=== PATIENT | male | born 1940 | race Caucasian/White ===

== ENCOUNTER → 2023-04-15 09:18 | Outpatient (REF) | payer MEDICARE, BC, SELFPAY ==
[2023-04-15 10:24] LABS: Hematocrit 28.9 % (39.0-52.0); Hemoglobin 8.9 g/dL (13.0-18.0); Mean Corp Hgb Conc. 30.8 g/dL (33.0-37.0); Mean Corpuscular Hgb 29.4 pg (27.0-31.0); Mean Corpuscular Volume 95.4 fL (80.0-94.0); Mean Platelet Volume 12.2 fL (7.4-10.4); Platelet Count 148 10^3/uL (130-400); Red Blood Cell Count 3.03 10^6/uL (4.70-6.10); Red Cell Dist. Width 14.9 % (11.5-14.5); White Blood Cell Count 4.5 10^3/uL (4.8-10.8)
[2023-04-15 10:50] LABS: Albumin 3.5 g/dl (3.5-5.0); Blood Urea Nitrogen 22 mg/dl (9-20); Calcium 9.1 mg/dl (8.4-10.2); Carbon Dioxide 24 mmol/L (22-30); Chloride 111 mmol/L (98-107); Glucose 70 mg/dl (70-99); Iron 368 ug/dl (49-181); Phosphorus 3.3 mg/dl (2.5-4.5); Potassium 4.4 mmol/L (3.5-5.1); Sodium 138 mmol/L (135-145); eGFR 50.18
[2023-04-15 10:57] LABS: Urine Protein 96 mg/dl
[2023-04-15 10:59] LABS: Percent Saturation 74 % (20-50); Total Iron Binding Capacity 497 ug/dl (261-462)
[2023-04-17 17:10] LABS: Phospholipase A2 Receptor, IgG <1:10 (<1:10)
== END ==
LOC: REG 09:18
PROVIDERS: ATTENDING PHYSICIAN Internal Medicine; FAMILY PHYSICIAN Student in an Organized Health Care Education/Training Program
DX: R80.9 Proteinuria, unspecified (principal); D64.9 Anemia, unspecified
CPT/HCPCS: 36415; 80069; 82570; 82728; 83540; 83550; 84156; 85027; 86255

== ENCOUNTER → 2023-05-03 10:39 | Outpatient (REF) | payer MEDICARE, BC, SELFPAY ==
[2023-05-03 11:58] LABS: % Basophils 0.2 % (0-2); % Eosinophils 1.6 % (0-6); % Immature Granulocytes 0.2 % (0-0.5); % Lymphocytes 17.6 % (20.5-51.1); % Monocytes 8.2 % (1.7-9.3); % Neutrophils 72.2 % (42.2-75.2); Absolute Eosinophils 0.1 10^3/uL (0-0.7); Absolute Lymphocytes 0.8 10^3/uL (1.2-3.4); Absolute Monocytes 0.4 10^3/uL (0.1-0.6); Absolute Neutrophils 3.2 10^3/uL (1.4-6.5); Hematocrit 25.7 % (39.0-52.0); Hemoglobin 8.2 g/dL (13.0-18.0); Mean Corp Hgb Conc. 31.9 g/dL (33.0-37.0); Mean Corpuscular Volume 100.4 fL (80.0-94.0); Mean Platelet Volume 11.9 fL (7.4-10.4); Nucleated Red Blood Cells % 0 % (-); Platelet Count 146 10^3/uL (130-400); Red Blood Cell Count 2.56 10^6/uL (4.70-6.10); Red Cell Dist. Width 19.5 % (11.5-14.5); White Blood Cell Count 4.4 10^3/uL (4.8-10.8)
[2023-05-03 12:13] LABS: ALT (SGPT) 42 U/L (0-50); AST (SGOT) 75 U/L (17-59); Albumin 3.9 g/dl (3.5-5.0); Alkaline Phosphatase 67 U/L (38-126); Blood Urea Nitrogen 44 mg/dl (9-20); Calcium 9.6 mg/dl (8.4-10.2); Carbon Dioxide 21 mmol/L (22-30); Chloride 110 mmol/L (98-107); Glucose 60 mg/dl (70-99); Iron 135 ug/dl (49-181); Magnesium 2.6 mg/dl (1.6-2.3); Phosphorus 4.1 mg/dl (2.5-4.5); Sodium 138 mmol/L (135-145); Total Bilirubin 0.5 mg/dl (0.2-1.3); Total Protein 6.7 g/dl (6.3-8.2); eGFR 46.19
[2023-05-03 12:23] LABS: Percent Saturation 29 % (20-50); Total Iron Binding Capacity 454 ug/dl (261-462)
[2023-05-03 13:03] LABS: Vitamin B12 579 pg/ml (239-931)
[2023-05-03 14:11] LABS: Hepatitis B Surface Antigen Negative (Negative)
[2023-05-03 14:14] LABS: AFP Male/Tumor Marker 2.61 ng/ml
[2023-05-03 14:28] LABS: Hepatitis B Core Ab, Total Negative (Negative); Hepatitis B Surface Antibody Negative; Hepatitis C Antibody Negative (Negative)
[2023-05-03 14:31] LABS: Hepatitis A Antibody, Total Negative (Negative)
[2023-05-05 16:59] LABS: Intrinsic Factor Blocking Ab Negative (Negative)
[2023-05-05 20:44] LABS: LKM-1 Ab (IgG) 0.8 U (0.0-24.9)
[2023-05-05 20:55] LABS: Gastric Parietal Cell Ab, IgG 1.4 Units (0.0-24.9)
[2023-05-05 21:49] LABS: ANA, IgG Reflex to HEp-2 Detected (None Detected)
[2023-05-05 22:46] LABS: Alpha-1-Antitrypsin 191 mg/dL (90-200)
[2023-05-05 22:51] LABS: Transferrin 350 mg/dL (200-360)
[2023-05-05 22:55] LABS: Ceruloplasmin 26 mg/dL (15-30)
[2023-05-06 02:59] LABS: F-Actin Antibody IgG 10 Units (0-19); Mitochondrial M2 Ab, IgG 5.9 Units (0.0-24.9)
[2023-05-07 01:17] LABS: ANA, HEp-2, IgG Detected (<1:80)
[2023-05-09 07:15] LABS: ANA Pattern Speckled
== END ==
LOC: REG 10:39
PROVIDERS: ATTENDING PHYSICIAN Nurse Practitioner Adult Health; FAMILY PHYSICIAN Student in an Organized Health Care Education/Training Program; OTHER PHYSICIAN Internal Medicine; REFERRING PHYSICIAN Internal Medicine Gastroenterology
DX: E53.8 Deficiency of other specified B group vitamins (principal); D50.8 Other iron deficiency anemias; R79.89 Other specified abnormal findings of blood chemistry; I50.33 Acute on chronic diastolic (congestive) heart failure; D64.9 Anemia, unspecified
CPT/HCPCS: 36415; 80053; 82103; 82105; 82390; 82607; 82728; 83516; 83540; 83550; 83735; 84100; 84466; 85025; 86015; 86038; 86039; 86340; 86376; 86381; 86704; 86706; 86708; 86803; 87340

== ENCOUNTER 2023-05-03 17:13 | Inpatient (IN) | payer MEDICARE, BC, SELFPAY ==
[2023-05-03] VITALS (8 sets, daily range): BP systolic 107–143; BP diastolic 46–75; PULSE 54–80; BMI 35.8; BMI 34.9
[2023-05-03 13:13] LABS: NT-proBNP 1150 pg/ml
--- NOTE | 2023-05-03 15:10 | ED.GENMED ---
History of Present Illness
General
Chief Complaint: Dizziness
Source: patient and spouse
Exam Limitations: none
Time Seen by Provider: 05/03/23 14:43
Travel History
Have you had any contact with someone who has COVID-19?: No
Do you have any symptoms of coronavirus? Fever > 100 degrees, chills, cough, shortness of breath, sore throat, loss of taste or smell, muscle aches, or headache?: No
History of Present Illness
History of Present Illness:
82-year-old male progressive shortness of breath fatigue lightheadedness with exertion over the last 2 months. Much more severe this morning. Patient outpatient labs done. Came to the ER for further evaluation. Minimal symptoms at rest. Has had
dark stool but is on iron.
Past History
Past History
ED Past Medical History: HTN, Hypercholesterolemia, NIDDM, Renal failure, Hypothyroidism and Other (Prostatic hypertrophy, peripheral arterial disease)
ED Past Surgical History: Cholecystectomy, Tonsilectomy and Other
Social History
Tobacco: Non-smoker
Alcohol: None
Drug: None
Personal:
Living: with family
Employment: Retired
Family History
Family History: Other
Review of Systems
Review of Systems
All Other Systems: Not applicable
Constitutional: Denies fever
Cardiac: Denies chest pain or syncope
Phy Exam
Physical Exam
Physical Exam:
GENERAL: Alert and oriented in no apparent distress
EYE: Orbits normal.
NECK: Supple, no thyroid palpable
ENT: Pharynx without erythema
CARDIAC: Bradycardic and regular with occasional irregular beat.
LUNGS: No respiratory distress. A few dry bibasilar rales
ABDOMEN: Soft, without focal tenderness or distention. Stool dark but test positive
NEUROLOGICAL: Alert and oriented , grossly non-focal
SKIN: Warm and dry, no rash or lesion, no discoloration, skin intact.
MUSCULOSKELETAL: Moderate bilateral pitting edema
PSYCH: Normal and appropriate interaction.
Course
Orders/Labs/Results
Orders:
Orders
05/03/23 12:28
EKG [Electrocardiogram (*1)] Urgent
Reason for Study: Vertigo / Dizzy
EKG- Treatment ONCE
05/03/23 12:42
BNP [NT-proBNP] Urgent
Troponin I Urgent
Comment: ADD ON
05/03/23 14:55
CXR2 [CR Chest - 2 Views ] Urgent
Comment:
Reason For Exam: sob with exertion
05/03/23 14:56
Orthostatic VS- Treatment ONCE
05/03/23 15:00
Add On- LAB Urgent
Tests Added?: troponin
Vital Signs
Initial and Last Documented VS:
Initial Vital Signs
Temp Pulse Resp BP Pulse Ox
97.5 F 94 17 107/46 94
05/03/23 12:30 05/03/23 12:30 05/03/23 12:30 05/03/23 12:30 05/03/23 12:30
Last Documented Vital Signs
Temp Pulse Resp BP Pulse Ox
97.5 F 63 14 119/51 98
05/03/23 12:30 05/03/23 15:16 05/03/23 15:16 05/03/23 15:10 05/03/23 15:05
MDM/Problems Addressed
Differential Diagnosis Includes:
Patient with a complicated medical history including progressive anemia, occult GI bleed, known coronary disease treated medically. Progressive symptoms that could be anginal equivalent or coronary ischemia. Likely multifactorial related to his
progressive anemia. Also progressive renal insufficiency. Also bradycardic at rest which is slightly new. This may be medication related. Given patient's complex history and medical issues along with progressive symptoms patient warrants
inpatient management. Discussed with cardiology.
*Radiology
Radiology exam reviewed: preliminary read by ED provider (Negative chest x-ray)
*Pulse Oximetry
Patient hypoxic: no
*EKG
Interpreted by ED Provider?: Yes
Interpretation: abnormal
Comparison EKG: changes noted
Heart Rate: 53
Rate: bradycardiac
Rhythm: sinus and PVC's
[place]: left axis deviation
Interval: normal interval
QRS Pattern: right bundle branch block
Ischemia: non-specific ST changes
*Microcomputer Support Specialist Interpretation
Rate: bradycardiac
Interpretation: normal
Heart Rate: 52
Rhythm: sinus
*Critical Care Note
Total Time (30-74mins, 75-104mins- exclusive of procedures): Not Applicable
Data Reviewed
Review of Other/Old Records Reveals: Labs, Records, Radiology Studies, Testing and Discharge Summary
ED Attending Note
-
Portions of this chart may have been created with voice recognition software.� Occasional wrong word or��sound alike� substitutions may have occurred due to the inherent limitations of voice recognition software.
Discharge Plan
Departure
Patient Disposition: Admit
Date of Disposition: 05/03/23
Time of Disposition: 15:42
Presentation/result/management discussed w/ accepting MD/DO: Cardiology
Discharge Problem:
Progressive dyspnea on exertion, Symptomatic anemia, Known CAD, Renal insufficiency
Prescriptions:
No Action
glimepiride 4 MG tablet
4 mg PO DAILY
irbesartan 150 MG tablet
150 mg PO DAILY
fenofibrate nanocrystallized 145 MG tablet
145 mg PO QPM
magnesium oxide 400 MG tablet
400 mg PO BID
omega 1-pxo-slv-fish oil [Fish Oil] 1,000 mg (120 mg-180 mg) Capsule
2 cap PO BIDPRN PRN (Reason: supplement)
finasteride 5 mg Tablet
5 mg PO HS
amlodipine 5 mg Tablet
5 mg PO DAILY
diphenhydramine-acetaminophen [Tylenol PM Extra Strength] 25-500 mg Tablet
2 tab PO HS Qty: 0
atorvastatin 80 mg tablet
80 mg PO HS
pantoprazole 20 mg tablet,delayed release (DR/EC)
20 mg PO DAILY
tamsulosin [Flomax] 0.4 MG capsule
0.4 mg PO QPM
ferrous sulfate 325 mg (65 mg iron) Tablet
325 mg PO DAILY
metformin 500 mg Tablet
1,000 mg PO BID
cyanocobalamin (vitamin B-12) 1,000 mcg Tablet
1,000 mcg PO DAILY
levothyroxine [Synthroid] 75 mcg Tablet
75 mcg PO DAILY
methenamine hippurate [Hiprex] 1 gram Tablet
1 g PO BID
Hold Instructions: Resume on 03/16/23. while on iv antibiotics;see your PCP prior to restarting it
furosemide [Lasix] 20 mg Tablet
20 mg PO DAILY
carvedilol 12.5 mg tablet
12.5 mg PO BID
Eliquis 5 mg Tablet
5 mg PO BID
ceftriaxone 2 gram Recon Soln
2,000 mg IV Q24H Qty: 10 0RF
acetaminophen [Tylenol] 325 mg capsule
650 mg PO Q6H PRN (Reason: pain) Qty: 1 0RF
Probiotic 10 billion cell capsule
10,000 mmu cells PO DAILY Qty: 30 0RF
Referrals:
Angel Lord MD [Family Provider] -
Interventions
Interventions:
*Risk Screen - Suicide Last Done: 05/03/23 12:30
*General Assessment Last Done: 05/03/23 12:30
*Neglect/Abuse Screening Last Done: 05/03/23 12:30
ED- Fall Risk Assessment Last Done: 05/03/23 15:05
*ED COVID-19 Vaccine History Last Done: 05/03/23 12:30
ED- Neurological Assessment Last Done: 05/03/23 15:05
ED- Cardiac Assessment Last Done: 05/03/23 15:05
ED Swallowing Screen Last Done: 05/03/23 15:05
[2023-05-03 15:51] LABS: Troponin I < 0.012 ng/ml
--- NOTE | 2023-05-03 16:20 | CON.CAR ---
Addendum entered and electronically signed by Campos Carvajal MD 05/03/23 16:38:
Cardiac catheterization 10/02/2021 RCA occlusion in the midportion RPDA and posterolateral fills via collaterals. LAD with 30 to 40% stenosis left circumflex 60 to 70% mid stenosis proximal to OM 3 OM2 is a small vessel which is proximally occluded
OM 3 is a 30% stenosis
Echocardiogram 01/26/2023 normal left ventricular function mild aortic stenosis with a mean gradient of 21 mmHg. Mild mitral regurgitation
Original Note:
Consultation
Consultation Request
Date/Time Consultation Requested: 05/03/2023 at 1620
Date/Time Consultation Performed: 05/03/2023 1620
Requesting Provider: Dr. Ricks
Performing Provider: Dr. Carvajal
Reason for Consultation: Shortness of breath
Medical History
-
History of Present Illness:
Primary sports cartoonist Dr. Alston
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 Patient's had progressive shortness of breath over the last
week also has noticed some increased edema. Earlier in the month he had some shortness of breath and was placed on higher doses of diuretic. symptoms seemed to improve over the past week recent symptoms as noted. Despite having increased edema he
says his weight has been stable. He has been compliant with. He has orthopnea and has been sleeping in a chair. He has a history of chronic anemia and takes iron stools are dark chronically no ramez blood noted. Heme test positive in ER no cough
fever or other respiratory symptoms no complaints of chest pain
Past medical history
Coronary artery disease
Chronic total occlusion of RCA
Medically treated 60 to 70% stenosis of the circumflex by last Nonobstructive coronary
CKD
PAF
Hypertension
Heart failure with preserved ejection fraction
Diabetes
Sleep apnea
Aortic stenosis
Right carotid endarterectomy 04/19/2022
PAD and iliac stenting 2016
Social History
Personal:
Living: With Family
Family History
Family History: CAD
Allergies / Home Medications
Allergy/AdvReac Type Severity Reaction Status Date / Time
clonidine Allergy dry mouth, Verified 01/16/23 11:01
sleepless
Medication Instructions Recorded Confirmed Type
fenofibrate nanocrystallized 145 145 mg PO QPM High cholesterol 07/29/21 01/21/23 History
mg tablet
glimepiride 4 mg tablet 4 mg PO DAILY Diabetes 07/29/21 05/03/23 History
irbesartan 150 mg tablet 300 mg PO DAILY Blood pressure 07/29/21 05/03/23 History
magnesium oxide 400 mg PO BID Electrolyte Repletion 07/29/21 05/03/23 History
finasteride 5 mg tablet 5 mg PO HS Urinary issue 12/02/21 05/03/23 History
amlodipine 5 mg tablet 5 mg PO DAILY Blood pressure 04/05/22 05/03/23 History
diphenhydramine 25 2 tab PO HS Sleep ##0 04/05/22 05/03/23 History
mg-acetaminophen 500 mg tablet
(Tylenol PM Extra Strength)
pantoprazole 20 mg tablet,delayed 20 mg PO DAILY Gastrointestinal 10/25/22 05/03/23 History
release Issue
tamsulosin 0.4 mg capsule (Flomax) 0.4 mg PO QPM Urinary Issue 10/25/22 01/21/23 History
ferrous sulfate 325 mg (65 mg 325 mg PO DAILY Supplement 12/06/22 05/03/23 History
iron) tablet
carvedilol 12.5 mg tablet 12.5 mg PO BID Blood Pressure 01/16/23 05/03/23 History
cyanocobalamin (vitamin B-12) 1,000 mcg PO DAILY Supplement 01/16/23 05/03/23 History
1,000 mcg tablet
furosemide 20 mg tablet (Lasix) 20 mg PO DAILY Fluid 01/16/23 05/03/23 History
Retention/Swelling
levothyroxine 75 mcg tablet 75 mcg PO DAILY Thyroid 01/16/23 05/03/23 History
(Synthroid)
metformin 500 mg tablet 1,000 mg PO BID diabetes 01/16/23 05/03/23 History
methenamine hippurate 1 gram 1 g PO BID Urinary Issue 01/16/23 05/03/23 History
tablet (Hiprex)
apixaban 5 mg tablet (Eliquis) 5 mg PO BID 01/21/23 05/03/23 History
rosuvastatin 40 mg tablet (Crestor) 40 mg PO QPM 05/03/23 05/03/23 History
Review of Systems
-
All other systems: Negative unless noted
Physical Exam
Vital Signs
Temp Pulse Resp BP Pulse Ox
97.5 F 63 14 119/51 98
05/03/23 12:30 05/03/23 15:16 05/03/23 15:16 05/03/23 15:10 05/03/23 15:05
Lab Results
Troponin I Cancelled 05/03/23 14:56
Yrw-B-Cnfkjjrosdr Pept 1150 pg/ml 05/03/23 12:42
Physical Exam
General: Well Developed and Well Nourished
HEENT: Normocephalic, Anicteric, Moist Mucous Membranes and Other (EOMI, external ear and nose exam unrenarkable)
Cardiac: Irregular Rhythm and Other (2/6 systolic murmur)
GI: Soft, Non Tender, Normal Bowel Sounds and Other (Distended nontender no detectable mass)
Genito-urinary: No Costovertebral Tender
Musculoskeletal: No Clubbing, No Cyanosis and Other (Bilateral lower extremity edema most prominent below the knee some edema noted in the thighs)
Skin: Warm
Neuro: Awake and Alert
Hematologic/Lymphatic: No Lymphadenopathy
Psych: Calm and Other (Cooperative normal mood)
Impression / Plan
-
Shortness of breath. Likely due to a combination of component volume overload/heart failure preserved ejection fraction. In addition patient has had progressive anemia and hemoglobin 8.2.
-Diuresis with IV Lasix
-Close monitoring of renal function
-Treatment of anemia as directed by primary team
.
Heart failure with preserved ejection fraction.
-Treatment as noted above
.
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 No chest discomfort to suggest angina.
-Continue to optimize medical therapy for coronary artery disease
-This includes treatment of anemia.
.
Anemia.
-Downward trend of anemia which is now 8.2
-Dark stools secondary to iron but patient also reported heme positive
-Evaluation and treatment as directed by primary
.
.
CKD -monitor with diuresis
.
Diabetes
hypertension
PAD
History of carotid endarterectomy
Data Reviewed
-
EKG: Report Reviewed by me
Radiology: Report Reviewed by me
CT Scan: Report Reviewed by me
MRI: Report Reviewed by me
--- NOTE | 2023-05-03 16:56 | HPS.HSE ---
Family Physician
-
Family Physician: Angel Lord MD
Chief Complaint
-
shortness of breath, dizziness
History of Present Illness
82-year-old male past medical history of hypertension, peripheral arterial disease, carotid artery disease status post endarterectomy, hypercholesteremia, diabetes, CKD stage III, hypothyroidism, BPH, GI bleeding, recent Streptococcus mitis/oralis
bacteremia presenting for shortness of breath all the time, fatigue, lightheadedness with exertion and standing over the past 2 years but particularly worsening over the past 2 weeks. Shortness of breath is also worse when he lies down flat and he
has had difficulty sleeping. He has had increased lower extremity edema. No significant weight gain. No chest pain.
He has a history of dark stools due to taking iron supplement and recently he has been having loose stools sometimes 3-4 times a day. He does have a history of hemorrhoids and sometimes does noted bright red blood per rectum which has been
occurring more frequently but always self resolves.
Patient spoke with his telephone exchange operator Dr. Alston 2 weeks ago and he was started on Lasix 40 twice daily for 3 days followed by 20 twice daily. Symptoms did improve a little bit. He also saw his rheologist Dr. Blank who started him on irbesartan
within the past 2 weeks. His urine output has been less but adequate.
Medical History
Past Medical History
Past Medical History: Reports Other (hypertension, peripheral arterial disease, carotid artery disease status post endarterectomy, hypercholesteremia, diabetes, CKD stage III, hypothyroidism, BPH, GI bleeding, recent Streptococcus mitis/oralis
bacteremia)
Past Surgical History: Reports None
Social History
Tobacco: Non-smoker
Alcohol: None
Drug: None
Family History
Family History: Not pertinent
Allergies / Home Medications
Allergies reflects when Allergies were last updated in [employer].
Home Medications with original date entered in [employer]
Allergy/Medication List:
Allergies
Allergy/AdvReac Type Severity Reaction Status Date / Time
clonidine Allergy dry mouth, Verified 01/16/23 11:01
sleepless
Home Medications
fenofibrate nanocrystallized 145 mg tablet 145 mg PO QPM High cholesterol 07/29/21
glimepiride 4 mg tablet 4 mg PO DAILY Diabetes 07/29/21
irbesartan 150 mg tablet 300 mg PO DAILY Blood pressure 07/29/21
magnesium oxide 400 mg PO BID Electrolyte Repletion 07/29/21
finasteride 5 mg tablet 5 mg PO HS Urinary issue 12/02/21
amlodipine 5 mg tablet 5 mg PO DAILY Blood pressure 04/05/22
diphenhydramine 25 mg-acetaminophen 500 mg tablet (Tylenol PM Extra Strength) 2 tab PO HS Sleep ##0 04/05/22
pantoprazole 20 mg tablet,delayed release 20 mg PO DAILY Gastrointestinal Issue 10/25/22
tamsulosin 0.4 mg capsule (Flomax) 0.4 mg PO QPM Urinary Issue 10/25/22
ferrous sulfate 325 mg (65 mg iron) tablet 325 mg PO DAILY Supplement 12/06/22
carvedilol 12.5 mg tablet 12.5 mg PO BID Blood Pressure 01/16/23
cyanocobalamin (vitamin B-12) 1,000 mcg tablet 1,000 mcg PO DAILY Supplement 01/16/23
furosemide 20 mg tablet (Lasix) 20 mg PO DAILY Fluid Retention/Swelling 01/16/23
levothyroxine 75 mcg tablet (Synthroid) 75 mcg PO DAILY Thyroid 01/16/23
metformin 500 mg tablet 1,000 mg PO BID diabetes 01/16/23
methenamine hippurate 1 gram tablet (Hiprex) 1 g PO BID Urinary Issue 01/16/23
apixaban 5 mg tablet (Eliquis) 5 mg PO BID 01/21/23
pioglitazone 30 mg tablet (Actos) 30 mg PO DAILY 05/03/23
rosuvastatin 40 mg tablet (Crestor) 40 mg PO QPM 05/03/23
Review of Systems
-
History Source: Patient
A 12 point ROS was completed and negative except as noted: Yes
Constitutional: Reports No Symptoms
EENT: Reports No Symptoms
Respiratory: Reports See HPI
Cardiac: Reports See HPI
Abdomen/GI: Reports No Symptoms
: Reports No Symptoms
Musculoskeletal: Reports No Symptoms
Skin: Reports No Symptoms
Neurological: Reports No Symptoms
Endocrine: Reports No Symptoms
Hematologic/Lymphatic: Reports No Symptoms
Psych: Reports No Symptoms
Physical Exam
Vital Signs
Vital Signs
Temp Pulse Resp BP Pulse Ox
97.5 F 55 19 119/51 97
05/03/23 12:30 05/03/23 16:30 05/03/23 16:30 05/03/23 15:10 05/03/23 16:39
Physical Exam
General: Well Developed, Well Nourished and No Apparent Distress
HEENT: NormoCephalic, Moist mucous membranes and Atraumatic
Respiratory: Clear
Cardiac: S1/S2 and Regular Rhythm; No Murmur or Rub
GI: Soft, Non Tender, Non Distended and Normal Bowel Sounds; No Organomegaly
Rectal: Deferred by Provider
Musculoskeletal: No Clubbing, No Cyanosis and No Edema
Skin: No Rash
Neuro: Nonfocal/grossly intact
Laboratory Results
-
Laboratory Results
Troponin I Cancelled 05/03/23 14:56
Data Reviewed
-
Lab Data: Labs Reviewed by me
Old Records: Reviewed
Impression/Plan
-
IMPRESSION:
PLAN:
# Exertional dyspnea/lightheadedness multifactorial secondary to acute on chronic HFpEF exacerbation on chronic anemia
-EKG shows sinus bradycardia with occasional PVCs
-Chest x-ray shows mild cardiomegaly without pulmonary edema
-Cardiac BNP of 1150 from 1560
-Hemoglobin of 8.2 not significantly off from baseline of around 9.3
-Recent echocardiogram showed no large distinct vegetation however the diffuse thickening calcified nature of the mitral valve annulus and aortic valve
-40 IV Lasix once, and monitor clinical response and kidney function
-Continue Coreg
-cardiology consulted
#Chronic normocytic anemia/chronic blood loss anemia due to GI blood loss
# History of hemorrhoids
-Transfuse for hemoglobin under 8 given current heart failure
-Hold Eliquis for now
-Status post EGD on 01/18/2023 with no significant source of bleeding
-Patient previously had outpatient capsule endoscopy at outside facility
-Continue iron supplement
-Continue Protonix
-GI consulted
#Mild sinus bradycardia likely secondary to Coreg
-Continue Coreg
# Acute kidney injury versus new CKD baseline
-Creatinine 1.5 from 0.9 in April
-Observe with diuresis
-Hold irbesartan
History of recent Streptococcus mitis/oralis bacteremia with septic arthritis of left facet joint L4-L5 paraspinal soft tissue enhancement
-Recently completed 6 weeks of ceftriaxone with PICC line
Severe carotid stenosis status post carotid endarterectomy/bilateral iliac stents
Peripheral arterial disease
Coronary artery disease
Paroxysmal atrial fibrillation
-Hold Eliquis for now
Right bundle branch block
Aortic stenosis
Obstructive sleep apnea
-Continue CPAP
Essential hypertension
-Continue amlodipine
-Hold irbesartan
Hyperlipidemia
Type 2 diabetes
-Hold glimepiride, metformin, pioglitazone
-Insulin sliding scale
Hyperlipidemia
-Continue fenofibrate
Hypothyroidism
-Continue levothyroxine
BPH
-Continue finasteride, tamsulosin
History of orchitis
History of UTI
Full code
DVT prophylaxis�SCDs
Cardiac/diabetic diet
[2023-05-03] MEDS: LASIX 40 MG IV (17:42)
[2023-05-03] MEDS: TYLENOL 1000 MG PO ×2 (17:48→22:11)
[2023-05-03] MEDS: MAG-TAB SR 84 MG PO (20:56)
[2023-05-03] MEDS: CRESTOR 40 MG PO (20:56)
[2023-05-03] MEDS: COREG 12.5 MG PO (20:56)
[2023-05-03] MEDS: FLOMAX 0.400000000000000022 MG PO (20:57)
[2023-05-03] MEDS: PROSCAR 5 MG PO (20:57)
[2023-05-03] MEDS: TRICOR 145 MG PO (20:57)
[2023-05-03] MEDS: HIPREX 1 GRAM PO (20:59)
[2023-05-03 21:25] LABS: Glucose - Point of Care 76 mg/dl (70-99)
[2023-05-03] MEDS: BENADRYL 50 MG PO (22:11)
[2023-05-04] VITALS (23 sets, daily range): BP systolic 102–151; BP diastolic 42–62; PULSE 76; BMI 34.9
[2023-05-04 00:49] LABS: Glucose - Point of Care 40 mg/dl (70-99)
[2023-05-04] MEDS: GlucaGen 1 MG IM (00:50)
--- NOTE | 2023-05-04 00:54 | PTCARENOTE ---
Addendum entered by Farzana Mercer RN 05/04/23 03:47:
0150 Pt's HR 30-40. POX decreasing to 88-89% on cpap, RT called to the bedside. 2L NC added to cpap. Joana SAMPSON made aware via TT.
Original Note:
Pt resting in bed. Hr dropped to 26, HR sustaining in 30-40. Pt pale, diaphoretic and c/o feeling 'woozy'. House FOREX TRADER Joana Eric notified. EKG ordered. accucheck 40. Pt slow to respond to answers. glucagon given.
[2023-05-04] MEDS: DEXTROSE 50% SYRINGE 12.5 GRAMS IV ×4 (01:10→07:43)
[2023-05-04 04:01] LABS: Glucose - Point of Care 56 mg/dl (70-99)
--- NOTE | 2023-05-04 04:05 | PTCARENOTE ---
0125 Pt's accucheck 100. Pt resting comfortably, states 'I feel ok.'
0325 Pt's rectal temp 96.5, Joana SAMPSON, made aware. Apply warm blankets as instrcuted by LATHE MACHINE OPERATOR.
0400 Pt's accucheck 56. House LATHE MACHINE OPERATOR made aware via TT, ordered to give half amp of dextrose. Pt made aware.
[2023-05-04 04:23] LABS: Glucose - Point of Care 86 mg/dl (70-99)
--- NOTE | 2023-05-04 04:52 | DOWNTIME ---
There was a [employer] Manager Downtime on 05/04/2023 from 0100 to 05/04/2023 at 0322. Downtime documentation of patient's care, including medication administrations, has been reconciled in the electronic record per guidelines. Refer to the
patient's paper chart under the miscellaneous tab to see printed paper medication records and downtime forms.
[2023-05-04 05:01] LABS: % Eosinophils 0.9 % (0-6); % Immature Granulocytes 0.3 % (0-0.5); % Monocytes 9.4 % (1.7-9.3); % Neutrophils 71.4 % (42.2-75.2); Absolute Lymphocytes 0.6 10^3/uL (1.2-3.4); Absolute Monocytes 0.3 10^3/uL (0.1-0.6); Absolute Neutrophils 2.4 10^3/uL (1.4-6.5); Hematocrit 21.4 % (39.0-52.0); Mean Corp Hgb Conc. 30.4 g/dL (33.0-37.0); Mean Corpuscular Volume 101.9 fL (80.0-94.0); Mean Platelet Volume 11.5 fL (7.4-10.4); Nucleated Red Blood Cells % 0 % (-); Platelet Count 114 10^3/uL (130-400); Red Cell Dist. Width 19.7 % (11.5-14.5); White Blood Cell Count 3.4 10^3/uL (4.8-10.8)
[2023-05-04 05:16] LABS: Hemoglobin 6.5 g/dL (13.0-18.0)
[2023-05-04 05:23] LABS: ALT (SGPT) 37 U/L (0-50); AST (SGOT) 58 U/L (17-59); Albumin 3.2 g/dl (3.5-5.0); Alkaline Phosphatase 59 U/L (38-126); Blood Urea Nitrogen 50 mg/dl (9-20); Calcium 9.3 mg/dl (8.4-10.2); Carbon Dioxide 24 mmol/L (22-30); Chloride 109 mmol/L (98-107); Estimated Creatinine Clearance 50 ml/min; Glucose 63 mg/dl (70-99); Magnesium 2.7 mg/dl (1.6-2.3); Potassium 4.3 mmol/L (3.5-5.1); Sodium 139 mmol/L (135-145); Total Bilirubin 0.3 mg/dl (0.2-1.3); Total Protein 5.6 g/dl (6.3-8.2); eGFR 46.19
--- NOTE | 2023-05-04 05:41 | W.PN.UPDATE ---
Update Note
Progress Note Update
Patient throughout night was mildly hypotensive, mildly hypothermic, bradycardic, all responded with interventions. Patient was hypoglycemic and rebounds with dextrose and sugar would fall within a few hours. His morning labs: Hgb 6.5/Hct 21.4 down
from 8.2/25.7 overnight. No reported bleeding observed by nursing. Reviewed with hand stoner, plan as noted below.
Plan:
Transfer to IMU for closer monitoring
Blood cultures
1 unit PRBCs
- anemic Hgb 6.5/Hct 21.4
- Informed blood consent obtained from patient. Patient is AAOx3, able to make needs known, reviewed risk and benefits of blood transfusion, alternatives and possible complications. He stated he recently received 2 units with no complications, he
states hgb keeps dropping and no definitive cause has been found, he has consented this morning to receiving blood products as needed during this admission.
Hypoglycemia
- D5NSS 50cc/hr
[2023-05-04 06:24] LABS: Glucose - Point of Care 48 mg/dl (70-99)
--- NOTE | 2023-05-04 06:37 | PTCARENOTE ---
Pt's accucheck 48, Joana Eric APPLICATION DESIGNER made aware, administered prn detrose. Spoke with nursing assembly department supervisor about transfer, IMU bed available.
[2023-05-04 06:47] LABS: Glucose - Point of Care 88 mg/dl (70-99)
[2023-05-04] MEDS: D5/0.9% SODIUM CHLORIDE 1000 IV ×2 (07:11→22:32)
--- NOTE | 2023-05-04 07:30 | PTCARENOTE ---
Report called to Afshan GUERIN in IMU. Pt transferred without issues.
[2023-05-04] MEDS: NOVOLOG FLEXPEN-LOW RESISTANCE SC ×3 (07:46→17:38)
[2023-05-04] MEDS: NORVASC PO (07:47)
[2023-05-04] MEDS: COREG PO (07:47)
[2023-05-04 07:49] LABS: Glucose - Point of Care 58 mg/dl (70-99)
--- NOTE | 2023-05-04 07:51 | PTCARENOTE ---
Pt arrived from via bed. Aox3 and pleasant. SB on tele monitor in the high 40s-low 50's. BP stable. AccuCheck with result of 58 despite IVF with dextrose running. Treated with D50. Dr. Alvarez notified via TT. Awaiting further orders.
[2023-05-04 08:17] LABS: Glucose - Point of Care 90 mg/dl (70-99)
--- NOTE | 2023-05-04 08:23 | W.PN.HOSP.TC ---
Today's Communication/Plan
-
consult cards
await GI
increase D5 to 75 ml/hr, next step D10
check random cortisol, TSH, iron studies
transfuse 2 units pRBC
Assessment / Plan
Assessment / Plan
pt is an 82 year old male
hypoglycemia (h/o type 2 DM)--with KRZYSZTOF, likely effect of DM meds---Hold glimepiride, metformin, pioglitazone--placed on D5, increased rate from 50-75 ml/hr --next step would be D10 rather than pushing IVF rate--cont Insulin sliding scale--check
cortisol, TSH
bradycardia--coreg on hold--unclear if due to hypoglycemia--check random cortisol and TSH with reflex to free T4 --consult cards
acute on chronic anemia (also h/o hemorrhoids)--possibly due to subacute blood loss anemia from GI losses (h/o History of recent Streptococcus mitis/oralis bacteremia with septic arthritis of left facet joint L4-L5 paraspinal soft tissue
enhancement--Recently completed 6 weeks of ceftriaxone with PICC line)--pt states that he had full w/u at [place] with EGD/colon/capsule study--all neg--transfuse for HGB <8--hold Eliquis---Status post EGD on 01/18/2023 with no significant source
of bleeding--check iron studies prior to transfusion--did receive iron infusion as outpt--cont protonix--may need heme eval--await GI
Exertional dyspnea/lightheadedness-- multifactorial--more likely due to anemia, doubt significant exacerbation of diastolic CHF--lasix started as outpt on hold--consult cards---Cardiac BNP of 1150 from 1560--Recent echocardiogram showed no large
distinct vegetation however the diffuse thickening calcified nature of the mitral valve annulus and aortic valve
Acute kidney injury--Creatinine 1.5 from 0.9 in April--Hold irbesartan
Severe carotid stenosis status post carotid endarterectomy/bilateral iliac stents/Peripheral arterial disease/Coronary artery disease-- noted
Paroxysmal atrial fibrillation/Aortic stenosis/RBBB--Hold Eliquis for now-- rate controlled as pt bradycardic
Obstructive sleep apnea--Continue CPAP
Essential hypertension--Continue amlodipine--Hold irbesartan
Hyperlipidemia--cont crestor--Continue fenofibrate
Hypothyroidism--Continue levothyroxine--check TSH with reflex to free T4
BPH--Continue finasteride, tamsulosin
Code status --Full code
DVT prophylaxis�SCDs
Total Critical Care Time 40 minutes. I was immediately available to the patient and staff. I personally examined, reviewed labs, diagnostic images/reports, interpretations, treatment plans, discussed patient care with other providers and family
or caregivers (if patient is unable to make decisions), entered orders as appropriate and documented the medical record.
Anticipated Discharge: > 48 hours
Subjective/Interval History
-
Date of Service: May 04, 2023
pt denied any issues
Objective Data
-
Labs:
Laboratory Results
05/04/23
04:46
WBC 3.4 L
Hgb 6.5 L* D
Hct 21.4 L
Plt Count 114 L D
Sodium 139
Potassium 4.3
Chloride 109 H
Carbon Dioxide 24
BUN 50 H
Creatinine 1.5 H
Glucose 63 L
Calcium 9.3
Total Bilirubin 0.3
AST 58
ALT 37
Alkaline Phosphatase 59
Vital Signs:
max temp for 24 hours
05/04/23
00:12
Temp 97.7 F
Vital Signs
Temp Pulse Resp BP Pulse Ox
97 F 60 18 121/60 98
05/04/23 05:30 05/04/23 08:15 05/04/23 08:15 05/04/23 08:00 05/04/23 08:18
I&O
05/03/23 05/04/23 05/05/23
06:59 06:59 06:59
Output Total 300 / 300
Balance -300 / -300
Review of Systems
-
All other systems: Reviewed and negative
Physical Exam
-
General: Well Developed, Well Nourished and No Apparent Distress
HEENT: Normocephalic, Atraumatic and Oxygen
Respiratory: Crackles (left base--) and Decreased Breath Sounds (right base)
Cardiac: Regular Rhythm, S1/S2, Murmur and Bradycardic
GI: Soft, Nontender, Nondistended and Normal Bowel Sounds
Musculoskeletal: No Clubbing and No Cyanosis; Negative No Edema (4+ pitting edema)
Skin: Warm
Neuro: Awake and Alert
Psych: Calm
[2023-05-04 08:56] LABS: Glucose - Point of Care 100 mg/dl (70-99)
[2023-05-04 09:00] LABS: Glucose - Point of Care 42 mg/dl (70-99)
[2023-05-04 09:00] LABS: Glycohemoglobin (HgbA1c) 5.7 % (4.0-5.6)
[2023-05-04] MEDS: FEOSOL 325 MG PO (09:15)
[2023-05-04] MEDS: MAG-TAB SR 84 MG PO ×2 (09:15→20:52)
[2023-05-04] MEDS: HIPREX 1 GRAM PO ×2 (09:15→20:51)
[2023-05-04] MEDS: VITAMIN B-12 1000 MCG PO (09:15)
[2023-05-04] MEDS: SYNTHROID 75 MCG PO (09:16)
[2023-05-04] MEDS: PROTONIX 20 MG PO (09:16)
[2023-05-04 09:29] LABS: Total Iron Binding Capacity 417 ug/dl (261-462)
--- NOTE | 2023-05-04 09:30 | CON.GI ---
Addendum entered and electronically signed by Piero Castro MD 05/04/23 21:21:
I saw and examined the patient.
The PA's note was reviewed and I agree with the note.
Comment:
The pt is a 82 year old male with h/o chronic anemia with recent iron infusions, atrial fibrillation (on Eliquis), and newly diagnosed cirrhosis who p/w symptomatic anemia. Hgb was 8.2 with baseline 9-10 range. Hgb decreased further to 6.5.
Impression / Rec:
1. Symptomatic anemia - chronic dark stools, no rectal bleeding. Denies NSAID use and abdo pain. He had been evaluated endoscopically multiple times for this; EGD on 01/2023 and 10/2022 both were unremarkable. Had similar presentation in [facility] in 2021, had EGD/colonoscopy (diverticulosis otherwise unremarkable) and reportedly had capsule endo (-ve study). Given his CKD, AVM is in the differential but had capsule endo in 2021 which was -ve. At this point, given his endo
hx, repeat EGD/colonoscopy seems low yield. Will consider possible push enteroscopy. Eliquis held since 3 AM.
Original Note:
Consultation
-
Date/Time Consultation Requested: 05/03/238
Date/Time Consultation Performed: 05/04/23 0900
Requesting Provider: Dr. Javed
Performing Provider: Dr. Castro / Jada Patel PA-C
Reason for Consultation: anemia, heme positive stool
Medical History
Chief Complaint / HPI
Chief Complaint: melena
History of Present Illness:
This is an 82 year old male, known to Dr. Allison and last seen by me in the GI office last month, with a past medical history of GI bleeding, chronic anemia with recent iron infusions, colon polyps, and atrial fibrillation (on Eliquis), newly
diagnosed cirrhosis who presented to the ER yesterday 05/03/23 with symptoms of increasing dyspnea, dizziness and lightheadedness. Hemoglobin in the ER was 8.2, with baseline Hgb in the 9-10 range. Overnight, hemoglobin dropped to 6.5, from 8.2. He
has chronic dark stools, denies any rectal bleeding or BRBPR. He also denies any abdominal pain, nausea, vomiting, fevers, chills. His last dose of Eliquis was yesterday morning, which is prescribed for atrial fibrillation which was diagnosed during
a prior hospital admission in October 2022. He has a prior history of GI bleed in May 2021, and had endoscopy, colonoscopy and video capsule studies at [facility] which were all negative. At that time he was on DAPT. He is not on ASA or
Plavix now. He is a former smoker, denies alcohol or NSAID use. He has had loose stools recently, but this is not new for him as he gets alternating diarrhea and constipation as his baseline bowel habits. He did follow up with Hematology (cannot
recall doctor's name but with [facility]) and received 2 iron infusions recently. Prior CT scan was suggestive of cirrhosis, and patient had an outpatient FibroScan which confirmed F4 fibrosis/cirrhosis. Full liver workup labs were ordered,
results pending. Current labs show normal LFTs. He is awaiting transfusion, 2 units PRBCs have been ordered.
Other medical problems include CHF with preserved ejection fraction, aortic stenosis, CAD, carotid artery stenosis (s/p carotid endarterectomy), PAD (s/p bilateral iliac stents), HTN, hyperlipidemia, non-insulin dependent DM, CKD stage 3,
hypothyroidism, BPH, ZAYRA, recurrent UTIs, and colon polyps. Recent admission in January 2023 for strep mitis/oralis bacteremia with septic arthritis of the L4-L5 facet joint, as well as heme positive stools. GI evaluated patient at that time; he
had endoscopy with Dr. Allison which was unremarkable, no source of bleeding identified.
Past Medical History
Past Medical History: CAD, HTN, Hypercholesterolemia, Hypothyroidism, NIDDM and Other (atrial fibrillation, aortic stenosis, carotid artery stenosis, PAD, CKD - stage 3, BPH, ZAYRA, recurrent UTIs, colon polyps, cirrhosis)
Past Surgical History: Cholecystectomy and Other (R carotid endarterectomy, bilateral iliac stents, tonsillectomy)
Social History
Tobacco: Former Smoker
Alcohol: None
Drug: None
Personal:
Living: With Family
Employment: Retired
Family History
Family History: Other (no family history of GI malignancies)
Allergies / Home Medications
Allergy/AdvReac Type Severity Reaction Status Date / Time
clonidine Allergy dry mouth, Verified 01/16/23 11:01
sleepless
�Medication �Instructions �Recorded
fenofibrate nanocrystallized 145 145 mg PO QPM High cholesterol 07/29/21
mg tablet
glimepiride 4 mg tablet 4 mg PO DAILY Diabetes 07/29/21
irbesartan 150 mg tablet 300 mg PO DAILY Blood pressure 07/29/21
magnesium oxide 400 mg PO BID Electrolyte Repletion 07/29/21
finasteride 5 mg tablet 5 mg PO HS Urinary issue 12/02/21
amlodipine 5 mg tablet 5 mg PO DAILY Blood pressure 04/05/22
diphenhydramine 25 2 tab PO HS Sleep ##0 04/05/22
mg-acetaminophen 500 mg tablet
(Tylenol PM Extra Strength)
pantoprazole 20 mg tablet,delayed 20 mg PO DAILY Gastrointestinal 10/25/22
release Issue
tamsulosin 0.4 mg capsule (Flomax) 0.4 mg PO QPM Urinary Issue 10/25/22
ferrous sulfate 325 mg (65 mg 325 mg PO DAILY Supplement 12/06/22
iron) tablet
carvedilol 12.5 mg tablet 12.5 mg PO BID Blood Pressure 01/16/23
cyanocobalamin (vitamin B-12) 1,000 mcg PO DAILY Supplement 01/16/23
1,000 mcg tablet
furosemide 20 mg tablet (Lasix) 20 mg PO DAILY Fluid 01/16/23
Retention/Swelling
levothyroxine 75 mcg tablet 75 mcg PO DAILY Thyroid 01/16/23
(Synthroid)
metformin 500 mg tablet 1,000 mg PO BID diabetes 01/16/23
methenamine hippurate 1 gram 1 g PO BID Urinary Issue 01/16/23
tablet (Hiprex)
apixaban 5 mg tablet (Eliquis) 5 mg PO BID Blood Clot 01/21/23
Prevention/Tx
pioglitazone 30 mg tablet (Actos) 30 mg PO DAILY Diabetes 05/03/23
rosuvastatin 40 mg tablet (Crestor) 40 mg PO QPM High Cholesterol 05/03/23
Review of Systems
-
History Source: Patient
All other systems: A 12 pt ROS was Negative except as stated above in HPI
Vital Signs
Temp Pulse Resp BP Pulse Ox
97.6 F 60 18 121/60 98
05/04/23 08:15 05/04/23 08:15 05/04/23 08:15 05/04/23 08:00 05/04/23 08:18
Physical Exam
Exam
General: Well Developed, Well Nourished and No Apparent Distress
Respiratory: Clear
Cardiac: S1/S2 and Regular Rhythm
GI: Soft, Non Tender, Non Distended and Normal Bowel Sounds
Rectal: Other (ER exam notes dark, heme positive stool)
Skin: Warm and Dry
Neuro: AO x 3
Psych: Calm
Results
WBC 3.4 10^3/uL (4.8-10.8) L 05/04/23 04:46
Hgb 6.5 g/dL (13.0-18.0) L* D 05/04/23 04:46
Hct 21.4 % (39.0-52.0) L 05/04/23 04:46
MCV 101.9 fL (80.0-94.0) H 05/04/23 04:46
Plt Count 114 10^3/uL (130-400) L D 05/04/23 04:46
Absolute Neuts (auto) 2.4 10^3/uL (1.4-6.5) 05/04/23 04:46
Sodium 139 mmol/L (135-145) 05/04/23 04:46
Potassium 4.3 mmol/L (3.5-5.1) 05/04/23 04:46
Chloride 109 mmol/L (98-107) H 05/04/23 04:46
Carbon Dioxide 24 mmol/L (22-30) 05/04/23 04:46
BUN 50 mg/dl (9-20) H 05/04/23 04:46
Creatinine 1.5 mg/dL (0.7-1.3) H 05/04/23 04:46
Calcium 9.3 mg/dl (8.4-10.2) 05/04/23 04:46
Total Bilirubin 0.3 mg/dl (0.2-1.3) 05/04/23 04:46
AST 58 U/L (17-59) 05/04/23 04:46
ALT 37 U/L (0-50) 05/04/23 04:46
Alkaline Phosphatase 59 U/L (38-126) 05/04/23 04:46
Diagnostic Image Results:
Chest x-ray, 05/03/23:
Mild cardiomegaly without associated pulmonary edema
Prior GI Procedures:
EGD:
01/18/2023: Dr. Allison, indication- melena, suspected upper GI bleeding
Impression: - Normal esophagus.
- Erythematous mucosa in the stomach.
- Normal examined duodenum.
- rectal exam- dark brown stool +
Recommendation: - Return patient to hospital [facility] for ongoing care.
- Resume previous diet.
- ok to resume anticoagulation
- monitor CBC
10/28/2022: Dr. Funez, indication- DAREN secondary to chronic blood loss, heme positive stool
Impression: - Normal esophagus.
- Normal stomach.
- Normal examined duodenum.
- No specimens collected.
Recommendation: - OK to anticoagulate if needed for new Afib
Colonoscopy:
May 2021 at [facility], reportedly negative
Assessment / Plan
-
82 year old male, with a history of GI bleeding, chronic anemia with recent iron infusions, colon polyps, and atrial fibrillation (on Eliquis), newly diagnosed cirrhosis who presented to the ER yesterday 05/03/23 increasing dyspnea, dizziness and
lightheadedness. Hemoglobin in the ER was 8.2, with baseline Hgb in the 9-10 range. Overnight, hemoglobin dropped to 6.5, from 8.2. He has chronic dark stools, but denies any rectal bleeding or BRBPR. Pt denies any abdominal pain, nausea, vomiting,
fevers, chills. He has a prior history of GI bleed in May 2021, with prior workup including endoscopy, colonoscopy and video capsule study at [facility], all negative. At that time he was on DAPT. He is not on ASA or Plavix now. He is a
former smoker, denies alcohol or NSAID use. He has had loose stools recently, but this is not new for him as he gets alternating diarrhea and constipation as his baseline bowel habits. He did follow up with Hematology and received 2 iron infusions
recently. Prior CT scan from 01/16/23 was suggestive of cirrhosis, and patient had a recent outpatient FibroScan which confirmed F4 fibrosis/cirrhosis. Full liver workup labs are still pending. Current labs show normal LFTs. He is awaiting
transfusion, 2 units PRBCs have been ordered.
Other medical problems include CHF with preserved ejection fraction, aortic stenosis, CAD, carotid artery stenosis (s/p carotid endarterectomy), PAD (s/p bilateral iliac stents), HTN, hyperlipidemia, non-insulin dependent DM, CKD stage 3,
hypothyroidism, BPH, ZAYRA, recurrent UTIs, and colon polyps. Recent admission in January 2023 for strep mitis/oralis bacteremia with septic arthritis of the L4-L5 facet joint, as well as heme positive stools. GI evaluated patient at that time; he
had endoscopy with Dr. Allison which was unremarkable, no source of bleeding identified.
IMPRESSION / PLAN:
Severe Anemia, acute on chronic, on anticoagulation (Eliquis) with heme positive stools
-Hgb 6.5, dropped overnight from 8.2 yesterday on admission
-transfuse 2 units - order already placed, patient awaiting transfusion
-Eliquis on hold
-continue to trend Hgb
-continue PPI (Protonix)
-pt had recent iron infusions, iron studies pending
-clear liquid diet
-prior history of GI bleed in May 2021 with reported normal EGD/colonoscopy at [facility], normal capsule study 07/22/21 (results reviewed) with concern for recurrent GI bleeding
-to consider repeat EGD, with colonoscopy, after Eliquis washout (last dose 05/03/23, in AM)
Diarrhea
-chronic intermittent diarrhea is patient's baseline bowel habits, on Metformin
-as above, consider colonoscopy
Cirrhosis, newly diagnosed
-CT from 01/2023 noted minor nodularity of the liver, splenomegaly, trace ascites suggestive of cirrhosis with recent outpatient FibroScan confirming F4 fibrosis/cirrhosis
-full liver workup labs pending
-LFTs normal
Other medical issues managed as per Cardiology and Hospitalist.
-
-
Thank you for consultation and allowing me to participate in the patient's care. Please call the [facility] physician during the after hours with any questions or concerns.
[2023-05-04 09:59] LABS: Iron 120 ug/dl (49-181); Percent Saturation 28 % (20-50)
[2023-05-04 10:10] LABS: Glucose - Point of Care 95 mg/dl (70-99)
--- NOTE | 2023-05-04 10:48 | W.PN.CD ---
Today's Communication / Plan
-
investigation into anemia underway
-hold eliquis
KRZYSZTOF
-hold ARB and lasix
bradycardia
-hold coreg
Impression / Plan
-
# SOB
-likely multifactorial: Hgb is 6.5, so acute anemia may be primary etiology
-hold eliquis
-GI has been consulted
# Bradycardia
-in setting of metabolic disturbances
-hold coreg for now, and trend tele
# Chronic HFPEF
-echo 01/2023: EF 55-60%, mild
-weight is lower than prior admission
-given KRZYSZTOF, hold lasix, and trend weight, Cr
# KRZYSZTOF
-hold lasix and ARB
# Paroxysmal A fib
-current sinus amor
-holding coreg and eliquis
-we discussed topic of Watchman, and will revisit as outpatient
# Coronary artery disease patient has RN INTERVENTIONAL of RCA in addition he was found to have obstructive disease involving the left circumflex which was medically treated.
-No chest discomfort to suggest angina
# DM
# Hypertension
# PAD
# History of carotid endarterectomy
Physical Exam
Vital Signs/Labs
Vital Signs
Temp Pulse Resp BP Pulse Ox
97.6 F 60 18 121/60 98
05/04/23 08:15 05/04/23 08:15 05/04/23 08:15 05/04/23 08:00 05/04/23 08:18
05/03/23 05/04/23 05/05/23
06:59 06:59 06:59
Actual Weight 116.743 kg
05/04/23 04:46
Magnesium 2.7 mg/dl (1.6-2.3) H 05/04/23 04:46
05/03/23
12:42
Adg-[id number] Pept 1150
LAB Results
03/26/24 03/26/24
12:42 14:56
Troponin I < 0.012 Cancelled
Physical Exam
Constitutional: No acute distress and Comfortable
EENT: Moist mucous membranes
Cardiovascular: Rhythm & rate is regular, JVD pressure is normal, Pedal edema present and Systolic murmur present
Respiratory: Respiratory effort normal and Lungs clear to auscul.
GI: Soft and Distention absent
Neuro/Psych: AO x 3
Data Reviewed
-
Date of Service: May 04, 2023
EKG: Other (Tele: sinus amor, PVC's)
Labs: Labs Reviewed by me
[2023-05-04 12:14] LABS: Glucose - Point of Care 118 mg/dl (70-99)
--- NOTE | 2023-05-04 12:30 | PTCARENOTE ---
First unit of PRBC's hung per order. Pt tolerating well. IVF reduced to 50ml/hr per orders while blood is infusing.
[2023-05-04 13:08] LABS: Cortisol, Random 19.3 ug/dl; TSH Reflex To Free T4 2.11 uIU/ml (0.47-4.68)
--- NOTE | 2023-05-04 14:11 | PTCARENOTE ---
Pt's HR in the 40-low 50's. Asymptomatic. Dr. Alston notified via TT, no change in plan of care at this time.
[2023-05-04 14:15] LABS: Glucose - Point of Care 90 mg/dl (70-99)
[2023-05-04] MEDS: LASIX 20 MG IV (15:28)
[2023-05-04 16:11] LABS: Glucose - Point of Care 153 mg/dl (70-99)
--- NOTE | 2023-05-04 16:30 | CM ---
Patient seen at bedside. Patient stated that he and his live at [facility] in independent apartments. Patient stated that his physician is Dr. Lord from [facility]. Patient [facility] on [facility] [place]. Patient has no DME and no VN
supports at apartment. Patient plan is home with no needs. CM will continue to follow for discharge planning needs.
Plan; home with no needs vs home with VN
--- NOTE | 2023-05-04 17:45 | PTCARENOTE ---
2nd unit PRBC's infusing. Pt tolerating well.
[2023-05-04 18:15] LABS: Glucose - Point of Care 156 mg/dl (70-99)
[2023-05-04] MEDS: CRESTOR 40 MG PO (18:38)
[2023-05-04] MEDS: FLOMAX 0.400000000000000022 MG PO (18:38)
[2023-05-04] MEDS: TRICOR 145 MG PO (18:38)
[2023-05-04 20:11] LABS: Glucose - Point of Care 158 mg/dl (70-99)
--- NOTE | 2023-05-04 20:15 | PTCARENOTE ---
Addendum entered by Yasmine Szymanski RN 05/05/23 03:42:
Pt bradycardic into 30's eventually returning to low 40's. Night SUCCESS COACH made aware.
Addendum entered by Yasmine Szymanski RN 05/05/23 03:04:
Pt HR bradycardic into low 40's while sleeping. Upon waking Pt asymptomatic, AAOx3.
Original Note:
Assumed care of pt from Day RN. PRBC gtt hanging (see TAR). Pt AAOX3. SPO2 97% on 2L, crackles mid and lower B/L lobes. Pt on 2L Accuchecks. Pt has no complaints at this time. Assessment care and vitals as charted.
[2023-05-04 22:06] LABS: Glucose - Point of Care 124 mg/dl (70-99)
[2023-05-04] MEDS: PROSCAR 5 MG PO (22:29)
[2023-05-04] MEDS: TYLENOL 1000 MG PO (22:30)
[2023-05-04] MEDS: BENADRYL 50 MG PO (22:30)
[2023-05-04 22:43] LABS: Hematocrit 26.5 % (39.0-52.0)
[2023-05-04 22:46] LABS: Hemoglobin 8.9 g/dL (13.0-18.0)
[2023-05-05] VITALS (21 sets, daily range): BP systolic 97–173; BP diastolic 42–71; PULSE 53–68; O2SAT 96; BMI 35.1
[2023-05-05 00:18] LABS: Glucose - Point of Care 112 mg/dl (70-99)
[2023-05-05 02:19] LABS: Glucose - Point of Care 118 mg/dl (70-99)
[2023-05-05 04:31] LABS: Glucose - Point of Care 155 mg/dl (70-99)
[2023-05-05 04:51] LABS: % Basophils 0.3 % (0-2); % Eosinophils 2.1 % (0-6); % Lymphocytes 25.2 % (20.5-51.1); % Monocytes 10.6 % (1.7-9.3); % Neutrophils 61.8 % (42.2-75.2); Absolute Eosinophils 0.1 10^3/uL (0-0.7); Absolute Lymphocytes 0.9 10^3/uL (1.2-3.4); Absolute Monocytes 0.4 10^3/uL (0.1-0.6); Absolute Neutrophils 2.1 10^3/uL (1.4-6.5); Hematocrit 25.2 % (39.0-52.0); Mean Corp Hgb Conc. 31.7 g/dL (33.0-37.0); Mean Corpuscular Hgb 31.5 pg (27.0-31.0); Mean Corpuscular Volume 99.2 fL (80.0-94.0); Mean Platelet Volume 11.5 fL (7.4-10.4); Nucleated Red Blood Cells % 0 % (-); Platelet Count 117 10^3/uL (130-400); Red Blood Cell Count 2.54 10^6/uL (4.70-6.10); Red Cell Dist. Width 20.2 % (11.5-14.5); White Blood Cell Count 3.4 10^3/uL (4.8-10.8)
[2023-05-05 05:23] LABS: ALT (SGPT) 44 U/L (0-50); AST (SGOT) 70 U/L (17-59); Albumin 2.9 g/dl (3.5-5.0); Alkaline Phosphatase 53 U/L (38-126); Blood Urea Nitrogen 45 mg/dl (9-20); Calcium 8.6 mg/dl (8.4-10.2); Carbon Dioxide 23 mmol/L (22-30); Chloride 110 mmol/L (98-107); Estimated Creatinine Clearance 54 ml/min; Glucose 150 mg/dl (70-99); Magnesium 2.4 mg/dl (1.6-2.3); Potassium 4.4 mmol/L (3.5-5.1); Sodium 137 mmol/L (135-145); Total Bilirubin 0.3 mg/dl (0.2-1.3); Total Protein 5.5 g/dl (6.3-8.2); eGFR 50.18
[2023-05-05] MEDS: SYNTHROID 75 MCG PO (06:20)
[2023-05-05 06:34] LABS: Glucose - Point of Care 96 mg/dl (70-99)
[2023-05-05 08:12] LABS: Glucose - Point of Care 103 mg/dl (70-99)
--- NOTE | 2023-05-05 09:17 | CM ---
Patient seen at bedside with physician at bedside. Patient on Bipap sleeping. Patient states his Pulmonlogist has retired and he has an appointment May 23 with new rn appeals. Patient stated he is unsure if his Bipap at home has been working.
CM will continue to follow for discharge planning needs.
Plan; return to apartment at [facility] with family and VN vs no needs
--- NOTE | 2023-05-05 09:25 | W.PN.HOSP.TC ---
Today's Communication/Plan
-
NPO for possible GI procedure
change accuchecks to Q4H
serial H&H--transfuse if needed
Assessment / Plan
Assessment / Plan
pt is an 82 year old male
hypoglycemia (h/o type 2 DM)--with KRZYSZTOF, likely effect of DM meds---Holding glimepiride, metformin, pioglitazone--placed on D5--cont Insulin sliding scale--cortisol and TSH WNL
bradycardia--coreg on hold--unclear if due to hypoglycemia--apprec cards
acute on chronic anemia (also h/o hemorrhoids)--possibly due to subacute blood loss anemia from GI losses (h/o History of recent Streptococcus mitis/oralis bacteremia with septic arthritis of left facet joint L4-L5 paraspinal soft tissue
enhancement--Recently completed 6 weeks of ceftriaxone with PICC line)--pt states that he had full w/u at [place] with EGD/colon/capsule study--all neg--transfuse for HGB <8--holding Eliquis---Status post EGD on 01/18/2023 with no significant
source of bleeding--not iron deficient by studies but did receive iron infusion as outpt--cont protonix--heme eval--apprec GI
Exertional dyspnea/lightheadedness-- multifactorial--more likely due to anemia, doubt significant exacerbation of diastolic CHF--lasix started as outpt on hold--apprec cards---Cardiac BNP of 1150 from 1560--Recent echocardiogram showed no large
distinct vegetation however the diffuse thickening calcified nature of the mitral valve annulus and aortic valve
Acute kidney injury--Creatinine 1.5 from 0.9 in April--Hold irbesartan
Severe carotid stenosis status post carotid endarterectomy/bilateral iliac stents/Peripheral arterial disease/Coronary artery disease-- noted
Paroxysmal atrial fibrillation/Aortic stenosis/RBBB--Hold Eliquis for now-- rate controlled as pt bradycardic
Obstructive sleep apnea--Continue CPAP
Essential hypertension--Continue amlodipine--Hold irbesartan
Hyperlipidemia--cont crestor--Continue fenofibrate
Hypothyroidism--Continue levothyroxine--check TSH with reflex to free T4
BPH--Continue finasteride, tamsulosin
Code status --Full code
DVT prophylaxis�SCDs
Anticipated Discharge: > 48 hours
Subjective/Interval History
-
Date of Service: May 05, 2023
pt without c/o--NPO, waiting for possible procedure
Objective Data
-
Labs:
Laboratory Results
05/04/23 05/04/23 05/05/23
18:00 22:36 04:20
WBC 3.4 L
Hgb Cancelled 8.9 L D 8.0 L
Hct Cancelled 26.5 L 25.2 L
Plt Count 117 L
Sodium
Potassium
Chloride
Carbon Dioxide
BUN
Creatinine
Glucose
Calcium
Total Bilirubin
AST
ALT
Alkaline Phosphatase
05/05/23
04:21
WBC
Hgb
Hct
Plt Count
Sodium 137
Potassium 4.4
Chloride 110 H
Carbon Dioxide 23
BUN 45 H
Creatinine 1.4 H
Glucose 150 H
Calcium 8.6
Total Bilirubin 0.3
AST 70 H
ALT 44
Alkaline Phosphatase 53
Vital Signs:
max temp for 24 hours
05/04/23
23:35
Temp 98.1 F
Vital Signs
Temp Pulse Resp BP Pulse Ox
97.6 F 44 20 121/42 100
05/05/23 07:40 05/05/23 06:00 05/05/23 06:00 05/05/23 06:00 05/05/23 06:00
I&O
05/04/23 05/05/23 05/06/23
06:59 06:59 06:59
Intake Total 2044
Output Total 300 / 300 1340 / 1340
Balance -300 / -300 705 / 705
Review of Systems
-
All other systems: Reviewed and negative
Physical Exam
-
General: Well Developed, Well Nourished and No Apparent Distress
HEENT: Normocephalic and Atraumatic
Respiratory: Clear to Auscultation; Negative Wheezes
Cardiac: Regular Rhythm and S1/S2; Negative Murmur
GI: Soft, Nontender, Nondistended and Normal Bowel Sounds
Musculoskeletal: No Clubbing, No Cyanosis and No Edema
Skin: Warm
Neuro: Awake and Alert
Psych: Calm
[2023-05-05] MEDS: NOVOLOG FLEXPEN-LOW RESISTANCE SC ×3 (09:30→17:06)
--- NOTE | 2023-05-05 09:52 | W.PN.CD ---
Today's Communication / Plan
-
hold eliquis, lasix, ARB
GI eval
post-PVC pauses noted on tele (benign)
Impression / Plan
-
# SOB
-likely multifactorial: Hgb was 6.5 yesterday, so acute anemia may be primary etiology
-improved s/p pRBC
-hold eliquis
-GI has been consulted
# Bradycardia
-hold coreg for now, and trend tele
-avg HR 50s; post-PVC pauses also noted
# Chronic HFPEF
-echo 01/2023: EF 55-60%, mild
-weight is lower than prior admission
-given KRZYSZTOF, hold lasix, and trend weight, Cr
# KRZYSZTOF
-hold lasix and ARB
# Paroxysmal A fib
-current sinus amor
-holding coreg and eliquis
-we discussed topic of Watchman, and will revisit as outpatient
# Coronary artery disease patient has VOUCHER CLERK of RCA in addition he was found to have obstructive disease involving the left circumflex which was medically treated.
-No chest discomfort to suggest angina
# DM
# Hypertension
# PAD
# History of carotid endarterectomy
Physical Exam
Vital Signs/Labs
Vital Signs
Temp Pulse Resp BP Pulse Ox
97.6 F 44 20 121/42 100
05/05/23 07:40 05/05/23 06:00 05/05/23 06:00 05/05/23 06:00 05/05/23 06:00
05/04/23 05/05/23 05/06/23
06:59 06:59 06:59
Actual Weight 116.743 kg 117.4 kg
05/05/23 04:21
Magnesium 2.4 mg/dl (1.6-2.3) H 05/05/23 04:21
05/03/23
12:42
Xmw-[id number]-Hfgjzluhlgh Pept 1150
LAB Results
05/03/23 05/03/23
12:42 14:56
Troponin I < 0.012 Cancelled
Physical Exam
Constitutional: No acute distress and Comfortable
EENT: Moist mucous membranes
Cardiovascular: Rhythm & rate is regular, JVD pressure is normal, Pedal edema present and Systolic murmur present
Respiratory: Respiratory effort normal and Lungs clear to auscul.
GI: Soft and Distention absent
Neuro/Psych: AO x 3
Data Reviewed
-
Date of Service: May 05, 2023
EKG: Other (Tele: SB 50s, with post-PVC pauses noted)
[2023-05-05] MEDS: PROTONIX 20 MG PO (09:57)
[2023-05-05] MEDS: FEOSOL 325 MG PO (09:57)
[2023-05-05] MEDS: NORVASC 5 MG PO (09:57)
[2023-05-05] MEDS: MAG-TAB SR 84 MG PO ×2 (09:57→20:30)
[2023-05-05] MEDS: HIPREX 1 GRAM PO ×2 (09:57→20:29)
[2023-05-05] MEDS: VITAMIN B-12 1000 MCG PO (10:01)
--- NOTE | 2023-05-05 11:00 | CON.ONC ---
Impression
Impression
Blood loss/iron deficiency anemia
Recent diagnosis of cirrhosis
Atrial fibrillation
Plan
Plan
Will continue vigilant GI evaluation
Push enteroscopy scheduled
Concerned that strep bacteremia may be related to GI pathology
Continue vigilant transfusion for maintaining hemoglobin above 8.0
Patient has had recent Injectafer resuscitation with adequate serum iron and saturation
Hold DOAC
Monitor CBC
Patient History
History of Present Illness
This is an 82 year old male with a past medical history of GI bleeding, chronic anemia with recent Injectafer infusions, colon polyps, and atrial fibrillation (on Eliquis), newly diagnosed cirrhosis who presented to the ER on 05/03/23 with symptoms
of increasing dyspnea, dizziness and lightheadedness. Hemoglobin in the ER was 8.2, with baseline Hgb in the 9-10 range. Overnight, hemoglobin dropped to 6.5, and he received packed red blood cell transfusion. he has chronic dark stools, denies any
rectal bleeding or BRBPR. He also denies any abdominal pain, nausea, vomiting, fevers, chills. His last dose of Eliquis was yesterday morning, which is prescribed for atrial fibrillation which was diagnosed during a prior hospital admission in
October 2022. He has a prior history of GI bleed in May 2021, and had endoscopy, colonoscopy and video capsule studies at [facility] [place] which were all negative. At that time he was on DAPT. He is not on ASA or Plavix now. He is a former
smoker, denies alcohol or NSAID use. He has had loose stools recently, but this is not new for him as he gets alternating diarrhea and constipation as his baseline bowel habits. He did follow up with Hematology (cannot recall doctor's name but with
[facility]) and received 2 iron infusions recently. Prior CT scan was suggestive of cirrhosis, and patient had an outpatient FibroScan which confirmed F4 fibrosis/cirrhosis. Full liver workup labs were ordered, results pending. Current labs show
normal LFTs.
additional medical problems include CHF with preserved ejection fraction, aortic stenosis, CAD, carotid artery stenosis (s/p carotid endarterectomy), PAD (s/p bilateral iliac stents), HTN, hyperlipidemia, non-insulin dependent DM, CKD stage 3,
hypothyroidism, BPH, ZAYRA, recurrent UTIs, and colon polyps. Recent admission in January 2023 for strep mitis/oralis bacteremia with septic arthritis of the L4-L5 facet joint, as well as heme positive stools. GI evaluated patient at that time; he
had endoscopy with Dr. Allison which was unremarkable, no source of bleeding identified.
Past-Medical/Surgical History
Past Medical History
Past Medical History: CAD, HTN, Hypercholesterolemia, Hypothyroidism, NIDDM and Other (atrial fibrillation, aortic stenosis, carotid artery stenosis, PAD, CKD - stage 3, BPH, ZAYRA, recurrent UTIs, colon polyps, cirrhosis)
Past Surgical History: Cholecystectomy and Other (R carotid endarterectomy, bilateral iliac stents, tonsillectomy)
Social History
Tobacco: Former Smoker
Alcohol: None
Drug: None
Personal:
Living: With Family
Employment: Retired
Family History
Family History: Other (no family history of GI malignancies)
Patient Medication
�Medication �Instructions �Recorded �Confirmed �Last Taken �Type
fenofibrate nanocrystallized 145 145 mg PO QPM High cholesterol 07/29/21 05/03/23 05/02/23 History
mg tablet
glimepiride 4 mg tablet 4 mg PO DAILY Diabetes 07/29/21 05/03/23 05/03/23 History
irbesartan 150 mg tablet 300 mg PO DAILY Blood pressure 07/29/21 05/03/23 05/03/23 History
magnesium oxide 400 mg PO BID Electrolyte Repletion 07/29/21 05/03/23 05/03/23 History
finasteride 5 mg tablet 5 mg PO HS Urinary issue 12/02/21 05/03/23 05/02/23 History
amlodipine 5 mg tablet 5 mg PO DAILY Blood pressure 04/05/22 05/03/23 05/03/23 History
diphenhydramine 25 2 tab PO HS Sleep ##0 04/05/22 05/03/23 05/02/23 History
mg-acetaminophen 500 mg tablet
(Tylenol PM Extra Strength)
pantoprazole 20 mg tablet,delayed 20 mg PO DAILY Gastrointestinal 10/25/22 05/03/23 05/03/23 History
release Issue
tamsulosin 0.4 mg capsule (Flomax) 0.4 mg PO QPM Urinary Issue 10/25/22 05/03/23 05/02/23 History
ferrous sulfate 325 mg (65 mg 325 mg PO DAILY Supplement 12/06/22 05/03/23 05/03/23 History
iron) tablet
carvedilol 12.5 mg tablet 12.5 mg PO BID Blood Pressure 01/16/23 05/03/23 05/03/23 History
cyanocobalamin (vitamin B-12) 1,000 mcg PO DAILY Supplement 01/16/23 05/03/23 05/03/23 History
1,000 mcg tablet
furosemide 20 mg tablet (Lasix) 20 mg PO DAILY Fluid 01/16/23 05/03/23 05/03/23 History
Retention/Swelling
levothyroxine 75 mcg tablet 75 mcg PO DAILY Thyroid 01/16/23 05/03/23 05/03/23 History
(Synthroid)
metformin 500 mg tablet 1,000 mg PO BID diabetes 01/16/23 05/03/23 05/03/23 History
methenamine hippurate 1 gram 1 g PO BID Urinary Issue 01/16/23 05/03/23 05/03/23 History
tablet (Hiprex)
apixaban 5 mg tablet (Eliquis) 5 mg PO BID Blood Clot 01/21/23 05/03/23 05/03/23 History
Prevention/Tx
pioglitazone 30 mg tablet (Actos) 30 mg PO DAILY Diabetes 05/03/23 05/03/23 05/03/23 History
rosuvastatin 40 mg tablet (Crestor) 40 mg PO QPM High Cholesterol 05/03/23 05/03/23 05/02/23 History
Active Medications
Generic Name Dose Route Start Last Admin
Trade Name Freq PRN Reason Stop Dose Admin
Acetaminophen 1,000 mg 05/03/23 22:00 05/04/23 22:30
Acetaminophen 500 Mg Tablet PO 05/31/23 21:59 1,000 mg
HS ARIAS Administration
Amlodipine Besylate 5 mg 05/04/23 08:00 05/05/23 09:57
Amlodipine 5 Mg Tablet PO 06/01/23 07:59 5 mg
DAILY ARIAS Administration
Carvedilol 12.5 mg 05/03/23 20:00 05/04/23 07:47
Carvedilol 12.5 Mg Tablet PO 05/31/23 19:59 Not Given
BID ARIAS
Cyanocobalamin 1,000 mcg 05/04/23 08:00 05/05/23 10:01
Cyanocobalamin 1,000 Mcg Tablet PO 06/01/23 07:59 1,000 mcg
DAILY ARIAS Administration
Dextrose 12.5 grams 05/03/23 19:27 05/04/23 07:43
Dextrose 50% (0.5 Grams/Ml) 50 Ml Syringe IV 05/31/23 19:26 12.5 grams
[id number] PRN Administration
hypoglycemia
Protocol
Diphenhydramine HCl 50 mg 05/03/23 22:00 05/04/23 22:30
Diphenhydramine 50 Mg Capsule PO 05/31/23 21:59 50 mg
HS ARIAS Administration
Fenofibrate 145 mg 05/03/23 19:27 05/04/23 18:38
Fenofibrate 145 Mg Tablet PO 05/31/23 19:26 145 mg
QPM ARIAS Administration
Ferrous Sulfate 325 mg 05/04/23 08:00 05/05/23 09:57
Ferrous Sulfate 325 Mg Tablet PO 06/01/23 07:59 325 mg
DAILY ARIAS Administration
Finasteride 5 mg 05/03/23 22:00 05/04/23 22:29
Finasteride 5 Mg Tablet PO 05/31/23 21:59 5 mg
HS ARIAS Administration
Glucagon 1 mg 05/03/23 19:27 05/04/23 00:50
Glucagon 1 Mg Vial IM 05/31/23 19:26 1 mg
PRN PRN Administration
hypoglycemia
Protocol
Dextrose/Sodium Chloride 1,000 mls @ 50 mls/hr 05/04/23 07:00 05/04/23 22:32
D5/0.9% Sodium Chloride IV 1,000 mls
.Q20H ARIAS Administration
Insulin Aspart 0 units 05/04/23 07:30 05/05/23 09:30
Insulin Aspart Low Resistance 300 Units/3 Ml Pen.Injctr SC 06/01/23 07:29 Not Given
AC ARIAS
Protocol
Levothyroxine Sodium 75 mcg 05/04/23 07:00 05/05/23 06:20
Levothyroxine 75 Mcg Tablet PO 06/01/23 06:59 75 mcg
DAILY AT 0700 ARIAS Administration
Magnesium 84 mg 05/03/23 21:00 05/05/23 09:57
Magnesium Lactate 84 Mg Tablet PO 05/31/23 20:59 84 mg
BID ARIAS Administration
Methenamine Hippurate 1 gram 05/03/23 20:00 05/05/23 09:57
Methenamine Hippurate 1 Gram Tablet PO 1 gram
BID ARIAS Administration
Pantoprazole Sodium 20 mg 05/04/23 08:00 05/05/23 09:57
Pantoprazole 20 Mg Delayed Release Tablet PO 06/01/23 07:59 20 mg
DAILY ARIAS Administration
Rosuvastatin Calcium 40 mg 05/03/23 19:27 05/04/23 18:38
Rosuvastatin (Crestor) 40 Mg Tablet PO 05/31/23 19:26 40 mg
QPM ARIAS Administration
Sodium Chloride 0 flush 05/03/23 21:00
Sodium Chloride 0.9% (Flush) Syringe IV 05/31/23 20:59
PER PROTOCOL ARIAS
Tamsulosin HCl 0.4 mg 05/03/23 19:27 05/04/23 18:38
Tamsulosin 0.4 Mg Capsule PO 05/31/23 19:26 0.4 mg
QPM ARIAS Administration
Review of Systems
-
10 point review systems fails to elicit additional complaints other than those reviewed in the HPI.
Physical Exam
-
Exam
General: Well Developed, Well Nourished and No Apparent Distress
Respiratory: Clear
Cardiac: S1/S2 and Regular Rhythm
GI: Soft, Non Tender, Non Distended and Normal Bowel Sounds
Skin: Warm and Dry
Neuro: AO x 3
Psych: Calm
Labs
Lab Results
WBC 3.4 10^3/uL (4.8-10.8) L 05/05/23 04:20
RBC 2.54 10^6/uL (4.70-6.10) L 05/05/23 04:20
Hgb 8.0 g/dL (13.0-18.0) L 05/05/23 04:20
Hct 25.2 % (39.0-52.0) L 05/05/23 04:20
MCV 99.2 fL (80.0-94.0) H 05/05/23 04:20
MCH 31.5 pg (27.0-31.0) H 05/05/23 04:20
MCHC 31.7 g/dL (33.0-37.0) L 05/05/23 04:20
RDW 20.2 % (11.5-14.5) H 05/05/23 04:20
Plt Count 117 10^3/uL (130-400) L 05/05/23 04:20
MPV 11.5 fL (7.4-10.4) H 05/05/23 04:20
Abs Immat Gran (auto) 0.0 10^3/uL (0-0.05) 05/05/23 04:20
Absolute Neuts (auto) 2.1 10^3/uL (1.4-6.5) 05/05/23 04:20
Absolute Lymphs (auto) 0.9 10^3/uL (1.2-3.4) L 05/05/23 04:20
Absolute Monos (auto) 0.4 10^3/uL (0.1-0.6) 05/05/23 04:20
Absolute Eos (auto) 0.1 10^3/uL (0-0.7) 05/05/23 04:20
Absolute Basos (auto) 0.0 10^3/uL (0-0.2) 05/05/23 04:20
Immature Gran % 0.0 % (0-0.5) 05/05/23 04:20
Neutrophils % 61.8 % (42.2-75.2) 05/05/23 04:20
Lymphocytes % 25.2 % (20.5-51.1) 05/05/23 04:20
Monocytes % 10.6 % (1.7-9.3) H 05/05/23 04:20
Eosinophils % 2.1 % (0-6) 05/05/23 04:20
Basophils % 0.3 % (0-2) 05/05/23 04:20
Creatinine 1.4 mg/dL (0.7-1.3) H 05/05/23 04:21
Vital Signs
Vital Signs
Temp Pulse Resp BP Pulse Ox
97.6 F 44 20 132/53 100
05/05/23 07:40 05/05/23 06:00 05/05/23 06:00 05/05/23 09:57 05/05/23 06:00
[2023-05-05 12:02] LABS: Glucose - Point of Care 131 mg/dl (70-99)
[2023-05-05 12:14] LABS: Hematocrit 28.5 % (39.0-52.0); Hemoglobin 9.2 g/dL (13.0-18.0)
[2023-05-05] MEDS: D5/0.9% SODIUM CHLORIDE 1000 IV (12:14)
--- NOTE | 2023-05-05 16:13 | PTCARENOTE ---
Assumed care of patient at beginning of this shift from previous RN. Accu checks initially Q2h, then decreased to Q4h; D5NSS rate changed from 75ml/hr to 50ml/hr. Patient remained NPO except med then was transferred to GI lab for EGD this afternoon.
See worklist for full assessment and vital signs, see lab results for accu checks.
[2023-05-05 16:43] LABS: Glucose - Point of Care 145 mg/dl (70-99)
[2023-05-05] MEDS: TRICOR 145 MG PO (17:57)
[2023-05-05] MEDS: CRESTOR 40 MG PO (17:57)
[2023-05-05] MEDS: FLOMAX 0.400000000000000022 MG PO (17:57)
[2023-05-05 20:04] LABS: Hematocrit 28.6 % (39.0-52.0); Hemoglobin 9.5 g/dL (13.0-18.0)
[2023-05-05 20:09] LABS: Glucose - Point of Care 183 mg/dl (70-99)
[2023-05-05] MEDS: ROBITUSSIN DM 10 ML PO (20:29)
[2023-05-05] MEDS: PROSCAR 5 MG PO (20:29)
[2023-05-05] MEDS: LASIX 40 MG IV (21:31)
--- NOTE | 2023-05-05 21:35 | PTCARENOTE ---
Addendum entered by Will Gomez RN 05/05/23 23:09:
CPAP on at this time w/ 6L. Pt appears to be resting and breathing more comfortably; respirations even and unlabored 18-22 versus earlier his respirations were 30-40s. Sp02 now 97-99%. Call pérez within reach. RN sitting outside closest nurses
station.
Addendum entered by Will Gomez RN 05/05/23 22:13:
Addendum: IVF were stopped right after change of shift around 1929. Pt is placed back in bed at this time. Condom cath placed for accurate I/Os following Lasix administering. Pt exerting himself frequently to void and desats to 88%. Pt can only void
at EOB or standing.
Original Note:
Shortly after report, pt pressed call pérez and c/o sob and cough. Lungs with coarse crackles and rales throughout. Sp02 88% on RA. 2L NC placed and pt sat up in bed. ASSOCIATE and RT made aware. PRN Robitussin and Incentive spirometer given and
demonstrated use. Pt placed in chair up right.
After an hour pt continues with cough with increased tachypnea. Sp02 88% on 2LNC, NC increased to 5L and RT/ASSOCIATE made aware. IV Lasix order received. Pt education provided.
[2023-05-05] MEDS: TYLENOL 1000 MG PO (22:26)
[2023-05-05] MEDS: BENADRYL 50 MG PO (22:26)
[2023-05-05] MEDS: DESYREL 25 MG PO (23:35)
[2023-05-06] VITALS (16 sets, daily range): BP systolic 100–155; BP diastolic 35–103; PULSE 57–88; BMI 35.1
[2023-05-06 00:25] LABS: Glucose - Point of Care 292 mg/dl (70-99)
[2023-05-06 04:50] LABS: Hematocrit 25.9 % (39.0-52.0); Hemoglobin 8.6 g/dL (13.0-18.0); Mean Corp Hgb Conc. 33.2 g/dL (33.0-37.0); Mean Corpuscular Hgb 31.9 pg (27.0-31.0); Mean Corpuscular Volume 95.9 fL (80.0-94.0); Platelet Count 120 10^3/uL (130-400); Red Cell Dist. Width 19.8 % (11.5-14.5); White Blood Cell Count 9.1 10^3/uL (4.8-10.8)
[2023-05-06 05:09] LABS: Blood Urea Nitrogen 33 mg/dl (9-20); Calcium 8.7 mg/dl (8.4-10.2); Carbon Dioxide 23 mmol/L (22-30); Chloride 106 mmol/L (98-107); Estimated Creatinine Clearance 58 ml/min; Glucose 199 mg/dl (70-99); Potassium 4.4 mmol/L (3.5-5.1); Sodium 136 mmol/L (135-145); eGFR 54.85
[2023-05-06] MEDS: SYNTHROID 75 MCG PO (06:18)
[2023-05-06 06:23] LABS: Glucose - Point of Care 185 mg/dl (70-99)
[2023-05-06] MEDS: HIPREX 1 GRAM PO ×2 (08:31→21:29)
[2023-05-06] MEDS: FEOSOL 325 MG PO (08:31)
[2023-05-06] MEDS: VITAMIN B-12 1000 MCG PO (08:31)
[2023-05-06] MEDS: NORVASC 5 MG PO (08:31)
[2023-05-06] MEDS: MAG-TAB SR 84 MG PO ×2 (08:31→21:30)
[2023-05-06] MEDS: PROTONIX 20 MG PO (08:31)
[2023-05-06 08:34] LABS: Glucose - Point of Care 183 mg/dl (70-99)
[2023-05-06] MEDS: NOVOLOG FLEXPEN-LOW RESISTANCE 2 UNITS SC ×2 (09:08→13:20)
--- NOTE | 2023-05-06 09:24 | CM ---
Patient seen at bedside with physician. Patient eager to go home. Patient confirmed he has had no VN at [facility] previously and does not feel he will need VS. Patient currently on O2, will need to clarify home O2 needs. CM will continue to
follow for discharge planning needs.
Plan; home with no needs watch for home O2 needs.
--- NOTE | 2023-05-06 09:36 | W.PN.HOSP.TC ---
Today's Communication/Plan
-
diet as per GI
transfer to tele
hold DM meds for now
Assessment / Plan
Assessment / Plan
pt is an 82 year old male
hypoglycemia (h/o type 2 DM)--with KRZYSZTOF, likely effect of DM meds---Holding glimepiride, metformin, pioglitazone----cont Insulin sliding scale--cortisol and TSH WNL--off D5
bradycardia--coreg on hold--unclear if due to hypoglycemia--apprec cards
acute on chronic anemia (also h/o hemorrhoids)--possibly due to subacute blood loss anemia from GI losses (h/o History of recent Streptococcus mitis/oralis bacteremia with septic arthritis of left facet joint L4-L5 paraspinal soft tissue
enhancement--Recently completed 6 weeks of ceftriaxone with PICC line)--pt states that he had full w/u at [place] with EGD/colon/capsule study--all neg--transfuse for HGB <8--holding Eliquis---Status post EGD on 01/18/2023 with no significant
source of bleeding--not iron deficient by studies but did receive iron infusion as outpt--cont protonix--heme eval--apprec GI--s/p EGD with push enteroscopy which showed angioectasias
Exertional dyspnea/lightheadedness-- multifactorial--more likely due to anemia, doubt significant exacerbation of diastolic CHF--lasix started as outpt on hold--apprec cards---Cardiac BNP of 1150 from 1560--Recent echocardiogram showed no large
distinct vegetation however the diffuse thickening calcified nature of the mitral valve annulus and aortic valve
Acute kidney injury--Creatinine 1.5 from 0.9 in April--Hold irbesartan--improved to 1.3
Severe carotid stenosis status post carotid endarterectomy/bilateral iliac stents/Peripheral arterial disease/Coronary artery disease-- noted
Paroxysmal atrial fibrillation/Aortic stenosis/RBBB--Hold Eliquis for now-- rate controlled as pt bradycardic
Obstructive sleep apnea--Continue CPAP
Essential hypertension--Continue amlodipine--Hold irbesartan
Hyperlipidemia--cont crestor--Continue fenofibrate
Hypothyroidism--Continue levothyroxine--check TSH with reflex to free T4
BPH--Continue finasteride, tamsulosin
Code status --Full code
DVT prophylaxis�SCDs
Anticipated Discharge: 24 - 48 hours
Subjective/Interval History
-
Date of Service: May 06, 2023
pt told me about the coughing and burping episode post EGD
Objective Data
-
Labs:
Laboratory Results
05/06/23
04:40
WBC 9.1
Hgb 8.6 L
Hct 25.9 L
Plt Count 120 L
Sodium 136
Potassium 4.4
Chloride 106
Carbon Dioxide 23
BUN 33 H
Creatinine 1.3
Glucose 199 H
Calcium 8.7
Vital Signs:
max temp for 24 hours
05/06/23
03:31
Temp 99.0 F
Vital Signs
Temp Pulse Resp BP Pulse Ox
99.0 F 62 23 115/51 96
05/06/23 03:31 05/06/23 06:17 05/06/23 06:17 05/06/23 06:17 05/06/23 06:17
I&O
05/05/23 05/06/23 05/07/23
06:59 06:59 06:59
Intake Total 2044 50 / 50
Output Total 1340 / 1340 1575 / 1575 150 / 150
Balance 705 / 705 -1525 / -1525 -150 / -150
Review of Systems
-
All other systems: Reviewed and negative
Physical Exam
-
General: Well Developed, Well Nourished and No Apparent Distress
HEENT: Normocephalic and Atraumatic
Cardiac: Regular Rhythm and S1/S2; Negative Murmur
GI: Soft, Nontender, Nondistended and Normal Bowel Sounds
Musculoskeletal: No Clubbing, No Cyanosis and No Edema
Neuro: Awake
Psych: Calm
--- NOTE | 2023-05-06 11:19 | PTCARENOTE ---
pt transferred to telemetry. report given to Michael on 4 acute.
--- NOTE | 2023-05-06 11:37 | W.PN.CD ---
Addendum entered and electronically signed by Fidencio Alston MD 05/06/23 17:50:
EGD was on 05/04 (correction, not 05/02)
Original Note:
Today's Communication / Plan
-
plan is to resume eliquis 5mg bid Tuesday evening if Hgb is stable
resume lasix 40mg PO daily Sat if Cr stable
BP looks good off of ARB: will remain off of irbesartan
resume coreg at lower dose 3.125mg bid
we discussed topic of Watchman, and will arrange for outpatient consult
Impression / Plan
-
# SOB
-likely multifactorial: Hgb was 6.5, so acute anemia may be primary etiology
-improved s/p pRBC
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
-plan is to resume eliquis Tuesday evening if Hgb is stable
# Bradycardia: improved
-resume coreg at lower dose 3.125mg bid
-post-PVC pauses also noted
# Chronic HFPEF
-echo 01/2023: EF 55-60%, mild
-weight is lower than prior admission
-resume lasix 40mg PO daily Sat if Cr stable
# KRZYSZTOF
-BP looks good off of ARB: will remain off of irbesartan
# Paroxysmal A fib
-current sinus amor
-resume coreg at lower dose (hypotension and bradycardia with 12.5mg dose) 3.125mg bid
-resume eliquis Tuesday evening if Hgb stable
-we discussed topic of Watchman, and will arrange for outpatient consult
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
-No chest discomfort to suggest angina
# DM
# Hypertension
# PAD
# History of carotid endarterectomy
Physical Exam
Vital Signs/Labs
Vital Signs
Temp Pulse Resp BP Pulse Ox
98.1 F 57 31 123/41 94
05/06/23 11:01 05/06/23 10:00 05/06/23 10:00 05/06/23 10:00 05/06/23 10:58
05/05/23 05/06/23 05/07/23
06:59 06:59 06:59
Actual Weight 117.4 kg 117.2 kg
05/06/23 04:40
05/06/23 04:40
Magnesium 2.0 mg/dl (1.6-2.3) 05/06/23 04:40
05/03/23
12:42
Xoh-A-Xkroqvzmegw Pept 1150
LAB Results
05/03/23 05/03/23
12:42 14:56
Troponin I < 0.012 Cancelled
Physical Exam
Constitutional: No acute distress and Comfortable
EENT: Moist mucous membranes
Cardiovascular: Rhythm & rate is regular, Pedal edema present and Systolic murmur present
Respiratory: Respiratory effort normal and Lungs clear to auscul.
GI: Soft and Distention absent
Neuro/Psych: AO x 3
Data Reviewed
-
Date of Service: May 06, 2023
EKG: Other (Tele: SR 80s, PAC's, PVC's)
Labs: Labs Reviewed by me
[2023-05-06 12:10] LABS: Glucose - Point of Care 221 mg/dl (70-99)
--- NOTE | 2023-05-06 12:45 | PN.CDI ---
CDI
- -
CDI:
Physician Documentation Request
Admit Date: 05/03/23 17:13
Dear Doctor Kim,
Small bowel enteroscopy findings included ' A few localized erosions with stigmata of recent bleeding (mild oozing) were found in the gastric body....Red blood was found in the proximal jejunum. Multiple angioectasias with bleeding were found in the
proximal jejunum. One actively bleeding region with suspected AVM between fold was located.'
Patient with past medical history of paroxysmal atrial fibrillation on Eliquis which was held.
Please clarify if a relationship exist between these conditions:
Yes, GI bleeding is related to/associated with/due to/exacerbated by Eliquis.
No, GI bleeding is not related to/associated with/due to/exacerbated by Eliquis.
Unable to determine
Use of terms such as suspected, likely, concern for, or probable (associated with a specific diagnosis that is being evaluated, monitored, or treated as if it exists) are acceptable and can be coded in the inpatient setting, when documented at the
time of discharge.
Thank you,
Sabi Poon RN, BSN
CDI Specialist
tiger text
Please use your independent medical judgment in providing your response.
[2023-05-06] MEDS: COREG 3.125 MG PO ×2 (13:09→21:29)
--- NOTE | 2023-05-06 14:58 | W.PN.GI.CBS2 ---
Today's Communication / Plan
-
s/p small bowel enteroscopy yesterday with multiple jejunal angioectasis, treated with APC.
advance diet to regular
Assessment / Plan
-
82 year old male, with a history of GI bleeding, chronic anemia with recent iron infusions, colon polyps, and atrial fibrillation (on Eliquis), newly diagnosed cirrhosis who presented to the ER yesterday 05/03/23 increasing dyspnea, dizziness and
lightheadedness. Hemoglobin in the ER was 8.2, with baseline Hgb in the 9-10 range. Overnight, hemoglobin dropped to 6.5, from 8.2. He has chronic dark stools, but denies any rectal bleeding or BRBPR. Pt denies any abdominal pain, nausea, vomiting,
fevers, chills. He has a prior history of GI bleed in May 2021, with prior workup including endoscopy, colonoscopy and video capsule study at [facility] [place], all negative. At that time he was on DAPT. He is not on ASA or Plavix now. He is a
former smoker, denies alcohol or NSAID use. He has had loose stools recently, but this is not new for him as he gets alternating diarrhea and constipation as his baseline bowel habits. He did follow up with Hematology and received 2 iron infusions
recently. Prior CT scan from 01/16/23 was suggestive of cirrhosis, and patient had a recent outpatient FibroScan which confirmed F4 fibrosis/cirrhosis. Full liver workup labs are still pending. Current labs show normal LFTs. He is awaiting
transfusion, 2 units PRBCs have been ordered.
Other medical problems include CHF with preserved ejection fraction, aortic stenosis, CAD, carotid artery stenosis (s/p carotid endarterectomy), PAD (s/p bilateral iliac stents), HTN, hyperlipidemia, non-insulin dependent DM, CKD stage 3,
hypothyroidism, BPH, ZAYRA, recurrent UTIs, and colon polyps. Recent admission in January 2023 for strep mitis/oralis bacteremia with septic arthritis of the L4-L5 facet joint, as well as heme positive stools. GI evaluated patient at that time; he
had endoscopy with Dr. Allison which was unremarkable, no source of bleeding identified.
Pt had small bowel enteroscopy with Dr. Castro yesterday, 05/05/23:
Impression: - Normal esophagus.
- Erosive gastropathy with stigmata of recent bleeding.
- Normal duodenal bulb, first portion of the duodenum
and second portion of the duodenum.
- Jejunal blood.
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
Treated with argon plasma coagulation (APC). Tattooed.
- No specimens collected.
Recommendation: - Return patient to [facility] for ongoing care.
- Full liquid diet today.
- Check hemogram with white blood cell count and
platelets tomorrow.
- Resume Eliquis (apixaban) at prior dose after 72
hours. However if Eliquis can be discontinued, should
consider this.
IMPRESSION / PLAN:
Severe Anemia, acute on chronic, on anticoagulation (Eliquis) with heme positive stools
-Hgb 8.2 on admission, dropped to 6.5, pt received transfusion of 2 untis PRBCs
-multiple jejunal bleeding angioectasis treated with APC yesterday on small bowel enteroscopy
-Hgb 8.6 today
-continue to trend Hgb
-Eliquis on hold; OK to restart 05/07 in the evening, tentatively, if hemoglobin remains stable
-per Cardiology, to discuss Watchman procedure
-continue PPI (Protonix)
-OK to advance diet to regular
Cirrhosis, newly diagnosed
-CT from 01/2023 noted minor nodularity of the liver, splenomegaly, trace ascites suggestive of cirrhosis with recent outpatient FibroScan confirming F4 fibrosis/cirrhosis
-LFTs normal
-follow up outpatient as scheduled
Other medical issues managed as per Cardiology and Hospitalist.
Subjective
Subjective
Date of Service: May 06, 2023
Feeling well.
He did have coughing last night after enteroscopy procedure yesterday, which has resolved.
No abdominal or chest pain.
Objective
Data Reviewed
Laboratory Data:
Laboratory Results
05/06/23 04:40
05/06/23 04:40
Laboratory Results
Magnesium 2.0 mg/dl (1.6-2.3) 05/06/23 04:40
Total Bilirubin 0.3 mg/dl (0.2-1.3) 05/05/23 04:21
AST 70 U/L (17-59) H 05/05/23 04:21
ALT 44 U/L (0-50) 05/05/23 04:21
Alkaline Phosphatase 53 U/L (38-126) 05/05/23 04:21
Vital Signs and I&O:
Vital Signs
Temp Pulse Resp BP Pulse Ox
98.1 F 58 18 135/53 98
05/06/23 11:59 05/06/23 13:09 05/06/23 11:59 05/06/23 13:09 05/06/23 11:59
I&O
05/05/23 05/06/23 05/07/23
06:59 06:59 06:59
Intake Total 2045 / 2045 50 / 50 720 / 720
Output Total 1340 / 1340 1575 / 1575 150 / 150
Balance 705 / 705 -1525 / -1525 570 / 570
Physical Exam
Physical Exam
GI: Soft, Non Distended, Non Tender and Normal Bowel Sounds
--- NOTE | 2023-05-06 15:38 | W.PN.GI.CBS2 ---
Today's Communication / Plan
-
regular diet
Assessment / Plan
-
82 year old male, with a history of GI bleeding, chronic anemia with recent iron infusions, colon polyps, and atrial fibrillation (on Eliquis), newly diagnosed cirrhosis who presented to the ER yesterday 05/03/23 increasing dyspnea, dizziness and
lightheadedness. Hemoglobin in the ER was 8.2, with baseline Hgb in the 9-10 range. Overnight, hemoglobin dropped to 6.5, from 8.2. He has chronic dark stools, but denies any rectal bleeding or BRBPR. Pt denies any abdominal pain, nausea, vomiting,
fevers, chills. He has a prior history of GI bleed in May 2021, with prior workup including endoscopy, colonoscopy and video capsule study at [facility], all negative. At that time he was on DAPT. He is not on ASA or Plavix now. He is a
former smoker, denies alcohol or NSAID use. He has had loose stools recently, but this is not new for him as he gets alternating diarrhea and constipation as his baseline bowel habits. He did follow up with Hematology and received 2 iron infusions
recently. Prior CT scan from 01/16/23 was suggestive of cirrhosis, and patient had a recent outpatient FibroScan which confirmed F4 fibrosis/cirrhosis. Full liver workup labs are still pending. Current labs show normal LFTs. He is awaiting
transfusion, 2 units PRBCs have been ordered.
Other medical problems include CHF with preserved ejection fraction, aortic stenosis, CAD, carotid artery stenosis (s/p carotid endarterectomy), PAD (s/p bilateral iliac stents), HTN, hyperlipidemia, non-insulin dependent DM, CKD stage 3,
hypothyroidism, BPH, ZAYRA, recurrent UTIs, and colon polyps. Recent admission in January 2023 for strep mitis/oralis bacteremia with septic arthritis of the L4-L5 facet joint, as well as heme positive stools. GI evaluated patient at that time; he
had endoscopy with Dr. Bolaños which was unremarkable, no source of bleeding identified.
Pt had small bowel enteroscopy with Dr. Castro yesterday, 05/05/23:
Impression: - Normal esophagus.
- Erosive gastropathy with stigmata of recent bleeding.
- Normal duodenal bulb, first portion of the duodenum
and second portion of the duodenum.
- Jejunal blood.
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
Treated with argon plasma coagulation (APC). Tattooed.
- No specimens collected.
Recommendation: - Return patient to hospital [facility] for ongoing care.
- Full liquid diet today.
- Check hemogram with white blood cell count and
platelets tomorrow.
- Resume Eliquis (apixaban) at prior dose after 72
hours. However if Eliquis can be discontinued, should
consider this.
IMPRESSION / PLAN:
s/p treatment of AVMs
- residual bleeding likely from yesterday around time of treatment
- advance to regular diet
- H2 kale instead of PPI which gives pt diarrhea
f/u as outpatient dr. bolaños.
Subjective
Subjective
Date of Service: May 06, 2023
Pt s/p AVM treatment. feels good, hungry
Objective
Data Reviewed
Laboratory Data:
Laboratory Results
05/06/23 04:40
05/06/23 04:40
Laboratory Results
Magnesium 2.0 mg/dl (1.6-2.3) 05/06/23 04:40
Total Bilirubin 0.3 mg/dl (0.2-1.3) 05/05/23 04:21
AST 70 U/L (17-59) H 05/05/23 04:21
ALT 44 U/L (0-50) 05/05/23 04:21
Alkaline Phosphatase 53 U/L (38-126) 05/05/23 04:21
Vital Signs and I&O:
Vital Signs
Temp Pulse Resp BP Pulse Ox
98.1 F 58 18 135/53 98
05/06/23 11:59 05/06/23 13:09 05/06/23 11:59 05/06/23 13:09 05/06/23 11:59
I&O
05/05/23 05/06/23 05/07/23
06:59 06:59 06:59
Intake Total 2044 / 2044 50 / 50 720 / 720
Output Total 1340 / 1340 1575 / 1575 150 / 150
Balance 705 / 705 -1525 / -1525 570 / 570
Physical Exam
Physical Exam
GI: Soft and Non Tender
[2023-05-06 17:17] LABS: Glucose - Point of Care 198 mg/dl (70-99)
[2023-05-06] MEDS: CRESTOR 40 MG PO (17:24)
[2023-05-06] MEDS: FLOMAX 0.400000000000000022 MG PO (17:24)
[2023-05-06] MEDS: TRICOR 145 MG PO (17:24)
[2023-05-06] MEDS: NOVOLOG FLEXPEN-LOW RESISTANCE 1 UNITS SC (17:25)
--- NOTE | 2023-05-06 19:19 | PTCARENOTE ---
Recieved pt from IMU. AAOx3. VSS. Denies any pain or discomfort. Oriented to unit.
[2023-05-06] MEDS: TYLENOL 1000 MG PO (21:29)
[2023-05-06] MEDS: BENADRYL 50 MG PO (21:29)
[2023-05-06] MEDS: PROSCAR 5 MG PO (21:30)
[2023-05-06 21:57] LABS: Glucose - Point of Care 219 mg/dl (70-99)
[2023-05-07] VITALS (7 sets, daily range): BP systolic 136–168; BP diastolic 52–65; PULSE 82; BMI 35.1
[2023-05-07] MEDS: SYNTHROID 75 MCG PO (06:30)
[2023-05-07 07:21] LABS: Hematocrit 24.4 % (39.0-52.0); Hemoglobin 7.9 g/dL (13.0-18.0); Mean Corp Hgb Conc. 32.4 g/dL (33.0-37.0); Mean Corpuscular Hgb 31.9 pg (27.0-31.0); Mean Corpuscular Volume 98.4 fL (80.0-94.0); Mean Platelet Volume 11.2 fL (7.4-10.4); Platelet Count 102 10^3/uL (130-400); Red Blood Cell Count 2.48 10^6/uL (4.70-6.10); Red Cell Dist. Width 19.3 % (11.5-14.5); White Blood Cell Count 4.6 10^3/uL (4.8-10.8)
[2023-05-07 07:46] LABS: Glucose - Point of Care 129 mg/dl (70-99)
[2023-05-07 07:52] LABS: ALT (SGPT) 50 U/L (0-50); AST (SGOT) 87 U/L (17-59); Albumin 2.9 g/dl (3.5-5.0); Alkaline Phosphatase 63 U/L (38-126); Blood Urea Nitrogen 27 mg/dl (9-20); Calcium 8.1 mg/dl (8.4-10.2); Carbon Dioxide 24 mmol/L (22-30); Chloride 108 mmol/L (98-107); Estimated Creatinine Clearance 63 ml/min; Glucose 123 mg/dl (70-99); Magnesium 2.2 mg/dl (1.6-2.3); Sodium 134 mmol/L (135-145); Total Bilirubin 0.5 mg/dl (0.2-1.3); Total Protein 5.4 g/dl (6.3-8.2); eGFR > 60.00
[2023-05-07] MEDS: NOVOLOG FLEXPEN-LOW RESISTANCE SC (08:13)
[2023-05-07] MEDS: MAG-TAB SR 84 MG PO ×2 (08:28→21:22)
[2023-05-07] MEDS: PROTONIX 20 MG PO (08:28)
[2023-05-07] MEDS: NORVASC 5 MG PO (08:28)
[2023-05-07] MEDS: VITAMIN B-12 1000 MCG PO (08:28)
[2023-05-07] MEDS: FEOSOL 325 MG PO (08:28)
[2023-05-07] MEDS: HIPREX 1 GRAM PO ×2 (08:28→21:23)
[2023-05-07] MEDS: FLUSH (NSS) 2 FLUSH IV (08:29)
--- NOTE | 2023-05-07 10:00 | PTCARENOTE ---
Pt's HR this morning Sinus Jovan in the low 50s prior to Coreg. Pt asymptomatic. Discussed with Dr. Milton, Dr. Milton ok with pt having ordered Coreg with bradycardia. Updated pt on plan, will monitor.
[2023-05-07] MEDS: COREG 3.125 MG PO ×2 (11:00→21:23)
[2023-05-07 12:14] LABS: Glucose - Point of Care 255 mg/dl (70-99)
[2023-05-07] MEDS: NOVOLOG FLEXPEN-LOW RESISTANCE 3 UNITS SC (12:25)
--- NOTE | 2023-05-07 12:38 | W.PN.CD ---
Today's Communication / Plan
-
Plan is to resume Eliquis Tuesday evening if Hgb is stable
Will resume Lasix 40mg PO daily
Will add Aldactone and SGLT inhibitor (will ask case management to check copay)
Plan is for Watchman outpatient consult
Impression / Plan
-
Multifactorial dyspnea
- Hgb 6.5 on admit suggests anemia the primary etiology
Recurrent GI bleeding
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
- plan is to resume Eliquis Tuesday evening if Hgb is stable
Sinus amor, improved on much less coreg (3.125 bid)
Chronic HFpEF
- Just a part of his dyspnea, but he has significant LE edema (tense)
- echo 01/2023: EF 55-60%, mild
- weight is lower than prior admission but still with edema
- Will resume Lasix 40 mg PO daily
- Will add Aldactone and SGLT inhibitor (will ask case management to check co-pay)
Improved KRZYSZTOF, off ARB for now
Paroxysmal A fib, in SB
- Plan is for Watchman outpatient consult
Chronic CAD: 100% RCA, signif LCx => med rx
DM
Hypertension
PAD, hx carotid endarterectomy
Physical Exam
Vital Signs/Labs
Vital Signs
Temp Pulse Resp BP Pulse Ox
97.6 F 60 16 140/54 96
05/07/23 11:30 05/07/23 11:30 05/07/23 11:30 05/07/23 11:30 05/07/23 11:30
05/06/23 05/07/23 05/08/23
06:59 06:59 06:59
Actual Weight 117.2 kg 117.299 kg
05/07/23 06:25
05/07/23 06:25
Magnesium 2.2 mg/dl (1.6-2.3) 05/07/23 06:25
05/03/23
12:42
[id number] Pept 1150
Physical Exam
Constitutional: No acute distress
EENT: Anicteric
Cardiovascular: Rhythm & rate is regular and Pedal edema present (2+ firm edema)
Respiratory: Respiratory effort normal and Lungs clear to auscul.
GI: Soft and Distention absent
Neuro/Psych: AO x 3
Data Reviewed
-
Date of Service: May 07, 2023
--- NOTE | 2023-05-07 12:57 | W.PN.HOSP.TC ---
Today's Communication/Plan
-
follow HGB
Assessment / Plan
Assessment / Plan
pt is an 82 year old male
hypoglycemia (h/o type 2 DM)--with KRZYSZTOF, likely effect of DM meds---Holding glimepiride, metformin, pioglitazone----cont Insulin sliding scale--cortisol and TSH WNL--off D5
bradycardia--coreg on hold--unclear if due to hypoglycemia--apprec cards
acute on chronic anemia (also h/o hemorrhoids)--likely due to subacute blood loss anemia from GI losses--EGD with angioectasias exacerbated by eliquis (h/o History of recent Streptococcus mitis/oralis bacteremia with septic arthritis of left facet
joint L4-L5 paraspinal soft tissue enhancement--Recently completed 6 weeks of ceftriaxone with PICC line)--pt states that he had full w/u at [place] with EGD/colon/capsule study--all neg--transfuse for HGB <8--holding Eliquis--not iron deficient
by studies but did receive iron infusion as outpt--cont protonix--apprec heme/GI--s/p EGD with push enteroscopy which showed angiectasias
Exertional dyspnea/lightheadedness-- multifactorial--more likely due to anemia, doubt significant exacerbation of diastolic CHF--lasix started as outpt on hold--apprec cards---Cardiac BNP of 1150 from 1560--Recent echocardiogram showed no large
distinct vegetation however the diffuse thickening calcified nature of the mitral valve annulus and aortic valve
Acute kidney injury--Creatinine 1.5 from 0.9 in April--Hold irbesartan--improved to 1.3
Severe carotid stenosis status post carotid endarterectomy/bilateral iliac stents/Peripheral arterial disease/Coronary artery disease-- noted
Paroxysmal atrial fibrillation/Aortic stenosis/RBBB--Hold Eliquis for now, due to restart Tuesday evening-- rate controlled as pt bradycardic
Obstructive sleep apnea--Continue CPAP
Essential hypertension--Continue amlodipine--Hold irbesartan
Hyperlipidemia--cont crestor--Continue fenofibrate
Hypothyroidism--Continue levothyroxine--check TSH with reflex to free T4
BPH--Continue finasteride, tamsulosin
Code status --Full code
DVT prophylaxis�SCDs
Anticipated Discharge: Within 24 hours
Subjective/Interval History
-
Date of Service: May 07, 2023
pt feels 'great'
Objective Data
-
Labs:
Laboratory Results
05/07/23
06:25
WBC 4.6 L
Hgb 7.9 L
Hct 24.4 L
Plt Count 102 L
Sodium 134 L
Potassium 4.0
Chloride 108 H
Carbon Dioxide 24
BUN 27 H
Creatinine 1.2
Glucose 123 H
Calcium 8.1 L
Total Bilirubin 0.5
AST 87 H
ALT 50
Alkaline Phosphatase 63
Vital Signs:
max temp for 24 hours
05/07/23
03:00
Temp 98.1 F
Vital Signs
Temp Pulse Resp BP Pulse Ox
97.6 F 60 16 140/54 96
05/07/23 11:30 05/07/23 11:30 05/07/23 11:30 05/07/23 11:30 05/07/23 11:30
I&O
05/06/23 05/07/23 05/08/23
06:59 06:59 06:59
Intake Total 50 / 50 840 / 840
Output Total 1575 / 1575 150 / 150
Balance -1525 / -1525 690 / 690
Review of Systems
-
All other systems: Reviewed and negative
Physical Exam
-
General: Well Developed, Well Nourished and No Apparent Distress
HEENT: Normocephalic and Atraumatic
Respiratory: Clear to Auscultation; Negative Wheezes or Rhonchi
Cardiac: Regular Rhythm and S1/S2; Negative Murmur
GI: Soft, Nontender, Nondistended and Normal Bowel Sounds
Musculoskeletal: No Clubbing, No Cyanosis and No Edema
Neuro: Awake and Alert
Psych: Calm
--- NOTE | 2023-05-07 13:45 | CM ---
Case Management Consult completed;
Out of pocket costs for patient as follows:
Jardiance 10 mg $11.00 (30 day supply); $33.00 (90 day supply)
Farxiga 10 mg $263.97 (30 day supply)
Attending Physician notified via [place] Text
--- NOTE | 2023-05-07 14:26 | W.PN.GI.CBS2 ---
Today's Communication / Plan
-
follow hgb
Assessment / Plan
-
82 year old male, with a history of GI bleeding, chronic anemia with recent iron infusions, colon polyps, and atrial fibrillation (on Eliquis), newly diagnosed cirrhosis who presented to the ER yesterday 05/03/23 increasing dyspnea, dizziness and
lightheadedness. Hemoglobin in the ER was 8.2, with baseline Hgb in the 9-10 range. Overnight, hemoglobin dropped to 6.5, from 8.2. He has chronic dark stools, but denies any rectal bleeding or BRBPR. Pt denies any abdominal pain, nausea, vomiting,
fevers, chills. He has a prior history of GI bleed in May 2021, with prior workup including endoscopy, colonoscopy and video capsule study at [facility], all negative. At that time he was on DAPT. He is not on ASA or Plavix now. He is a
former smoker, denies alcohol or NSAID use. He has had loose stools recently, but this is not new for him as he gets alternating diarrhea and constipation as his baseline bowel habits. He did follow up with Hematology and received 2 iron infusions
recently. Prior CT scan from 01/16/23 was suggestive of cirrhosis, and patient had a recent outpatient FibroScan which confirmed F4 fibrosis/cirrhosis. Full liver workup labs are still pending. Current labs show normal LFTs. He is awaiting
transfusion, 2 units PRBCs have been ordered.
Other medical problems include CHF with preserved ejection fraction, aortic stenosis, CAD, carotid artery stenosis (s/p carotid endarterectomy), PAD (s/p bilateral iliac stents), HTN, hyperlipidemia, non-insulin dependent DM, CKD stage 3,
hypothyroidism, BPH, ZAYRA, recurrent UTIs, and colon polyps. Recent admission in January 2023 for strep mitis/oralis bacteremia with septic arthritis of the L4-L5 facet joint, as well as heme positive stools. GI evaluated patient at that time; he
had endoscopy with Dr. Allison which was unremarkable, no source of bleeding identified.
Pt had small bowel enteroscopy with Dr. Castro yesterday, 05/05/23:
Impression: - Normal esophagus.
- Erosive gastropathy with stigmata of recent bleeding.
- Normal duodenal bulb, first portion of the duodenum
and second portion of the duodenum.
- Jejunal blood.
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
Treated with argon plasma coagulation (APC). Tattooed.
- No specimens collected.
Recommendation: - Return patient to hospital [facility] for ongoing care.
- Full liquid diet today.
- Check hemogram with white blood cell count and
platelets tomorrow.
- Resume Eliquis (apixaban) at prior dose after 72
hours. However if Eliquis can be discontinued, should
consider this.
IMPRESSION / PLAN:
- jejunal AVMs treated with APC
- hgb drift down likely not related to GI rebleeding but may be influenced by some nose bleeding
- can follow hgb
Subjective
Subjective
Date of Service: May 07, 2023
Pt w/o any GI bleeding but did have a bit of nasal bleeding with congestion
Objective
Data Reviewed
Laboratory Data:
Laboratory Results
05/07/23 06:25
Laboratory Results
Magnesium 2.2 mg/dl (1.6-2.3) 05/07/23 06:25
Total Bilirubin 0.5 mg/dl (0.2-1.3) 05/07/23 06:25
AST 87 U/L (17-59) H 05/07/23 06:25
ALT 50 U/L (0-50) 05/07/23 06:25
Alkaline Phosphatase 63 U/L (38-126) 05/07/23 06:25
Vital Signs and I&O:
Vital Signs
Temp Pulse Resp BP Pulse Ox
97.6 F 60 16 140/54 96
05/07/23 11:30 05/07/23 11:30 05/07/23 11:30 05/07/23 11:30 05/07/23 11:30
I&O
05/06/23 05/07/23 05/08/23
06:59 06:59 06:59
Intake Total 50 / 50 840 / 840
Output Total 1575 / 1575 150 / 150
Balance -1525 / -1525 690 / 690
Physical Exam
Physical Exam
GI: Soft and Non Tender
[2023-05-07] MEDS: OCEAN, SALINE MIST 2 SPRAYS NASAL (15:55)
[2023-05-07] MEDS: LASIX 40 MG IV (15:56)
[2023-05-07 16:39] LABS: Glucose - Point of Care 247 mg/dl (70-99)
[2023-05-07] MEDS: NOVOLOG FLEXPEN-LOW RESISTANCE 2 UNITS SC (16:44)
[2023-05-07 17:30] LABS: Hemoglobin 8.9 g/dL (13.0-18.0)
[2023-05-07] MEDS: CRESTOR 40 MG PO (18:15)
[2023-05-07] MEDS: TRICOR 145 MG PO (18:15)
[2023-05-07] MEDS: FLOMAX 0.400000000000000022 MG PO (18:15)
[2023-05-07 21:14] LABS: Glucose - Point of Care 243 mg/dl (70-99)
[2023-05-07] MEDS: TYLENOL 1000 MG PO (21:23)
[2023-05-07] MEDS: PROSCAR 5 MG PO (21:23)
[2023-05-07] MEDS: BENADRYL 50 MG PO (21:24)
[2023-05-08 03:11] VITALS: BP 131/65
[2023-05-08] MEDS: SYNTHROID 75 MCG PO (05:47)
[2023-05-08 06:00] VITALS: BMI 34.7
[2023-05-08 07:17] VITALS: BP 135/58
[2023-05-08 07:40] LABS: Glucose - Point of Care 141 mg/dl (70-99)
[2023-05-08 08:19] LABS: Hematocrit 25.6 % (39.0-52.0); Hemoglobin 8.3 g/dL (13.0-18.0); Mean Corp Hgb Conc. 32.4 g/dL (33.0-37.0); Mean Corpuscular Hgb 31.6 pg (27.0-31.0); Mean Corpuscular Volume 97.3 fL (80.0-94.0); Mean Platelet Volume 11.5 fL (7.4-10.4); Platelet Count 118 10^3/uL (130-400); Red Blood Cell Count 2.63 10^6/uL (4.70-6.10); White Blood Cell Count 3.3 10^3/uL (4.8-10.8)
[2023-05-08 08:29] LABS: Blood Urea Nitrogen 26 mg/dl (9-20); Calcium 8.4 mg/dl (8.4-10.2); Carbon Dioxide 27 mmol/L (22-30); Chloride 104 mmol/L (98-107); Estimated Creatinine Clearance 62 ml/min; Glucose 127 mg/dl (70-99); Sodium 137 mmol/L (135-145); eGFR > 60.00
[2023-05-08] MEDS: NOVOLOG FLEXPEN-LOW RESISTANCE SC (08:33)
[2023-05-08] MEDS: ALDACTONE 25 MG PO (08:53)
[2023-05-08] MEDS: FEOSOL 325 MG PO (08:53)
[2023-05-08] MEDS: HIPREX 1 GRAM PO (08:53)
[2023-05-08] MEDS: COREG 3.125 MG PO (08:53)
[2023-05-08] MEDS: NORVASC 5 MG PO (08:54)
[2023-05-08] MEDS: JARDIANCE 10 MG PO (08:54)
[2023-05-08] MEDS: PROTONIX 20 MG PO (08:54)
[2023-05-08] MEDS: VITAMIN B-12 1000 MCG PO (08:54)
[2023-05-08] MEDS: MAG-TAB SR 84 MG PO (08:54)
[2023-05-08] MEDS: LASIX 40 MG IV (08:54)
[2023-05-08] MEDS: FLUSH (NSS) 2 FLUSH IV (08:55)
[2023-05-08] MEDS: OCEAN, SALINE MIST 2 SPRAYS NASAL (08:59)
--- NOTE | 2023-05-08 09:24 | W.PN.GI.CBS2 ---
Today's Communication / Plan
-
no GI bleeding. No further inpatient management
Assessment / Plan
-
82 year old male, with a history of GI bleeding, chronic anemia with recent iron infusions, colon polyps, and atrial fibrillation (on Eliquis), newly diagnosed cirrhosis who presented to the ER yesterday 05/03/23 increasing dyspnea, dizziness and
lightheadedness. Hemoglobin in the ER was 8.2, with baseline Hgb in the 9-10 range. Overnight, hemoglobin dropped to 6.5, from 8.2. He has chronic dark stools, but denies any rectal bleeding or BRBPR. Pt denies any abdominal pain, nausea, vomiting,
fevers, chills. He has a prior history of GI bleed in May 2021, with prior workup including endoscopy, colonoscopy and video capsule study at [facility], all negative. At that time he was on DAPT. He is not on ASA or Plavix now. He is a
former smoker, denies alcohol or NSAID use. He has had loose stools recently, but this is not new for him as he gets alternating diarrhea and constipation as his baseline bowel habits. He did follow up with Hematology and received 2 iron infusions
recently. Prior CT scan from 01/16/23 was suggestive of cirrhosis, and patient had a recent outpatient FibroScan which confirmed F4 fibrosis/cirrhosis. Full liver workup labs are still pending. Current labs show normal LFTs. He is awaiting
transfusion, 2 units PRBCs have been ordered.
Other medical problems include CHF with preserved ejection fraction, aortic stenosis, CAD, carotid artery stenosis (s/p carotid endarterectomy), PAD (s/p bilateral iliac stents), HTN, hyperlipidemia, non-insulin dependent DM, CKD stage 3,
hypothyroidism, BPH, ZAYRA, recurrent UTIs, and colon polyps. Recent admission in January 2023 for strep mitis/oralis bacteremia with septic arthritis of the L4-L5 facet joint, as well as heme positive stools. GI evaluated patient at that time; he
had endoscopy with Dr. Allison which was unremarkable, no source of bleeding identified.
Pt had small bowel enteroscopy with Dr Castro 05/05/23:
IMPRESSION / PLAN:
- jejunal AVMs treated with APC
- hgb stable w/o transfusion, no bleeding
will sign off call if questions
Subjective
Subjective
Date of Service: May 08, 2023
Pt with no more nose bleeding, no gi bleeding, no abd pain
Objective
Data Reviewed
Laboratory Data:
Laboratory Results
05/08/23 06:16
05/08/23 06:16
Laboratory Results
Magnesium 2.2 mg/dl (1.6-2.3) 05/07/23 06:25
Total Bilirubin 0.5 mg/dl (0.2-1.3) 05/07/23 06:25
AST 87 U/L (17-59) H 05/07/23 06:25
ALT 50 U/L (0-50) 05/07/23 06:25
Alkaline Phosphatase 63 U/L (38-126) 05/07/23 06:25
Vital Signs and I&O:
Vital Signs
Temp Pulse Resp BP Pulse Ox
98.0 F 62 18 135/58 97
05/08/23 07:17 05/08/23 08:53 05/08/23 07:17 05/08/23 08:53 05/08/23 07:17
I&O
05/07/23 05/08/23 05/09/23
06:59 06:59 06:59
Intake Total 840 / 840 900 / 900
Output Total 150 / 150 2455 / 2455
Balance 690 / 690 -1555 / -1555
Physical Exam
Physical Exam
GI: Soft and Non Tender
--- NOTE | 2023-05-08 10:07 | W.PN.CD ---
Today's Communication / Plan
-
- Continue Lasix 40 mg PO daily
- Continue the new Aldactone and SGLT inhibitor (Jardiance affordable at $11/30 days or $33/ days)
- Will need BMP in 2 and 4 weeks and then q3 months for awhile with new meds for HF
- Eliquis to start tonight per prior plans
- Dr. Alston plans Watchman evaluation
Impression / Plan
-
Multifactorial dyspnea
- Hgb 6.5 on admit suggests anemia the primary etiology
Recurrent GI bleeding
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
- plan is to resume Eliquis Tuesday evening if Hgb is stable
Anemia, admit Hgb 6.5 (in Oct 2022 Hgb as low as 7.1)
- No stool reports of Heme positive while here in hospital
- Severe, improved
- 2 U PRBC transfused on 05/04/2023
- 2 U PRBC transfused on 10/25/2022
- I presume his anemia is only from GI bleeding but are there any concerns for other causes of anemia
Sinus amor, improved on much less coreg (3.125 bid)
Chronic HFpEF
- Just a part of his dyspnea, but he has significant LE edema (tense)
- echo 01/2023: EF 55-60%, mild
- weight is lower than prior admission but still with edema
- Continue Lasix 40 mg PO daily
- I added Aldactone and SGLT inhibitor (Jardiance affordable at $11/30 days or $33/90 days)
Improved KRZYSZTOF, off ARB for now
Paroxysmal A fib, in SB
- Plan is for Watchman outpatient consult
Chronic CAD: 100% RCA, signif LCx => med rx
DM
Hypertension
PAD, hx carotid endarterectomy
Physical Exam
Vital Signs/Labs
Vital Signs
Temp Pulse Resp BP Pulse Ox
98.0 F 62 18 135/58 97
05/08/23 07:17 05/08/23 08:53 05/08/23 07:17 05/08/23 08:53 05/08/23 07:17
05/07/23 05/08/23 05/09/23
06:59 06:59 06:59
Actual Weight 115.893 kg
05/08/23 06:16
05/08/23 06:16
Magnesium 2.2 mg/dl (1.6-2.3) 05/07/23 06:25
05/03/23
12:42
Uom-R-Vwwljvpvvyk Pept 1150
Physical Exam
Constitutional: No acute distress
EENT: Anicteric
Cardiovascular: Rhythm & rate is regular and Pedal edema present (perhaps a bit better)
Respiratory: Respiratory effort normal and Lungs clear to auscul.
GI: Soft and Distention absent
Neuro/Psych: AO x 3
Data Reviewed
-
Date of Service: May 08, 2023
--- NOTE | 2023-05-08 10:34 | W.PN.HOSP.TC ---
Today's Communication/Plan
-
d/c
Assessment / Plan
Assessment / Plan
pt is an 82 year old male
hypoglycemia (h/o type 2 DM)--with KRZYSZTOF, likely effect of DM meds---restart glimepiride, metformin, pioglitazone as able----cont Insulin sliding scale--cortisol and TSH WNL--off D5
bradycardia--coreg on hold--unclear if due to hypoglycemia--apprec cards
acute on chronic anemia (also h/o hemorrhoids)--likely due to subacute blood loss anemia from GI losses--EGD with angioectasias exacerbated by eliquis (h/o History of recent Streptococcus mitis/oralis bacteremia with septic arthritis of left facet
joint L4-L5 paraspinal soft tissue enhancement--Recently completed 6 weeks of ceftriaxone with PICC line)--pt states that he had full w/u at [place] with EGD/colon/capsule study--all neg--transfuse for HGB <8--holding Eliquis--not iron deficient
by studies but did receive iron infusion as outpt--cont protonix--apprec heme/GI--s/p EGD with push enteroscopy which showed angiectasias
Exertional dyspnea/lightheadedness-- multifactorial--more likely due to anemia, doubt significant exacerbation of diastolic CHF--lasix started as outpt on hold--apprec cards---Cardiac BNP of 1150 from 1560--Recent echocardiogram showed no large
distinct vegetation however the diffuse thickening calcified nature of the mitral valve annulus and aortic valve
Acute kidney injury--Creatinine 1.5 from 0.9 in April--Hold irbesartan--improved to 1.3
Severe carotid stenosis status post carotid endarterectomy/bilateral iliac stents/Peripheral arterial disease/Coronary artery disease-- noted
Paroxysmal atrial fibrillation/Aortic stenosis/RBBB--Hold Eliquis for now, due to restart Tuesday evening-- rate controlled as pt bradycardic
Obstructive sleep apnea--Continue CPAP
Essential hypertension--Continue amlodipine--Hold irbesartan
Hyperlipidemia--cont crestor--Continue fenofibrate
Hypothyroidism--Continue levothyroxine--check TSH with reflex to free T4
BPH--Continue finasteride, tamsulosin
Code status --Full code
DVT prophylaxis�SCDs
Anticipated Discharge: Today
Subjective/Interval History
-
Date of Service: May 08, 2023
pt ready for d/c
Objective Data
-
Labs:
Laboratory Results
05/08/23
06:16
WBC 3.3 L
Hgb 8.3 L
Hct 25.6 L
Plt Count 118 L
Sodium 137
Potassium 4.0
Chloride 104
Carbon Dioxide 27
BUN 26 H
Creatinine 1.2
Glucose 127 H
Calcium 8.4
Vital Signs:
max temp for 24 hours
05/08/23
03:11
Temp 98.5 F
Vital Signs
Temp Pulse Resp BP Pulse Ox
98.0 F 62 18 135/58 97
05/08/23 07:17 05/08/23 08:53 05/08/23 07:17 05/08/23 08:53 05/08/23 07:17
I&O
05/07/23 05/08/23 05/09/23
06:59 06:59 06:59
Intake Total 840 / 840 900 / 900
Output Total 150 / 150 2455 / 2455
Balance 690 / 690 -1555 / -1555
Review of Systems
-
All other systems: Reviewed and negative
Physical Exam
-
General: Well Developed, Well Nourished and No Apparent Distress
HEENT: Normocephalic and Atraumatic
Respiratory: Clear to Auscultation; Negative Wheezes or Rhonchi
Cardiac: Regular Rhythm and S1/S2; Negative Murmur
GI: Soft, Nontender, Nondistended and Normal Bowel Sounds
Musculoskeletal: No Clubbing, No Cyanosis and No Edema
Neuro: Awake
Psych: Calm
--- NOTE | 2023-05-08 11:08 | CM ---
Met with patient at bedside to discuss discharge plan. Patient requested a rolling walker; Attending notified and wrote a script for PT to provide prior to DC today
IMM benefit explained and signed @ 1105
Plan: discharge to home @ [place]; will provide transport home
[2023-05-08 11:29] VITALS: BP 151/59
[2023-05-08 11:51] LABS: Glucose - Point of Care 216 mg/dl (70-99)
[2023-05-08] MEDS: NOVOLOG FLEXPEN-LOW RESISTANCE 2 UNITS SC (12:38)
--- NOTE | 2023-05-08 14:16 | W.DCSUMMARY ---
Discharge Summary
Discharge Data
Date of Admission: 05/03/23
Date of Discharge: 05/08/23
-
Pending Results: No
Hospital Course
Primary care physician : Angel Lord
Principal Discharge diagnosis : Acute on chronic anemia, hypoglycemia, bradycardia, exertional dyspnea/lightheadedness, acute kidney injury
Chronic Discharge diagnosis : Severe carotid stenosis status post carotid endarterectomy in the past/bilateral iliac stent/peripheral arterial disease/coronary artery disease, paroxysmal atrial fibrillation/aortic stenosis, obstructive sleep apnea,
essential hypertension, hyperlipidemia, hypothyroidism, benign prostatic hyperplasia
Hospital Course : Patient is an 82-year-old male who had recent Streptococcus mitis/oralis bacteremia and finished 6 weeks of IV antibiotics who presented for shortness of breath, fatigue, lightheadedness with exertion for the last 2 years but
worsening over the past 2 weeks. Patient was short of breath when he lies down flat and has difficulty sleeping. He had increased lower extremity edema. He also has a history of dark stools and was taking iron supplements regularly. He does have
a history of hemorrhoids and noticed bright red blood per rectum occasionally as well. He was started on Lasix 40 mg twice daily followed by 20 mg twice daily by his outpatient improvement director. Symptoms did improve slightly. He also saw his
ferris wheel attendant who started him on irbesartan within the past 2 weeks prior to admission. Patient was admitted.
Problem #1: Acute on chronic anemia. This was likely due to subacute blood loss anemia from GI losses. Patient was on Eliquis which was held. He did receive 2 units of packed red blood cells for hemoglobin of 6.5. Hemoglobin remained stable in
the mid eights. Patient stated that he has had a full workup of his GI issues at [facility] with an EGD/colonoscopy/capsule study all of which were negative. He also received iron infusions as an outpatient. GI was consulted and the patient
underwent EGD with push enteroscopy which showed angiectasias. These were cauterized as able. Eliquis has been on hold until TuesdayMay 08, 2023 at which time he can resume. Cardiology has been consulted and they feel that he would be a
good candidate for a Watchman procedure and get him off of the Eliquis. He is to follow-up with them as an outpatient to discuss this option.
Problem #2: Hypoglycemia. With the patient's acute kidney injury, this is likely due to effect of his diabetic medications. These were all placed on hold and Accu-Cheks with insulin sign scale coverage were given. Patient was also placed on D5 IV
fluids. Cortisol and TSH were checked and both were within normal limits. Cardiology has priced and will start the patient on Jardiance. All of his other medications have been placed on hold. He can discuss restarting these with his primary care
physician.
Problem #3: Bradycardia. Coreg has been on hold. Cardiology has restarted it at a much lower dose.
Problem #4: Exertional dyspnea/lightheadedness. This was felt to be more in line with blood loss anemia from his GI losses as opposed to any significant exacerbation of his diastolic congestive heart failure. Outpatient Lasix was put on hold but
as per cardiology recommendations he will be discharged on 60 mg daily. He will follow-up with cardiology as an outpatient.
Problem #5: Acute kidney injury. Patient's creatinine on admission was 1.5. Irbesartan was held. Patient's creatinine improved to 1.3. He was not discharged home on irbesartan.
Problem #6: All other medical issues. These include Severe carotid stenosis status post carotid endarterectomy in the past/bilateral iliac stent/peripheral arterial disease/coronary artery disease, paroxysmal atrial fibrillation/aortic stenosis,
obstructive sleep apnea, essential hypertension, hyperlipidemia, hypothyroidism, benign prostatic hyperplasia. These medical issues were stable during her hospitalization. Medications were continued as able.
Patient is stable for discharge home at this time. If there are any questions regarding this dictation or his hospital stay, please not hesitate to call. Our office number is [phone].
Time for discharge 40 minutes.
Procedure findings :
EGD/ENTEROSCOPY Impression: - Normal esophagus.
- Erosive gastropathy with stigmata of recent bleeding.
- Normal duodenal bulb, first portion of the duodenum
and second portion of the duodenum.
- Jejunal blood.
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
Treated with argon plasma coagulation (APC). Tattooed.
- No specimens collected.
Discharge Plan
-
Patient Disposition: Home (Routine Discharge)
Discharge Diagnosis/Procedures: Acute on chronic anemia due to subacute blood loss anemia from angioectasias, hypoglycemia, bradycardia, exertional dyspnea with lightheadedness, acute kidney injury, severe carotid stenosis status post carotid
endarterectomy in the past with peripheral arterial disease and bilateral iliac stents, paroxysmal atrial fibrillation with aortic stenosis, obstructive sleep apnea, essential hypertension, hyperlipidemia, hypothyroidism, benign prostatic
hyperplasia
Condition: Good
Diet: As tolerated and Diabetic, Carb Controlled
Activity: As tolerated
Driving Restrictions: As prior to admission
Bathing Restrictions: None
Blood Work: will need BMP in 2 weeks, 4 weeks, then every 3 months --results to cardiology
Instructions: *CBC Heart Failure Instructions
Referrals:
Fidencio Alston MD [Active] - 05/19/23 3:20 pm
Valentin Lombardo MD [Active] - (discuss watchman- cardiology office will call you to arrange)
Angel Lord MD [Family Provider] - in less than 1 week
Prescriptions:
New
carvedilol 3.125 mg Tablet
3.125 mg PO BID Qty: 60 0RF
spironolactone 25 mg Tablet
25 mg PO DAILY Qty: 30 0RF
furosemide 20 mg Tablet
60 mg PO DAILY Qty: 90 0RF
Jardiance 10 mg Tablet
10 mg PO DAILY Qty: 30 0RF
Continued
fenofibrate nanocrystallized 145 MG tablet
145 mg PO QPM
magnesium oxide 400 MG tablet
400 mg PO BID
finasteride 5 mg Tablet
5 mg PO HS
amlodipine 5 mg Tablet
5 mg PO DAILY
Tylenol PM Extra Strength 25-500 mg Tablet
2 tab PO HS Qty: 0
pantoprazole 20 mg tablet,delayed release (DR/EC)
20 mg PO DAILY
tamsulosin [Flomax] 0.4 MG capsule
0.4 mg PO QPM
ferrous sulfate 325 mg (65 mg iron) Tablet
325 mg PO DAILY
cyanocobalamin (vitamin B-12) 1,000 mcg Tablet
1,000 mcg PO DAILY
levothyroxine [Synthroid] 75 mcg Tablet
75 mcg PO DAILY
methenamine hippurate [Hiprex] 1 gram Tablet
1 g PO BID
Hold Instructions: Resume on 03/16/23. while on iv antibiotics;see your PCP prior to restarting it
rosuvastatin [Crestor] 40 mg Tablet
40 mg PO QPM
Held
irbesartan 150 MG tablet
300 mg PO DAILY
Hold Instructions: discuss restarting with your improvement director
metformin 500 mg Tablet
1,000 mg PO BID
Hold Instructions: discuss restarting with your improvement director
Eliquis 5 mg Tablet
5 mg PO BID
Hold Instructions: start tonight 05/07
pioglitazone [Actos] 30 mg Tablet
30 mg PO DAILY
Hold Instructions: discuss restarting with your family doctor
Discontinued
glimepiride 4 MG tablet
4 mg PO DAILY
furosemide [Lasix] 20 mg Tablet
20 mg PO DAILY
carvedilol 12.5 mg tablet
12.5 mg PO BID
Discharge Orders:
Discharge Patient (As Directed); Ordered 05/08/23
Ordered By: Zeenat Alvarez
Discharge Date and Time
Print Language: VIETNAMESE
== END 2023-05-08 14:58 | disposition home or self-care (01) | DRG 378 ==
LOC: 4 EAST ACU 17:13
PROVIDERS: Emergency Medicine; Internal Medicine Cardiovascular Disease; ADMITTING PHYSICIAN Hospitalist; ATTENDING PHYSICIAN Internal Medicine; CONSULT PHYSICIAN Internal Medicine Gastroenterology; EMERGENCY PHYSICIAN Emergency Medicine; FAMILY PHYSICIAN Student in an Organized Health Care Education/Training Program; OTHER PHYSICIAN Internal Medicine Cardiovascular Disease; OTHER PHYSICIAN Internal Medicine Hematology & Oncology
PROC: 30233N1 Transfusion of Nonautologous Red Blood Cells into Peripheral Vein, Percutaneous Approach (ICD-10-PCS; 2023-05-04)
PROC: 0W3P8ZZ Control Bleeding in Gastrointestinal Tract, Via Natural or Artificial Opening Endoscopic (ICD-10-PCS; 2023-05-05)
DX: K55.21 Angiodysplasia of colon with hemorrhage (principal); D62 Acute posthemorrhagic anemia; N17.9 Acute kidney failure, unspecified; I13.0 Hypertensive heart and chronic kidney disease with heart failure and stage 1 through stage 4 chronic kidney disease, or unspecified chronic kidney disease; I50.32 Chronic diastolic (congestive) heart failure; I48.0 Paroxysmal atrial fibrillation; I25.10 Atherosclerotic heart disease of native coronary artery without angina pectoris; N18.30 Chronic kidney disease, stage 3 unspecified; E11.51 Type 2 diabetes mellitus with diabetic peripheral angiopathy without gangrene; E11.22 Type 2 diabetes mellitus with diabetic chronic kidney disease; K64.9 Unspecified hemorrhoids; I35.0 Nonrheumatic aortic (valve) stenosis; G47.33 Obstructive sleep apnea (adult) (pediatric); E03.9 Hypothyroidism, unspecified; N40.0 Benign prostatic hyperplasia without lower urinary tract symptoms; Z87.891 Personal history of nicotine dependence; K31.89 Other diseases of stomach and duodenum; E78.00 Pure hypercholesterolemia, unspecified; I65.29 Occlusion and stenosis of unspecified carotid artery
CPT/HCPCS: 36415; 71046; 80048; 80053; 82103; 82105; 82390; 82533; 82607; 82728; 82962; 83036; 83516; 83540; 83550; 83735; 83880; 84100; 84443; 84466; 84484; 85014; 85018; 85025; 85027; 86015; 86038; 86039; 86340; 86376; 86381; 86704; 86706; 86708; 86803; 86850; 86870; 86900; 86901; 86902; 86920; 86922; 87040; 87340; 93005; 94660; 97116; 97162; 97165; 99285; J1610; P9016

== ENCOUNTER 2023-05-19 18:22 | Inpatient (IN) | payer MEDICARE, BC, SELFPAY ==
[2023-05-19] VITALS (9 sets, daily range): BP systolic 98–161; BP diastolic 40–76; PULSE 79–91; BMI 33.0; BMI 31.7
--- NOTE | 2023-05-19 17:10 | ED.GENMED ---
History of Present Illness
General
Chief Complaint: Abnormal Lab Value
Time Seen by Provider: 05/19/23 15:52
Travel History
Have you had any contact with someone who has COVID-19?: No
Do you have any symptoms of coronavirus? Fever > 100 degrees, chills, cough, shortness of breath, sore throat, loss of taste or smell, muscle aches, or headache?: No
History of Present Illness
History of Present Illness:
82-year-old male presents the emergency department for evaluation of low hemoglobin on outpatient labs. Hemoglobin level was 5.4. Patient was admitted to this hospital approximately 2 weeks ago for similar issues at which time he was found to have
an upper GI bleed, EGD revealed erosive gastropathy as well as vascular malformations of the jejunum. Coagulation was performed operatively and the patient improved. He did require blood transfusions. He does have chronically black stool due to
oral iron supplementation but feels this is worse recently. He reports exertional chest discomfort and shortness of breath recently as well. Has felt increasing fatigue for the past 3 days. He is on Eliquis and did take a dose this morning
Past History
Past History
ED Past Medical History: HTN, Hypercholesterolemia, NIDDM, Renal failure, Hypothyroidism and Other (Prostatic hypertrophy, peripheral arterial disease)
ED Past Surgical History: Cholecystectomy, Tonsilectomy and Other
Social History
Tobacco: Non-smoker
Alcohol: None
Drug: None
Personal:
Living: with family
Employment: Retired
Family History
Family History: Other
Review of Systems
Review of Systems
Allergies reviewed?: Yes
All Other Systems: ROS reviewed and negative except as documented in HPI and ROS
Phy Exam
Physical Exam
Physical Exam:
GEN: Generally pale, no immediate distress
Eyes: PERRLA, EOMs intact, no scleral icterus
HENT: NCAT, oral mucosa moist
Lungs: CTAB, no wheezes, rales, rhonchi, normal chest wall excursion
Cardiac: RRR, no M/R/G, no peripheral edema. Radial pulses 2+ bilat
Abdomen: S, NT, ND, NABS, no masses or hepatosplenomegaly
Neuro: AO x 3
MSK: No gross deformity or ecchymosis.
Skin: No rashes, petechiae. Normal color, no pallor or jaundice.
Psych: Calm, cooperative, proper hygiene
Course
Orders/Labs/Results
Orders:
Orders
05/19/23 15:27
Electrocardiogram (*1) Urgent
Reason for Study: Vertigo / Dizzy
EKG- Treatment ONCE
05/19/23 15:42
Type+Screen Urgent
05/19/23 16:01
Blood Bank Products [* Blood Bank Products] Urgent
Blood Bank Products: *Packed RBC Leuko(PRBC's)
Quantity: 2
Transfuse Today: Yes
Reason: Anemia
CR Chest - 2 Views Urgent
Comment:
Reason For Exam: SOB
05/19/23 16:04
Furosemide [Lasix] 20 mg IV ONCE ONE
05/19/23 16:42
Comprehensive Metabolic Panel Urgent
NT-proBNP Urgent
05/19/23 17:56
Admit/Transfer Patient As Directed
Co-Sign Provider:
Level of Care: Inpatient admission
Assign to:: Telemetry
Physician / Group: kurt estrada
Diagnosis: GI bleed
Reason for Telemetry: Arrhythmia
Date to Stop Telemetry: 05/22/23
Time to Stop Telemetry: 11:00
Reason for Hospitalization: GI bleed
Expected length of stay greater than two midnights?: Yes
ELOS- Estimated Length of Stay in days: 3
I certify the patient meets the requirements for IP care: Yes
05/19/23 17:58
Code Status As Directed
Resuscitation Status: Full Code
05/19/23 18:02
Troponin I Stat
05/22/23 11:00
DC Protocol for Telemetry ONCE
Abnormal Lab Results
05/19/23 05/19/23
15:42 16:42
Sodium 134 L mmol/L
(135-145)
Carbon Dioxide 15 L mmol/L
(22-30)
BUN 69 H mg/dl
(9-20)
Creatinine 1.8 H mg/dL
(0.7-1.3)
Glucose 195 H mg/dl
(70-99)
AST 83 H U/L
(17-59)
Total Protein 5.8 L g/dl
(6.3-8.2)
Albumin 3.3 L g/dl
(3.5-5.0)
Antibody Screen Positive A
(Negative)
05/19/23 16:42
Vital Signs
Initial and Last Documented VS:
Initial Vital Signs
Temp Pulse Resp BP Pulse Ox
97.8 F 86 18 110/51 99
05/19/23 15:23 05/19/23 15:23 05/19/23 15:23 05/19/23 15:23 05/19/23 15:23
Last Documented Vital Signs
Temp Pulse Resp BP Pulse Ox
97.8 F 80 20 134/51 98
05/19/23 15:23 05/19/23 18:00 05/19/23 18:00 05/19/23 18:00 05/19/23 18:00
MDM/Problems Addressed
MDM/Problems Addressed:
Patient's ischemic EKG is felt to be due to anemia in the setting of coronary artery disease. Rectal exam was deferred due to his oral iron supplementation. He does have significant uremia which supports the likelihood of an upper GI bleed. PPI
bolus/drip ordered. Will admit to the hospitalist service for further management
Comment
Comment:
EKG independently interpreted by me shows normal sinus rhythm with a right bundle branch block and left anterior fascicular block, there are ST depressions in V2 and V3, acutely changed compared to prior EKG from April 2023
*Critical Care Note
Total Time (30-74mins, 75-104mins- exclusive of procedures): Not Applicable
ED Attending Note
-
Portions of this chart may have been created with voice recognition software.� Occasional wrong word or��sound alike� substitutions may have occurred due to the inherent limitations of voice recognition software.
Discharge Plan
Departure
Patient Disposition: Admit
Date of Disposition: 05/19/23
Time of Disposition: 17:10
Presentation/result/management discussed w/ accepting MD/DO: Hospitalist
Discharge Problem:
Acute blood loss anemia, Acute GI bleeding
Interventions
Interventions:
*Risk Screen - Suicide Last Done: 05/19/23 15:23
*General Assessment Last Done: 05/19/23 15:23
*Neglect/Abuse Screening Last Done: 05/19/23 15:23
ED- Fall Risk Assessment Last Done: 05/19/23 16:43
[2023-05-19 17:17] LABS: ALT (SGPT) 47 U/L (0-50); AST (SGOT) 83 U/L (17-59); Albumin 3.3 g/dl (3.5-5.0); Alkaline Phosphatase 73 U/L (38-126); Blood Urea Nitrogen 69 mg/dl (9-20); Calcium 9.3 mg/dl (8.4-10.2); Carbon Dioxide 15 mmol/L (22-30); Chloride 105 mmol/L (98-107); Estimated Creatinine Clearance 41 ml/min; Glucose 195 mg/dl (70-99); Potassium 5.1 mmol/L (3.5-5.1); Sodium 134 mmol/L (135-145); Total Bilirubin 0.5 mg/dl (0.2-1.3); Total Protein 5.8 g/dl (6.3-8.2); eGFR 37.12
[2023-05-19 17:22] LABS: NT-proBNP 1100 pg/ml
--- NOTE | 2023-05-19 17:22 | HPS.HSE ---
Family Physician
-
Family Physician: NOT KNOW UNKNOWN - PT DOES
Chief Complaint
-
low hemoglobin
History of Present Illness
82-year-old with past medical history for hypertension, hyperlipidemia, diabetes, hypothyroidism, BPH, peripheral artery disease, GI bleed presented to us with low hemoglobin. Patient was admitted here last week of April with GI bleed. Small bowel
enteroscopy performed on 05/04. few localized erosions with stigmata of recent bleeding (mild oozing) were found in the gastric body.Red blood was found in the proximal jejunum.Multiple angiectasias with bleeding were found in the proximal jejunum.
Which was cauterized. Patient was sent home on 05/07. Continue to notice black stool. Since discharge patient tried iron infusion twice and B12 shot at [place] [facility]. His hemoglobin was 10, beginning of May. Patient stated worsening weakness
for 1 week. Complain of dizziness. Short of breath. He was very short of breath at nighttime. As per he was very restless and was not sleeping at night. Patient complaining of some left-sided chest pain. Patient had a blood work done as
outpatient today. His hemoglobin was 5.4. Cardiology saw him at office and sent him over here. denied headache or syncopal episode. Patient denied fever, chills, congestion, cough. Denied any chest pain at present. Denied nausea, vomiting,
diarrhea. Patient denied hematuria.
Heme positive for black stool in the ER. Hemoglobin 5.4. 2 units ordered in ER/admitting for further management
Medical History
Past Medical History
Past Medical History: Reports Other
Additional Past Medical History:
Peripheral artery disease
Dyslipidemia
Obstructive sleep apnea
Right bundle branch block
Essential hypertension
Type 2 diabetes
Right carotid stenosis
Aortic valve stenosis
Diverticulosis
Stage IIIb chronic kidney disease
Coronary artery disease
Chronic heart failure
BPH
Past Surgical History: Reports Other
Additional Past Surgical History:
Carotid endarterectomy
Cholecystectomy
Tonsillectomy
Social History
Tobacco: Former Smoker
Alcohol: None
Drug: None
Personal:
Living: With Family
Family History
Family History: Not pertinent
Allergies / Home Medications
Allergies reflects when Allergies were last updated in [employer]
Home Medications with original date entered in [employer]
Allergy/Medication List:
Allergies
Allergy/AdvReac Type Severity Reaction Status Date / Time
clonidine Allergy dry mouth, Verified 05/19/23 15:23
sleepless
Home Medications
fenofibrate nanocrystallized 145 mg tablet 145 mg PO QPM High cholesterol 07/29/21
magnesium oxide 400 mg PO BID Electrolyte Repletion 07/29/21
finasteride 5 mg tablet 5 mg PO QPM Urinary issue 12/02/21
amlodipine 5 mg tablet 5 mg PO DAILY Blood pressure 04/05/22
diphenhydramine 25 mg-acetaminophen 500 mg tablet (Tylenol PM Extra Strength) 2 tab PO HS Sleep ##0 04/05/22
pantoprazole 20 mg tablet,delayed release 20 mg PO DAILY Gastrointestinal Issue 10/25/22
tamsulosin 0.4 mg capsule (Flomax) 0.4 mg PO QPM Urinary Issue 10/25/22
ferrous sulfate 325 mg (65 mg iron) tablet 325 mg PO DAILY Supplement 12/06/22
cyanocobalamin (vitamin B-12) 1,000 mcg tablet 1,000 mcg PO DAILY Supplement 01/16/23
levothyroxine 75 mcg tablet (Synthroid) 75 mcg PO DAILY Thyroid 01/16/23
metformin 500 mg tablet 1,000 mg PO BID diabetes 01/16/23
methenamine hippurate 1 gram tablet (Hiprex) 1 g PO BID Urinary Issue 01/16/23
apixaban 5 mg tablet (Eliquis) 5 mg PO BID Blood Clot Prevention/Tx 01/21/23
rosuvastatin 40 mg tablet (Crestor) 40 mg PO QPM High Cholesterol 05/03/23
carvedilol 3.125 mg tablet 3.125 mg PO BID Blood pressure #60 tabs 05/08/23
spironolactone 25 mg tablet 25 mg PO DAILY Fluid retention/Swelling #30 tabs 05/08/23
furosemide 20 mg tablet 40 mg PO DAILY Fluid retention/Swelling 05/19/23
Review of Systems
-
Constitutional: Reports No Symptoms
EENT: Reports No Symptoms
Respiratory: Reports Trouble Breathing
Cardiac: Reports No Symptoms
Abdomen/GI: Reports Black Stools
: Reports No Symptoms
Musculoskeletal: Reports No Symptoms
Skin: Reports No Symptoms
Neurological: Reports Dizzy
Endocrine: Reports No Symptoms
Hematologic/Lymphatic: Reports No Symptoms
Psych: Reports No Symptoms
Physical Exam
Vital Signs
Vital Signs
Temp Pulse Resp BP Pulse Ox
97.8 F 81 22 110/51 98
05/19/23 15:23 05/19/23 16:45 05/19/23 16:45 05/19/23 15:23 05/19/23 16:23
Physical Exam
General: Well Developed, Well Nourished and No Apparent Distress
HEENT: NormoCephalic, Moist mucous membranes and Atraumatic
Respiratory: Clear
Cardiac: S1/S2 and Regular Rhythm; No Murmur or Rub
GI: Soft, Non Tender, Non Distended and Normal Bowel Sounds; No Organomegaly
Rectal: Deferred by Provider
Musculoskeletal: No Clubbing, No Cyanosis and No Edema
Skin: No Rash
Neuro: AO x 3 and Nonfocal/grossly intact
Psych: Calm
Laboratory Results
-
05/19/23 16:42
Laboratory Results
Total Bilirubin 0.5 mg/dl (0.2-1.3) 05/19/23 16:42
AST 83 U/L (17-59) H 05/19/23 16:42
ALT 47 U/L (0-50) 05/19/23 16:42
Alkaline Phosphatase 73 U/L (38-126) 05/19/23 16:42
Data Reviewed
-
Lab Data: Labs Reviewed by me
Impression/Plan
-
# Symptomatic anemia/acute blood loss anemia likely from upper GI bleed
-Hemoglobin 5.4
-Hold Eliquis
-IV PPI bid
-N.p.o.
-GI consulted
-Trend hemoglobin
-Transfuse with 2 units
-Previous EGD with A few localized erosions with stigmata of recent bleeding (mild oozing) were found in the gastric body.Red blood was found in the proximal jejunum.Multiple angioectasias with bleeding were found in the proximal jejunum. cauterized
# History of Streptococcus mitis/oralis bacteremia with septic arthritis of the left facet joint L4-L5 paraspinal soft tissue enhancement
-Completed the course of ceftriaxone
#acute kidney injury
-Creatinine 1.8
-Continue to monitor
#Severe carotid stenosis status post carotid endarterectomy/bilateral iliac stents/Peripheral arterial disease/Coronary artery disease
#Paroxysmal atrial fibrillation/Aortic stenosis/RBBB
-EKG with sinus rhythm with fusion complexes, right bundle branch block,--Hold Eliquis for now
-Coreg continued with parameters
#Obstructive sleep apnea--Continue CPAP
#Essential hypertension
-Hold Norvasc
# History of congestive heart failure
-Hold Lasix and spironolactone
-Patient is not in acute exacerbation
#Hyperlipidemia--cont crestor--Continue fenofibrate
#Hypothyroidism--Continue levothyroxine
#BPH--Continue finasteride, tamsulosin
#Code status --Full code
DVT prophylaxis�SCDs
--- NOTE | 2023-05-19 18:12 | W.PN.UPDATE ---
Update Note
Progress Note Update
This note serves in conjunction with Hung Schmidt's note dated 05/18
I saw and examined the patient.
The BUILDING CONSTRUCTION SUPERVISOR or PA's note was reviewed and I agree with the note.
Comment:
82-year-old male with past medical history of cirrhosis, GI Bleeds in the past, HFpEF, aortic stenosis, CAD, carotid artery stenosis (s/p carotid endarterectomy), PAD (s/p bilateral iliac stents), HTN, hyperlipidemia, non-insulin dependent DM, CKD
stage 3, hypothyroidism, BPH, ZAYRA, recurrent UTIs, and colon polyps, recent Streptococcus mitis/oralis bacteremia now presents for dizziness, lightheadedness, lethargy, shortness of breath.� Patient has been continued on Eliquis since last
discharge, continued to have black stools.� Following with hematology with 2 IV iron infusions.� Patient's hemoglobin was at 10 in the beginning of May, and was symptoms repeat CBC was ordered by GI today.� Hemoglobin came back and was noted in
cardiology office to be 5.4.
Vitals, heart rate 88, respiratory 22, blood pressure 110/51, saturating 98% on room air, afebrile.� Hemoglobin noted to be 5.4, sodium 134, creatinine 1.8.� Eliquis has been on hold since last admission, already on ferrous sulfate.� Of note has a
history of dark stools does take iron supplement although on recent admission has had acute on chronic anemia with EGD showing angiectasia's exacerbated by Eliquis.� Hematology is following at this time and receiving IV iron as well as transfusion.
Plan�
#Acute blood loss anemia, acute on chronic anemia
� Transfused 2 unit PRBC
� PPI IV twice daily
� GI consulted
-Diet as per GI
� Continue to hold Eliquis
� Trend CBC
� Maintain hemoglobin greater than 7; transfuse as necessary
� Hold amlodipine, furosemide, spironolactone; can continue Coreg for now
#KRZYSZTOF
� Mostly secondary to anemia, volume depletion
� Monitor with transfusions
� Hold on additional IV fluid unless required for now as receiving transfusions
#Hyponatremia
-monitor with resuscitation
#Cirrhosis
-f/u outpatient
-hold aldactone, Lasix due to krzysztof and acute blood loss anemia
#Severe carotid stenosis status post carotid enterectomy/bilateral iliac stents
#PAD
#CAD
� Hold Eliquis for now
Follow-up cardiology outpatient
Paroxysmal atrial fibrillation
-Hold Eliquis for now
-Possible Plan for Watchman outpatient
Obstructive sleep apnea
-Continue CPAP
Essential hypertension
-hold amlodipine, Lasix, Aldactone
-Cont Coreg
Hyperlipidemia
-fenofibrate, statin
Type 2 diabetes
-Hold glimepiride, metformin, pioglitazone
-Insulin sliding scale
Hypothyroidism
-Continue levothyroxine
BPH
-Continue finasteride, tamsulosin
#DVT ppx
SCD
[2023-05-19] MEDS: PROTONIX 100 IV (18:57)
[2023-05-19] MEDS: PROTONIX IV 80 MG IV (18:57)
[2023-05-19 19:18] LABS: Troponin I 0.059 ng/ml
[2023-05-19] MEDS: TYLENOL 1000 MG PO (21:07)
[2023-05-19] MEDS: BENADRYL 50 MG PO (21:08)
[2023-05-19] MEDS: HIPREX 1 GRAM PO (21:08)
[2023-05-19] MEDS: FLOMAX 0.400000000000000022 MG PO (21:08)
[2023-05-19] MEDS: CRESTOR 40 MG PO (21:08)
[2023-05-19] MEDS: COREG 3.125 MG PO (21:08)
[2023-05-19] MEDS: TRICOR 145 MG PO (21:08)
[2023-05-19] MEDS: PROSCAR 5 MG PO (21:09)
--- NOTE | 2023-05-19 21:34 | PTCARENOTE ---
Addendum entered by Andreea Murillo RN 05/19/23 22:16:
Patient placed on 02 @ 2 liters for SANDHU and increased resp despite 99% pulse ox on room air.
Original Note:
Patient arrived via stretcher around 19:24 with diagnosis of GI bleed. AAOx3. Pleasant and cooperative with care. Patient now receiving bag 1 of 2 of PRBC. No reaction noted. Oriented to unit. Call pérez within reach. Patient educated to use call
pérez for any assist.
[2023-05-19] MEDS: PROTONIX IV 40 MG IV (22:30)
[2023-05-19] MEDS: NSS (PRESERVATIVE FREE) 10 ML IV (22:30)
[2023-05-20] VITALS (17 sets, daily range): BP systolic 86–157; BP diastolic 40–65; PULSE 66–80; BMI 31.8
[2023-05-20 00:29] LABS: Glucose - Point of Care 264 mg/dl (70-99)
[2023-05-20 06:23] LABS: Glucose - Point of Care 232 mg/dl (70-99)
--- NOTE | 2023-05-20 08:36 | CON.GI ---
Addendum entered and electronically signed by Sarita Roberts Do, MD 05/20/23 14:05:
I saw and examined the patient.
The JAVA ENTERPRISE ARCHITECT's note was reviewed and I agree with the note.
Comment: Ed is an 82yo W with h/o , CKD and afib on eliquis known to GI for recurrent GIB related to AVMs who was advised to come to ED for fatigue and SANDHU in setting of Hbg 5.4. Chronically dark/black stools since 'Xmas' Exam VSS obese M NTTP,
NABS. Labs reviewed Hbg went from 5.4 to 5.7 after 2 units of P RBC. Imaging CXR normal
Impression
- Recurrent anemia Hbg 5.4
- Chronically dark stools
- Known prior h/o AVM s/p cautery in jejunum 05/05/23
- Afib
- Chronic anticoagulation (last eliquis dose 05/18 AM)
- Diverticulosis
-
- DM
- ZAYRA
- CHF
Recommendations
- Agree with repeat H/H
- Add hemolysis labs
- Transfuse per primary team
- Agree with holding anticoagulation
- Given recurrent GIB dating back to 2022 may be high risk to resume anticoagulation. Consider watchman OP (mds rn is Dr Alston)
- Pending above consider slow prep over weekend for EGD/enteroscopy/colonoscopy Tuesday
Will follow with you
Addendum entered and electronically signed by Eli Latif NP 05/20/23 10:33:
I did review with the pt the findings of cirrhosis on Fibroscan which he does not recall being told about (OP notes indicate this was reviewed). He denies alcohol use. I advised him that he should keep his outpatient appt to review next steps with
Dr. Allison. He does not appear decompensated in this regard. I added INR to labs.
GI Procedures:
05/05/23 push enteroscopy: Normal esophagus. Erosive gastropathy with stigmata of recent bleeding. Normal duodenal bulb, first portion of the duodenum and second portion of the duodenum. Jejunal blood. Multiple bleeding angioectasias in the jejunum.
Treated with argon plasma coagulation (APC). Tattooed. No specimens collected.
EGD: 01/18/2023: Dr. Allison, indication- melena, suspected upper GI bleeding; Impression: Normal esophagus. Erythematous mucosa in the stomach. Normal examined duodenum. rectal exam- dark brown stool +
10/28/2022: Dr. Funez, indication- DAREN secondary to chronic blood loss, heme positive stool; Normal esophagus. Normal stomach. Normal examined duodenum. No specimens collected.
Colonoscopy, [place] May 2021: No findings per pt (prior notes indicate Diverticulosis otherwise normal)
Original Note:
Consultation
-
Date/Time Consultation Requested: 05/19/2023 @ 19:22
Date/Time Consultation Performed: 05/20/2023 @ 08:45
Requesting Provider: ADRIÁN Liu
Performing Provider: ADRIÁN Lanier; Dr. Sarita Son
Reason for Consultation: GI bleed
Medical History
Chief Complaint / HPI
Chief Complaint: low hgb
History of Present Illness:
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
artery disease, hyperlipidemia, hypertension, diabetes type 2, CAD, ZAYRA, history of recent septic arthritis at the L4-L5 with I&D, undergoing workup outpatient for liver cirrhosis with FibroScan showing F4 fibrosis/cirrhosis, who presented to the
emergency room for evaluation of a low hemoglobin. We are being asked to evaluate for the presenting reason with concern for GI bleed. Upon review of prior records, the patient has had multiple admissions for similar presentation with anemia and
dark stool concerning for GI bleed. He was last admitted to [facility] several weeks ago for symptomatic anemia. At that time was on Eliquis which was placed on hold due to his significant anemia. He underwent small bowel enteroscopy
with Dr. Castro which showed erosive gastropathy with stigmata of recent bleeding with blood in the jejunum and multiple bleeding angioectasias treated with APC. His hemoglobin stabilized after transfusion and he was eventually restarted on Eliquis
due to history of A-fib with plans for outpatient evaluation for Watchman. He follows with Dr. Alston from cardiology. Prior to this he had several other admissions for recurrent anemia in which he underwent endoscopy in January and October which
were essentially unrevealing. He has also been evaluated at [facility] in the past in 2021 with gastric erosions. He had colonoscopy at that time as well which did not show anything significant to explain his bleeding. Today he reports after his
discharge he was doing well. He followed up with his PCP and had routine labs which he notes were stable in regards to his hemoglobin. But shortly after his discharge he developed progressive symptoms including disrupted sleep, restlessness,
fatigue, weakness, and increased dyspnea on exertion. He notes that he does continue on oral iron and his stool is chronically dark but he felt that his stool was more black and tarry than it typically is. He denies any bright red blood per rectum
or vomiting blood. He otherwise denies any abdominal pain, nausea, vomiting, fevers, chills, dysphagia, unintentional weight loss, or loss of appetite. He notes he did take Aleve 1 pill on Tuesday and Tuesday, but otherwise did not take NSAIDs
regularly. He admits to a slight discomfort in his chest prior to admission which has improved. He also reports speaking with Dr. Alston who had told him to stop his Eliquis. His last dose was yesterday morning. With ongoing symptoms he was
advised to go to the lab to have his hemoglobin checked, which was found to be 5.4, therefore referred to the emergency room. Routine labs on admission showed hemoglobin 5.4, MCV 106.3, platelets 240,000, sodium 134, potassium 5.1, BUN 69,
creatinine 1.8, total bilirubin 0.5, AST 83, ALT 47, alk phos 73, troponin 0.059, albumin 3.3, Pro BNP 1100. A chest x-ray was done which showed no active disease. He did receive 2 units of packed red blood cells overnight and repeat hemoglobin is
pending this morning. EKG on admission did show's some ischemic changes with ST depressions in V2 and V3 as per ER physician which was thought to site be secondary to anemia. He has had no bowel movements during this admission. Currently his
symptoms are improved. He was made n.p.o., started on PPI drip which was changed to IV twice daily, and admitted for further evaluation by GI.
Noted that he does follow with Dr. Allison outpatient, and was seen by our physician household assistant Jada in March. At that time seen for a posthospital follow-up after his hospitalization in January. He has been undergoing workup as well for
concern for cirrhosis which he underwent FibroScan which did confirm F4 fibrosis with findings consistent with cirrhosis and portal hypertension. Currently is undergoing workup for this. He had labs outpatient for chronic liver disease evaluation
which did show positive ANDREW otherwise was unrevealing. He had no esophageal varices seen on push enteroscopy in April but did have erosive gastropathy with recent stigmata of bleeding.
Past Medical History
Past Medical History: Arrhythmias (Atrial fibrillation on Eliquis), CAD, CHF, HTN, Hypercholesterolemia, NIDDM, Valvular Disease (Aortic stenosis) and Other (Chronic kidney disease stage III, peripheral artery disease, ZAYRA with CPAP use, recent
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
Past Surgical History: Cardiac (CAD with stent), Cholecystectomy, Orthopedic (L4/L5 I&D), Tonsilectomy and Other (right CEA, iliac artery stent/angioplasty 2016)
Social History
Tobacco: Non-Smoker
Alcohol: None
Drug: None
Personal:
Living: With Family
Family History
Family History: Reviewed & Not Pertinent
Allergies / Home Medications
Allergy/AdvReac Type Severity Reaction Status Date / Time
clonidine Allergy dry mouth, Verified 05/19/23 15:23
sleepless
�Medication �Instructions �Recorded
fenofibrate nanocrystallized 145 145 mg PO QPM High cholesterol 07/29/21
mg tablet
magnesium oxide 400 mg PO BID Electrolyte Repletion 07/29/21
finasteride 5 mg tablet 5 mg PO QPM Urinary issue 12/02/21
amlodipine 5 mg tablet 5 mg PO DAILY Blood pressure 04/05/22
diphenhydramine 25 2 tab PO HS Sleep ##0 04/05/22
mg-acetaminophen 500 mg tablet
(Tylenol PM Extra Strength)
pantoprazole 20 mg tablet,delayed 20 mg PO DAILY Gastrointestinal 10/25/22
release Issue
tamsulosin 0.4 mg capsule (Flomax) 0.4 mg PO QPM Urinary Issue 10/25/22
ferrous sulfate 325 mg (65 mg 325 mg PO DAILY Supplement 12/06/22
iron) tablet
cyanocobalamin (vitamin B-12) 1,000 mcg PO DAILY Supplement 01/16/23
1,000 mcg tablet
levothyroxine 75 mcg tablet 75 mcg PO DAILY Thyroid 01/16/23
(Synthroid)
metformin 500 mg tablet 1,000 mg PO BID diabetes 01/16/23
methenamine hippurate 1 gram 1 g PO BID Urinary Issue 01/16/23
tablet (Hiprex)
apixaban 5 mg tablet (Eliquis) 5 mg PO BID Blood Clot 01/21/23
Prevention/Tx
rosuvastatin 40 mg tablet (Crestor) 40 mg PO QPM High Cholesterol 05/03/23
carvedilol 3.125 mg tablet 3.125 mg PO BID Blood pressure #60 05/08/23
tabs
spironolactone 25 mg tablet 25 mg PO DAILY Fluid 05/08/23
retention/Swelling #30 tabs
furosemide 20 mg tablet 40 mg PO DAILY Fluid 05/19/23
retention/Swelling
Review of Systems
-
History Source: Patient
Constitutional: Reports Fatigue and Sleep Disturbance
EENT: Reports No Symptoms
Respiratory: Reports Trouble Breathing
Cardiac: Reports Chest Pain
Abdomen/GI: Reports Black Stools
: Reports No Symptoms
Musculoskeletal: Reports No Symptoms
Skin: Reports No Symptoms
Neurological: Reports Weakness
Vital Signs
Temp Pulse Resp BP Pulse Ox
97.4 F 82 20 122/56 100
05/20/23 03:54 05/20/23 03:54 05/20/23 03:54 05/20/23 03:54 05/20/23 03:54
Physical Exam
Exam
General: Well Developed, Well Nourished and Other (Elderly, pale appearing male in no acute distress)
HEENT: Normocephalic, Anicteric and Atraumatic
Respiratory: Clear
Cardiac: S1/S2 and Regular Rhythm
GI: Soft, Non Tender, Non Distended, Normal Bowel Sounds and Other (Obese abdomen)
Rectal: Other (Per patient black stool, last bowel movement on 05/18)
Musculoskeletal: Edema (Trace bilateral lower extremity edema)
Skin: Warm and Dry
Neuro: Awake, Alert and Oriented
Psych: Calm
Results
Hgb Cancelled 05/20/23 03:00
Hct Cancelled 05/20/23 03:00
Sodium 134 mmol/L (135-145) L 05/19/23 16:42
Potassium 5.1 mmol/L (3.5-5.1) 05/19/23 16:42
Chloride 105 mmol/L (98-107) 05/19/23 16:42
Carbon Dioxide 15 mmol/L (22-30) L 05/19/23 16:42
BUN 69 mg/dl (9-20) H 05/19/23 16:42
Creatinine 1.8 mg/dL (0.7-1.3) H 05/19/23 16:42
Calcium 9.3 mg/dl (8.4-10.2) 05/19/23 16:42
Total Bilirubin 0.5 mg/dl (0.2-1.3) 05/19/23 16:42
AST 83 U/L (17-59) H 05/19/23 16:42
ALT 47 U/L (0-50) 05/19/23 16:42
Alkaline Phosphatase 73 U/L (38-126) 05/19/23 16:42
Diagnostic Image Results:
Prior GI Procedures:
EGD:
Colonoscopy:
Assessment / Plan
-
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
artery disease, hyperlipidemia, hypertension, diabetes type 2, CAD, ZAYRA, history of recent septic arthritis at the L4-L5 with I&D, undergoing workup outpatient for liver cirrhosis with FibroScan showing F4 fibrosis/cirrhosis, who presented to the
emergency room for evaluation of a low hemoglobin. We are being asked to evaluate for the presenting reason with concern for GI bleed. He was admitted with abnormal outpatient labs showing a hemoglobin of 5.4, in which she was symptomatic for
progressively over the past few weeks with dyspnea on exertion, dizziness, weakness, fatigue, and sleep disturbance. He reports ongoing melena at home although has chronic dark stools secondary to iron supplement. He did continue on Eliquis
outpatient with his last dose being yesterday morning on 05/18. Noted with prior admission in April with GI bleed secondary to bleeding jejunal AVMs which were treated with APC by Dr. Castro under push enteroscopy. Currently without ongoing signs of
bleeding, but with no improvement in hemoglobin status post 2 units of packed red blood cells, hemoglobin 5.7.
Problem list:
-Recurrent GI bleed likely secondary to small bowel AVM on anticoagulant
-Chronic iron deficiency anemia
-History of atrial fibrillation on Eliquis
-Suspected cirrhosis, F4 on FibroScan undergoing workup outpatient
-Elevated AST
-KRZYSZTOF on CKD
-History of aortic stenosis
Other pertinent medical history:
- Hyperlipidemia
-Hypertension
-ZAYRA with CPAP
-DM2
-CAD
-PAD with iliac artery stenting
-History of septic arthritis with I&D of L4-L5
-History of colon polyps
Recommendations:
-Etiology of recurrent anemia likely secondary to small bowel source with prior push enteroscopy showing multiple bleeding duodenal AVMs status post APC versus bleeding portal gastropathy versus other.
---Currently with no active signs of bleeding but did not have any change in hemoglobin despite 2 units of packed red blood cells.
-Discussed with the hospitalist who ordered 2 units of blood for infusion
-Will keep n.p.o. for now, and trend H&H postinfusion
-He will possibly need repeat push enteroscopy, especially given no improvement in his hemoglobin with transfusion, although without any active signs of bleeding. Also with uptrending BUN. Will discuss with Dr. Son
-Continue to hold Eliquis. With his recurrent significant anemia, and now with concern for cirrhosis he is a poor candidate for ongoing anticoagulation and will likely have recurrent bleeding. Hospitalist is going to reach out to cardiology to
have discussion.
-Continue PPI twice daily
-Check INR
-Further management of cirrhosis outpatient with Dr. Allison. He does have an appointment with him on 05/30 which we can keep pending his hospital course. LFTs are stable.
-Will follow
-
-
Thank you for consultation and allowing me to participate in the patient's care. Please call the food and nutrition services supervisor GI physician during the after hours with any questions or concerns.
[2023-05-20 08:45] LABS: Mean Corpuscular Hgb 30.9 pg (27.0-31.0); Mean Corpuscular Volume 96.6 fL (80.0-94.0); Platelet Count 172 10^3/uL (130-400); Red Blood Cell Count 1.78 10^6/uL (4.70-6.10); Red Cell Dist. Width 23.4 % (11.5-14.5)
[2023-05-20 09:05] LABS: Blood Urea Nitrogen 72 mg/dl (9-20); Calcium 9.1 mg/dl (8.4-10.2); Carbon Dioxide 23 mmol/L (22-30); Chloride 105 mmol/L (98-107); Estimated Creatinine Clearance 45 ml/min; Glucose 187 mg/dl (70-99); Hemoglobin 5.5 g/dL (13.0-18.0); Potassium 4.5 mmol/L (3.5-5.1); Sodium 135 mmol/L (135-145); eGFR 42.75
[2023-05-20 09:06] LABS: Hematocrit 17.2 % (39.0-52.0)
--- NOTE | 2023-05-20 09:23 | PTCARENOTE ---
patient refused to do standing orthostatic vital signs. RN notified.
[2023-05-20 09:31] LABS: Glucose - Point of Care 229 mg/dl (70-99)
[2023-05-20] MEDS: COREG PO (09:31)
[2023-05-20] MEDS: OCEAN, SALINE MIST 2 SPRAYS NASAL (09:34)
[2023-05-20] MEDS: HIPREX 1 GRAM PO ×2 (09:34→21:56)
[2023-05-20] MEDS: SYNTHROID 75 MCG PO (09:34)
[2023-05-20] MEDS: FEOSOL 325 MG PO (09:35)
[2023-05-20] MEDS: PROTONIX IV 40 MG IV ×2 (09:35→21:57)
[2023-05-20] MEDS: NSS (PRESERVATIVE FREE) 10 ML IV ×2 (09:35→21:57)
[2023-05-20] MEDS: NOVOLOG FLEXPEN-LOW RESISTANCE 2 UNITS SC (09:36)
[2023-05-20 10:06] LABS: Hemoglobin 5.7 g/dL (13.0-18.0)
[2023-05-20 11:21] LABS: LDH 165 U/L (120-246)
[2023-05-20 11:28] LABS: Absolute Neutrophils -Man Diff 4.8 10^3/uL (1.4-6.5); Band Neutrophils 0 % (0-3); Lymphocytes 18 % (20-51); Monocytes 1 % (2-9); Segmented Neutrophils 81 % (42-75)
[2023-05-20 11:29] LABS: Anisocytosis 2+; Basophilic Stippling 1+; Hypochromasia 2+; Normal RBC Morphology No; Platelets Checked Yes; Polychromasia 1+
[2023-05-20 11:30] LABS: Total Cells Counted 100
--- NOTE | 2023-05-20 11:57 | PTCARENOTE ---
.patient refused standing orthostatic vital signs, RN notified.
[2023-05-20 12:21] LABS: Glucose - Point of Care 250 mg/dl (70-99)
[2023-05-20] MEDS: NOVOLOG FLEXPEN-LOW RESISTANCE 3 UNITS SC (12:39)
--- NOTE | 2023-05-20 12:54 | CM ---
Patient seen at bedside. Patient stated that he lives with his in an apartment at [facility]. Patient stated that he has a CPAP at home and that he uses the [facility] on the [facility] ([facility] Patient has a walker at home and uses
it occasionally. Patient PCP is . CM will continue to follow for discharge planning needs.
Plan; home with no needs vs home with VN
--- NOTE | 2023-05-20 13:53 | W.PN.HOSP.TC ---
Today's Communication/Plan
-
transfuse 2units prbc
coags
Gi recs for possible intervention
Assessment / Plan
Assessment / Plan
Physical Exam
General: Well Developed, Well Nourished and No Apparent Distress
HEENT: NormoCephalic, Moist mucous membranes and Atraumatic
Respiratory: Clear
Cardiac: S1/S2 and Regular Rhythm; No Murmur or Rub
GI: Soft, Non Tender, Non Distended and Normal Bowel Sounds; No Organomegaly
Rectal: Deferred by Provider
Musculoskeletal: No Clubbing, No Cyanosis and No Edema
Skin: No Rash
Neuro: AO x 3 and Nonfocal/grossly intact
Psych: Calm
# Symptomatic anemia/acute blood loss anemia likely from upper GI bleed
-Hemoglobin 5.4
-Hold Eliquis
-S/p 2u prbc with inadequate response
-transfuse 2 additional units
-IV PPI bid
-N.p.o. until cleared by GI
-GI consulted
-Trend
-Hold amlodipine, furosemide, spironolactone; can continue Coreg for now
-Previous EGD with A few localized erosions with stigmata of recent bleeding (mild oozing) were found in the gastric body.Red blood was found in the proximal jejunum.Multiple angioectasias with bleeding were found in the proximal jejunum. cauterized
# History of Streptococcus mitis/oralis bacteremia with septic arthritis of the left facet joint L4-L5 paraspinal soft tissue enhancement
-Completed the course of ceftriaxone
#acute kidney injury
-Continue to monitor with transfusions
#Severe carotid stenosis status post carotid endarterectomy/bilateral iliac stents/Peripheral arterial disease/Coronary artery disease
#Paroxysmal atrial fibrillation/Aortic stenosis/RBBB
-EKG with sinus rhythm with fusion complexes, right bundle branch block,--Hold Eliquis for now
-Coreg continued with parameters
-Curbside Cards for if desiring to hold Eliquis in the short term
#Hyponatremia
-monitor with resuscitation
#Obstructive sleep apnea
-Continue CPAP
#Essential hypertension
-Hold Norvasc
# History of congestive heart failure
-Hold Lasix and spironolactone
-Patient is not in acute exacerbation
#Cirrhosis
-f/u outpatient
-hold aldactone, Lasix due to shereen and acute blood loss anemia
Type 2 diabetes
-Hold glimepiride, metformin, pioglitazone
-Insulin sliding scale
#Hyperlipidemia--cont crestor--Continue fenofibrate
#Hypothyroidism--Continue levothyroxine
#BPH--Continue finasteride, tamsulosin
#Code status --Full code
DVT prophylaxis�SCDs
Anticipated Discharge: > 48 hours
Subjective/Interval History
-
Date of Service: May 20, 2023
hgb did not respond to transfusions
Objective Data
-
Labs:
Laboratory Results
05/20/23 05/20/23 05/20/23
03:00 08:01 09:25
WBC 6.0
Hgb Cancelled 5.5 L* 5.7 L*
Hct Cancelled 17.2 L*
Plt Count 172 D
PT
INR
Sodium 135
Potassium 4.5
Chloride 105
Carbon Dioxide 23
BUN 72 H
Creatinine 1.6 H
Glucose 187 H
Calcium 9.1
05/20/23
10:19
WBC
Hgb
Hct
Plt Count
PT Pending
INR Pending
Sodium
Potassium
Chloride
Carbon Dioxide
BUN
Creatinine
Glucose
Calcium
Vital Signs:
Vital Signs
Temp Pulse Resp BP Pulse Ox
97.9 F 67 20 122/49 100
05/20/23 11:56 05/20/23 11:56 05/20/23 11:56 05/20/23 09:31 05/20/23 11:56
I&O
05/19/23 05/20/23 05/21/23
06:59 06:59 06:59
Intake Total 1040 / 1040
Output Total 600 / 600
Balance 440 / 440
Review of Systems
-
History Source: Patient
All other systems: Reviewed and negative
Data Reviewed
-
Labs: Labs Reviewed by me
--- NOTE | 2023-05-20 14:07 | W.PN.UPDATE ---
Update Note
Progress Note Update
Billing purposes
[2023-05-20 14:13] LABS: Hematocrit 18.6 % (39.0-52.0); Hemoglobin 5.9 g/dL (13.0-18.0)
[2023-05-20 14:23] LABS: INR 1.56; PT 18.5 Sec (11.4-14.6)
[2023-05-20 17:22] LABS: Glucose - Point of Care 424 mg/dl (70-99)
[2023-05-20 18:00] LABS: Glucose 353 mg/dl (70-99)
[2023-05-20] MEDS: NOVOLOG FLEXPEN-LOW RESISTANCE 5 UNITS SC (18:17)
[2023-05-20] MEDS: TRICOR 145 MG PO (18:18)
[2023-05-20] MEDS: CRESTOR 40 MG PO (18:18)
[2023-05-20] MEDS: FLOMAX 0.400000000000000022 MG PO (18:18)
[2023-05-20] MEDS: PROSCAR 5 MG PO (18:18)
[2023-05-20 21:39] LABS: Glucose - Point of Care 274 mg/dl (70-99)
[2023-05-20] MEDS: BENADRYL 50 MG PO (21:56)
[2023-05-20] MEDS: TYLENOL 1000 MG PO (21:56)
[2023-05-20] MEDS: COREG 3.125 MG PO (21:56)
[2023-05-21] VITALS (8 sets, daily range): BP systolic 112–152; BP diastolic 51–61; PULSE 53; O2SAT 100; BMI 31.9
[2023-05-21] MEDS: SYNTHROID 75 MCG PO (07:47)
[2023-05-21 08:16] LABS: Glucose - Point of Care 174 mg/dl (70-99)
[2023-05-21] MEDS: NSS (PRESERVATIVE FREE) 10 ML IV ×2 (08:31→21:27)
[2023-05-21] MEDS: PROTONIX IV 40 MG IV ×2 (08:31→21:27)
[2023-05-21] MEDS: COREG PO (08:31)
[2023-05-21 08:33] LABS: Hematocrit 23.4 % (39.0-52.0); Mean Corp Hgb Conc. 33.8 g/dL (33.0-37.0); Mean Corpuscular Hgb 31.2 pg (27.0-31.0); Mean Corpuscular Volume 92.5 fL (80.0-94.0); Mean Platelet Volume 10.6 fL (7.4-10.4); Platelet Count 155 10^3/uL (130-400); Red Blood Cell Count 2.53 10^6/uL (4.70-6.10); Red Cell Dist. Width 22.9 % (11.5-14.5); White Blood Cell Count 3.6 10^3/uL (4.8-10.8)
[2023-05-21] MEDS: HIPREX 1 GRAM PO ×2 (08:34→21:27)
[2023-05-21] MEDS: FEOSOL 325 MG PO (08:35)
[2023-05-21] MEDS: NOVOLOG FLEXPEN-LOW RESISTANCE 1 UNITS SC (08:36)
[2023-05-21 08:42] LABS: Hemoglobin 7.9 g/dL (13.0-18.0)
[2023-05-21 09:09] LABS: Blood Urea Nitrogen 51 mg/dl (9-20); Carbon Dioxide 24 mmol/L (22-30); Chloride 106 mmol/L (98-107); Estimated Creatinine Clearance 55 ml/min; Glucose 157 mg/dl (70-99); Iron 77 ug/dl (49-181); Potassium 3.9 mmol/L (3.5-5.1); Sodium 136 mmol/L (135-145); eGFR 54.85
[2023-05-21 09:18] LABS: Percent Saturation 19 % (20-50); Total Iron Binding Capacity 396 ug/dl (261-462)
--- NOTE | 2023-05-21 10:58 | W.PN.GI.CBS2 ---
Today's Communication / Plan
-
CLD for dinner and start slow prep
Anticipate enteroscopy/colonoscopy on Tuesday
Hold AC assisted
Assessment / Plan
-
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
artery disease, hyperlipidemia, hypertension, diabetes type 2, CAD, ZAYRA, history of recent septic arthritis at the L4-L5 with I&D, undergoing workup outpatient for liver cirrhosis with FibroScan showing F4 fibrosis/cirrhosis, who presented to the
emergency room for evaluation of a low hemoglobin. We are being asked to evaluate for the presenting reason with concern for GI bleed. He was admitted with abnormal outpatient labs showing a hemoglobin of 5.4, in which she was symptomatic for
progressively over the past few weeks with dyspnea on exertion, dizziness, weakness, fatigue, and sleep disturbance. He reports ongoing melena at home although has chronic dark stools secondary to iron supplement. He did continue on Eliquis
outpatient with his last dose being yesterday morning on 05/18. Noted with prior admission in April with GI bleed secondary to bleeding jejunal AVMs which were treated with APC by Dr. Castro under push enteroscopy. Currently without ongoing signs of
bleeding, but with no improvement in hemoglobin status post 2 units of packed red blood cells, hemoglobin 5.7.
Problem list:
-Recurrent GI bleed likely secondary to small bowel AVM on anticoagulant
-Chronic iron deficiency anemia
-History of atrial fibrillation on Eliquis
-Suspected cirrhosis, F4 on FibroScan undergoing workup outpatient
-Elevated AST
-KRZYSZTOF on CKD
-History of aortic stenosis
Other pertinent medical history:
- Hyperlipidemia
-Hypertension
-ZAYRA with CPAP
-DM2
-CAD
-PAD with iliac artery stenting
-History of septic arthritis with I&D of L4-L5
-History of colon polyps
Recommendations:
- Plan for CLD for dinner and start mag citrate today
- CLD Tuesday and golytle
- Anticipate Enteroscopy/Colonoscopy on Tuesday
- Hold eliquis. Given recurrent bleeding and cirrhosis ocean transportation intermediary plan was not not resume (per prior d/w Dr Alston/merchandiser seasonal by hospitalist). He is pending watchman eval OP as well
- He has OP GI FU with Dr Allison on 05/30
Will follow with you
Subjective
Subjective
Date of Service: May 21, 2023
Passed on large brown BM yesterday. Denies abd pain, nausea/vomiting. Tolerating diet. He is ambulating with PT this AM
Objective
Data Reviewed
Laboratory Data:
Laboratory Results
05/21/23 07:41
05/21/23 07:41
Laboratory Results
PT 18.5 Sec (11.4-14.6) H 05/20/23 13:53
INR 1.56 05/20/23 13:53
Total Bilirubin 0.5 mg/dl (0.2-1.3) 05/19/23 16:42
AST 83 U/L (17-59) H 05/19/23 16:42
ALT 47 U/L (0-50) 05/19/23 16:42
Alkaline Phosphatase 73 U/L (38-126) 05/19/23 16:42
Vital Signs and I&O:
Vital Signs
Temp Pulse Resp BP Pulse Ox
97.1 F 50 18 137/54 96
05/21/23 08:13 05/21/23 08:31 05/21/23 08:13 05/21/23 08:13 05/21/23 08:13
I&O
05/20/23 05/21/23 05/22/23
06:59 06:59 06:59
Intake Total 1040 / 1040 1700 / 1700
Output Total 600 / 600 2125 / 2125
Balance 440 / 440 -425 / -425
Physical Exam
Physical Exam
GEN: No acute distress, conversant, pleasant
HEENT: anicteric, extraocular movements intact, clear oropharynx without exudates
GI: soft, mildly-distended, not tender to palpation, normal active bowel sounds, no hepatosplenomegaly
EXT: warm, well perfused, no edema bilaterally
NEURO: AAOx3, non-focal
[2023-05-21 11:31] LABS: Glucose - Point of Care 245 mg/dl (70-99)
[2023-05-21] MEDS: NOVOLOG FLEXPEN-LOW RESISTANCE 2 UNITS SC (11:48)
--- NOTE | 2023-05-21 14:56 | W.PN.HOSP.TC ---
Today's Communication/Plan
-
cld
start prep tomorrow for most likely enteroscopy/colonoscopy on Tuesday
Assessment / Plan
Assessment / Plan
Physical Exam
General: Well Developed, Well Nourished and No Apparent Distress
HEENT: NormoCephalic, Moist mucous membranes and Atraumatic
Respiratory: Clear
Cardiac: S1/S2 and Regular Rhythm; No Murmur or Rub
GI: Soft, Non Tender, Non Distended and Normal Bowel Sounds; No Organomegaly
Rectal: Deferred by Provider
Musculoskeletal: No Clubbing, No Cyanosis and No Edema
Skin: No Rash
Neuro: AO x 3 and Nonfocal/grossly intact
Psych: Calm
# Symptomatic anemia/acute blood loss anemia likely from upper GI bleed
-Hemoglobin 5.4
-Hold Eliquis
-S/p 4u prbc - responded 5.4 to 7.9
-IV PPI bid
-CLD for dinner and start prep tomorrow
-Anticipate enteroscopy/colonoscopy on Tuesday
-Hold amlodipine, furosemide, spironolactone; can continue Coreg for now
-Previous EGD with A few localized erosions with stigmata of recent bleeding (mild oozing) were found in the gastric body.Red blood was found in the proximal jejunum.Multiple angioectasias with bleeding were found in the proximal jejunum. cauterized
# History of Streptococcus mitis/oralis bacteremia with septic arthritis of the left facet joint L4-L5 paraspinal soft tissue enhancement
-Completed the course of ceftriaxone
#acute kidney injury
-Continue to monitor with transfusions
-improving
#Severe carotid stenosis status post carotid endarterectomy/bilateral iliac stents/Peripheral arterial disease/Coronary artery disease
#Paroxysmal atrial fibrillation/Aortic stenosis/RBBB
-EKG with sinus rhythm with fusion complexes, right bundle branch block,--Hold Eliquis for now
-Coreg continued with parameters
-Spoke to cardiology: plan is to hold Eliquis due to recurrent anemia. Patient has already been set up for initiation of Watchman procedure follow-up. Patient understands risks, benefits of holding Eliquis at this point.
#Hyponatremia
-monitor with resuscitation
#Obstructive sleep apnea
-Continue CPAP
#Essential hypertension
-Hold Norvasc
# History of congestive heart failure
-Hold Lasix and spironolactone
-Patient is not in acute exacerbation
#Cirrhosis
-f/u outpatient
-hold aldactone, Lasix due to shereen and acute blood loss anemia
Type 2 diabetes
-Hold glimepiride, metformin, pioglitazone
-Insulin sliding scale
#Hyperlipidemia--cont crestor--Continue fenofibrate
#Hypothyroidism--Continue levothyroxine
#BPH--Continue finasteride, tamsulosin
#Code status --Full code
DVT prophylaxis�SCDs
Anticipated Discharge: > 48 hours
Subjective/Interval History
-
Date of Service: May 21, 2023
brown bm, hgb responded well to 2u yesterday
Objective Data
-
Labs:
Laboratory Results
05/21/23
07:41
WBC 3.6 L
Hgb 7.9 L D
Hct 23.4 L
Plt Count 155
Sodium 136
Potassium 3.9
Chloride 106
Carbon Dioxide 24
BUN 51 H
Creatinine 1.3
Glucose 157 H
Calcium 9.0
Vital Signs:
Vital Signs
Temp Pulse Resp BP Pulse Ox
97.6 F 67 18 133/54 98
05/21/23 11:41 05/21/23 11:41 05/21/23 11:41 05/21/23 11:41 05/21/23 11:41
I&O
05/20/23 05/21/23 05/22/23
06:59 06:59 06:59
Intake Total 1040 / 1040 1700 / 1700
Output Total 600 / 600 2124 / 2124
Balance 440 / 440 -425 / -425
Review of Systems
-
History Source: Patient
All other systems: Not reviewed unless documented
Physical Exam
-
General: Well Developed, Well Nourished and No Apparent Distress
HEENT: Normocephalic and Atraumatic
Respiratory: Clear to Auscultation; Negative Wheezes or Rhonchi
Cardiac: Regular Rhythm and S1/S2; Negative Murmur
GI: Soft, Nontender, Nondistended and Normal Bowel Sounds
Musculoskeletal: No Clubbing, No Cyanosis and No Edema
Neuro: Awake
Psych: Calm
[2023-05-21] MEDS: NOVOLOG FLEXPEN-MODERATE RESISTANCE SC (17:10)
[2023-05-21 17:13] LABS: Glucose - Point of Care 310 mg/dl (70-99)
[2023-05-21] MEDS: NOVOLOG FLEXPEN-MODERATE RESISTANCE 7 UNITS SC (17:13)
[2023-05-21] MEDS: FLOMAX 0.400000000000000022 MG PO (17:15)
[2023-05-21] MEDS: TRICOR 145 MG PO (17:15)
[2023-05-21] MEDS: CRESTOR 40 MG PO (17:15)
[2023-05-21] MEDS: PROSCAR 5 MG PO (17:15)
[2023-05-21] MEDS: BENADRYL 50 MG PO (21:26)
[2023-05-21 21:27] LABS: Glucose - Point of Care 212 mg/dl (70-99)
[2023-05-21] MEDS: COREG 3.125 MG PO (21:27)
[2023-05-21] MEDS: TYLENOL 1000 MG PO (21:27)
[2023-05-21] MEDS: CITROMA 300 ML PO (21:30)
[2023-05-21 21:50] LABS: Haptoglobin 26 mg/dL (30-200)
[2023-05-22 03:30] VITALS: BP 136/59
[2023-05-22 06:00] VITALS: BMI 32.1
[2023-05-22 07:16] VITALS: BP 147/55
[2023-05-22] MEDS: COREG PO (08:07)
[2023-05-22] MEDS: HIPREX 1 GRAM PO ×2 (08:08→21:13)
[2023-05-22] MEDS: FEOSOL 325 MG PO (08:08)
[2023-05-22] MEDS: SYNTHROID 75 MCG PO (08:08)
[2023-05-22 08:09] LABS: Glucose - Point of Care 194 mg/dl (70-99)
[2023-05-22] MEDS: NSS (PRESERVATIVE FREE) 10 ML IV ×2 (08:09→21:14)
[2023-05-22] MEDS: PROTONIX IV 40 MG IV ×2 (08:09→21:14)
[2023-05-22] MEDS: NOVOLOG FLEXPEN-MODERATE RESISTANCE 1 UNITS SC (08:23)
[2023-05-22] MEDS: NULYTELY SOLUTION 2 LITERS PO (08:54)
[2023-05-22 09:00] LABS: Hematocrit 24.7 % (39.0-52.0); Hemoglobin 8.1 g/dL (13.0-18.0); Mean Corp Hgb Conc. 32.8 g/dL (33.0-37.0); Mean Corpuscular Hgb 31.4 pg (27.0-31.0); Mean Corpuscular Volume 95.7 fL (80.0-94.0); Mean Platelet Volume 10.1 fL (7.4-10.4); Platelet Count 152 10^3/uL (130-400); Red Blood Cell Count 2.58 10^6/uL (4.70-6.10); Red Cell Dist. Width 23.6 % (11.5-14.5)
[2023-05-22 09:26] LABS: Blood Urea Nitrogen 32 mg/dl (9-20); Calcium 8.6 mg/dl (8.4-10.2); Carbon Dioxide 25 mmol/L (22-30); Chloride 108 mmol/L (98-107); Estimated Creatinine Clearance 55 ml/min; Glucose 160 mg/dl (70-99); Potassium 4.2 mmol/L (3.5-5.1); Sodium 135 mmol/L (135-145); eGFR 54.85
--- NOTE | 2023-05-22 09:30 | W.PN.GI.CBS2 ---
Today's Communication / Plan
-
CLD with NPO at [place] for EGD/colon tomorrow
Serial H/H
Assessment / Plan
-
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
artery disease, hyperlipidemia, hypertension, diabetes type 2, CAD, ZAYRA, history of recent septic arthritis at the L4-L5 with I&D, undergoing workup outpatient for liver cirrhosis with FibroScan showing F4 fibrosis/cirrhosis, who presented to the
emergency room for evaluation of a low hemoglobin. We are being asked to evaluate for the presenting reason with concern for GI bleed. He was admitted with abnormal outpatient labs showing a hemoglobin of 5.4, in which she was symptomatic for
progressively over the past few weeks with dyspnea on exertion, dizziness, weakness, fatigue, and sleep disturbance. He reports ongoing melena at home although has chronic dark stools secondary to iron supplement. He did continue on Eliquis
outpatient with his last dose being yesterday morning on 05/18. Noted with prior admission in April with GI bleed secondary to bleeding jejunal AVMs which were treated with APC by Dr. Castro under push enteroscopy. Currently without ongoing signs of
bleeding, but with no improvement in hemoglobin status post 2 units of packed red blood cells, hemoglobin 5.7.
Problem list:
-Recurrent GI bleed likely secondary to small bowel AVM on anticoagulant
-Chronic iron deficiency anemia
-History of atrial fibrillation on Eliquis
-Suspected cirrhosis, F4 on FibroScan undergoing workup outpatient
-Elevated AST
-KRZYSZTOF on CKD
-History of aortic stenosis
Other pertinent medical history:
- Hyperlipidemia
-Hypertension
-ZAYRA with CPAP
-DM2
-CAD
-PAD with iliac artery stenting
-History of septic arthritis with I&D of L4-L5
-History of colon polyps
Recommendations:
- CLD now and start golytle
- NPO at [place] for EGD/colon tomorrow
- Hold eliquis fpc. Given recurrent bleeding and cirrhosis fpc plan was not not resume (per prior d/w Dr Alston/landcare officer by hospitalist). He is pending watchman eval OP as well
- He has OP GI FU with Dr Allison on 05/30
Will follow with you
Subjective
Subjective
Date of Service: May 22, 2023
Started some prep last night. Stools are brown. Hemoglobin is uptrending. Tolerating CLD without abd pain, nausea/vomiting
Objective
Data Reviewed
Laboratory Data:
Laboratory Results
05/22/23 08:54
05/22/23 08:54
Laboratory Results
PT 18.5 Sec (11.4-14.6) H 05/20/23 13:53
INR 1.56 05/20/23 13:53
Total Bilirubin 0.5 mg/dl (0.2-1.3) 05/19/23 16:42
AST 83 U/L (17-59) H 05/19/23 16:42
ALT 47 U/L (0-50) 05/19/23 16:42
Alkaline Phosphatase 73 U/L (38-126) 05/19/23 16:42
Vital Signs and I&O:
Vital Signs
Temp Pulse Resp BP Pulse Ox
97.8 F 57 24 147/56 96
05/22/23 07:16 05/22/23 08:07 05/22/23 07:16 05/22/23 08:07 05/22/23 07:16
I&O
05/21/23 05/22/23 05/23/23
06:59 06:59 06:59
Intake Total 1700 / 1700 840 / 840
Output Total 5 / 2124
Balance -425 / -425 840 / 840
Physical Exam
Physical Exam
GEN: No acute distress, conversant, pleasant
HEENT: anicteric, extraocular movements intact, clear oropharynx without exudates
GI: soft, obese non-distended, not tender to palpation, normal active bowel sounds, no hepatosplenomegaly
EXT: warm, well perfused, no edema bilaterally
NEURO: AAOx3, non-focal
[2023-05-22 11:30] VITALS: BP 145/60
[2023-05-22 11:35] LABS: Glucose - Point of Care 256 mg/dl (70-99)
[2023-05-22] MEDS: NOVOLOG FLEXPEN-MODERATE RESISTANCE 5 UNITS SC (11:43)
--- NOTE | 2023-05-22 13:08 | W.PN.HOSP.TC ---
Today's Communication/Plan
-
CLD, NPO at [place] for EGD/[place] tomorrow
monitor hgb
Assessment / Plan
Assessment / Plan
Physical Exam
General: Well Developed, Well Nourished and No Apparent Distress
HEENT: NormoCephalic, Moist mucous membranes and Atraumatic
Respiratory: Clear
Cardiac: S1/S2 and Regular Rhythm; No Murmur or Rub
GI: Soft, Non Tender, Non Distended and Normal Bowel Sounds; No Organomegaly
Rectal: Deferred by Provider
Musculoskeletal: No Clubbing, No Cyanosis and No Edema
Skin: No Rash
Neuro: AO x 3 and Nonfocal/grossly intact
Psych: Calm
# Symptomatic anemia/acute blood loss anemia likely from upper GI bleed
-Hemoglobin 5.4
-Hold Eliquis
-S/p 4u prbc - responded 5.4 to 7.9
-IV PPI bid
-CLD with NPO at [place]
-EGD/colonoscopy [facility]
-Hold amlodipine, furosemide, spironolactone; can continue Coreg for now
-Previous EGD with A few localized erosions with stigmata of recent bleeding (mild oozing) were found in the gastric body.Red blood was found in the proximal jejunum.Multiple angioectasias with bleeding were found in the proximal jejunum. cauterized
# History of Streptococcus mitis/oralis bacteremia with septic arthritis of the left facet joint L4-L5 paraspinal soft tissue enhancement
-Completed the course of ceftriaxone
#acute kidney injury
-Continue to monitor with transfusions
-improving
#Severe carotid stenosis status post carotid endarterectomy/bilateral iliac stents/Peripheral arterial disease/Coronary artery disease
#Paroxysmal atrial fibrillation/Aortic stenosis/RBBB
-EKG with sinus rhythm with fusion complexes, right bundle branch block,--Hold Eliquis for now
-Coreg continued with parameters
-Spoke to cardiology: plan is to hold Eliquis due to recurrent anemia. Patient has already been set up for initiation of Watchman procedure follow-up. Patient understands risks, benefits of holding Eliquis at this point.
#Hyponatremia
-monitor with resuscitation
#Obstructive sleep apnea
-Continue CPAP
#Essential hypertension
-Hold Norvasc
# History of congestive heart failure
-Hold Lasix and spironolactone
-Patient is not in acute exacerbation
#Cirrhosis
-f/u outpatient
-hold aldactone, Lasix due to shereen and acute blood loss anemia
Type 2 diabetes
-Hold glimepiride, metformin, pioglitazone
-Insulin sliding scale
#Hyperlipidemia--cont crestor--Continue fenofibrate
#Hypothyroidism--Continue levothyroxine
#BPH--Continue finasteride, tamsulosin
#Code status --Full code
DVT prophylaxis�SCDs
Anticipated Discharge: 24 - 48 hours
Subjective/Interval History
-
Date of Service: May 22, 2023
continuing prep
Objective Data
-
Labs:
Laboratory Results
05/22/23
08:54
WBC 3.0 L
Hgb 8.1 L
Hct 24.7 L
Plt Count 152
Sodium 135
Potassium 4.2
Chloride 108 H
Carbon Dioxide 25
BUN 32 H
Creatinine 1.3
Glucose 160 H
Calcium 8.6
Vital Signs:
Vital Signs
Temp Pulse Resp BP Pulse Ox
97.4 F 59 24 145/60 99
05/22/23 11:30 05/22/23 11:30 05/22/23 11:30 05/22/23 11:30 05/22/23 11:30
I&O
05/21/23 05/22/23 05/23/23
06:59 06:59 06:59
Intake Total 1700 / 1700 840 / 840
Output Total 2124
Balance -425 / -425 840 / 840
Review of Systems
-
History Source: Patient
All other systems: Not reviewed unless documented
Physical Exam
-
General: Well Developed, Well Nourished and No Apparent Distress
HEENT: Normocephalic and Atraumatic
Respiratory: Clear to Auscultation; Negative Wheezes or Rhonchi
Cardiac: Regular Rhythm and S1/S2; Negative Murmur
GI: Soft, Nontender, Nondistended and Normal Bowel Sounds
Musculoskeletal: No Clubbing, No Cyanosis and No Edema
Neuro: Awake
Psych: Calm
Data Reviewed
-
Labs: Labs Reviewed by me
[2023-05-22 15:55] VITALS: BMI 32.1
[2023-05-22 16:32] LABS: Glucose - Point of Care 200 mg/dl (70-99)
[2023-05-22] MEDS: TRICOR 145 MG PO (17:30)
[2023-05-22] MEDS: CRESTOR 40 MG PO (17:30)
[2023-05-22] MEDS: FLOMAX 0.400000000000000022 MG PO (17:30)
[2023-05-22] MEDS: PROSCAR 5 MG PO (17:30)
[2023-05-22] MEDS: NOVOLOG FLEXPEN-MODERATE RESISTANCE 3 UNITS SC (17:31)
[2023-05-22] MEDS: COREG 3.125 MG PO (21:14)
[2023-05-22 21:47] LABS: Glucose - Point of Care 159 mg/dl (70-99)
[2023-05-22] MEDS: BENADRYL 50 MG PO (21:58)
[2023-05-22] MEDS: TYLENOL 1000 MG PO (21:58)
[2023-05-22 23:35] VITALS: BP 128/40
[2023-05-23] VITALS (7 sets, daily range): BP systolic 12–146; BP diastolic 52–66; BMI 31.8
[2023-05-23 06:08] LABS: Glucose - Point of Care 153 mg/dl (70-99)
[2023-05-23] MEDS: NOVOLOG FLEXPEN-MODERATE RESISTANCE 1 UNITS SC (06:10)
[2023-05-23] MEDS: DULCOLAX 10 MG PO (06:12)
[2023-05-23] MEDS: CITROMA 300 ML PO (06:13)
[2023-05-23] MEDS: SYNTHROID 75 MCG PO (06:13)
[2023-05-23 07:50] LABS: Hemoglobin 8.4 g/dL (13.0-18.0); Mean Corp Hgb Conc. 32.3 g/dL (33.0-37.0); Mean Corpuscular Volume 95.9 fL (80.0-94.0); Mean Platelet Volume 10.5 fL (7.4-10.4); Platelet Count 156 10^3/uL (130-400); Red Blood Cell Count 2.71 10^6/uL (4.70-6.10); Red Cell Dist. Width 23.3 % (11.5-14.5)
[2023-05-23 07:53] LABS: White Blood Cell Count 2.4 10^3/uL (4.8-10.8)
[2023-05-23] MEDS: FEOSOL 325 MG PO (08:13)
[2023-05-23] MEDS: HIPREX 1 GRAM PO ×2 (08:13→20:26)
[2023-05-23] MEDS: NSS (PRESERVATIVE FREE) 10 ML IV (08:14)
[2023-05-23] MEDS: PROTONIX IV 40 MG IV (08:14)
[2023-05-23 08:21] LABS: Blood Urea Nitrogen 20 mg/dl (9-20); Calcium 8.7 mg/dl (8.4-10.2); Carbon Dioxide 24 mmol/L (22-30); Chloride 106 mmol/L (98-107); Estimated Creatinine Clearance 60 ml/min; Glucose 137 mg/dl (70-99); Potassium 3.9 mmol/L (3.5-5.1); Sodium 137 mmol/L (135-145); eGFR > 60.00
[2023-05-23 12:02] LABS: Glucose - Point of Care 181 mg/dl (70-99)
[2023-05-23] MEDS: NOVOLOG vial 2 UNITS SC (12:15)
[2023-05-23] MEDS: COREG PO ×2 (12:25→20:24)
[2023-05-23] MEDS: NOVOLOG FLEXPEN-MODERATE RESISTANCE SC (12:26)
[2023-05-23 12:49] LABS: Glucose - Point of Care 198 mg/dl (70-99)
--- NOTE | 2023-05-23 13:16 | CM ---
Patient seen bedside.
Returned from colonoscopy.
Denies home care needs.
Patient aware of CM availability should needs arise.
Plan: home no needs.
[2023-05-23 16:39] LABS: Glucose - Point of Care 224 mg/dl (70-99)
--- NOTE | 2023-05-23 17:04 | W.PN.HOSP.TC ---
Today's Communication/Plan
-
Monitor overnight
Resume Lasix/Aldactone
Discharge in morning
Assessment / Plan
Assessment / Plan
C-scope report
- Preparation of the colon was fair.
- The examined portion of the ileum was normal.
- One small polyp in the ascending and descending colon.
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 Treated with argon plasma coagulation (APC).
- Diverticulosis in the sigmoid colon and in the descending colon.
- Non-bleeding external and internal hemorrhoids.
- No specimens collected.

1. Acute blood loss anemia
Colonic AVM
Lower GI bleed exacerbated by Eliquis use
-Colonoscopy showing colonic AVM in cecum and ascending colon were treated with APC
-Patient got 4 unit of PRBC this admission, hemoglobin 8.5, continue monitoring
-EGD clear
-GI recommended follow-up in office
-Repeat blood work within 1 week.
2. Paroxysmal atrial fibrillation/Aortic stenosis/RBBB
-EKG with sinus rhythm with fusion complexes, right bundle branch block
-Coreg continued with parameters
-Case discussed with primary cardiology, recommended to be maintained off of Eliquis at discharge and patient will follow-up in office for evaluation of Watchman device placement
3. Acute kidney injury
-resolved
4. Mild hyponatremia
- monitor
History of carotid stenosis post carotid endarterectomy
Bilateral iliac stents
Peripheral arterial disease
Coronary artery disease
Obstructive sleep apnea - continue CPAP therapy
Essential hypertension
History of congestive heart failure - resume back home meds
Cirrhosis
Type 2 diabetes
Hyperlipidemia
Hypothyroidism
BPH
Code status --Full code
DVT prophylaxis�SCDs
Anticipated Discharge: Within 24 hours
Subjective/Interval History
-
Date of Service: May 23, 2023
no problems post endscopy
Objective Data
-
Labs:
Laboratory Results
05/23/23
07:15
WBC 2.4 L*
Hgb 8.4 L
Hct 26.0 L
Plt Count 156
Sodium 137
Potassium 3.9
Chloride 106
Carbon Dioxide 24
BUN 20
Creatinine 1.2
Glucose 137 H
Calcium 8.7
Vital Signs:
Vital Signs
Temp Pulse Resp BP Pulse Ox
97.5 F 74 18 146/53 97
05/23/23 15:38 05/23/23 15:38 05/23/23 15:38 05/23/23 15:38 05/23/23 15:38
I&O
05/22/23 05/23/23 05/24/23
06:59 06:59 06:59
Intake Total 840 / 840 1420 / 1420
Balance 840 / 840 1420 / 1420
Review of Systems
-
Respiratory: Reports No Symptoms
Cardiac: Reports No Symptoms
Abdomen/GI: Reports No Symptoms
Physical Exam
-
General: Obese
HEENT: Negative Oxygen
Skin: Warm
Neuro: Awake, Alert, Oriented and No Motor Deficits
Psych: Calm
[2023-05-23] MEDS: TRICOR 145 MG PO (17:12)
[2023-05-23] MEDS: FLOMAX 0.400000000000000022 MG PO (17:12)
[2023-05-23] MEDS: CRESTOR 40 MG PO (17:12)
[2023-05-23] MEDS: PROSCAR 5 MG PO (17:13)
[2023-05-23] MEDS: NOVOLOG FLEXPEN-MODERATE RESISTANCE 3 UNITS SC (17:14)
--- NOTE | 2023-05-23 17:37 | PTCARENOTE ---
Patient returned from colonoscopy awake and alert. C/o being hungry. Appetite fair, says he feel full quick. No c/o pain or discomfort , in to visit.
[2023-05-23] MEDS: NSS (PRESERVATIVE FREE) IV (20:26)
[2023-05-23 22:07] LABS: Glucose - Point of Care 166 mg/dl (70-99)
[2023-05-23] MEDS: TYLENOL 1000 MG PO (22:07)
[2023-05-23] MEDS: BENADRYL 50 MG PO (22:08)
[2023-05-24 05:24] VITALS: BMI 31.8
[2023-05-24 07:38] LABS: Glucose - Point of Care 162 mg/dl (70-99)
[2023-05-24 07:47] VITALS: BP 114/58
[2023-05-24] MEDS: PROTONIX 40 MG PO (07:50)
[2023-05-24] MEDS: ALDACTONE 25 MG PO (07:51)
[2023-05-24] MEDS: COREG PO (07:51)
[2023-05-24] MEDS: FEOSOL 325 MG PO (07:51)
[2023-05-24] MEDS: HIPREX 1 GRAM PO (07:51)
[2023-05-24] MEDS: SYNTHROID 75 MCG PO (07:51)
[2023-05-24] MEDS: LASIX 40 MG PO (07:52)
[2023-05-24] MEDS: NSS (PRESERVATIVE FREE) IV (07:55)
[2023-05-24 08:34] LABS: Hematocrit 23.9 % (39.0-52.0); Hemoglobin 7.6 g/dL (13.0-18.0); Mean Corp Hgb Conc. 31.8 g/dL (33.0-37.0); Mean Corpuscular Hgb 30.8 pg (27.0-31.0); Mean Corpuscular Volume 96.8 fL (80.0-94.0); Mean Platelet Volume 10.8 fL (7.4-10.4); Platelet Count 127 10^3/uL (130-400); Red Blood Cell Count 2.47 10^6/uL (4.70-6.10); Red Cell Dist. Width 21.8 % (11.5-14.5)
[2023-05-24 08:53] LABS: White Blood Cell Count 2.1 10^3/uL (4.8-10.8)
[2023-05-24 09:06] LABS: Blood Urea Nitrogen 14 mg/dl (9-20); Calcium 8.5 mg/dl (8.4-10.2); Carbon Dioxide 22 mmol/L (22-30); Chloride 108 mmol/L (98-107); Estimated Creatinine Clearance 65 ml/min; Glucose 138 mg/dl (70-99); Sodium 133 mmol/L (135-145); eGFR > 60.00
[2023-05-24] MEDS: NOVOLOG FLEXPEN-MODERATE RESISTANCE 1 UNITS SC (09:06)
--- NOTE | 2023-05-24 09:43 | PN.CDI ---
CDI
- -
CDI:
Physician Documentation Request
Admit Date: 05/19/23 18:22
Dear Doctor Narayan,
Please review the following and provide your response in the progress notes.
Clinical Indicators:
- ER Physician 'presents the emergency department for evaluation of low hemoglobin on outpatient labs'
- 'He reports exertional chest discomfort and shortness of breath'
- Labs drawn:
Laboratory Tests
05/19/23
18:32
Troponin I 0.059 H*
Please clarify the following regarding the documented elevated troponin:
Non-ischemic myocardial injury
Clinically insignificant abnormal lab value
Other
Use of terms such as suspected, likely, concern for, or probable (associated with a specific diagnosis that is being evaluated, monitored, or treated as if it exists) are acceptable and can be coded in the inpatient setting, when documented at the
time of discharge.
Thank you,
Elysia Rachel RN
CDI Specialist
Please use your independent medical judgment in providing your response.
--- NOTE | 2023-05-24 11:41 | CM ---
Patient for d/c home today.
IMM completed.
will transport.
Patient denies needs.
Plan:home no needs.
[2023-05-24 11:43] LABS: Glucose - Point of Care 277 mg/dl (70-99)
[2023-05-24] MEDS: NOVOLOG FLEXPEN-MODERATE RESISTANCE 5 UNITS SC (12:07)
[2023-05-24 12:08] VITALS: BP 135/65
--- NOTE | 2023-05-24 14:40 | W.PN.HOSP.TC ---
Addendum entered and electronically signed by Alejo Busch MD 05/25/23 14:14:
Addendum placed in response to CDI query
Add diagnosis;
Non-ischemic myocardial injury
Original Note:
Today's Communication/Plan
-
d/c home
Assessment / Plan
Assessment / Plan
C-scope report
- Preparation of the colon was fair.
- The examined portion of the ileum was normal.
- One small polyp in the ascending and descending colon.
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 Treated with argon plasma coagulation (APC).
- Diverticulosis in the sigmoid colon and in the descending colon.
- Non-bleeding external and internal hemorrhoids.
- No specimens collected.

1. Acute blood loss anemia
Colonic AVM
Lower GI bleed exacerbated by Eliquis use
-Colonoscopy showing colonic AVM in cecum and ascending colon were treated with APC
-Patient got 4 unit of PRBC this admission, hemoglobin 8.5, continue monitoring
-EGD clear
-GI recommended follow-up in office
-Repeat blood work within 1 week.
2. Paroxysmal atrial fibrillation/Aortic stenosis/RBBB
-EKG with sinus rhythm with fusion complexes, right bundle branch block
-Coreg continued with parameters
-Case discussed with primary cardiology, recommended to be maintained off of Eliquis at discharge and patient will follow-up in office for evaluation of Watchman device placement
3. Acute kidney injury
-resolved
4. Mild hyponatremia
- monitor
History of carotid stenosis post carotid endarterectomy
Bilateral iliac stents
Peripheral arterial disease
Coronary artery disease
Obstructive sleep apnea - continue CPAP therapy
Essential hypertension
History of congestive heart failure - resume back home meds
Cirrhosis
Type 2 diabetes
Hyperlipidemia
Hypothyroidism
BPH
Code status --Full code
DVT prophylaxis�SCDs
More than 30 minutes spent in discharge including
Final examination of the patient
Summarizing hospital stay
Instructions for continuing care to all relevant caregivers
Preparation of discharge records, prescriptions, and referral forms
Total time spent (in minutes): 38 mins
Anticipated Discharge: Today
Subjective/Interval History
-
Date of Service: May 24, 2023
No reported melena/hematemesis/hematochezia overnight
no other complains
Objective Data
-
Labs:
Laboratory Results
05/24/23
07:15
WBC 2.1 L*
Hgb 7.6 L
Hct 23.9 L
Plt Count 127 L
Sodium 133 L
Potassium 4.0
Chloride 108 H
Carbon Dioxide 22
BUN 14
Creatinine 1.1
Glucose 138 H
Calcium 8.5
Vital Signs:
Vital Signs
Temp Pulse Resp BP Pulse Ox
98.0 F 65 16 135/65 96
05/24/23 12:08 05/24/23 12:08 05/24/23 12:08 05/24/23 12:08 05/24/23 12:08
I&O
05/23/23 05/24/23 05/25/23
06:59 06:59 06:59
Intake Total 1420 / 1420 960 / 960
Output Total 200 / 200
Balance 1420 / 1420 760 / 760
Review of Systems
-
Respiratory: Reports No Symptoms
Cardiac: Reports No Symptoms
Abdomen/GI: Reports No Symptoms
Physical Exam
-
General: Obese
HEENT: Negative Oxygen
Skin: Warm
Neuro: Awake, Alert, Oriented and No Motor Deficits
Psych: Calm
--- NOTE | 2023-05-25 07:36 | W.DCSUMMARY ---
Discharge Summary
Discharge Data
Date of Admission: 05/19/23
Date of Discharge: 05/24/23
-
Pending Results: No
Hospital Course
Discharging Physician : Dr Alejo Busch
Disposition : Home
Primary care physician : Unknown
Principal Discharge diagnosis :
Acute blood loss anemia
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
Paroxysmal atrial fibrillation on Eliquis therapy
Acute kidney injury
Mild hyponatremia
Chronic Discharge diagnosis :
History of aortic stenosis
Chronic right bundle branch block
History of carotid stenosis post carotid endarterectomy
Bilateral iliac stents
Peripheral arterial disease
Obstructive sleep apnea on CPAP
Essential hypertension
Chronic diastolic congestive heart failure
Suspected cirrhosis on FibroScan
Type 2 diabetes mellitus
Hyperlipidemia
Hypothyroidism
Hospital Course :
Patient is 82-year-old male with above-mentioned past medical history presented to ER with worsening weakness and dizziness. Outpatient blood work showing hemoglobin of 5.4. Patient stool was positive for occult blood in ER. Patient had previous
history of EGD and colonoscopy and have angiectasia. Patient on Eliquis with history of A-fib concern of worsening bleed with Eliquis use. Patient was provided 2 unit of blood transfusion and was started on IV Protonix drip. GI was consulted for
further evaluation and help. Patient required 2 more units later during the admission. An EGD and colonoscopy was done out of which EGD was clear. Colonoscopy showed colonic AVM in cecum and ascending colon which were treated with APC. Patient
case was discussed with primary cardiology and who recommended for patient be maintained off of Eliquis and patient will be following up in cardiology office for evaluation of Watchman device placement.
Beside this patient had acute kidney injury which resolved post blood and IV fluid hydration.
Post medical stabilization patient was discharged home.
Important imaging findings :
None
Procedure findings :
C-scope report
- Preparation of the colon was fair.
- The examined portion of the ileum was normal.
- One small polyp in the ascending and descending colon.
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 Treated with argon plasma coagulation (APC).
- Diverticulosis in the sigmoid colon and in the descending colon.
- Non-bleeding external and internal hemorrhoids.
- No specimens collected.
Discharge Plan
-
Patient Disposition: Home (Routine Discharge)
Discharge Diagnosis/Procedures: GI bleed, AVM, Exacerbated with eliquis use
Condition: Fair
Diet: Regular
Activity: As tolerated
Driving Restrictions: As prior to admission
Bathing Restrictions: OK to Shower
Blood Work: CBC on Tuesday
Activity Restrictions/Additional Instructions:
Follow up with Label Folder at [facility]. Your fenofibrate being held for low white blood cell and platelet counts.
Referrals:
Fidencio Alston MD [Active] -
Malissa Allison MD [Active] - 05/31/23 1:30 pm
UNKNOWN - PT DOES,NOT KNOW [Family Provider] -
Additional Discharge Medication Instructions: Eliquis stopped. Hold fenofibrate.
Prescriptions:
New
pantoprazole 40 mg Tablet,Delayed Release (Dr/Ec)
40 mg PO DAILY Qty: 30 2RF
Continued
magnesium oxide 400 MG tablet
400 mg PO BID
finasteride 5 mg Tablet
5 mg PO QPM
amlodipine 5 mg Tablet
5 mg PO DAILY
Tylenol PM Extra Strength 25-500 mg Tablet
2 tab PO HS Qty: 0
tamsulosin [Flomax] 0.4 MG capsule
0.4 mg PO QPM
ferrous sulfate 325 mg (65 mg iron) Tablet
325 mg PO DAILY
metformin 500 mg Tablet
1,000 mg PO BID
Hold Instructions: discuss restarting with your wafer fab technician
cyanocobalamin (vitamin B-12) 1,000 mcg Tablet
1,000 mcg PO DAILY
levothyroxine [Synthroid] 75 mcg Tablet
75 mcg PO DAILY
methenamine hippurate [Hiprex] 1 gram Tablet
1 g PO BID
Hold Instructions: Resume on 03/16/23. while on iv antibiotics;see your PCP prior to restarting it
rosuvastatin [Crestor] 40 mg Tablet
40 mg PO QPM
carvedilol 3.125 mg Tablet
3.125 mg PO BID Qty: 60 0RF
spironolactone 25 mg Tablet
25 mg PO DAILY Qty: 30 0RF
furosemide 20 mg tablet
40 mg PO DAILY
Held
fenofibrate nanocrystallized 145 MG tablet
145 mg PO QPM
Hold Instructions: Resume on 05/31/23. Hold until seen by chief operator lock tender
Discontinued
pantoprazole 20 mg tablet,delayed release (DR/EC)
20 mg PO DAILY
Eliquis 5 mg Tablet
5 mg PO BID
Hold Instructions: start tonight 05/07
Discharge Orders:
Discharge Patient (As Directed); Ordered 05/24/23
Ordered By: Alejo Busch
Discharge Date and Time
Discharge Date/Time: 05/24/23 12:25
Print Language: UPPER SORBIAN
== END 2023-05-24 12:25 | disposition home or self-care (01) | DRG 378 ==
LOC: 4 WEST ACU 18:22
PROVIDERS: Nurse Practitioner Family; Physician Assistant; Registered Nurse; ADMITTING PHYSICIAN Internal Medicine; ATTENDING PHYSICIAN Hospitalist; CONSULT PHYSICIAN Internal Medicine Gastroenterology; EMERGENCY PHYSICIAN Student in an Organized Health Care Education/Training Program
PROC: 30233N1 Transfusion of Nonautologous Red Blood Cells into Peripheral Vein, Percutaneous Approach (ICD-10-PCS; 2023-05-19)
PROC: 0DJ08ZZ Inspection of Upper Intestinal Tract, Via Natural or Artificial Opening Endoscopic (ICD-10-PCS; 2023-05-23)
PROC: 0W3P8ZZ Control Bleeding in Gastrointestinal Tract, Via Natural or Artificial Opening Endoscopic (ICD-10-PCS; 2023-05-23)
DX: K55.21 Angiodysplasia of colon with hemorrhage (principal); D62 Acute posthemorrhagic anemia; D68.32 Hemorrhagic disorder due to extrinsic circulating anticoagulants; N17.9 Acute kidney failure, unspecified; E87.1 Hypo-osmolality and hyponatremia; I5A Non-ischemic myocardial injury (non-traumatic); I13.0 Hypertensive heart and chronic kidney disease with heart failure and stage 1 through stage 4 chronic kidney disease, or unspecified chronic kidney disease; T45.515A Adverse effect of anticoagulants, initial encounter; I35.0 Nonrheumatic aortic (valve) stenosis; I48.0 Paroxysmal atrial fibrillation; G47.33 Obstructive sleep apnea (adult) (pediatric); E03.9 Hypothyroidism, unspecified; N40.0 Benign prostatic hyperplasia without lower urinary tract symptoms; K74.60 Unspecified cirrhosis of liver; E11.51 Type 2 diabetes mellitus with diabetic peripheral angiopathy without gangrene; N18.32 Chronic kidney disease, stage 3b; E11.22 Type 2 diabetes mellitus with diabetic chronic kidney disease; I25.10 Atherosclerotic heart disease of native coronary artery without angina pectoris; Z79.01 Long term (current) use of anticoagulants; K57.30 Diverticulosis of large intestine without perforation or abscess without bleeding; E78.00 Pure hypercholesterolemia, unspecified; K64.8 Other hemorrhoids; D12.2 Benign neoplasm of ascending colon
CPT/HCPCS: 36415; 71046; 80048; 80053; 82728; 82947; 82962; 83010; 83540; 83550; 83615; 83880; 84484; 85014; 85018; 85025; 85027; 85610; 86850; 86870; 86900; 86901; 86902; 86920; 86922; 93005; 97162; 99285; P9016

== ENCOUNTER → 2023-05-27 12:30 | Outpatient (REF) | payer MEDICARE, BC, SELFPAY ==
[2023-05-27 13:09] LABS: Hematocrit 29.6 % (39.0-52.0); Hemoglobin 9.3 g/dL (13.0-18.0); Mean Corp Hgb Conc. 31.4 g/dL (33.0-37.0); Mean Corpuscular Hgb 31.3 pg (27.0-31.0); Mean Corpuscular Volume 99.7 fL (80.0-94.0); Mean Platelet Volume 10.6 fL (7.4-10.4); Platelet Count 139 10^3/uL (130-400); Red Blood Cell Count 2.97 10^6/uL (4.70-6.10); Red Cell Dist. Width 20.7 % (11.5-14.5)
[2023-05-31 00:09] LABS: Albumin 3.32 g/dL (3.75-5.01); Alpha 1 Globulin 0.32 g/dL (0.19-0.46); Alpha 2 Globulin 0.54 g/dL (0.48-1.05); Free Kappa Light Chains,Quant 61.91 mg/L (3.30-19.40); Free Lambda Light Chains,Quant 43.29 mg/L (5.71-26.30); IgA 291 mg/dL (68-408); IgG 788 mg/dL (768-1632); IgM 83 mg/dL (35-263); Immunofixation Electrophoresis IFE Done; Kappa/Lambda Fr Light Ratio 1.43 (0.26-1.65); Total Protein-Electrophoresis 5.9 g/dL (6.3-8.2)
== END ==
LOC: REG 12:30
PROVIDERS: ATTENDING PHYSICIAN Hospitalist; FAMILY PHYSICIAN Student in an Organized Health Care Education/Training Program; OTHER PHYSICIAN Internal Medicine Medical Oncology
DX: D64.9 Anemia, unspecified (principal)
CPT/HCPCS: 36415; 82784; 83521; 84155; 84165; 85027; 86334

== ENCOUNTER → 2023-05-31 08:54 | Outpatient (REF) | payer MEDICARE, BC, SELFPAY | LOC: RAD 08:54 | PROVIDERS: ATTENDING PHYSICIAN Surgery Vascular Surgery; FAMILY PHYSICIAN Student in an Organized Health Care Education/Training Program | DX: I77.9 Disorder of arteries and arterioles, unspecified (principal); I65.21 Occlusion and stenosis of right carotid artery | CPT/HCPCS: 93880; 93922; 93925; 93978 ==

== ENCOUNTER → 2023-06-17 09:05 | Outpatient (REF) | payer MEDICARE, BC, SELFPAY ==
--- NOTE | 2023-06-10 11:25 | WATCHMAN ---
Watchman
Wathcman Procedure
Referred by:: Valentin Lombardo/Fidencio Alston
Date of Referral:: 06/09/23
[id number] Score
Age in Years (65=0, 65-74=1, >/=75=2): > or = 75
Sex (Female=+1): Male
Congestive Heart Failure History (Yes=+1): Yes
Hypertension History (Yes=+1): Yes
Stroke/TIA/Thromboembolism History (Yes=+2): No
Vascular Disease History (Yes=+1): Yes
Diabetes Mellitus (Yes=+1): Yes
Score: 6
Anticoagulation Recommendations: Recommend anticoagulation (as validated in nonvalvular fib)
HASBLED Score
Hypertenstion (uncontrolled >160mmHG systolic): Yes
Renal disease (dialysis, transplant, Cr >2.26mg/dL or >200umol/L): No
Liver disease (cirrhosis or bilirubin >2x normal w/ AST/ALT/AP >3x normal: No
Stroke history: No
Prior major bleeding or predisposition to bleeding: Yes
Labile INR(unsable/high INRs,time in therapeutic range <60%): No
Age >65: Yes
Medication usage predisposing to bleeding(ASA, NSAIDS): No
Alcohol use (>/= 8 drinks/week): No
Score: 3
Risk: Alternatives to anticoagulation should be considered: Patient is at high risk for major bleeding
Electrocardiogram
Interpretation: abnormal
Heart Rate: 73
Rate: normal
Rhythm: sinus
[place]: normal axis
Interval: normal interval
QRS Pattern: right bundle branch block
Physician Visits
Kayak Maker:: Grupo
Date of Visit:: 06/08/23
Primary Firearms Model Maker:: Fidencio Alston
Date of Visit:: 10/15/22
PCP:: Dr. Lord
Plan
Plan:: 06/09/2023: Consult for watchman received. Seen by Dr. Lombardo in the office .
06/10/2023: Called and spoke to patient. Provided contact information and assisted in scheduling watchman CT scan for 06/17/2023 at 0945. Allowed for and answered questions. Offered tentative procedure date of 07/12/[address] scan results and
review by the heart team.
== END ==
LOC: RAD 09:05
PROVIDERS: ATTENDING PHYSICIAN Internal Medicine Cardiovascular Disease; FAMILY PHYSICIAN Student in an Organized Health Care Education/Training Program
DX: K92.2 Gastrointestinal hemorrhage, unspecified (principal)
CPT/HCPCS: 75572; Q9967

== ENCOUNTER → 2023-06-22 09:33 | Outpatient (REF) | payer MEDICARE, BC, SELFPAY ==
[2023-06-22 12:15] LABS: % Basophils 0.6 % (0-2); % Eosinophils 1.2 % (0-6); % Lymphocytes 19.3 % (20.5-51.1); % Monocytes 11.2 % (1.7-9.3); % Neutrophils 67.7 % (42.2-75.2); Absolute Lymphocytes 0.6 10^3/uL (1.2-3.4); Absolute Monocytes 0.4 10^3/uL (0.1-0.6); Absolute Neutrophils 2.2 10^3/uL (1.4-6.5); Hematocrit 29.7 % (39.0-52.0); Hemoglobin 9.5 g/dL (13.0-18.0); Mean Corpuscular Hgb 29.8 pg (27.0-31.0); Mean Corpuscular Volume 93.1 fL (80.0-94.0); Mean Platelet Volume 11.9 fL (7.4-10.4); Nucleated Red Blood Cells % 0 % (-); Platelet Count 136 10^3/uL (130-400); Red Blood Cell Count 3.19 10^6/uL (4.70-6.10); Red Cell Dist. Width 15.7 % (11.5-14.5); White Blood Cell Count 3.2 10^3/uL (4.8-10.8)
[2023-06-22 12:25] LABS: INR 1.42; PT 17.5 Sec (11.4-14.6)
[2023-06-22 12:26] LABS: APTT 32.1 Sec (23.4-35.0)
[2023-06-22 12:30] LABS: ALT (SGPT) 33 U/L (0-50); AST (SGOT) 62 U/L (17-59); Albumin 3.6 g/dl (3.5-5.0); Alkaline Phosphatase 85 U/L (38-126); Blood Urea Nitrogen 21 mg/dl (9-20); Calcium 9.4 mg/dl (8.4-10.2); Carbon Dioxide 26 mmol/L (22-30); Chloride 103 mmol/L (98-107); Glucose 190 mg/dl (70-99); Potassium 4.1 mmol/L (3.5-5.1); Sodium 137 mmol/L (135-145); Total Bilirubin 0.4 mg/dl (0.2-1.3); Total Protein 6.6 g/dl (6.3-8.2); eGFR 54.51
== END ==
LOC: HWRAD 09:33
PROVIDERS: ATTENDING PHYSICIAN Internal Medicine Gastroenterology; FAMILY PHYSICIAN Student in an Organized Health Care Education/Training Program
DX: K74.60 Unspecified cirrhosis of liver (principal)
CPT/HCPCS: 36415; 76700; 80053; 85025; 85610; 85730

== ENCOUNTER → 2023-06-29 08:25 | Outpatient (REF) | payer MEDICARE, BC, SELFPAY ==
[2023-06-29 11:41] LABS: % Basophils 0.6 % (0-2); % Eosinophils 1.9 % (0-6); % Immature Granulocytes 0.3 % (0-0.5); % Monocytes 12.7 % (1.7-9.3); % Neutrophils 65.5 % (42.2-75.2); Absolute Eosinophils 0.1 10^3/uL (0-0.7); Absolute Lymphocytes 0.6 10^3/uL (1.2-3.4); Absolute Monocytes 0.4 10^3/uL (0.1-0.6); Absolute Neutrophils 2.1 10^3/uL (1.4-6.5); Hematocrit 27.5 % (39.0-52.0); Hemoglobin 8.9 g/dL (13.0-18.0); Mean Corp Hgb Conc. 32.4 g/dL (33.0-37.0); Mean Corpuscular Volume 92.6 fL (80.0-94.0); Mean Platelet Volume 12.1 fL (7.4-10.4); Nucleated Red Blood Cells % 0 % (-); Platelet Count 127 10^3/uL (130-400); Red Blood Cell Count 2.97 10^6/uL (4.70-6.10); Red Cell Dist. Width 15.4 % (11.5-14.5); White Blood Cell Count 3.2 10^3/uL (4.8-10.8)
== END ==
LOC: HWLAB 08:25
PROVIDERS: ATTENDING PHYSICIAN Internal Medicine Medical Oncology; FAMILY PHYSICIAN Student in an Organized Health Care Education/Training Program
DX: I73.9 Peripheral vascular disease, unspecified (principal); D62 Acute posthemorrhagic anemia
CPT/HCPCS: 36415; 85025

== ENCOUNTER 2023-07-11 00:49 | Inpatient (IN) | payer MEDICARE, BC, SELFPAY ==
[2023-07-10 22:08] VITALS: BMI 32.1
[2023-07-10 22:10] VITALS: BP 141/81
[2023-07-10 22:12] VITALS: BP 141/81
[2023-07-10 22:25] LABS: % Basophils 0.2 % (0-2); % Eosinophils 0.4 % (0-6); % Immature Granulocytes 0.6 % (0-0.5); % Lymphocytes 19.2 % (20.5-51.1); % Monocytes 10.3 % (1.7-9.3); % Neutrophils 69.3 % (42.2-75.2); Absolute Monocytes 0.6 10^3/uL (0.1-0.6); Absolute Neutrophils 3.7 10^3/uL (1.4-6.5); Mean Corp Hgb Conc. 32.3 g/dL (33.0-37.0); Mean Corpuscular Hgb 28.3 pg (27.0-31.0); Mean Corpuscular Volume 87.4 fL (80.0-94.0); Mean Platelet Volume 11.4 fL (7.4-10.4); Nucleated Red Blood Cells % 0 % (-); Platelet Count 168 10^3/uL (130-400); Red Blood Cell Count 1.91 10^6/uL (4.70-6.10); Red Cell Dist. Width 15.4 % (11.5-14.5); White Blood Cell Count 5.3 10^3/uL (4.8-10.8)
[2023-07-10 22:30] LABS: Hematocrit 16.7 % (39.0-52.0); Hemoglobin 5.4 g/dL (13.0-18.0)
[2023-07-10 22:36] LABS: INR 1.47; PT 17.7 Sec (11.4-14.6)
[2023-07-10 22:43] LABS: ALT (SGPT) 26 U/L (0-50); AST (SGOT) 44 U/L (17-59); Albumin 3.2 g/dl (3.5-5.0); Alkaline Phosphatase 68 U/L (38-126); Blood Urea Nitrogen 45 mg/dl (9-20); Carbon Dioxide 20 mmol/L (22-30); Chloride 104 mmol/L (98-107); Estimated Creatinine Clearance 51 ml/min; Glucose 328 mg/dl (70-99); Potassium 4.6 mmol/L (3.5-5.1); Sodium 134 mmol/L (135-145); Total Bilirubin 0.4 mg/dl (0.2-1.3); Total Protein 5.8 g/dl (6.3-8.2); eGFR 49.87
[2023-07-10 22:48] LABS: Troponin I 0.019 ng/ml
[2023-07-10 23:00] VITALS: BP 138/84
[2023-07-10] MEDS: PROTONIX IV 80 MG IV (23:10)
--- NOTE | 2023-07-10 23:48 | ED.GENMED ---
History of Present Illness
General
Chief Complaint: Chest Pain
Source: patient
Exam Limitations: none
Time Seen by Provider: 07/10/23 22:32
Nursing documentation reviewed up to this point in time: agreed with
Travel History
Have you had any contact with someone who has COVID-19?: No
Do you have any symptoms of coronavirus? Fever > 100 degrees, chills, cough, shortness of breath, sore throat, loss of taste or smell, muscle aches, or headache?: No
History of Present Illness
History of Present Illness:
83-year-old male with past medical history as documented notable for atrial fibrillation on Eliquis (follows with Dr. Alston for cardiology), CKD, history of prior GI bleeding who presents to the emergency room for evaluation of chest pain and
shortness of breath. Notably patient was admitted in May for acute blood loss anemia and lower GI bleeding thought to be related to angiodysplasia in the colon found on colonoscopy. Patient reports that over the past 2 days he has noticed that
he is having increasing shortness of breath particularly when he sleeps. He says that he has had episodes where he wakes up in the middle the night with right-sided chest pain and feeling that he cannot breathe. He says that he has to remove his
CPAP and walk to a chair to get back to sleep sitting upright. He says that over the past week or so he has noticed dark stools as well. He was concerned that given the symptoms he may be anemic and so he came to the emergency room to be assessed.
He is on Eliquis as above but notes that he has not taken it for 24 hours as he was concerned that he was having GI bleeding and anemia again. Aside from the above symptoms patient also reports some slight increased abdominal distention. He
denies any abdominal pain. Denies any nausea or vomiting. Denies any fevers or chills. Denies any cough. Denies any swelling in his legs. He denies any other complaints.
Past History
Past History
ED Past Medical History: HTN, Hypercholesterolemia, NIDDM, Renal failure, Hypothyroidism and Other (Prostatic hypertrophy, peripheral arterial disease)
ED Past Surgical History: Cholecystectomy, Tonsilectomy and Other
Social History
Tobacco: Non-smoker
Alcohol: None
Drug: None
Personal:
Living: with family
Employment: Retired
Family History
Family History: Other
Review of Systems
Review of Systems
All Other Systems: ROS reviewed and negative except as documented in HPI and ROS
Constitutional: Reports fatigue; Denies fever or chills
EENT: Denies sore throat or runny nose
Respiratory: Reports trouble breathing; Denies cough
Cardiac: Reports chest pain; Denies palpitations
ABD/GI: Reports black stools; Denies abdominal pain, nausea or vomiting
: Denies flank pain
Musculoskeletal: Denies neck pain or back pain
Neurological: Denies dizzy or headache
Phy Exam
Physical Exam
Physical Exam:
General: Awake, alert, oriented x3; no acute distress
Head: Normocephalic, atraumatic
Eyes: Conjunctiva normal, sclera anicteric
Throat: Airway intact, handling secretions
Neck: Trachea midline, supple without meningismus
Lungs: Clear to auscultation bilaterally, no wheezing, rales, rhonchi
Heart: Regular rate and rhythm, no murmurs, gallops, or rubs
Abd: Soft, slightly distended but not tympanic, nontender to deep palpation, no abdominal masses
Rectal: Black stool Hemoccult positive
Neuro: No gross deficits
Skin: no rash
Extremities: No edema in extremities, equal pulses in all extremities
Scores
Heart Failure Risk
Heart Failure Risk Score: Not Applicable
Heart Score for Chest Pain Patients
STEMI patient?: Not applicable
Withdrawal Assessment of Alcohol
Withdrawal Assessment Completed?: Not applicable
Course
Orders/Labs/Results
Orders:
Orders
07/10/23 22:09
EKG [Electrocardiogram (*1)] Urgent
Reason for Study: Chest Pain
EKG- Treatment ONCE
07/10/23 22:18
Complete Blood Count/With Diff Urgent
Comprehensive Metabolic Panel Urgent
Prothrombin Time Urgent
Troponin I Urgent
07/10/23 22:52
Pantoprazole [Protonix IV] 80 mg IV NOW STA
07/10/23 22:53
* Blood Bank Products Urgent
Blood Bank Products: *Packed RBC Leuko(PRBC's)
Quantity: 2
Transfuse Today: Yes
Reason: Anemia
07/10/23 22:54
CR Obstruct Series W/pa Chest Urgent
Reason For Exam: abdominal distention
07/10/23 23:05
Type+Screen Urgent
Abnormal Lab Results
07/10/23
22:18
RBC 1.91 L 10^6/uL
(4.70-6.10)
Hgb 5.4 L* g/dL
(13.0-18.0)
Hct 16.7 L* %
(39.0-52.0)
MCHC 32.3 L g/dL
(33.0-37.0)
RDW 15.4 H %
(11.5-14.5)
MPV 11.4 H fL
(7.4-10.4)
Absolute Lymphs (auto) 1.0 L 10^3/uL
(1.2-3.4)
Immature Gran % 0.6 H %
(0-0.5)
Lymphocytes % 19.2 L %
(20.5-51.1)
Monocytes % 10.3 H %
(1.7-9.3)
PT 17.7 H Sec
(11.4-14.6)
Sodium 134 L mmol/L
(135-145)
Carbon Dioxide 20 L mmol/L
(22-30)
BUN 45 H mg/dl
(9-20)
Creatinine 1.4 H mg/dL
(0.7-1.3)
Glucose 328 H mg/dl
(70-99)
Total Protein 5.8 L g/dl
(6.3-8.2)
Albumin 3.2 L g/dl
(3.5-5.0)
07/10/23 22:18
07/10/23 22:18
Vital Signs
Initial and Last Documented VS:
Initial Vital Signs
Pulse Resp BP Pulse Ox
87 24 141/81 98
07/10/23 22:10 07/10/23 22:10 07/10/23 22:10 07/10/23 22:10
Last Documented Vital Signs
Temp Pulse Resp BP Pulse Ox
36.9 C 84 20 141/81 97
07/10/23 23:47 07/10/23 22:45 07/10/23 22:45 07/10/23 22:12 07/10/23 22:45
MDM/Problems Addressed
Differential Diagnosis Includes:
Symptomatic anemia, pneumonia, CHF
MDM/Problems Addressed:
83-year-old male presents for evaluation of increasing shortness of breath, episodes of chest pain as well as black stools for the past week. His vital signs here are all within normal limits. Physical exam as above. Notably had black stool on
rectal exam which was Hemoccult positive. Concern for symptomatic anemia and upper GI bleeding. Will place an IV send labs including a CBC and a CMP, type and screen. Will check troponin given his reported chest pain although low suspicion that
this is related to ACS but rather his symptomatic anemia in the setting of significant cardiac disease. Will check chest x-ray and abdominal x-ray given his report of mild abdominal distention although very low suspicion for emergent
intra-abdominal pathology. Will monitor closely reassess after the above.
Labs reviewed: CBC shows acute anemia to hemoglobin of 5.4 from prior value of 9. Platelets acceptable. CMP shows mild KRZYSZTOF with a creatinine of 1.4. He is hyperglycemic to 328. His troponin is negative. Chest x-ray no acute disease no signs of
obstruction on abdominal x-ray. Discussed diagnosis with patient we will plan to transfuse 2 units of PRBCs. He is on Eliquis but is hemodynamically stable and has been holding it for the past 24 hours and so for this reason we will hold on
emergent reversal with Kcentra in favor of continuing to hold his anticoagulation. Will admit for continued management of acute GI bleeding and acute on chronic anemia. Discussed with hospitalist for admission.
Chronic conditions affecting care:
History of A-fib on Eliquis complicates his GI bleeding
Chronic conditions affecting care: Arrhythmia
*Radiology
Radiology exam reviewed: preliminary read by ED provider
*Pulse Oximetry
Patient hypoxic: no
*EKG
Interpreted by ED Provider?: Yes
Comparison EKG: no changes
Heart Rate: 77
Rate: normal
Rhythm: sinus and PVC's
[place]: left axis deviation
Interval: normal interval
QRS Pattern: right bundle branch block
Ischemia: non-specific ST changes
*Critical Care Note
Total Time (30-74mins, 75-104mins- exclusive of procedures): 31
comment:
Critical care statement: A total of 31 minutes of critical care time was provided for this patient. This includes management of unstable vital signs, evaluation of the patient at bedside, frequent reassessment, discussion with
consultants/hospitalist, and review of pertinent medical records. This time was separate from time utilized to perform any aforementioned documented procedures
Data Reviewed
Review of Other/Old Records Reveals: Labs, Records, Operative Reports and Discharge Summary
Source: patient, records and spouse
Prescriptions/Medications Considered But Not Given:
Considered reversal of anticoagulant with Kcentra as above
Patient Management
Discussion with other providers: Hospitalist (Discussed case with hospitalist)
Escalation/DeEscalation of care consider admission/obs:
Admission indicated
ED Attending Note
-
Portions of this chart may have been created with voice recognition software.� Occasional wrong word or��sound alike� substitutions may have occurred due to the inherent limitations of voice recognition software.
Discharge Plan
Departure
Patient Disposition: Admit
Date of Disposition: 07/10/23
Time of Disposition: 23:47
Admit to doctor: Peter
Presentation/result/management discussed w/ accepting MD/DO: Hospitalist
Discharge Problem:
Acute blood loss anemia, Acute GI bleeding, Chest pain
Prescriptions:
No Action
fenofibrate nanocrystallized 145 MG tablet
145 mg PO QPM
Hold Instructions: Resume on 05/31/23. Hold until seen by vacuum cooker operator
magnesium oxide 400 MG tablet
400 mg PO BID
finasteride 5 mg Tablet
5 mg PO QPM
amlodipine 5 mg Tablet
5 mg PO DAILY
Tylenol PM Extra Strength 25-500 mg Tablet
2 tab PO HS Qty: 0
tamsulosin [Flomax] 0.4 MG capsule
0.4 mg PO QPM
ferrous sulfate 325 mg (65 mg iron) Tablet
325 mg PO DAILY
metformin 500 mg Tablet
1,000 mg PO BID
Hold Instructions: discuss restarting with your preschool substitute teacher
cyanocobalamin (vitamin B-12) 1,000 mcg Tablet
1,000 mcg PO DAILY
levothyroxine [Synthroid] 75 mcg Tablet
75 mcg PO DAILY
methenamine hippurate [Hiprex] 1 gram Tablet
1 g PO BID
Hold Instructions: Resume on 03/16/23. while on iv antibiotics;see your PCP prior to restarting it
rosuvastatin [Crestor] 40 mg Tablet
40 mg PO QPM
carvedilol 3.125 mg Tablet
3.125 mg PO BID Qty: 60 0RF
spironolactone 25 mg Tablet
25 mg PO DAILY Qty: 30 0RF
furosemide 20 mg tablet
40 mg PO DAILY
pantoprazole 40 mg Tablet,Delayed Release (Dr/Ec)
40 mg PO DAILY Qty: 30 2RF
Referrals:
Angel Lord MD [Family Provider] -
Interventions
Interventions:
*Risk Screen - Suicide Last Done: 07/10/23 22:07
*General Assessment Last Done: 07/10/23 22:07
*Neglect/Abuse Screening Last Done: 07/10/23 22:07
ED- Fall Risk Assessment Last Done: 07/10/23 22:12
*ED COVID-19 Vaccine History Last Done: 07/10/23 22:07
ED- Cardiac Assessment Last Done: 07/10/23 22:12
Discharge Date and Time
Print Language: JAMAICAN
[2023-07-11] VITALS (37 sets, daily range): BP systolic 103–146; BP diastolic 39–82; PULSE 65–81; BMI 29.1
--- NOTE | 2023-07-11 00:44 | HPS.HSE ---
Family Physician
-
Family Physician: Angel Lord MD
Chief Complaint
-
Weakness, SOB
History of Present Illness
Patient is an 83y M with PMH significant for A-Fib, ASCVD, DM-II and history of GI bleeding who presents to ED complaining of several days of weakness, fatigue, dyspnea and pale appearing. Patient states that his symptoms have been progressive
over the past 4-5 days or so. He states that he has had dark stools in that same time period. No BRBPR. No N/V. He does complain of abdominal distention and discomfort. Patient has had several episodes of GI bleeding in the past and his current
symptoms are similar. This [prompted him to present to the ED for further evaluation.
Patient is on Eliquis BID in preparation for Watchman implant which is scheduled for next month. He took his last dose Tuesday evening. He took none today as he was concerned about recurrent bleeding.
Medical History
Past Medical History
Past Medical History: Reports Other
Additional Past Medical History:
Peripheral artery disease
Dyslipidemia
Obstructive sleep apnea
Right bundle branch block
Essential hypertension
Type 2 diabetes
Right carotid stenosis
Aortic valve stenosis
Diverticulosis
Stage IIIb chronic kidney disease
Coronary artery disease
Chronic heart failure
BPH
Past Surgical History: Reports Other
Additional Past Surgical History:
Carotid endarterectomy
Cholecystectomy
Tonsillectomy
Social History
Tobacco: Former Smoker
Alcohol: None
Drug: None
Personal:
Living: With Family
Family History
Family History: Not pertinent
Allergies / Home Medications
Allergies reflects when Allergies were last updated in [employer].
Home Medications with original date entered in [employer]
Allergy/Medication List:
Allergies
Allergy/AdvReac Type Severity Reaction Status Date / Time
clonidine Allergy dry mouth, Verified 05/19/23 15:23
sleepless
Home Medications
fenofibrate nanocrystallized 145 mg tablet 145 mg PO QPM High cholesterol 07/29/21
magnesium oxide 400 mg PO BID Electrolyte Repletion 07/29/21
finasteride 5 mg tablet 5 mg PO QPM Urinary issue 12/02/21
amlodipine 5 mg tablet 5 mg PO DAILY Blood pressure 04/05/22
diphenhydramine 25 mg-acetaminophen 500 mg tablet (Tylenol PM Extra Strength) 2 tab PO HS Sleep ##0 04/05/22
tamsulosin 0.4 mg capsule (Flomax) 0.4 mg PO QPM Urinary Issue 10/25/22
ferrous sulfate 325 mg (65 mg iron) tablet 325 mg PO DAILY Supplement 12/06/22
cyanocobalamin (vitamin B-12) 1,000 mcg tablet 1,000 mcg PO DAILY Supplement 01/16/23
levothyroxine 75 mcg tablet (Synthroid) 75 mcg PO DAILY Thyroid 01/16/23
metformin 500 mg tablet 1,000 mg PO BID diabetes 01/16/23
methenamine hippurate 1 gram tablet (Hiprex) 1 g PO BID Urinary Issue 01/16/23
rosuvastatin 40 mg tablet (Crestor) 40 mg PO QPM High Cholesterol 05/03/23
carvedilol 3.125 mg tablet 3.125 mg PO BID Blood pressure #60 tabs 05/08/23
spironolactone 25 mg tablet 25 mg PO DAILY Fluid retention/Swelling #30 tabs 05/08/23
furosemide 20 mg tablet 40 mg PO DAILY Fluid retention/Swelling 05/19/23
pantoprazole 40 mg tablet,delayed release 40 mg PO DAILY Gastrointestinal issue #30 tabs 05/23/23
apixaban 5 mg tablet (Eliquis) 5 mg PO BID 07/11/23
Review of Systems
-
History Source: Patient
A 12 point ROS was completed and negative except as noted: Yes
Constitutional: Reports Fatigue; Denies Fever or Chills
EENT: Denies Sore Throat
Respiratory: Reports Trouble Breathing; Denies Cough
Cardiac: Denies Chest Pain or Palpitations
Abdomen/GI: Reports Black Stools, Anorexia and Other (Bloating); Denies Abdominal Pain, Nausea or Vomiting
: Denies Dysuria or Bleeding
Neurological: Reports Dizzy; Denies Headache
Psych: Denies Depression or Anxiety
Physical Exam
Vital Signs
Vital Signs
Temp Pulse Resp BP Pulse Ox
98.4 F 84 20 141/81 97
07/10/23 23:47 07/10/23 22:45 07/10/23 22:45 07/10/23 22:12 07/10/23 22:45
Physical Exam
General: Other (Pale-appearing 83y M in no acute distress.)
HEENT: Moist mucous membranes and PERRLA
Respiratory: Clear; No Wheezes, Rales or Rhonchi
Cardiac: S1/S2, Irregular Rhythm and Murmur (II/ TUSHAR)
GI: Other (Softly distended. No focal tenderness. Pos BS.)
Musculoskeletal: No Clubbing, No Cyanosis and Other (1+ pitting edema b/l ankles.)
Neuro: AO x 3
Laboratory Results
-
07/10/23 22:18
07/10/23 22:18
Laboratory Results
PT 17.7 Sec (11.4-14.6) H 07/10/23 22:18
INR 1.47 07/10/23 22:18
Total Bilirubin 0.4 mg/dl (0.2-1.3) 07/10/23 22:18
AST 44 U/L (17-59) 07/10/23 22:18
ALT 26 U/L (0-50) 07/10/23 22:18
Alkaline Phosphatase 68 U/L (38-126) 07/10/23 22:18
Troponin I 0.019 ng/ml 07/10/23 22:18
Impression/Plan
-
A/P: Patient is an 83y M with PMH significant for A-Fib, ASCVD and prior GI Bleeding who presents to ED complaining of weakness, fatigue and SOB x 4-5 days.
Acute GI Bleeding
Acute Symptomatic Blood Loss Anemia secondary to the above
- Admit for further evaluation and treatment.
- Hgb today is 5.4 compared to prior / discharge value of 8.9.
- Continue to hold Eliquis (this was restarted following his prior admission in preparation for Watchman device).
- GI evaluation - probable repeat endoscopic exam.
- 05/2023: Colonoscopy with angiodysplasia in the ascending colon / cecum which was treated with APC. EGD was essentially unremarkable.
- Transfusion ordered in the ED. Follow H&H and provide additional blood products as needed.
- Follow for continued hemodynamic stability.
Paroxysmal Atrial Fibrillation
- Stable. Hold Eliquis as noted above.
- Plan is for eventual Watchman procedure - typically requires pre / post procedure anticoagulation however.
- Continue other CV med regimen with holding parameters for BP.
ASCVD
- History of carotid disease, PAD.
- Continue current CV med regimen.
Chronic HFpEF
- Mild edema noted on exam.
- Continue Lasix while receiving blood transfusion / volume.
- Follow I/Os, daily weights, etc.
- Adjust diuretic regimen as needed.
CKD III
- Renal function slightly greater than baseline (approx 1.2) but not KRZYSZTOF.
- Follow for changes with transfusion, Lasix, etc.
DM-II
- Stable. Hold PO meds acutely.
- Follow glucose and cover with SSI as needed.
- Update A1C.
Hypothyroidism
- Stable. Continue T4 replacement.
ZAYRA on CPAP
- Stable. Continue nightly PAP therapy.
DVT Prophylaxis: SCDs
Code Status: Full
--- NOTE | 2023-07-11 02:54 | PTCARENOTE ---
Received pt from ED to ICU [id number]. AAOx3, pleasant. SR with PVCs on tele, Hr 70s. BP 142/66. + pulses. Afebrile. On RA. Mildly SOB. Spo2 97%. RT will place on CPAP to sleep. Round, soft, distended abd. + bowel sounds. NPO. Voided in bathroom without
problem. Reports 'dark brown or black' BMs prior to arrival. LBM 6/. Skin c/d/i. #20 L FA patent and capped. 2 units PRBCs ordered. Pt. has antibodies so blood bank is working to get units ready- will await update and transfuse when ready. Call
pérez in reach
[2023-07-11] MEDS: MELATONIN 3 MG PO ×2 (03:37→21:41)
[2023-07-11] MEDS: SYNTHROID 75 MCG PO (05:31)
[2023-07-11 05:44] LABS: Glucose - Point of Care 328 mg/dl (70-99)
[2023-07-11] MEDS: NOVOLOG FLEXPEN-LOW RESISTANCE 4 UNITS SC (06:17)
--- NOTE | 2023-07-11 07:27 | PTCARENOTE ---
2nd PRBC transfusing at this time. VSS. Pt resting comfortably, offers no complaints. GI consult sent to regional truck driver via TT.
[2023-07-11] MEDS: LASIX 40 MG PO (09:30)
[2023-07-11] MEDS: COREG 3.125 MG PO ×2 (09:31→20:31)
[2023-07-11] MEDS: PROTONIX IV 40 MG IV ×2 (09:31→20:32)
[2023-07-11] MEDS: NSS (PRESERVATIVE FREE) 10 ML IV ×2 (09:31→20:32)
--- NOTE | 2023-07-11 09:55 | CON.GI ---
Addendum entered and electronically signed by Yohan Lee MD 07/11/23 13:21:
Patient seen and examined, agree with nurse practitioner. Patient presents with recurrent fatigue and significant anemia with melena. Is a longstanding history of GI bleeding secondary to small bowel colonic angiectasia's, with area of active
bleeding noted in April and proximal jejunum. He was recent diagnosed with cirrhosis by FibroScan, though had no varices or gastropathy in the past. On colonoscopy recently he did have colonic angiectasia which were treated, though no active
bleeding there. He is currently feeling better after transfusion, exam is benign with no abdominal tenderness. By report PillCam with Dr. Camargo in the past was negative. Unfortunately in this difficult clinical scenario need for anticoagulation he
is at continued risk of bleeding from more likely small bowel angiectasia. He is currently being evaluated for watchman though has been on anticoagulation. At this point we will plan repeat EGD with enteroscopy as this was the one area that had
shown to be active bleeding. Pending results of this may need to consider repeat colonoscopy versus transfer for double-balloon enteroscopy.
Original Note:
Consultation
-
Date/Time Consultation Requested: 07/11/23 0300
Date/Time Consultation Performed: 07/12/23 1000
Requesting Provider: Bryan Green DO
Performing Provider: ADRIÁN Larkin, Heath Lee MD
Reason for Consultation: GI bleed
Medical History
Chief Complaint / HPI
Chief Complaint: weakness and dark stools
History of Present Illness:
The patient is an 82-year-old male with a past medical history significant for recurrent GI bleed secondary to small bowel and colonic AVM's, gastric erosions chronic anemia, history of colon polyps, atrial fibrillation on Eliquis, CKD stage III,
aortic stenosis, peripheral artery disease, hyperlipidemia, hypertension, diabetes type 2, CAD, ZAYRA, history of recent septic arthritis at the L4-L5 with I&D, and newly diagnosed liver cirrhosis with FibroScan showing F4 fibrosis/cirrhosis, presents
to ER for recurrent admission with weakness and dark stools. Pt reports slightly loose stools with change in color last 1-2 weeks. Recent scopes completed Enteroscopy in April with erosive gastropathy, multiple bleeding angiectasias in Jejunum
treat with APC then May - EGD with bile reflex and colon with polyp in colon, multiple non bleeding colonic AVM in cecum and ascending colon treated with APC. He initially left off Eliquis then resumed per cardiology as current work up for
watchman. He has also seen hematology since admission at [place] with recent bone marrow biopsy. On admission hbg 5.4 with BUN up to 45 rise from 21 in early June. Pt also admits to chest/epigastric pain prior to admission with some shortness of
breath improved with nitro.
Pt denies dysphagia, GERD, nausea, vomiting, hematemesis, constipation or red blood in stools. Pt has had B12 supplementation and oral iron use and remain on PPI daily. Pt also with recent office vist with Dr. Allison with concern for also
cirrhosis of liver
FibroScan which did confirm F4 fibrosis with findings consistent with cirrhosis and portal hypertension. Currently is undergoing workup for this. He had labs outpatient for chronic liver disease evaluation which did show positive ANDREW otherwise
was unrevealing. He had no esophageal varices seen on push enteroscopy in April or EGD in May.
Past Medical History
Past Medical History: Arrhythmias (Atrial fibrillation on Eliquis), CAD, CHF, HTN, Hypercholesterolemia, NIDDM, Valvular Disease (Aortic stenosis) and Other (Chronic kidney disease stage III, peripheral artery disease, ZAYRA with CPAP use, recent
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
Past Surgical History: Cardiac (CAD with stent), Cholecystectomy, Orthopedic (L4/L5 I&D), Tonsilectomy and Other (right CEA, iliac artery stent/angioplasty 2016)
Social History
Tobacco: Former Smoker
Alcohol: None
Drug: None
Personal:
Living: With Family
Family History
Family History: Other (no family hx colon CA or polyps)
Allergies / Home Medications
Allergy/AdvReac Type Severity Reaction Status Date / Time
clonidine Allergy dry mouth, Verified 05/19/23 15:23
sleepless
�Medication �Instructions �Recorded
fenofibrate nanocrystallized 145 145 mg PO QPM High cholesterol 07/29/21
mg tablet
magnesium oxide 400 mg PO BID Electrolyte Repletion 07/29/21
finasteride 5 mg tablet 5 mg PO QPM Urinary issue 12/02/21
amlodipine 5 mg tablet 5 mg PO DAILY Blood pressure 04/05/22
diphenhydramine 25 2 tab PO HS Sleep ##0 04/05/22
mg-acetaminophen 500 mg tablet
(Tylenol PM Extra Strength)
tamsulosin 0.4 mg capsule (Flomax) 0.4 mg PO QPM Urinary Issue 10/25/22
ferrous sulfate 325 mg (65 mg 325 mg PO DAILY Supplement 12/06/22
iron) tablet
cyanocobalamin (vitamin B-12) 1,000 mcg PO DAILY Supplement 01/16/23
1,000 mcg tablet
levothyroxine 75 mcg tablet 75 mcg PO DAILY Thyroid 01/16/23
(Synthroid)
metformin 500 mg tablet 1,000 mg PO BID diabetes 01/16/23
methenamine hippurate 1 gram 1 g PO BID Urinary Issue 01/16/23
tablet (Hiprex)
rosuvastatin 40 mg tablet (Crestor) 40 mg PO QPM High Cholesterol 05/03/23
carvedilol 3.125 mg tablet 3.125 mg PO BID Blood pressure #60 05/08/23
tabs
spironolactone 25 mg tablet 25 mg PO DAILY Fluid 05/08/23
retention/Swelling #30 tabs
furosemide 20 mg tablet 40 mg PO DAILY Fluid 05/19/23
retention/Swelling
pantoprazole 40 mg tablet,delayed 40 mg PO DAILY Gastrointestinal 05/23/23
release issue #30 tabs
apixaban 5 mg tablet (Eliquis) 5 mg PO BID 07/11/23
Review of Systems
-
History Source: Patient and Family
Constitutional: Reports Fatigue
EENT: Reports No Symptoms
Respiratory: Reports Trouble Breathing
Cardiac: Reports Chest Pain
Abdomen/GI: Reports Abdominal Pain and Black Stools
: Reports No Symptoms
Musculoskeletal: Reports No Symptoms
Skin: Reports No Symptoms
Neurological: Reports Weakness
Endocrine: Reports No Symptoms
Hematologic/Lymphatic: Reports Bleeding
Vital Signs
Temp Pulse Resp BP Pulse Ox
97.7 F 68 19 132/57 98
07/11/23 07:51 07/11/23 09:31 07/11/23 09:18 07/11/23 09:31 07/11/23 09:18
Physical Exam
Exam
General: Well Developed, Well Nourished and No Apparent Distress
HEENT: Normocephalic and Anicteric
Respiratory: Clear
Cardiac: Regular Rhythm
GI: Soft, Non Tender and Non Distended
Musculoskeletal: No Clubbing and No Cyanosis
Skin: Warm and Dry
Neuro: Awake, Alert and AO x 3
Psych: Calm
Results
WBC 5.3 10^3/uL (4.8-10.8) 07/10/23 22:18
Hgb Cancelled 07/11/23 08:15
Hct Cancelled 07/11/23 08:15
MCV 87.4 fL (80.0-94.0) 07/10/23 22:18
Plt Count 168 10^3/uL (130-400) 07/10/23 22:18
Absolute Neuts (auto) 3.7 10^3/uL (1.4-6.5) 07/10/23 22:18
PT 17.7 Sec (11.4-14.6) H 07/10/23 22:18
INR 1.47 07/10/23 22:18
Sodium 134 mmol/L (135-145) L 07/10/23 22:18
Potassium 4.6 mmol/L (3.5-5.1) 07/10/23 22:18
Chloride 104 mmol/L (98-107) 07/10/23 22:18
Carbon Dioxide 20 mmol/L (22-30) L 07/10/23 22:18
BUN 45 mg/dl (9-20) H 07/10/23 22:18
Creatinine 1.4 mg/dL (0.7-1.3) H 07/10/23 22:18
Calcium 9.0 mg/dl (8.4-10.2) 07/10/23 22:18
Total Bilirubin 0.4 mg/dl (0.2-1.3) 07/10/23 22:18
AST 44 U/L (17-59) 07/10/23 22:18
ALT 26 U/L (0-50) 07/10/23 22:18
Alkaline Phosphatase 68 U/L (38-126) 07/10/23 22:18
Diagnostic Image Results:
Prior GI Procedures:
EGD: 05/23/23 Do - Normal esophagus.
- Erythematous mucosa in the antrum.
- Bile reflux.
- Normal examined duodenum.
- No specimens collected.
Colonoscopy: 05/23/23 DO - Preparation of the colon was fair.
- The examined portion of the ileum was normal.
- One small polyp in the ascending and descending
colon.
- Multiple non-bleeding colonic angiodysplastic
lesions in cecum and ascending colon. Treated with
argon plasma coagulation (APC).
- Diverticulosis in the sigmoid colon and in the
descending colon.
- Non-bleeding external and internal hemorrhoids.
- No specimens collected.
Enteroscopy: Piero Castro, 05/05/23
- Normal esophagus.
- Erosive gastropathy with stigmata of recent bleeding.
- Normal duodenal bulb, first portion of the duodenum
and second portion of the duodenum.
- Jejunal blood.
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
Treated with argon plasma coagulation (APC). Tattooed.
- No specimens collected.
EGD: 01/18/23
- Normal esophagus.
- Erythematous mucosa in the stomach.
- Normal examined duodenum.
- rectal exam- dark brown stool +
Assessment / Plan
-
The patient is an 82-year-old male with a past medical history significant for recurrent GI bleed secondary to small bowel and colonic AVM's, gastric erosions chronic anemia, history of colon polyps, atrial fibrillation on Eliquis, CKD stage III,
aortic stenosis, peripheral artery disease, hyperlipidemia, hypertension, diabetes type 2, CAD, ZAYRA, history of recent septic arthritis at the L4-L5 with I&D, and newly diagnosed liver cirrhosis with FibroScan showing F4 fibrosis/cirrhosis, presents
to ER for recurrent admission with weakness and dark stools. Pt reports slightly loose stools with change in color last 1-2 weeks. Recent scopes completed Enteroscopy in April with erosive gastropathy, multiple bleeding angiectasias in Jejunum
treat with APC then May - EGD with bile reflex and colon with polyp in colon, multiple non bleeding colonic AVM in cecum and ascending colon treated with APC. He initially left off Eliquis then resumed per cardiology as current work up for
watchman. He has also seen hematology since admission at [place] with recent bone marrow biopsy. On admission hbg 5.4 with BUN up to 45 rise from 21 in early June. Pt also admits to chest/epigastric pain prior to admission with some shortness of
breath improved with nitro.
Problem list:
-Recurrent GI bleed with concern SB/colon AVM on anticoagulant
-symptomatic anemia acute on chronic
-History of atrial fibrillation on Eliquis
-Suspected cirrhosis, F4 on FibroScan
-Elevated AST
-KRZYSZTOF on CKD
-History of aortic stenosis
Other pertinent medical history:
- Hyperlipidemia
-Hypertension
-ZAYRA with CPAP
-DM2
-CAD
-PAD with iliac artery stenting
-History of septic arthritis with I&D of L4-L5
-History of colon polyps
-hx B12 supplementation for borderline low B12
Recommendations:
-Etiology of recurrent anemia likely secondary to small bowel/colonic AVM versus less likely bleeding portal gastropathy with cirrhosis versus other.
hbg 5.4 on admission with current transfusion with 2nd unit PRBC's then for repeat hbg
only one stool this am with continued black color per nursing staff
t/c push enteroscopy in AM when hbg improved
ok for clear diet
eliquis hold last dose 07/08
-Continue PPI BID
-pt awaiting bone marrow bx done with hematology at [place] await results for any concurrent heme issue
-Will follow
-
-
Thank you for consultation and allowing me to participate in the patient's care. Please call the working second hand GI physician during the after hours with any questions or concerns.
--- NOTE | 2023-07-11 10:42 | PTCARENOTE ---
Blood transfusion completed. VSS.
--- NOTE | 2023-07-11 11:29 | CM ---
CM following re: discharge planning.
Reviewed pt's chart, met with pt.
Pt is an 83 year old male, admitted with primary dx of Weakness, SOB
Pt reports he lives with spouse in an apartment at [facility], has 6 supportive children. pt described himself as independent in all areas [employer], uses a walker occasionally as needed. No VN or SNF history. Pt expressed his desire to return back
home at discharge with family support. Pt stated he will not need any after care VN services.
PCP: Angel Lord MD
Pharmacy: [facility].
D/C plan: Home with anticipated no needs. Family to transport at discharge.
CM will follow with discharge plan updates as hospitalization progresses.
[2023-07-11 12:28] LABS: Glucose - Point of Care 304 mg/dl (70-99)
[2023-07-11] MEDS: NOVOLOG FLEXPEN-MODERATE RESISTANCE 7 UNITS SC ×2 (12:42→19:10)
[2023-07-11 13:29] LABS: Hematocrit 21.1 % (39.0-52.0); Mean Corp Hgb Conc. 33.2 g/dL (33.0-37.0); Mean Corpuscular Hgb 28.3 pg (27.0-31.0); Mean Corpuscular Volume 85.4 fL (80.0-94.0); Mean Platelet Volume 11.7 fL (7.4-10.4); Platelet Count 131 10^3/uL (130-400); Red Blood Cell Count 2.47 10^6/uL (4.70-6.10); Red Cell Dist. Width 15.4 % (11.5-14.5); White Blood Cell Count 4.2 10^3/uL (4.8-10.8)
[2023-07-11 13:39] LABS: Blood Urea Nitrogen 38 mg/dl (9-20); Calcium 9.1 mg/dl (8.4-10.2); Carbon Dioxide 19 mmol/L (22-30); Chloride 104 mmol/L (98-107); Estimated Creatinine Clearance 51 ml/min; Glucose 359 mg/dl (70-99); Potassium 4.1 mmol/L (3.5-5.1); Sodium 134 mmol/L (135-145); eGFR > 60.00
--- NOTE | 2023-07-11 14:00 | PTCARENOTE ---
Dr Guillen and Naya Grimaldo notified repeat hgb is 7. No new orders. Continue to trend H&H Q6hr. Pt's VSS.
--- NOTE | 2023-07-11 15:50 | W.PN.UPDATE ---
Update Note
Progress Note Update
This note serves as supplemental to history and physical dated today
Patient sitting in chair, hemodynamically stable. CBC, hemoglobin 7. Has been complaining of melena. Monitor CBC, follow-up neck CBC at 6:30 PM and transfuse as needed for hemoglobin goal greater than 7. Tentative plan from GI, anticipating EGD
this admission. Holding Eliquis. PPI IV twice daily.
[2023-07-11] MEDS: CRESTOR 40 MG PO (16:51)
[2023-07-11] MEDS: FLOMAX 0.400000000000000022 MG PO (16:51)
[2023-07-11 18:08] LABS: Hematocrit 21.6 % (39.0-52.0); Hemoglobin 7.2 g/dL (13.0-18.0)
[2023-07-11 19:21] LABS: Glucose - Point of Care 327 mg/dl (70-99)
[2023-07-12] VITALS (21 sets, daily range): BP systolic 99–166; BP diastolic 46–83; PULSE 60–83
[2023-07-12] MEDS: NOVOLOG FLEXPEN-MODERATE RESISTANCE 3 UNITS SC ×3 (00:12→14:22)
[2023-07-12 00:14] LABS: Hematocrit 19.9 % (39.0-52.0); Hemoglobin 6.9 g/dL (13.0-18.0)
[2023-07-12 00:22] LABS: Glucose - Point of Care 231 mg/dl (70-99)
--- NOTE | 2023-07-12 02:43 | PTCARENOTE ---
awaiting 1 unit prbc from [facility] as pt's hgb was 6.9 at 0000- vitals pox wnl-
[2023-07-12 04:33] LABS: Mean Corp Hgb Conc. 33.7 g/dL (33.0-37.0); Mean Corpuscular Hgb 28.6 pg (27.0-31.0); Mean Corpuscular Volume 84.9 fL (80.0-94.0); Mean Platelet Volume 11.5 fL (7.4-10.4); Platelet Count 132 10^3/uL (130-400); Red Blood Cell Count 2.38 10^6/uL (4.70-6.10); Red Cell Dist. Width 15.9 % (11.5-14.5); White Blood Cell Count 3.5 10^3/uL (4.8-10.8)
[2023-07-12 04:43] LABS: Hematocrit 20.2 % (39.0-52.0); Hemoglobin 6.9 g/dL (13.0-18.0)
[2023-07-12 04:59] LABS: ALT (SGPT) 27 U/L (0-50); AST (SGOT) 52 U/L (17-59); Albumin 2.9 g/dl (3.5-5.0); Alkaline Phosphatase 56 U/L (38-126); Blood Urea Nitrogen 33 mg/dl (9-20); Carbon Dioxide 25 mmol/L (22-30); Chloride 106 mmol/L (98-107); Estimated Creatinine Clearance 51 ml/min; Glucose 151 mg/dl (70-99); Potassium 3.6 mmol/L (3.5-5.1); Sodium 138 mmol/L (135-145); Total Bilirubin 0.5 mg/dl (0.2-1.3); Total Protein 5.4 g/dl (6.3-8.2); eGFR > 60.00
[2023-07-12] MEDS: SYNTHROID 75 MCG PO (05:04)
[2023-07-12] MEDS: NOVOLOG FLEXPEN-MODERATE RESISTANCE 1 UNITS SC (05:06)
[2023-07-12 05:16] LABS: Glucose - Point of Care 163 mg/dl (70-99)
[2023-07-12] MEDS: COREG PO (07:29)
[2023-07-12] MEDS: LASIX 40 MG PO (07:30)
[2023-07-12] MEDS: NSS (PRESERVATIVE FREE) 10 ML IV ×2 (07:31→19:24)
[2023-07-12] MEDS: PROTONIX IV 40 MG IV ×2 (07:31→19:25)
--- NOTE | 2023-07-12 09:25 | PTCARENOTE ---
Blood transfusion initiated at this time. VSS.
[2023-07-12 11:47] LABS: Glucose - Point of Care 245 mg/dl (70-99)
--- NOTE | 2023-07-12 11:56 | PTCARENOTE ---
1 PRBC transfused. VSS. Pt to go to GI lab. Due for H&H @ 1400.
--- NOTE | 2023-07-12 13:31 | W.PN.UPDATE ---
Update Note
Progress Note Update
negative enteroscopy
will proceed with colonoscopy tomorrow.
[2023-07-12 14:11] LABS: Hematocrit 25.7 % (39.0-52.0)
[2023-07-12 14:18] LABS: Hemoglobin 8.5 g/dL (13.0-18.0)
[2023-07-12 14:40] LABS: Glucose - Point of Care 225 mg/dl (70-99)
--- NOTE | 2023-07-12 14:40 | W.PN.HOSP.TC ---
Today's Communication/Plan
-
C-Scope tomorrow
Transfuse as needed; hgB goal >7
Trend CBC, maintain MAP >65
Cards engaged for Watchman
Electrolyte repletion
Assessment / Plan
Assessment / Plan
Physical Exam
General: NAD
HEENT: Moist mucous membranes and PERRLA
Respiratory: Clear; No Wheezes, Rales or Rhonchi
Cardiac: S1/S2, Irregular Rhythm and Murmur (II/ TUSHAR)
GI: Other (Softly distended. No focal tenderness. Pos BS.)
Musculoskeletal: No Clubbing, No Cyanosis and Other (1+ pitting edema b/l ankles.)
Neuro: AO x 3
A/P: Patient is an 83y M with PMH significant for A-Fib, ASCVD and prior GI Bleeding who presents to ED complaining of weakness, fatigue and SOB x 4-5 days.
GI Bleed
Acute Symptomatic Blood Loss Anemia secondary to the above
- transfused 3u prbc
- Monitor CBC, Ensure HgB >7
- Negative enteroscopy today, C-Scope tomorrow
-Favor Watchman soon than later
-Hold Eliquis
- 05/2023: Colonoscopy with angiodysplasia in the ascending colon / cecum which was treated with APC. EGD was essentially unremarkable.
- Transfusion ordered in the ED. Follow H&H and provide additional blood products as needed.
- Follow for continued hemodynamic stability.
-Ensure MAP>65
Paroxysmal Atrial Fibrillation
- Stable. Hold Eliquis as noted above.
- Plan is for eventual Watchman procedure - typically requires pre / post procedure anticoagulation however.
- Continue other CV med regimen with holding parameters for BP.
-Cards engaged for Watchman procedure sooner
ASCVD
- History of carotid disease, PAD.
- Continue current CV med regimen.
Chronic HFpEF
- Mild edema noted on exam.
- Continue Lasix while receiving blood transfusion / volume.
- Follow I/Os, daily weights, etc.
- Adjust diuretic regimen as needed.
CKD III
- Renal function slightly greater than baseline (approx 1.2) but not KRZYSZTOF.
- Follow for changes with transfusion, Lasix, etc.
DM-II
- Stable. Hold PO meds acutely.
- Follow glucose and cover with SSI as needed.
Hypothyroidism
- Stable. Continue T4 replacement.
ZAYRA on CPAP
- Stable. Continue nightly PAP therapy.
DVT Prophylaxis: SCDs
Code Status: Full
Anticipated Discharge: > 48 hours
Subjective/Interval History
-
Date of Service: July 12, 2023
Received 1 additional unit this morning, monitor CBC
Objective Data
-
Labs:
Laboratory Results
07/12/23 07/12/23 07/12/23
04:11 09:13 14:04
WBC 3.5 L Cancelled
Hgb 6.9 L* Cancelled 8.5 L D
Hct 20.2 L* Cancelled 25.7 L
Plt Count 132 Cancelled
Sodium 138
Potassium 3.6
Chloride 106
Carbon Dioxide 25
BUN 33 H
Creatinine 1.2
Glucose 151 H
Calcium 9.0
Total Bilirubin 0.5
AST 52
ALT 27
Alkaline Phosphatase 56
07/12/23
14:28
WBC
Hgb
Hct
Plt Count
Sodium Pending
Potassium Pending
Chloride Pending
Carbon Dioxide Pending
BUN Pending
Creatinine Pending
Glucose Pending
Calcium Pending
Total Bilirubin
AST
ALT
Alkaline Phosphatase
Vital Signs:
Vital Signs
Temp Pulse Resp BP Pulse Ox
97.9 F 73 14 127/57 95
07/12/23 11:55 07/12/23 11:55 07/12/23 11:55 07/12/23 11:55 07/12/23 09:19
I&O
07/11/23 07/12/23 07/13/23
06:59 06:59 06:59
Intake Total 500 / 500 1580 / 1580 550 / 550
Output Total 600 / 600 1800 / 1800 1400 / 1400
Balance -100 / -100 -220 / -220 -850 / -850
Review of Systems
-
Respiratory: Reports No Symptoms
Cardiac: Reports No Symptoms
Abdomen/GI: Reports No Symptoms
Physical Exam
-
General: Obese
HEENT: Negative Oxygen
Skin: Warm
Neuro: Awake, Alert, Oriented and No Motor Deficits
Psych: Calm
Data Reviewed
-
Labs: Labs Reviewed by me
[2023-07-12 14:54] LABS: Blood Urea Nitrogen 28 mg/dl (9-20); Carbon Dioxide 27 mmol/L (22-30); Chloride 102 mmol/L (98-107); Estimated Creatinine Clearance 51 ml/min; Glucose 213 mg/dl (70-99); Magnesium 1.7 mg/dl (1.6-2.3); Potassium 3.8 mmol/L (3.5-5.1); Sodium 137 mmol/L (135-145); eGFR > 60.00
[2023-07-12] MEDS: MAGNESIUM SULFATE 100 IV (15:05)
[2023-07-12] MEDS: KCL 270 MEQ IV (15:08)
[2023-07-12] MEDS: NULYTELY SOLUTION 4 LITERS PO (17:06)
[2023-07-12] MEDS: FLOMAX 0.400000000000000022 MG PO (17:06)
[2023-07-12] MEDS: CRESTOR 40 MG PO (17:06)
[2023-07-12 17:07] LABS: Glucose - Point of Care 206 mg/dl (70-99)
--- NOTE | 2023-07-12 17:10 | PTCARENOTE ---
Pt tolerating clear liquid diet. Evening BS 206. Dr Guillen notified, no orders for insulin given, this is pt's '2nd' dinner and evening dose was given @ 230pm. Nulytely prep started at this time. Will continue to monitor.
[2023-07-12] MEDS: COREG 3.125 MG PO (19:24)
[2023-07-12 21:12] LABS: Hematocrit 25.5 % (39.0-52.0); Hemoglobin 8.7 g/dL (13.0-18.0); Mean Corp Hgb Conc. 34.1 g/dL (33.0-37.0); Mean Corpuscular Hgb 28.9 pg (27.0-31.0); Mean Corpuscular Volume 84.7 fL (80.0-94.0); Mean Platelet Volume 11.2 fL (7.4-10.4); Platelet Count 144 10^3/uL (130-400); Red Blood Cell Count 3.01 10^6/uL (4.70-6.10); Red Cell Dist. Width 15.8 % (11.5-14.5); White Blood Cell Count 3.9 10^3/uL (4.8-10.8)
--- NOTE | 2023-07-12 21:32 | PTCARENOTE ---
rec'd patient. assessment as documented. tele pack, IMU level of care. colonoscopy prep ongoing, NPO after midnight. OOB multiple times to BR. denies pain. CBC sent, repeat Hgb 8.7. call pérez within reach. care ongoing.
[2023-07-12] MEDS: MELATONIN 3 MG PO (22:03)
[2023-07-13] VITALS (12 sets, daily range): BP systolic 101–145; BP diastolic 41–86; PULSE 68–75; BMI 29.9
[2023-07-13] MEDS: NOVOLOG FLEXPEN-MODERATE RESISTANCE 3 UNITS SC ×2 (00:06→12:00)
[2023-07-13 00:16] LABS: Glucose - Point of Care 212 mg/dl (70-99)
[2023-07-13 04:20] LABS: Hemoglobin 7.8 g/dL (13.0-18.0); Mean Corp Hgb Conc. 33.9 g/dL (33.0-37.0); Mean Corpuscular Hgb 28.9 pg (27.0-31.0); Mean Corpuscular Volume 85.2 fL (80.0-94.0); Mean Platelet Volume 11.2 fL (7.4-10.4); Platelet Count 134 10^3/uL (130-400); Red Cell Dist. Width 15.6 % (11.5-14.5); White Blood Cell Count 3.4 10^3/uL (4.8-10.8)
[2023-07-13 04:40] LABS: ALT (SGPT) 34 U/L (0-50); AST (SGOT) 67 U/L (17-59); Albumin 2.9 g/dl (3.5-5.0); Alkaline Phosphatase 63 U/L (38-126); Blood Urea Nitrogen 23 mg/dl (9-20); Calcium 8.8 mg/dl (8.4-10.2); Carbon Dioxide 24 mmol/L (22-30); Chloride 105 mmol/L (98-107); Estimated Creatinine Clearance 56 ml/min; Glucose 144 mg/dl (70-99); Potassium 3.8 mmol/L (3.5-5.1); Sodium 136 mmol/L (135-145); Total Bilirubin 0.7 mg/dl (0.2-1.3); Total Protein 5.6 g/dl (6.3-8.2); eGFR > 60.00
[2023-07-13] MEDS: NOVOLOG FLEXPEN-MODERATE RESISTANCE 1 UNITS SC (06:12)
[2023-07-13] MEDS: SYNTHROID 75 MCG PO (06:12)
[2023-07-13 06:22] LABS: Glucose - Point of Care 152 mg/dl (70-99)
--- NOTE | 2023-07-13 07:30 | PTCARENOTE ---
Assumed care of patient. Pt rec'd A&Ox3...sitting in chair. Assessment completed. On R/A...lungs clear. NPO after MN for colonoscopy this am. Able to take po meds w/ sips of water. VS documented. Call pérez within reach. Will continue to
monitor.
[2023-07-13] MEDS: COREG 3.125 MG PO ×2 (07:37→20:22)
[2023-07-13] MEDS: LASIX 40 MG PO (07:37)
[2023-07-13] MEDS: NSS (PRESERVATIVE FREE) 10 ML IV ×2 (07:39→20:22)
[2023-07-13] MEDS: PROTONIX IV 40 MG IV ×2 (07:39→20:22)
--- NOTE | 2023-07-13 10:21 | PN.CDI ---
CDI
- -
CDI:
Physician Documentation Request
Admit Date: 07/11/23 00:49
Dear Doctor Mindy,
Clinical Indicators:
Patient admitted with GI bleeding/acute blood loss anemia.
Home medications include: Apixaban 5 mg tablet (Eliquis) 5 mg PO BID
6/4 PN, 'GI Bleed...-Hold Eliquis'
Please clarify the likely relationship between the GI bleed and Eliquis use:
Yes, GI bleeding is related to/associated with/exacerbated by Eliquis use.
No, GI bleeding is not related to/associated with/exacerbated by Eliquis use.
Unable to determine
Use of terms such as suspected, likely, concern for, or probable (associated with a specific diagnosis that is being evaluated, monitored, or treated as if it exists) are acceptable and can be coded in the inpatient setting, when documented at the
time of discharge.
Thank you,
CA Garcia RN
CDI Specialist
available via tiger text
Please use your independent medical judgment in providing your response.
--- NOTE | 2023-07-13 10:30 | PTCARENOTE ---
Pt taken to GI lab for colonoscopy.
--- NOTE | 2023-07-13 11:18 | W.PN.UPDATE ---
Update Note
Progress Note Update
colonoscopy:
no bleeding sites
diverticulosis
5mm polyp removed
plan;
would not pursue any more endoscopic tests at this point. No evidence of current bleeding
can eat regular food
if needed can start anticoagulation from GI standpoint although risk of bleeding if avms still there. await watchman
will sign off
--- NOTE | 2023-07-13 11:45 | PTCARENOTE ---
Pt rec'd from GI lab....colonoscopy completed. Assisted OOB to chair w/o issue. Diet advanced to regular diet. Phone and menu provided. VS completed. Call pérez within reach.
[2023-07-13] MEDS: REFRESH EYE DROPS (PF) 1 DROPS OPHTH ×2 (11:59→22:34)
[2023-07-13 12:11] LABS: Glucose - Point of Care 200 mg/dl (70-99)
--- NOTE | 2023-07-13 13:20 | W.PN.UPDATE ---
Update Note
Progress Note Update
Patient OOB in chair. Offers no complaints. Reviewed watchman procedure with patient. Will move watchman procedure from 08/30/2023 to 07/19/2023. If Eliquis is resumed at discharge, will hold Eliquis 07/19/2023. He is aware he will receive a
call from the cardiac mobile lab technician staff Tuesday afternoon with arrival time. Will do stat CBC and Type and Screen on admission. Allowed for and answered questions.
--- NOTE | 2023-07-13 14:46 | W.PN.HOSP.TC ---
Today's Communication/Plan
-
trial resumption of eliquis
monitor cbc
transfuse 1u prior to dc
watchman 07/18
Assessment / Plan
Assessment / Plan
Physical Exam
General: NAD
HEENT: Moist mucous membranes and PERRLA
Respiratory: Clear; No Wheezes, Rales or Rhonchi
Cardiac: S1/S2, Irregular Rhythm and Murmur (II/ TUSHAR)
GI: Other (Softly distended. No focal tenderness. Pos BS.)
Musculoskeletal: No Clubbing, No Cyanosis and Other (1+ pitting edema b/l ankles.)
Neuro: AO x 3
A/P: Patient is an 83y M with PMH significant for A-Fib, ASCVD and prior GI Bleeding who presents to ED complaining of weakness, fatigue and SOB x 4-5 days.
GI Bleed
Acute Symptomatic Blood Loss Anemia secondary to the above
- transfused 3u prbc
- Monitor CBC, Ensure HgB >7
- Negative enteroscopy today, C-Scope today with no bleeding sites, diverticulosis. 5 mm polyp removed.
-Cardiology desires to have patient back on Eliquis. Will trial Eliquis inpatient. Risk of bleeding is still present and has AVM still there.
� Spoke to cardiology, plan for Watchman procedure on July 18
- Cardiology requesting additional unit, will provide on day of discharge
- 05/2023: Colonoscopy with angiodysplasia in the ascending colon / cecum which was treated with APC. EGD was essentially unremarkable.
- Transfusion ordered in the ED. Follow H&H and provide additional blood products as needed.
- Follow for continued hemodynamic stability.
-Ensure MAP>65
Paroxysmal Atrial Fibrillation
- Stable. Hold Eliquis as noted above.
- Plan is for eventual Watchman procedure - typically requires pre / post procedure anticoagulation however.
- Continue other CV med regimen with holding parameters for BP.
-Watchman: watchman procedure moved to 07/19/2023. hold Eliquis 07/19/2023.
-Transfusion prior to dc
ASCVD
- History of carotid disease, PAD.
- Continue current CV med regimen.
Chronic HFpEF
- Mild edema noted on exam.
- Continue Lasix while receiving blood transfusion / volume.
- Follow I/Os, daily weights, etc.
- Adjust diuretic regimen as needed.
CKD III
- Renal function slightly greater than baseline (approx 1.2) but not KRZYSZTOF.
- Follow for changes with transfusion, Lasix, etc.
DM-II
- Stable. Hold PO meds acutely.
- Follow glucose and cover with SSI as needed.
Hypothyroidism
- Stable. Continue T4 replacement.
ZAYRA on CPAP
- Stable. Continue nightly PAP therapy.
DVT Prophylaxis: Eliquis
Code Status: Full
Total time spent on today's encounter was 50 minutes which included time spent in counseling the patient/family regarding diagnosis and treatment plan as listed above, goals of care, and symptom management. Case was discussed with nursing staff,
specialists, and care coordinators/case management. All labs and imaging personally reviewed by me. Remainder the time spent in detailed review of previous records, lab data, imaging, and other medical provider documentation.
Anticipated Discharge: Within 24 hours
Subjective/Interval History
-
Date of Service: July 13, 2023
No acute events
Objective Data
-
Labs:
Laboratory Results
07/13/23
04:09
WBC 3.4 L
Hgb 7.8 L
Hct 23.0 L
Plt Count 134
Sodium 136
Potassium 3.8
Chloride 105
Carbon Dioxide 24
BUN 23 H
Creatinine 1.1
Glucose 144 H
Calcium 8.8
Total Bilirubin 0.7
AST 67 H
ALT 34
Alkaline Phosphatase 63
Vital Signs:
Vital Signs
Temp Pulse Resp BP Pulse Ox
97.7 F 61 14 121/65 96
07/13/23 12:45 07/13/23 12:00 07/12/23 11:55 07/13/23 12:00 07/13/23 07:40
I&O
07/12/23 07/13/23 07/14/23
06:59 06:59 06:59
Intake Total 1580 / 1580 1640 / 1640 30 / 30
Output Total 1800 / 1800 1900 / 1900 400 / 400
Balance -220 / -220 -260 / -260 -370 / -370
Review of Systems
-
History Source: Patient
All other systems: Not reviewed unless documented
Data Reviewed
-
Medical Tests (Nuc Med, Echo etc): Report Reviewed by me
Labs: Labs Reviewed by me
[2023-07-13 16:43] LABS: Glucose - Point of Care 283 mg/dl (70-99)
[2023-07-13] MEDS: FLOMAX 0.400000000000000022 MG PO (17:16)
[2023-07-13] MEDS: CRESTOR 40 MG PO (17:16)
[2023-07-13] MEDS: NOVOLOG FLEXPEN-MODERATE RESISTANCE 5 UNITS SC (17:16)
[2023-07-13] MEDS: ELIQUIS 5 MG PO (20:22)
[2023-07-13] MEDS: MELATONIN 3 MG PO (22:34)
[2023-07-13] MEDS: BENADRYL 25 MG PO (22:34)
[2023-07-13 22:42] LABS: Glucose - Point of Care 271 mg/dl (70-99)
[2023-07-14] VITALS (11 sets, daily range): BP systolic 81–170; BP diastolic 49–74; PULSE 80; BMI 30.7
[2023-07-14 03:59] LABS: Hematocrit 22.5 % (39.0-52.0); Hemoglobin 7.5 g/dL (13.0-18.0); Mean Corp Hgb Conc. 33.3 g/dL (33.0-37.0); Mean Corpuscular Hgb 29.1 pg (27.0-31.0); Mean Corpuscular Volume 87.2 fL (80.0-94.0); Mean Platelet Volume 10.8 fL (7.4-10.4); Platelet Count 110 10^3/uL (130-400); Red Blood Cell Count 2.58 10^6/uL (4.70-6.10); Red Cell Dist. Width 15.2 % (11.5-14.5); White Blood Cell Count 2.7 10^3/uL (4.8-10.8)
[2023-07-14 04:27] LABS: ALT (SGPT) 34 U/L (0-50); AST (SGOT) 69 U/L (17-59); Albumin 2.9 g/dl (3.5-5.0); Alkaline Phosphatase 65 U/L (38-126); Blood Urea Nitrogen 22 mg/dl (9-20); Calcium 8.7 mg/dl (8.4-10.2); Carbon Dioxide 22 mmol/L (22-30); Chloride 105 mmol/L (98-107); Estimated Creatinine Clearance 51 ml/min; Glucose 208 mg/dl (70-99); Potassium 3.6 mmol/L (3.5-5.1); Sodium 134 mmol/L (135-145); Total Bilirubin 0.4 mg/dl (0.2-1.3); Total Protein 5.4 g/dl (6.3-8.2); eGFR > 60.00
[2023-07-14] MEDS: SYNTHROID 75 MCG PO (07:47)
[2023-07-14] MEDS: COREG 3.125 MG PO ×2 (08:03→19:44)
[2023-07-14] MEDS: ELIQUIS 5 MG PO ×2 (08:03→19:44)
[2023-07-14] MEDS: NSS (PRESERVATIVE FREE) 10 ML IV ×2 (08:04→19:44)
[2023-07-14] MEDS: PROTONIX IV 40 MG IV ×2 (08:04→19:44)
[2023-07-14] MEDS: LASIX 40 MG PO (08:04)
[2023-07-14] MEDS: NOVOLOG FLEXPEN-MODERATE RESISTANCE 3 UNITS SC (08:11)
[2023-07-14 08:12] LABS: Glucose - Point of Care 223 mg/dl (70-99)
--- NOTE | 2023-07-14 10:39 | PTCARENOTE ---
pt awake and appropriate, pleasant, oob to chair , ambulation to bathroom , gait is steady , NSR with BBB on monitor , occasion Afib , BP 117/69 , abdomen is soft non tender , denies pain , denies black stools , pt hemoglobin 7.5 this am and ordered
for 1 unit of PRBC , pt seen by Dr Calderón this am and to be down graded to tele status , pt started on Eliquis as ordered by cardiology , will continue to monitor for re bleeding
[2023-07-14] MEDS: NOVOLOG FLEXPEN-MODERATE RESISTANCE 11 UNITS SC (12:04)
[2023-07-14 12:14] LABS: Glucose - Point of Care 400 mg/dl (70-99)
--- NOTE | 2023-07-14 12:31 | PTCARENOTE ---
pt had large breakfast with x2 cereals and milk , his lunch glucose up to 400 , he had an stat glucose drawn as per protocol , Dr Guillen notified , A1C was added to labs, pt to restart on metformin as previous and diet to be changed to carb
controlled
[2023-07-14 12:42] LABS: Glucose 361 mg/dl (70-99)
[2023-07-14] MEDS: GLUCOPHAGE 1000 MG PO ×2 (13:39→17:11)
--- NOTE | 2023-07-14 14:08 | W.PN.HOSP.TC ---
Today's Communication/Plan
-
ctm hgb, now that on eliquis
transfuse 1 u today
add back metformin, aiss
Assessment / Plan
Assessment / Plan
Physical Exam
General: NAD
HEENT: Moist mucous membranes and PERRLA
Respiratory: Clear; No Wheezes, Rales or Rhonchi
Cardiac: S1/S2, Irregular Rhythm and Murmur (II/ TUSHAR)
GI: Other (Softly distended. No focal tenderness. Pos BS.)
Musculoskeletal: No Clubbing, No Cyanosis and Other (1+ pitting edema b/l ankles.)
Neuro: AO x 3
A/P: Patient is an 83y M with PMH significant for A-Fib, ASCVD and prior GI Bleeding who presents to ED complaining of weakness, fatigue and SOB x 4-5 days.
GI Bleed
Acute Symptomatic Blood Loss Anemia secondary to the above
- transfused 3u prbc; transfuse today at request of cardiology prior to dc
- Monitor CBC, Ensure HgB >7
- Negative enteroscopy today, C-Scope with no bleeding sites, diverticulosis. 5 mm polyp removed.
-Cardiology desires to have patient back on Eliquis. Will trial Eliquis inpatient. Risk of bleeding is still present and has AVM still there. Cont monitor HgB tomorrow
� Spoke to cardiology, plan for Watchman procedure on July 18
- 05/2023: Colonoscopy with angiodysplasia in the ascending colon / cecum which was treated with APC. EGD was essentially unremarkable.
- Transfusion ordered in the ED. Follow H&H and provide additional blood products as needed.
- Follow for continued hemodynamic stability.
-Ensure MAP>65
Paroxysmal Atrial Fibrillation
- Stable. Hold Eliquis as noted above.
- Plan is for eventual Watchman procedure - typically requires pre / post procedure anticoagulation however.
- Continue other CV med regimen with holding parameters for BP.
-Watchman: watchman procedure moved to 07/19/2023. hold Rachna 07/19/2023.
Hyponatremia
-ctm
ASCVD
- History of carotid disease, PAD.
- Continue current CV med regimen.
Chronic HFpEF
- Mild edema noted on exam.
- Continue Lasix while receiving blood transfusion / volume.
- Follow I/Os, daily weights, etc.
- Adjust diuretic regimen as needed.
CKD III
- Renal function slightly greater than baseline (approx 1.2) but not KRZYSZTOF.
- Follow for changes with transfusion, Lasix, etc.
DM-II
- Stable.
-no interventions planned
-resume metformin
-high correction scale SSI
Hypothyroidism
- Stable. Continue T4 replacement.
ZAYRA on CPAP
- Stable. Continue nightly PAP therapy.
DVT Prophylaxis: Eliquis
Code Status: Full
Total time spent on today's encounter was 51 minutes which included time spent in counseling the patient/family regarding diagnosis and treatment plan as listed above, goals of care, and symptom management. Case was discussed with nursing staff,
specialists, and care coordinators/case management. All labs and imaging personally reviewed by me. Remainder the time spent in detailed review of previous records, lab data, imaging, and other medical provider documentation.
Anticipated Discharge: 24 - 48 hours
Subjective/Interval History
-
Date of Service: July 14, 2023
no acute events, transfuse 1u today
Objective Data
-
Labs:
Laboratory Results
07/14/23 07/14/23
03:48 12:19
WBC 2.7 L
Hgb 7.5 L
Hct 22.5 L
Plt Count 110 L
Sodium 134 L
Potassium 3.6
Chloride 105
Carbon Dioxide 22
BUN 22 H
Creatinine 1.2
Glucose 208 H 361 H
Calcium 8.7
Total Bilirubin 0.4
AST 69 H
ALT 34
Alkaline Phosphatase 65
Vital Signs:
Vital Signs
Temp Pulse Resp BP Pulse Ox
98.1 F 66 12 100/54 95
07/14/23 12:00 07/14/23 10:22 07/14/23 08:00 07/14/23 10:22 07/13/23 20:00
I&O
07/13/23 07/14/23 07/15/23
06:59 06:59 06:59
Intake Total 1640 / 1640 510 / 510 250 / 250
Output Total 1900 / 1900 400 / 400 300 / 300
Balance -260 / -260 110 / 110 -50 / -50
Review of Systems
-
History Source: Patient
All other systems: Not reviewed unless documented
Data Reviewed
-
Medical Tests (Nuc Med, Echo etc): Report Reviewed by me
Labs: Labs Reviewed by me
[2023-07-14 14:33] LABS: Glycohemoglobin (HgbA1c) 7.3 % (4.0-5.6)
[2023-07-14] MEDS: NOVOLOG FLEXPEN-HIGH RESISTANCE 7 UNITS SC (16:50)
[2023-07-14 17:01] LABS: Glucose - Point of Care 285 mg/dl (70-99)
[2023-07-14] MEDS: FLOMAX 0.400000000000000022 MG PO (17:11)
[2023-07-14] MEDS: CRESTOR 40 MG PO (17:11)
--- NOTE | 2023-07-14 17:17 | PTCARENOTE ---
pt started transfusion of PRBC , oob to chair for most of day , tolerating diet , no complaints , here visiting and updated on current plan of care and condition
[2023-07-14 21:24] LABS: Glucose - Point of Care 189 mg/dl (70-99)
[2023-07-14] MEDS: REFRESH EYE DROPS (PF) 1 DROPS OPHTH (22:08)
[2023-07-14] MEDS: BENADRYL 25 MG PO (22:36)
[2023-07-14] MEDS: MELATONIN 3 MG PO (22:36)
[2023-07-15 03:15] VITALS: BP 147/60
[2023-07-15 05:17] VITALS: BMI 30.9
[2023-07-15] MEDS: SYNTHROID 75 MCG PO (06:06)
[2023-07-15 07:40] LABS: Glucose - Point of Care 165 mg/dl (70-99)
[2023-07-15 07:52] VITALS: BP 122/66
[2023-07-15] MEDS: NOVOLOG FLEXPEN-HIGH RESISTANCE 2 UNITS SC (08:25)
[2023-07-15] MEDS: COREG PO (08:27)
[2023-07-15] MEDS: NSS (PRESERVATIVE FREE) 10 ML IV (08:27)
[2023-07-15] MEDS: LASIX 40 MG PO (08:27)
[2023-07-15] MEDS: PROTONIX IV 40 MG IV (08:27)
[2023-07-15] MEDS: ELIQUIS 5 MG PO (08:27)
[2023-07-15] MEDS: GLUCOPHAGE 1000 MG PO (08:28)
[2023-07-15 08:29] LABS: Hematocrit 27.3 % (39.0-52.0); Mean Corpuscular Volume 88.1 fL (80.0-94.0); Mean Platelet Volume 11.4 fL (7.4-10.4); Platelet Count 121 10^3/uL (130-400); Red Cell Dist. Width 14.8 % (11.5-14.5); White Blood Cell Count 3.6 10^3/uL (4.8-10.8)
[2023-07-15 09:36] LABS: ALT (SGPT) 41 U/L (0-50); AST (SGOT) 77 U/L (17-59); Albumin 3.2 g/dl (3.5-5.0); Alkaline Phosphatase 76 U/L (38-126); Blood Urea Nitrogen 18 mg/dl (9-20); Carbon Dioxide 22 mmol/L (22-30); Chloride 105 mmol/L (98-107); Estimated Creatinine Clearance 58 ml/min; Glucose 141 mg/dl (70-99); Potassium 3.5 mmol/L (3.5-5.1); Sodium 136 mmol/L (135-145); Total Bilirubin 0.6 mg/dl (0.2-1.3); Total Protein 5.9 g/dl (6.3-8.2); eGFR > 60.00
[2023-07-15 11:18] VITALS: BP 137/55
[2023-07-15 11:52] LABS: Glucose - Point of Care 278 mg/dl (70-99)
[2023-07-15] MEDS: NOVOLOG FLEXPEN-HIGH RESISTANCE 7 UNITS SC (11:53)
--- NOTE | 2023-07-15 12:08 | CM ---
Addendum entered by Meghan Zamora 07/15/23 12:09:
IMM benefit explained; form signed @1205
Original Note:
Met with patient at the bedside to discuss discharge plan
Plan: discharge to home today; no needs; will transport home
--- NOTE | 2023-07-15 12:46 | W.PN.HOSP.TC ---
Addendum entered and electronically signed by Stephane Guillen MD 07/16/23 16:46:
GI bleeding is associated and exacerbated by Eliquis use along with AVMs
Addendum entered and electronically signed by Stephane Guillen MD 07/16/23 16:31:
Pancytopenia
Addendum entered and electronically signed by Stephane Guillen MD 07/15/23 15:42:
[id number]
Original Note:
Today's Communication/Plan
-
cbc on 07/17 or 07/18
dc today, f/u cardiology for watchman on 07/18
f/u pcp, cardiology, GI outpatient
advised of risks of going back on Eliquis and coming back to the hospital if symptoms reoccur
Assessment / Plan
Assessment / Plan
Physical Exam
General: NAD
HEENT: Moist mucous membranes and PERRLA
Respiratory: Clear; No Wheezes, Rales or Rhonchi
Cardiac: S1/S2, Irregular Rhythm and Murmur (II/ TUSHAR)
GI: Other (Softly distended. No focal tenderness. Pos BS.)
Musculoskeletal: No Clubbing, No Cyanosis and Other (1+ pitting edema b/l ankles.)
Neuro: AO x 3
A/P: Patient is an 83y M with PMH significant for A-Fib, ASCVD and prior GI Bleeding who presents to ED complaining of weakness, fatigue and SOB x 4-5 days.
GI Bleed
Acute Symptomatic Blood Loss Anemia secondary to the above
- transfused total 4u prbc, 1 u prior to dc upon cardiology request
- Monitor CBC, Ensure HgB >7
- Negative enteroscopy, C-Scope with no bleeding sites, diverticulosis. 5 mm polyp removed.
-Cardiology desires to have patient back on Eliquis. Trialed inpatient - hgb remains stable. Risk of bleeding is still present and has AVM still there and patient aware. Cont monitor HgB tomorrow
� Spoke to cardiology, plan for Watchman procedure on July 18
-CBC on tuesday or tuesday - 07/17 or 07/18
-Advised to come back to hospital if similar symptoms
- 05/2023: Colonoscopy with angiodysplasia in the ascending colon / cecum which was treated with APC. EGD was essentially unremarkable.
- Transfusion ordered in the ED. Follow H&H and provide additional blood products as needed.
- Follow for continued hemodynamic stability.
-Ensure MAP>65
Paroxysmal Atrial Fibrillation
- Stable.
- Plan is for eventual Watchman procedure - typically requires pre / post procedure anticoagulation however.
- Continue other CV med regimen with holding parameters for BP.
-Watchman: watchman procedure moved to 07/19/2023. hold Eliquis 07/19/2023.
-Cardiology requesting placing on Eliquis; patient aware of risks
Hyponatremia
-ctm
ASCVD
- History of carotid disease, PAD.
- Continue current CV med regimen.
Chronic HFpEF
- Mild edema noted on exam.
- Continue Lasix while receiving blood transfusion / volume.
- Follow I/Os, daily weights, etc.
- Adjust diuretic regimen as needed.
CKD III
- Renal function slightly greater than baseline (approx 1.2) but not KRZYSZTOF.
- Follow for changes with transfusion, Lasix, etc.
DM-II
- Stable.
-no interventions planned
-resume metformin
-high correction scale SSI
Hypothyroidism
- Stable. Continue T4 replacement.
ZAYRA on CPAP
- Stable. Continue nightly PAP therapy.
DVT Prophylaxis: Eliquis
Code Status: Full
More than 30 minutes spent in discharge including
Final examination of the patient
Summarizing hospital stay
Instructions for continuing care to all relevant caregivers
Preparation of discharge records, prescriptions, and referral forms
Total time spent (35 in minutes):
Anticipated Discharge: Today
Subjective/Interval History
-
Date of Service: July 15, 2023
No acute events
Objective Data
-
Labs:
Laboratory Results
07/15/23
08:08
WBC 3.6 L
Hgb 9.0 L
Hct 27.3 L
Plt Count 121 L
Sodium 136
Potassium 3.5
Chloride 105
Carbon Dioxide 22
BUN 18
Creatinine 1.2
Glucose 141 H
Calcium 9.0
Total Bilirubin 0.6
AST 77 H
ALT 41
Alkaline Phosphatase 76
Vital Signs:
Vital Signs
Temp Pulse Resp BP Pulse Ox
97.4 F 67 18 137/55 99
07/15/23 11:18 07/15/23 11:18 07/15/23 11:18 07/15/23 11:18 07/15/23 11:18
I&O
07/14/23 07/15/23 07/16/23
06:59 06:59 06:59
Intake Total 510 / 510 730 / 730
Output Total 400 / 400 300 / 300
Balance 110 / 110 430 / 430
Review of Systems
-
History Source: Patient
All other systems: Not reviewed unless documented
Data Reviewed
-
Medical Tests (Nuc Med, Echo etc): Report Reviewed by me
Labs: Labs Reviewed by me
--- NOTE | 2023-07-15 12:50 | W.DS.TRANS ---
DC Summary - Student Life Advisor
-
Discharge Instructions:
Discharge Diagnosis/Procedures GI Bleed
Acute Symptomatic Blood Loss Anemia secondary to
the above
Paroxysmal Atrial Fibrillation
Diet Low Residue,Low Cholesterol,Low Fat,Diabetic,
Carb Controlled
Activity As tolerated
Blood Work cbc on 07/17 or 07/18
Instructions:
Stand-Alone Forms:
Changes to Home Medications: Yes
Discharge Medications:
DC Medications w/original date entered in [facility]
fenofibrate nanocrystallized 145 mg tablet 145 mg PO QPM High cholesterol 07/29/21
magnesium oxide 400 mg PO BID Electrolyte Repletion 07/29/21
finasteride 5 mg tablet 5 mg PO QPM Urinary issue 12/02/21
amlodipine 5 mg tablet 5 mg PO DAILY Blood pressure 04/05/22
diphenhydramine 25 mg-acetaminophen 500 mg tablet (Tylenol PM Extra Strength) 2 tab PO HS Sleep ##0 04/05/22
tamsulosin 0.4 mg capsule (Flomax) 0.4 mg PO QPM Urinary Issue 10/25/22
ferrous sulfate 325 mg (65 mg iron) tablet 325 mg PO DAILY Supplement 12/06/22
cyanocobalamin (vitamin B-12) 1,000 mcg tablet 1,000 mcg PO DAILY Supplement 01/16/23
levothyroxine 75 mcg tablet (Synthroid) 75 mcg PO DAILY Thyroid 01/16/23
metformin 500 mg tablet 1,000 mg PO BID diabetes 01/16/23
methenamine hippurate 1 gram tablet (Hiprex) 1 g PO BID Urinary Issue 01/16/23
rosuvastatin 40 mg tablet (Crestor) 40 mg PO QPM High Cholesterol 05/03/23
carvedilol 3.125 mg tablet 3.125 mg PO BID Blood pressure #60 tabs 05/08/23
spironolactone 25 mg tablet 25 mg PO DAILY Fluid retention/Swelling #30 tabs 05/08/23
furosemide 20 mg tablet 40 mg PO DAILY Fluid retention/Swelling 05/19/23
apixaban 5 mg tablet (Eliquis) 5 mg PO BID Blood Clot Prevention/Tx 07/11/23
pantoprazole 40 mg tablet,delayed release 40 mg PO BID Gastrointestinal issue #60 tabs 07/15/23
Home Medication Changes
pantoprazole 40 mg tablet,delayed release 40 mg PO BID Gastrointestinal issue #60 tabs 07/15/23
Pending Results: No
--- NOTE | 2023-07-15 13:09 | PN.CDI ---
CDI
- -
CDI:
Physician Documentation Request
Admit Date: 07/11/23 00:49
Dear Doctor Mindy,
Clinical Indicators:
Patient admitted with GI bleed with acute blood loss anemia.
6/ Daily CBC ordered.
WBC, RBC, Plt trend:
07/14/23 07/15/23
03:48 08:08
WBC 2.7 L 3.6 L
RBC 2.58 L 3.10 L
Plt Count 110 L 121 L
Based on the above, could you clarify in the progress notes, the appropriate diagnosis, if significant, that supports the above abnormalities and additional evaluation, monitoring and/or treatment rendered:
Pancytopenia
Abnormal lab values, clinically insignificant
Other, please specify
Use of terms such as suspected, likely, concern for, or probable (associated with a specific diagnosis that is being evaluated, monitored, or treated as if it exists) are acceptable and can be coded in the inpatient setting, when documented at the
time of discharge.
Thank you,
CA Garcia RN
CDI Specialist
available via tiger text
Please use your independent medical judgment in providing your response.
== END 2023-07-15 14:16 | disposition home or self-care (01) | DRG 813 ==
LOC: 4 WEST ACU 00:49
PROVIDERS: Internal Medicine; ADMITTING PHYSICIAN Hospitalist; ATTENDING PHYSICIAN Internal Medicine; CONSULT PHYSICIAN Internal Medicine Gastroenterology; EMERGENCY PHYSICIAN Emergency Medicine; FAMILY PHYSICIAN Student in an Organized Health Care Education/Training Program
PROC: 30233N1 Transfusion of Nonautologous Red Blood Cells into Peripheral Vein, Percutaneous Approach (ICD-10-PCS; 2023-07-11)
PROC: 0DJ08ZZ Inspection of Upper Intestinal Tract, Via Natural or Artificial Opening Endoscopic (ICD-10-PCS; 2023-07-12)
PROC: 0DDK8ZX Extraction of Ascending Colon, Via Natural or Artificial Opening Endoscopic, Diagnostic (ICD-10-PCS; 2023-07-13)
DX: D68.32 Hemorrhagic disorder due to extrinsic circulating anticoagulants (principal); K55.21 Angiodysplasia of colon with hemorrhage; K92.2 Gastrointestinal hemorrhage, unspecified; D61.818 Other pancytopenia; D62 Acute posthemorrhagic anemia; I13.0 Hypertensive heart and chronic kidney disease with heart failure and stage 1 through stage 4 chronic kidney disease, or unspecified chronic kidney disease; I50.32 Chronic diastolic (congestive) heart failure; E87.1 Hypo-osmolality and hyponatremia; Z79.01 Long term (current) use of anticoagulants; Z87.891 Personal history of nicotine dependence; I48.0 Paroxysmal atrial fibrillation; I25.10 Atherosclerotic heart disease of native coronary artery without angina pectoris; Z95.5 Presence of coronary angioplasty implant and graft; N18.32 Chronic kidney disease, stage 3b; E03.9 Hypothyroidism, unspecified; G47.33 Obstructive sleep apnea (adult) (pediatric); D12.2 Benign neoplasm of ascending colon
CPT/HCPCS: 88305; 74022; 80048; 80053; 82947; 82962; 83036; 83735; 84484; 85014; 85018; 85025; 85027; 85610; 86850; 86870; 86900; 86901; 86902; 86920; 86922; 87070; 93005; 94660; 96374; 99291; P9016

== ENCOUNTER 2023-07-19 07:44 | Inpatient (IN) | payer MEDICARE, BC, SELFPAY ==
[2023-07-18 13:54] LABS: % Basophils 0.2 % (0-2); % Immature Granulocytes 0.2 % (0-0.5); % Lymphocytes 15.5 % (20.5-51.1); % Monocytes 8.6 % (1.7-9.3); % Neutrophils 74.5 % (42.2-75.2); Absolute Lymphocytes 0.7 10^3/uL (1.2-3.4); Absolute Monocytes 0.4 10^3/uL (0.1-0.6); Absolute Neutrophils 3.1 10^3/uL (1.4-6.5); Hemoglobin 9.7 g/dL (13.0-18.0); Mean Corp Hgb Conc. 31.3 g/dL (33.0-37.0); Mean Corpuscular Hgb 28.2 pg (27.0-31.0); Mean Corpuscular Volume 90.1 fL (80.0-94.0); Mean Platelet Volume 11.4 fL (7.4-10.4); Nucleated Red Blood Cells % 0 % (-); Platelet Count 134 10^3/uL (130-400); Red Blood Cell Count 3.44 10^6/uL (4.70-6.10); Red Cell Dist. Width 14.6 % (11.5-14.5); White Blood Cell Count 4.2 10^3/uL (4.8-10.8)
--- NOTE | 2023-07-18 17:01 | WATCHMAN.MD ---
Watchman Implant
-
ELECTROPHYSIOLOGY/INTERVENTIONAL PROCEDURE REPORT
Date of Procedure: July 19, 2023
Assisting Physician: Valentin Lombardo
PROCEDURES:
1. Left atrial appendage occlusion device using 24 mm WATCHMAN FLX device
2. Intracardiac echocardiography
3. Ultrasound-guided right common femoral venous access
INDICATION: Recurrent bleeding in the setting of full anticoagulation which is needed for history of atrial fibrillation
ACCESS: Right common femoral vein, 16Fr sheath and 9Fr. sheaths, under US guidance using micropunture kit.
HEMODYNAMICS : (mmHg)
RA Pressure : 10
LA Pressure: 14
PROCEDURE REPORT:
After informed consent and patient safety 'Timeout' the patient was intubated and sedated by the anesthesiology service. Under ultrasound guidance, the right femoral vein was accessed by Dr. Valentin Lombardo twice for transseptal puncture and
intracardiac ultrasound, respectively. Concomitant transesophageal echocardiogram was performed by Dr. Campos Carvajal
Baseline intracardiac ultrasound demonstrated no pericardial effusion and baseline MARIO images revealed a trace pericardial effusion.
After ruling out a left atrial appendage thrombus, the patient was heparinized for an ACT between 350-400 seconds and under MARIO and intracardiac ultrasound guidance transseptal puncture was performed by Dr. Amy Hensley using an ACUTUS AcQCross
Qx in a mid to inferior position on the inferior-superior axis and a mid position on the anterior-posterior axis. Right atrial pressure was 10 millimeters mercury and left atrial pressure was 14 millimeters mercury.
Once transseptal puncture was performed over an Amplatz Super Stiff 0.035 wire parked in the left superior pulmonary vein, a watchman access double curve sheath was crossed into the left atrium. A 5 Turk[place] pigtail catheter was placed into the left
atrial appendage and an appendage gram was performed using intravenous contrast dye demonstrating a chicken wing type anatomy that was suitable likely for a 24 mm WATCHMAN FLX device.
After appropriately prepping the device, Dr. Valentin Lombardo successfully deployed a 24 mm WATCHMAN FLX device. Device showed excellent positioning with no leaks post device deployment. 22 to 30 % compression was noted in the device after deployment.
A 'tug-test' was performed demonstrating stability of the device. Given PASS criteria were met, the device was then released successfully by Dr. Valentin Lombardo.
Post procedure, MARIO imaging demonstrated no new or worse pericardial effusion. Sheaths and catheters were removed from the left atrium and heparin was reversed using protamine. Catheters removed from the femoral veins with [id number] suture
applied. The patient tolerated the procedure well.
RADIATION SUMMARY: Fluoro Time (min): 9.8, Dose (mGy): 359.7, DAP (Gy.cm2) : 38.7
Closure Device: Figure of 8 suture
CONCLUSIONS
1. Successful deployment of 24 mm WATCHMAN FLX device under MARIO and ICE guidance.
RECOMMENDATIONS
1. Plan for Eliquis 5 mg twice daily for the next 45-days.
2. 45-day MARIO post procedure to assess stability of device and rule out any felix-device leaks. If no issues plan to switch Eliquis to Plavix and aspirin for the next 6 months and aspirin indefinitely beyond this
3. Figure of 8 suture removal prior to discharge.
Amy Hensley MD, FAC, [facility]
[2023-07-19] VITALS (22 sets, daily range): BP systolic 117–179; BP diastolic 53–89; PULSE 72; BMI 30.7
[2023-07-19 08:37] LABS: Glucose - Point of Care 206 mg/dl (70-99)
[2023-07-19 11:33] LABS: ACT-LR - POC 363 Seconds (116-155)
--- NOTE | 2023-07-19 11:43 | ITS.CL.PN ---
[facility] - Procedure Note
Procedure
Procedure Note:
Watchman WHITNEY occlusion device implantation:
Date of Procedure:
07/19/23
Indications:
Recurrent bleeding with anticoagulation therapy for stroke prevention
Pre-Operative Diagnosis:
Atrial fibrillation with recurrent bleeding
Post-Operative Diagnosis:
Atrial fibrillation with recurrent bleeding
Procedure Performed:
Left atrial appendage occlusion with Watchman implantation (24 mm Watchman FLX Pro left atrial appendage closure device)
Performing Physicians:
MARIO: Campos Carvajal M.D.
Transseptal rubbing bed operator: Amy Hensley M.D.
Implanter: Valentin contreras M.D.
Anesthesia:
See anesthesia records
Detailed Description of the Procedure:
Written informed consent was obtained from the patient after a full explanation of the risks and benefits of the procedure including the risks of sedation and anesthesia.
The patient was brought to the electrophysiology laboratory in stable condition in fasting state. Continuous electrocardiographic and hemodynamic monitoring was initiated.
The initial rhythm was atrial fibrillation.
The procedure site was meticulously prepared with surgical scrub and allowed to dry with no pooling. Sterile draping was applied to cover the procedure site. The image intensifier was draped with sterile bag and positioned over the patient. After
infusion of local anesthetic, vascular access was obtained under ultrasound guidance and sheaths were placed over guide wire as detailed below.
Sheath and Catheter Placement:
In the right femoral vein, a 16-[place]izen Of [place] sheath was placed for Watchman placement procedure.
Sheaths:
��������������� 9Fr with ICE
��������������� Watchman delivery sheath through the 16Fr sheath.
��������������� Watchman catheter
Intra cardiac ECHO (ICE):
Using AccuNav ICE catheter, ECHO of the cardiac chambers were done that provided the anatomy and a baseline ECHO study was performed. The left atrial size was enlarged. There was trace tricuspid regurgitation. The aortic valve was sclerotic but not
stenosed. There was normal left ventricular size and function. There was no pericardial effusion.
During the procedure, ICE and MARIO was used for monitoring of complications, guidance of trans-septal puncture, monitor the catheter position and tracking watchman implantation and level of compression.
No change in the pericardial space noted throughout the procedure.
Trans-septal Puncture:
Heparin was initiated and infused to maintain appropriate ACT.
A J-tipped guidewire was advanced through the 8-Citizen [place] sheath in the right femoral vein into the superior vena cava under fluoroscopic, ICE and MARIO guidance. The 8Fr was upgraded to 16 Fr sheath. The Watchman sheath was advanced into the superior
vena cava over the guide wire. The [employer]� AcQCross Qx trans-septal apparatus was used through the Watchman sheath. The apparatus was withdrawn until it was in contact with the fossa ovalis. The position was adjusted based on fluoroscopy and
ultrasound images from ICE. Under fluoroscopic, hemodynamic and ICE/MARIO ultrasound guidance, left atrium was cannulated by advancing the needle. The right atrial and left atrial pressure was monitored through the needle. An Amplatz guide wire was
placed and was advanced into the left superior pulmonary vein. Both the sheath and the dilator was advanced into the left atrium. The dilator with the needle was withdrawn. Blood was aspirated from the sheath and arterial blood confirmed. The sheath
was flushed. Saline injection noted into the left atrium on MARIO. The LA pressure was recorded. The Agilis sheath was removed keeping the wire in place. The Watchman delivery sheath was placed over the Amplatz wire into the LA using a dilator. The
dilator and was removed and the sheath was flushed. The saline injection was noted in the LA on the MARIO and ICE. A curved pig tail was advanced over the guide wire into the left atrium and the wire was removed.
Left atrial appendage atriography:
The pigtail was advanced into the WHITNEY and was confirmed on fluoroscopy and MARIO. The contrast was injected and the WHITNEY shape was recorded in CONLEY /Caudal view (20/20 degrees). The size of the WHITNEY was again checked and confirmed reviewing the MARIO and
the fluoroscopy along with previously obtained CT scan images.
Watchman Deployment:
The Watchman delivery sheath was advanced into the WHITNEY over the pigtail till the right marker was at the location of the orifice line marked on the screen. The pigtail was removed and the Watchman delivery system was advanced through the sheath into
the WHITNEY till it was aligned with the outer sheath marker inside the WHITNEY. The watchman sheath was clicked with the outer sheath. Once acceptable location achieved, the outer sheath was pulled back keeping the device steady at the WHITNEY location till a
ball of the device was formed under fluoroscopic guidance. The whole system was advanced further into the WHITNEY till adequate depth is achieved into the WHITNEY.� The WHITNEY occluder was deployed and expanded adequately anchoring to the WHITNEY. The device was
kept anchored with stable pressure to that location for 10 seconds.
The MARIO image confirmed adequate expansion. The tug test was done that showed the device is anchored well and is not able to come out. The compression was 21% and 18% on the two sides. There was no significant leak noted on the Doppler via MARIO. A
contrast was injected showing adequate location of the device at the mouth of the WHITNEY and no leak demonstrated.�
The device was deployed by unscrewing the Watchman device and releasing from the connecting wire. The wire was pulled back into the sheath and the sheath was pulled out of the LA.
Implanted device:
WATCHMAN FLX Pro � 24mm
Procedure End
MARIO study was done again that showed no epicardial accumulation that was unchanged from earlier. A repeated images showed no change in the pericardial space. No complications noted.
Following the completion of the deployment, catheters were removed. Protamine 50 mg was given at the end of the procedure and ACT was checked repeatedly. The sheath was removed and hemostasis achieved with Figure of 8 suture and manual compression
after acceptable ACT is achieved.
Left atrial Pressure:
Mean LA pressure was 14mmHg
Mean RA pressure was 10 mmHg
Estimated Blood loss:
10 cc
Specimens Removed:
None.
Implants / Devices:
None
Urine output:
None
Packs / Drains/ Tubes:
None
Instrument / Sponge Count Correct:
Yes
Complications of the Procedure:
None
Condition of Patient at Time of Transfer:
Hemodynamically stable with no neurological or vascular compromise.
Summary:
Successful implantation of the left atrial occlusion device (WATCHMAN FLX Pro� 24mm)
Post procedure Plan for anticoagulation:
Continue Eliquis 5 mg BID for 45 days.
Based on 6 weeks MARIO, will plan to switch Eliquis to Plavix and ASA.
In six months, will plan to discontinue Plavix and continue ASA 81 mg indefinitely.
[2023-07-19 12:46] LABS: Glucose - Point of Care 221 mg/dl (70-99)
[2023-07-19] MEDS: NOVOLOG FLEXPEN-MODERATE RESISTANCE 3 UNITS SC (13:04)
--- NOTE | 2023-07-19 15:28 | PTCARENOTE ---
received patient from labor relations teacher, right fem. artery figure 8, D/I, distal pulse by Doppler. monitor shows Afib, VSS. patient has no c/o pain. at bedside helping him with lunch. oriented to room and surroundings.
--- NOTE | 2023-07-19 16:08 | CM ---
CM following for DC planning needs.
Patient was recently @ [facility], DC'ed to home 07/14 without needs.
Patient resides in a private apartment at [facility] w/ spouse. Functionally, patient is indep. w/ occasional use of a RW.
Antic. DC to home once medically stable.
CM to follow.
[2023-07-19 16:24] LABS: Glucose - Point of Care 309 mg/dl (70-99)
[2023-07-19] MEDS: NOVOLOG FLEXPEN-MODERATE RESISTANCE 7 UNITS SC (16:24)
[2023-07-19] MEDS: CRESTOR 40 MG PO (17:43)
[2023-07-19] MEDS: FLOMAX 0.400000000000000022 MG PO (17:43)
[2023-07-19] MEDS: TRICOR 145 MG PO (17:43)
[2023-07-19] MEDS: PROSCAR 5 MG PO (17:43)
[2023-07-19] MEDS: COREG 3.125 MG PO (19:29)
[2023-07-19] MEDS: ELIQUIS 5 MG PO (19:30)
[2023-07-19] MEDS: MAGNESIUM OXIDE 500 MG PO (19:30)
[2023-07-19] MEDS: PROTONIX 40 MG PO (19:30)
[2023-07-19] MEDS: HIPREX 1 GRAM PO (19:39)
[2023-07-19 22:05] LABS: Glucose - Point of Care 352 mg/dl (70-99)
[2023-07-19] MEDS: BENADRYL 25 MG PO (22:39)
[2023-07-19] MEDS: REFRESH EYE DROPS (PF) 1 DROPS OPHTH (22:39)
[2023-07-19] MEDS: NOVOLIN N vial 0.100000000000000006 UNITS SC (22:39)
--- NOTE | 2023-07-20 00:32 | PTCARENOTE ---
Pt. has no complaints of pain, VSS, NSR & A-fib on the monitor. Right groin dressing CDI with no S&S hematoma, Doppler pedal pulses present. Pt. OOB to chair for most of the evening, states he's hoping to go home in the morning. Pt. currently
sleeping.
[2023-07-20 03:57] VITALS: BP 138/55
[2023-07-20 04:12] LABS: Hematocrit 24.9 % (39.0-52.0); Hemoglobin 8.1 g/dL (13.0-18.0); Mean Corp Hgb Conc. 32.5 g/dL (33.0-37.0); Mean Corpuscular Hgb 28.5 pg (27.0-31.0); Mean Corpuscular Volume 87.7 fL (80.0-94.0); Red Blood Cell Count 2.84 10^6/uL (4.70-6.10); Red Cell Dist. Width 14.3 % (11.5-14.5); White Blood Cell Count 4.5 10^3/uL (4.8-10.8)
[2023-07-20 04:41] LABS: Blood Urea Nitrogen 23 mg/dl (9-20); Calcium 8.2 mg/dl (8.4-10.2); Carbon Dioxide 24 mmol/L (22-30); Chloride 107 mmol/L (98-107); Estimated Creatinine Clearance 63 ml/min; Glucose 217 mg/dl (70-99); Magnesium 1.9 mg/dl (1.6-2.3); Sodium 136 mmol/L (135-145); eGFR > 60.00
[2023-07-20 05:13] LABS: Platelet Count 99 10^3/uL (130-400)
[2023-07-20 05:14] LABS: Mean Platelet Volume 11.8 fL (7.4-10.4)
[2023-07-20 06:00] VITALS: BMI 30.8
[2023-07-20] MEDS: SYNTHROID 75 MCG PO (06:13)
[2023-07-20 07:58] VITALS: BP 143/72
[2023-07-20 08:01] VITALS: BP 143/72
[2023-07-20 08:27] LABS: Glucose - Point of Care 208 mg/dl (70-99)
--- NOTE | 2023-07-20 08:33 | W.PN.CARDCBS ---
Addendum entered and electronically signed by Valentin Lombardo MD 07/21/23 12:03:
Patient was seen and evaluated personally. I agree with the note, documentation and plan of care as documented below. Watchman was implanted successfully no issues no complications. Patient is stable and can be discharged home
Original Note:
Today's Communication / Plan
-
Recheck cbc in 1 week
stable for d/c home
Impression / Plan
-
PCP: Dr. House
CDY: Alejandro Alston MD
Impression:
PAF
mutiple admissions for GIB last admit 07/10
chronic anemia
Peripheral artery disease
Dyslipidemia
Obstructive sleep apnea
Right bundle branch block
Essential hypertension
Type 2 diabetes
Right carotid stenosis
Aortic valve stenosis
Diverticulosis
Stage IIIb chronic kidney disease
Coronary artery disease
Chronic HFpEF
BPH
Plan:
post WATCHMAN FLX Pro � 24mm 07/19/23
groin stable
tele SR/SB
Hbg dropped 9.7 -> 8.1 ? dilutional, denies hematochezia
continue PPI BID
Will recheck in 1 week
continue OAC Eliquis
f/u MARIO in 6 weeks
Hold Metformin 48 hours post device implant/IV contrast
BPH - continue tamsulosin and finasteride
HLD - continue rosuvastatin and fenofibrate
Activity restrictions reviewed
f/u cbc 2 weeks
home today
Progress Note - [employer]
Subjective
Date of Service: July 20, 2023
no cp, sob
Objective
Labs:
07/20/23 04:04
07/20/23 04:04
Labs
Hgb 8.1 g/dL (13.0-18.0) L 07/20/23 04:04
Hct 24.9 % (39.0-52.0) L 07/20/23 04:04
Plt Count 99 10^3/uL (130-400) L D 07/20/23 04:04
Sodium 136 mmol/L (135-145) 07/20/23 04:04
Potassium 4.0 mmol/L (3.5-5.1) 07/20/23 04:04
BUN 23 mg/dl (9-20) H 07/20/23 04:04
Creatinine 1.1 mg/dL (0.7-1.3) 07/20/23 04:04
Glucose 217 mg/dl (70-99) H 07/20/23 04:04
Vital Signs and I&O:
Vital Signs
Temp Pulse Resp BP Pulse Ox
98 F 59 18 143/72 99
07/20/23 07:58 07/20/23 08:01 07/20/23 07:58 07/20/23 08:01 07/20/23 07:58
Vital Signs
Temp Pulse Resp BP Pulse Ox
98 F 59 18 143/72 99
07/20/23 07:58 07/20/23 08:01 07/20/23 07:58 07/20/23 08:01 07/20/23 07:58
Intake & Output
07/18/23 07/19/23 07/20/23 07/21/23
06:59 06:59 06:59 06:59
Intake Total 5 / 5
Balance 5 / 5
Physical Exam
Physical Exam
NAD, AOX3
S1, S2, RRR
CTAB, non labored
SNTND Bsx4
R fem site c/d/i no HT, soft
[2023-07-20] MEDS: PROTONIX 40 MG PO (08:52)
[2023-07-20] MEDS: HIPREX 1 GRAM PO (08:53)
[2023-07-20] MEDS: LASIX 40 MG PO (08:53)
[2023-07-20] MEDS: MAGNESIUM OXIDE 500 MG PO (08:53)
[2023-07-20] MEDS: COREG 3.125 MG PO (08:53)
[2023-07-20] MEDS: NOVOLOG FLEXPEN-MODERATE RESISTANCE 3 UNITS SC (08:53)
[2023-07-20] MEDS: ELIQUIS 5 MG PO (08:53)
--- NOTE | 2023-07-20 11:22 | CM ---
CM following for DC planning needs.
Met w/ patient at bedside. He reports that he is feeling well but unsure if he will DC today.
Reviewed DC plan for home without needs.
Will remain available for any needs that may arise.
[2023-07-20 11:55] VITALS: BP 141/54
[2023-07-20 12:00] LABS: Glucose - Point of Care 286 mg/dl (70-99)
[2023-07-20] MEDS: NOVOLOG FLEXPEN-MODERATE RESISTANCE 5 UNITS SC (12:02)
[2023-07-20 14:21] LABS: Hematocrit 26.5 % (39.0-52.0); Hemoglobin 8.7 g/dL (13.0-18.0)
[2023-07-20 15:29] VITALS: BP 153/61
--- NOTE | 2023-07-21 07:31 | W.DS.TRANS ---
DC Summary - [employer]
-
Discharge Instructions:
Discharge Diagnosis/Procedures Afib post Watchman device
Diet Low Cholesterol,Diabetic, Carb Controlled
Driving Restrictions No driving for 24 hours
Blood Work Check CBC in 1 week
Others Tests 6 Week Follow Up MARIO is scheduled at [facility] on 08/26/2023. You will receive a call
to set up pre-admission testing and instructions
.
Instructions:
Stand-Alone Forms: DC Instructions- Cath/EP Lab
Changes to Home Medications: No
Discharge Medications:
DC Medications w/original date entered in [facility]
fenofibrate nanocrystallized 145 mg tablet 145 mg PO QPM High cholesterol 07/29/21
magnesium oxide 400 mg PO BID Electrolyte Repletion 07/29/21
finasteride 5 mg tablet 5 mg PO QPM Urinary issue 12/02/21
diphenhydramine 25 mg-acetaminophen 500 mg tablet (Tylenol PM Extra Strength) 2 tab PO HS Sleep ##0 04/05/22
tamsulosin 0.4 mg capsule (Flomax) 0.4 mg PO QPM Urinary Issue 10/25/22
cyanocobalamin (vitamin B-12) 1,000 mcg tablet 1,000 mcg PO DAILY Supplement 01/16/23
levothyroxine 75 mcg tablet (Synthroid) 75 mcg PO DAILY Thyroid 01/16/23
metformin 500 mg tablet 1,000 mg PO BID diabetes 01/16/23
methenamine hippurate 1 gram tablet (Hiprex) 1 g PO BID Urinary Issue 01/16/23
rosuvastatin 40 mg tablet (Crestor) 40 mg PO QPM High Cholesterol 05/03/23
carvedilol 3.125 mg tablet 3.125 mg PO BID Blood pressure #60 tabs 05/08/23
furosemide 20 mg tablet 40 mg PO DAILY Fluid retention/Swelling 05/19/23
apixaban 5 mg tablet (Eliquis) 5 mg PO BID Blood Clot Prevention/Tx 07/11/23
pantoprazole 40 mg tablet,delayed release 40 mg PO BID Gastrointestinal issue #60 tabs 07/15/23
Home Medication Changes
Pending Results: No
== END 2023-07-20 16:28 | disposition home or self-care (01) | DRG 274 ==
LOC: IVU 07:44
PROVIDERS: Internal Medicine Cardiovascular Disease; Nurse Practitioner Adult Health; ADMITTING PHYSICIAN Internal Medicine Cardiovascular Disease; FAMILY PHYSICIAN Student in an Organized Health Care Education/Training Program
PROC: 02L73DK Occlusion of Left Atrial Appendage with Intraluminal Device, Percutaneous Approach (ICD-10-PCS; 2023-07-19)
PROC: 5A09357 Assistance with Respiratory Ventilation, Less than 24 Consecutive Hours, Continuous Positive Airway Pressure (ICD-10-PCS; 2023-07-19)
PROC: B24BZZ4 Ultrasonography of Heart with Aorta, Transesophageal (ICD-10-PCS; 2023-07-19)
DX: I48.0 Paroxysmal atrial fibrillation (principal); Z00.6 Encounter for examination for normal comparison and control in clinical research program; I13.0 Hypertensive heart and chronic kidney disease with heart failure and stage 1 through stage 4 chronic kidney disease, or unspecified chronic kidney disease; I50.32 Chronic diastolic (congestive) heart failure; E11.51 Type 2 diabetes mellitus with diabetic peripheral angiopathy without gangrene; E78.5 Hyperlipidemia, unspecified; I45.10 Unspecified right bundle-branch block; E11.22 Type 2 diabetes mellitus with diabetic chronic kidney disease; I65.21 Occlusion and stenosis of right carotid artery; I35.0 Nonrheumatic aortic (valve) stenosis; N18.32 Chronic kidney disease, stage 3b; I25.10 Atherosclerotic heart disease of native coronary artery without angina pectoris; N40.0 Benign prostatic hyperplasia without lower urinary tract symptoms; G47.33 Obstructive sleep apnea (adult) (pediatric); D63.1 Anemia in chronic kidney disease; Z79.01 Long term (current) use of anticoagulants; Z79.899 Other long term (current) drug therapy
CPT/HCPCS: 33340; 76937; 80048; 82962; 83735; 85014; 85018; 85025; 85027; 85347; 86850; 86870; 86900; 86901; 86902; 93005; 93355; 94660; C1759; C1892; Q9967

== ENCOUNTER → 2023-08-22 11:42 | Outpatient (REF) | payer MEDICARE, BC, SELFPAY ==
[2023-08-22 16:09] LABS: INR 1.33; PT 16.3 Sec (11.4-14.6)
[2023-08-22 16:10] LABS: ALT (SGPT) 35 U/L (0-50); AST (SGOT) 70 U/L (17-59); Albumin 3.6 g/dl (3.5-5.0); Alkaline Phosphatase 92 U/L (38-126); Blood Urea Nitrogen 17 mg/dl (9-20); Calcium 9.1 mg/dl (8.4-10.2); Carbon Dioxide 25 mmol/L (22-30); Chloride 103 mmol/L (98-107); Glucose 231 mg/dl (70-99); Iron 123 ug/dl (49-181); Sodium 137 mmol/L (135-145); Total Bilirubin 0.7 mg/dl (0.2-1.3); Total Protein 6.4 g/dl (6.3-8.2); eGFR > 60.00
[2023-08-22 16:18] LABS: % Basophils 0.8 % (0-2); % Eosinophils 1.5 % (0-6); % Immature Granulocytes 0.4 % (0-0.5); % Monocytes 10.9 % (1.7-9.3); % Neutrophils 68.4 % (42.2-75.2); Absolute Lymphocytes 0.5 10^3/uL (1.2-3.4); Absolute Monocytes 0.3 10^3/uL (0.1-0.6); Absolute Neutrophils 1.8 10^3/uL (1.4-6.5); Hematocrit 27.1 % (39.0-52.0); Hemoglobin 8.7 g/dL (13.0-18.0); Mean Corp Hgb Conc. 32.1 g/dL (33.0-37.0); Mean Corpuscular Hgb 30.6 pg (27.0-31.0); Mean Corpuscular Volume 95.4 fL (80.0-94.0); Mean Platelet Volume 12.7 fL (7.4-10.4); Nucleated Red Blood Cells % 0 % (-); Platelet Count 102 10^3/uL (130-400); Red Blood Cell Count 2.84 10^6/uL (4.70-6.10); Red Cell Dist. Width 23.5 % (11.5-14.5); White Blood Cell Count 2.7 10^3/uL (4.8-10.8)
[2023-08-22 16:19] LABS: Percent Saturation 30 % (20-50); Total Iron Binding Capacity 403 ug/dl (261-462)
[2023-08-22 16:20] LABS: Anisocytosis 2+; Macrocytosis 1+; Microcytosis 1+
[2023-08-22 16:30] LABS: Normal RBC Morphology No
== END ==
LOC: HWLAB 11:42
PROVIDERS: ATTENDING PHYSICIAN Internal Medicine Gastroenterology; FAMILY PHYSICIAN Student in an Organized Health Care Education/Training Program; OTHER PHYSICIAN Internal Medicine Medical Oncology; REFERRING PHYSICIAN Internal Medicine
DX: K74.60 Unspecified cirrhosis of liver (principal); D50.0 Iron deficiency anemia secondary to blood loss (chronic)
CPT/HCPCS: 36415; 80053; 82728; 83540; 83550; 85025; 85610

== ENCOUNTER → 2023-08-31 09:57 | Day surgery (SDC) | payer MEDICARE, BC, SELFPAY ==
[2023-08-31 10:30] LABS: Glucose - Point of Care 256 mg/dl (70-99)
[2023-08-31 10:37] VITALS: BMI 31.7
== END ==
LOC: CATH 09:57
PROVIDERS: ATTENDING PHYSICIAN Internal Medicine Cardiovascular Disease; FAMILY PHYSICIAN Student in an Organized Health Care Education/Training Program; OTHER PHYSICIAN Internal Medicine
DX: Z09 Encounter for follow-up examination after completed treatment for conditions other than malignant neoplasm (principal); I34.0 Nonrheumatic mitral (valve) insufficiency; Z95.818 Presence of other cardiac implants and grafts
CPT/HCPCS: 93312; 93320; 93325; 82962

== ENCOUNTER 2023-10-09 17:33 | Inpatient (IN) | payer MEDICARE, BC, SELFPAY ==
[2023-10-09] VITALS (13 sets, daily range): BP systolic 70–169; BP diastolic 32–80; PULSE 81–89; BMI 30.2; BMI 30.6
[2023-10-09] MEDS: PROTONIX 100 IV (14:53)
[2023-10-09] MEDS: PROTONIX IV 80 MG IV (14:53)
[2023-10-09 15:06] LABS: APTT 29.9 Sec (23.4-35.0); INR 1.28; PT 15.8 Sec (11.4-14.6)
[2023-10-09 15:07] LABS: ALT (SGPT) 24 U/L (0-50); AST (SGOT) 37 U/L (17-59); Alkaline Phosphatase 69 U/L (38-126); Blood Urea Nitrogen 54 mg/dl (9-20); Calcium 9.2 mg/dl (8.4-10.2); Carbon Dioxide 23 mmol/L (22-30); Chloride 104 mmol/L (98-107); Estimated Creatinine Clearance 49 ml/min; Glucose 362 mg/dl (70-99); Potassium 4.5 mmol/L (3.5-5.1); Sodium 140 mmol/L (135-145); Total Bilirubin 0.3 mg/dl (0.2-1.3); Total Protein 5.4 g/dl (6.3-8.2); eGFR 49.87
--- NOTE | 2023-10-09 15:19 | ED.GENMED ---
History of Present Illness
General
Chief Complaint: Abnormal Lab Value
Source: patient and spouse
Exam Limitations: none
Time Seen by Provider: 10/09/23 13:00
Nursing documentation reviewed up to this point in time: agreed with
History of Present Illness
History of Present Illness:
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 Has had Hgb as low as 5. in past. Today here for general weakness, dizziness when he stands, SOB even at rest. Dark stools.
Out pt Hgb last week pt states was 8.6
Hx Afib, Wathcman procedure 08/17, then stopped Eliquis and started Plavix and Baba ASA.
Past History
Past History
ED Past Medical History: HTN, Hypercholesterolemia, NIDDM, Renal failure, Hypothyroidism, Other (Prostatic hypertrophy, peripheral arterial disease) and Other (AVMs colon)
ED Past Surgical History: Cholecystectomy, Tonsilectomy and Other
Social History
Tobacco: Non-smoker
Alcohol: None
Drug: None
Personal:
Living: with family
Employment: Retired
Family History
Family History: Other
Review of Systems
Review of Systems
Allergies reviewed?: Yes
All Other Systems: ROS reviewed and negative except as documented in HPI and ROS
Constitutional: Reports fatigue; Denies fever or chills
Respiratory: Reports trouble breathing (SOB even at rest); Denies cough
Cardiac: Denies chest pain, diaphoresis, palpitations or syncope
ABD/GI: Reports black stools; Denies abdominal pain, nausea, vomiting, diarrhea, constipated or anorexia
: Denies dysuria, frequency or difficulty voiding
Musculoskeletal: Reports no symptoms
Skin: Reports no symptoms
Neurological: Reports no symptoms
Phy Exam
Physical Exam
Physical Exam:
GENERAL: No acute distress. A&Ox3.
CONSTITUTIONAL: Afebrile.
EYES: PERRL, conjunctivae pale
ENMT: moist mucus membranes, Pharynx nl
RESPIRATORY: Regular respirations, nonlabored, lungs clear.
CARDIOVASCULAR: Regular rate and rhythm, no murmurs, no rubs.
GI: Soft, nontender, normal BS
Rectal: black stool heme positive
MUSCULOSKELETAL: Moves with ease. Well perfused. Trace edema ankles
SKIN: Warm, dry, pale
PSYCH: Normal mood and affect. Well kept, interactive and appropriate
NEUROLOGIC: Awake, alert and oriented. No focal neurological deficits
Course
Orders/Labs/Results
Orders:
Orders
10/09/23 Breakfast
Clear Liquid
Clear Liquids: No red liquids
Sodium, 2 Gram
10/09/23 13:41
IV Insert/Care/Rem.- Treatment PRN
Pantoprazole 80 mg/100 ml Nss [Protonix] 80 mg in 100 ml IV NOW
Pantoprazole [Protonix IV] 80 mg IV NOW STA
10/09/23 14:45
Type+Screen Urgent
Complete Blood Count/With Diff Urgent
Comprehensive Metabolic Panel Urgent
Ferritin Urgent
Comment: ADD ON
Folate Urgent
Comment: ADD ON
Iron Urgent
Comment: ADD ON
PTT Urgent
Prothrombin Time Urgent
Total Iron Binding Urgent
Comment: ADD ON
Vitamin B12 Urgent
Comment: ADD ON
10/09/23 15:22
* Blood Bank Products Urgent
Blood Bank Products: *Packed RBC Leuko(PRBC's)
Quantity: 2
Transfuse Today: Yes
Reason: Anemia
IV Insert/Care/Rem.- Treatment PRN
10/09/23 15:29
Electrocardiogram (*1) Urgent
Reason for Study: Fatigue / Weakness
EKG- Treatment ONCE
10/09/23 15:51
GASTROINTESTINAL CONSULT Urgent
Consulting Provider: Piero Castro
Was physician already notified: Yes
Reason for consult: GI bleed
10/09/23 15:53
Insulin Human Regular [Novolin R] 10 units IV NOW STA
10/09/23 16:17
Insulin Human Regular [Novolin R] 10 units SC NOW STA
10/09/23 17:22
Admit/Transfer Patient As Directed
Co-Sign Provider:
Level of Care: Inpatient admission
Assign to:: IMU- Intermediate Care
Physician / Group: katherin
Diagnosis: acute blood loss anemia
Reason for Hospitalization: GI bleed
Expected length of stay greater than two midnights?: Yes
ELOS- Estimated Length of Stay in days: 3
I certify the patient meets the requirements for IP care: Yes
10/09/23 17:23
PRN Pain Medication Management As Directed
May give lesser potent ordered pain med per pt: Yes
preference::
Protocol:: Medication orders for pain may be administered in a
manner that supports deferring to patient preference
when the pt is:
- Requesting an ordered lesser potent pain medication.
Least to most potent pain medications are defined
as: acetaminophen < NSAID < tramadol < opioids
(morphine, oxycodone, hydromorphone).
- Requesting a lesser dose of the same medication IF
ORDERED.
- Requesting a less intrusive route of administration
if both routes are prescribed by the provider (PO <
IV).
10/09/23 17:24
Code Status As Directed
Resuscitation Status: Full Code
10/09/23 17:26
Add On- LAB Stat
Tests Added?: iron, TIBC,ferritin, B12, foalte
10/09/23 19:50
Dextrose 50%-Water [Dextrose 50% Syringe] 12.5 grams IV [id number] PRN
Glucagon [GlucaGen] 1 mg IM PRN PRN
10/09/23 19:50
Activity As Directed
Activity Level: As Tolerated
Bedside Glucose Monitoring As Directed
Frequency: AC&HS
Additional Instructions:: Change to q6h if pt on TPN, tube feeding or not eating
I&O [Intake/ Output] As Directed
Frequency: Per unit guidelines
INT (Intravenous Needle Therapy) As Directed
Comment: Place 2 IV catheters of the largest bore possible until stable
Orthostatic Vital Signs As Directed
Orthostatic VS Frequency: Now
Comment: then every four hours for twenty-four hours
Venous Foot Pumps As Directed
Location: Bilateral feet
Vital Signs As Directed
Frequency: Per unit guidelines
Weight As Directed
Frequency: Daily
Cpap [RESP] Routine
Patient to use own unit?: No
Set Pressure (cm H2O): 5
DX Deep Vein Thrombosis Video Routine
10/09/23 20:00
Carvedilol [Coreg] 3.125 mg PO BID
Fenofibrate 145 [Tricor] 145 mg PO QPM
Finasteride [Proscar] 5 mg PO QPM
Furosemide [Lasix] 20 mg PO BID
METFORMIN HCl [Glucophage] 1,000 mg PO BID@0800,1700
Methenamine Hippurate [Hiprex] 1 gram PO BID
Rosuvastatin Calcium [Crestor] 40 mg PO QPM
Tamsulosin [Flomax] 0.4 mg PO QPM
10/09/23 22:00
Diphenhydramine [Benadryl] 50 mg PO HS
insulin glargine [Basaglar KwikPen U-100 Insulin] 5 unit SC HS
10/10/23 06:00
Basic Metabolic Panel IN AM
Complete Blood Count/No Diff IN AM
Glycohemoglobin (HgbA1c) IN AM
Levothyroxine [Synthroid] 75 mcg PO DAILY@0600
Physical Therapy Consult [Pt Eval And Treat] IN AM
Activity Level: As Tolerated
10/10/23 07:30
Insulin Aspart Corrective Low [Novolog Flexpen-Low Resistance] See Protocol SC AC
10/11/23 06:00
Basic Metabolic Panel IN AM
Complete Blood Count/No Diff IN AM
10/12/23 06:00
Basic Metabolic Panel IN AM
Complete Blood Count/No Diff IN AM
10/13/23 06:00
Basic Metabolic Panel IN AM
Complete Blood Count/No Diff IN AM
10/14/23 06:00
Basic Metabolic Panel IN AM
Complete Blood Count/No Diff IN AM
Abnormal Lab Results
10/09/23 10/09/23
14:45 15:45
WBC 3.5 L 10^3/uL
(4.8-10.8)
RBC 1.76 L 10^6/uL
(4.70-6.10)
Hgb 5.2 L* g/dL
(13.0-18.0)
Hct 16.0 L* %
(39.0-52.0)
MCHC 32.5 L g/dL
(33.0-37.0)
RDW 16.4 H %
(11.5-14.5)
Plt Count 127 L 10^3/uL
(130-400)
MPV 11.8 H fL
(7.4-10.4)
Absolute Lymphs (auto) 0.7 L 10^3/uL
(1.2-3.4)
Lymphocytes % 18.6 L %
(20.5-51.1)
PT 15.8 H Sec
(11.4-14.6)
BUN 54 H mg/dl
(9-20)
Creatinine 1.4 H mg/dL
(0.7-1.3)
Glucose 362 H mg/dl
(70-99)
Iron < 20 L ug/dl
(49-181)
Ferritin 11.0 L ng/ml
(17.9-464.0)
Total Protein 5.4 L g/dl
(6.3-8.2)
Albumin 3.0 L g/dl
(3.5-5.0)
POC Glucose 386 H mg/dl
(70-99)
Antibody Screen Positive A
(Negative)
10/09/23 14:45
10/09/23 14:45
Vital Signs
Initial and Last Documented VS:
Initial Vital Signs
Temp Pulse Resp BP Pulse Ox
98.2 F 82 16 119/55 98
10/09/23 12:31 10/09/23 12:31 10/09/23 12:31 10/09/23 12:31 10/09/23 12:31
Last Documented Vital Signs
Temp Pulse Resp BP Pulse Ox
97.7 F 79 25 124/44 99
10/09/23 20:01 10/09/23 19:30 10/09/23 17:15 10/09/23 19:00 10/09/23 19:30
MDM/Problems Addressed
Differential Diagnosis Includes:
GI bleed, anemia
MDM/Problems Addressed:
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 Has had Hgb as low as 5. in past. Today here for general weakness, dizziness when he stands, SOB even at rest. Dark stools.
Out pt Hgb last week pt states was 8.6
Hx Afib, Watchman procedure 08/17, then stopped Eliquis and started Plavix and Baba ASA.
Hx CHF, HtN, HLD, PVD, GI bleed, BPH, CKD 3, NIDDM, Hypothyroid,
Dark heme +stool
abdomen benign
15:30
CBC: Hgb 5.2 PRBCs ordered
CMP: BUN/creat 54/1.4, glucose 362 (Insulin ordered)
Pt and informed:
Plan: transfuse, admit, GI bleed
GI consult in
Hospitalist notified of admission
Pt remains stable
*Critical Care Note
Total Time (30-74mins, 75-104mins- exclusive of procedures): Not Applicable
ED Attending Note
-
Portions of this chart may have been created with voice recognition software.� Occasional wrong word or��sound alike� substitutions may have occurred due to the inherent limitations of voice recognition software.
Discharge Plan
Departure
Patient Disposition: Admit
Date of Disposition: 10/09/23
Time of Disposition: 15:54
Presentation/result/management discussed w/ accepting MD/DO: Hospitalist
Condition: Fair
Discharge Problem:
Acute GI bleeding, DM2 (diabetes mellitus, type 2)
Interventions
Interventions:
*Risk Screen - Suicide Last Done: 10/09/23 12:31
*General Assessment Last Done: 10/09/23 12:31
*Neglect/Abuse Screening Last Done: 10/09/23 12:31
ED- Fall Risk Assessment Last Done: 10/09/23 12:53
*Nursing Disposition Last Done: 10/09/23 19:35
Discharge Date and Time
Discharge Date/Time: 10/09/23 19:37
[2023-10-09 15:20] LABS: % Basophils 0.3 % (0-2); % Eosinophils 1.4 % (0-6); % Immature Granulocytes 0.3 % (0-0.5); % Lymphocytes 18.6 % (20.5-51.1); % Monocytes 8.9 % (1.7-9.3); % Neutrophils 70.5 % (42.2-75.2); Absolute Eosinophils 0.1 10^3/uL (0-0.7); Absolute Lymphocytes 0.7 10^3/uL (1.2-3.4); Absolute Monocytes 0.3 10^3/uL (0.1-0.6); Absolute Neutrophils 2.5 10^3/uL (1.4-6.5); Hemoglobin 5.2 g/dL (13.0-18.0); Mean Corp Hgb Conc. 32.5 g/dL (33.0-37.0); Mean Corpuscular Hgb 29.5 pg (27.0-31.0); Mean Corpuscular Volume 90.9 fL (80.0-94.0); Mean Platelet Volume 11.8 fL (7.4-10.4); Nucleated Red Blood Cells % 0 % (-); Platelet Count 127 10^3/uL (130-400); Red Blood Cell Count 1.76 10^6/uL (4.70-6.10); Red Cell Dist. Width 16.4 % (11.5-14.5); White Blood Cell Count 3.5 10^3/uL (4.8-10.8)
[2023-10-09 15:49] LABS: Glucose - Point of Care 386 mg/dl (70-99)
[2023-10-09] MEDS: NOVOLIN R 10 UNITS SC (16:25)
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
--- NOTE | 2023-10-09 17:09 | W.PN.UPDATE ---
Update Note
Progress Note Update
I saw and examined the patient.
The Hung's note was reviewed and I agree with the note.
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 notes pallor since
3 days and 3 days of dark stools. He is being admitted for symptomatic anemia in the setting of heme+ stools; his admitting Hb is 5.2 and 1 week prior it was 8.6. Patient denies any other complaints.
In ER, He was started on PPI infusion and 2 units PRBCs were ordered. Patient has antibodies, therefore has not received blood yet.
Physical Exam
General: Well Developed, Well Nourished and No Apparent Distress
HEENT: NormoCephalic, Moist mucous membranes and Atraumatic
Respiratory: Clear
Cardiac: S1/S2 and Regular Rhythm; No Murmur or Rub
GI: Soft, Non Tender, Non Distended and Normal Bowel Sounds; No Organomegaly
Rectal: Deferred by Provider
Musculoskeletal: No Clubbing, No Cyanosis and No Edema
Skin: Rash and Other (bruise on right chest wall and top of head)
Neuro: AO x 3 and Nonfocal/grossly intact
Psych: Calm
Plan:
Admit IMU.
Check anemia labs. Start IV Iron if blood further delayed. Await PRBC availability and transfusion. Consider Hematology evaluation.
Watch for volume overload. Would resume PO Lasix, consider IV Lasix if over volume overload.
Hold ASA/Plavix. Monitor Hb. GI consulted.
Continue low dose home basal insulin and SSI. continue Metformin. Patient did receive regular insulin in ER. Monitor sugars.
Continue other meds.
--- NOTE | 2023-10-09 18:01 | EDRN ---
[facility] called to notify this RN that the patient has antibodies and need to have blood ordered and should arrive later in the evening.
[2023-10-09 18:03] LABS: Iron < 20 ug/dl (49-181)
[2023-10-09 18:09] LABS: Total Iron Binding Capacity 410 ug/dl (261-462)
--- NOTE | 2023-10-09 18:50 | EDRN ---
Patient fell asleep while sitting upright in a chair at the bedside. SPO2 alarm notified of SPO2 at 82% room air. Woke patient and asked if his would be bringing his CPAP. As he woke his SPO2 increased to 97 room air and he stated his is
unable to bring his CPAP tonight. Patient reminded that he needs to use it regularly as he states he does not use it every night.
[2023-10-09 19:14] LABS: Folate 3.8 ng/ml (2.76-20); Vitamin B12 846 pg/ml (239-931)
[2023-10-09] MEDS: PROSCAR 5 MG PO (20:46)
[2023-10-09] MEDS: GLUCOPHAGE 1000 MG PO (20:46)
[2023-10-09] MEDS: LASIX 20 MG PO (20:46)
[2023-10-09] MEDS: TRICOR 145 MG PO (20:47)
[2023-10-09] MEDS: COREG 3.125 MG PO (20:47)
[2023-10-09] MEDS: CRESTOR 40 MG PO (20:47)
[2023-10-09] MEDS: FLOMAX 0.4 MG PO (20:47)
[2023-10-09 21:32] LABS: Glucose - Point of Care 338 mg/dl (70-99)
[2023-10-09] MEDS: TYLENOL 1000 MG PO (22:05)
[2023-10-09] MEDS: BENADRYL 50 MG PO (22:05)
[2023-10-09] MEDS: LANTUS 0.05 UNITS SC (22:06)
[2023-10-09] MEDS: HIPREX 1 GRAM PO (22:06)
[2023-10-10] VITALS (33 sets, daily range): BP systolic 105–162; BP diastolic 46–115; BMI 31.5
[2023-10-10] MEDS: NITROSTAT (SUBLINGUAL) 0.4 MG SL ×3 (00:09→01:33)
[2023-10-10] MEDS: PROTONIX 100 IV ×3 (00:20→21:02)
--- NOTE | 2023-10-10 00:23 | PTCARENOTE ---
pt with episode of chest pain after using bedside commode- ekg done - troponin drawn per hand stemmer orders oxygen placed and nitro given. chest pain has resolved- vitals remain normal- 1 st unit of blood hung no s/s of reaction
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
[2023-10-10 00:56] LABS: Troponin I 0.275 ng/ml
--- NOTE | 2023-10-10 02:10 | PTCARENOTE ---
ADDITIONAL EPISODE OF CHEST PAIN 05/17 RESOLVED WITH NITRO- 1ST UNIT PRBC'S COMPLETE- SECOND UNIT TO BE HUNG SHORTLY
--- NOTE | 2023-10-10 04:27 | PTCARENOTE ---
second unit prbc's transfused- pt expresses feeling much better- repeat labs to be drawn later this am- no signs of transfusion reaction-
[2023-10-10] MEDS: SYNTHROID 75 MCG PO (06:13)
[2023-10-10 06:31] LABS: Blood Urea Nitrogen 65 mg/dl (9-20); Calcium 8.9 mg/dl (8.4-10.2); Carbon Dioxide 24 mmol/L (22-30); Chloride 107 mmol/L (98-107); Estimated Creatinine Clearance 50 ml/min; Glucose 267 mg/dl (70-99); Potassium 4.5 mmol/L (3.5-5.1); Sodium 141 mmol/L (135-145); eGFR 49.87
[2023-10-10 06:42] LABS: Hematocrit 17.2 % (39.0-52.0); Hemoglobin 5.8 g/dL (13.0-18.0); Mean Corp Hgb Conc. 33.7 g/dL (33.0-37.0); Mean Corpuscular Hgb 29.1 pg (27.0-31.0); Mean Corpuscular Volume 86.4 fL (80.0-94.0); Mean Platelet Volume 11.8 fL (7.4-10.4); Platelet Count 114 10^3/uL (130-400); Red Blood Cell Count 1.99 10^6/uL (4.70-6.10); White Blood Cell Count 3.3 10^3/uL (4.8-10.8)
[2023-10-10 06:43] LABS: Troponin I 0.593 ng/ml
[2023-10-10 07:48] LABS: Glucose - Point of Care 283 mg/dl (70-99)
[2023-10-10] MEDS: NOVOLOG FLEXPEN-LOW RESISTANCE 3 UNITS SC ×2 (08:48→17:20)
[2023-10-10] MEDS: GLUCOPHAGE 1000 MG PO (08:49)
[2023-10-10] MEDS: HIPREX 1 GRAM PO ×2 (08:49→19:57)
[2023-10-10] MEDS: COREG 3.125 MG PO ×2 (08:49→19:57)
[2023-10-10] MEDS: LASIX 20 MG PO (08:50)
--- NOTE | 2023-10-10 09:37 | W.PN.HOSP.TC ---
Today's Communication/Plan
-
Cards eval
Transfuse 2u additional unit
IV lasix in between
Assessment / Plan
Assessment / Plan
# Acute blood loss anemia likely from GI bleed/history of AVMs
-Hemoglobin 5.8 s/p 2u PRBC. Will order additional 2u of PRBC.
-Hold Plavix and aspirin
-Keep patient n.p.o.
-Blood heart rate in ER
-Trend hemoglobin
-IV Protonix
-Clear liquid diet, no red
-GI consult
-Negative enteroscopy, C-Scope with no bleeding sites, diverticulosis. 5 mm polyp removed.
-05/2023: Colonoscopy with angiodysplasia in the ascending colon / cecum which was treated with APC. EGD was essentially unremarkable.
#Elevated troponin
-Cont to trend trop
-episode of angina last night
-currently cp free
-will ask Cards input as might require procedures
#Elevated creatine/bun likely in setting of GIB
-Trend cr for now.
-monitor UOP
# Type 2 diabetes with hyperglycemia
-Blood sugar elevated in 300s
-Continue to monitor blood sugar
-Glargine 5 units continued
-Metformin hold. a1c pending
#paroxysmal Atrial Fibrillation
- Stable.
-Coreg continued with hold parameters
-s/p watchman device recently. asa/plavix held.
# History of carotid disease, PAD.
-Hold aspirin and Plavix
-
# Hyperlipidemia
-Fenofibrate continued
-Rosuvastatin continued
# BPH
-Finasteride continued
-Flomax continued
#Chronic HFpEF
-Patient not in acute exacerbation
- Continue p.o. Lasix, consider IV Lasix if fluid overload noted
- Follow I/Os, daily weights, etc.
#CKD III
- Stable
#Hypothyroidism
- Stable. Continue T4 replacement.
#ZAYRA on CPAP
- Stable. Continue nightly PAP therapy.
#DVT Prophylaxis: scd in setting of GIB
#Code Status: Full
Anticipated Discharge: > 48 hours
Subjective/Interval History
-
Date of Service: October 10, 2023
Had chest pain last night
Objective Data
-
Labs:
Laboratory Results
10/10/23
06:04
WBC 3.3 L
Hgb 5.8 L*
Hct 17.2 L*
Plt Count 114 L
Sodium 141
Potassium 4.5
Chloride 107
Carbon Dioxide 24
BUN 65 H
Creatinine 1.4 H
Glucose 267 H
Calcium 8.9
Vital Signs:
Vital Signs
Temp Pulse Resp BP Pulse Ox
97.5 F 66 18 141/54 99
10/10/23 07:30 10/10/23 06:15 10/10/23 06:15 10/10/23 06:15 10/10/23 06:15
I&O
10/09/23 10/10/23 10/11/23
06:59 06:59 06:59
Intake Total 620 / 620
Output Total 900 / 900
Balance -280 / -280
Physical Exam
-
General: Well Developed and No Apparent Distress
HEENT: Normocephalic, Atraumatic, Moist Mucous Membranes and Oxygen
Respiratory: Crackles
Cardiac: Regular Rhythm and S1/S2; Negative Murmur, Rub or Gallop
GI: Soft, Nontender, Nondistended and Normal Bowel Sounds; Negative Organomegaly
Rectal: Deferred by Provider
Musculoskeletal: No Clubbing, No Cyanosis and No Edema
Skin: Negative Rash
Neuro: Awake, AO x 3, No Motor Deficits and Nonfocal/Grossly Intact
Psych: Calm
Data Reviewed
-
Total Time Spent with Patient (in minutes): 60
--- NOTE | 2023-10-10 09:41 | CON.CAR ---
Addendum entered and electronically signed by Fidencio Alston MD 10/10/23 12:37:
I interviewed and examined the patient. I discussed the patient and plan with resident MD Dr Mckenzie. Agree with plan below. With any additions/changes per my addendum.
83 yo male with paroxysmal A fib s/p Watchman 07/19/23, on ASA/Plavix, due to recurrent GI bleed, CAD admitted with symptomatic anemia, Hgb 5.8. Also chest pain, likely Type II NE in setting of severe, life threatening anemia. Patient is currently
chest pain free. Exam with RRR, no murmurs, no edema. Hgb 5.8. Tele: SR with paroxysmal A fib.
Agree with pRBC: 4 units. Will also receive IV lasix to avoid volume overload. IV protonix. Will discuss with EP: anticipate resuming ASA only once stable, and stopped plavix prior to typical 6 months post Watchman.
Type II NE. Treat underlying cause as above. Echo tomorrow.
Original Note:
Consultation
Consultation Request
Date/Time Consultation Requested: 10/10/2023
Date/Time Consultation Performed: 10/10/2023
Reason for Consultation: Elevated troponins
Medical History
-
Chief Complaint: Chest pain
History of Present Illness:
This is an 83-year-old male with past medical history of hypertension, hyperlipidemia, PAD, prior history of AVMs in the colon, CKD stage III, aortic stenosis, A-fib status post Watchman who presented to ED for generalized weakness, shortness of
breath at rest and dark school stools. On presentation to ED, hemoglobin 5.2, hematocrit 17.2 with 2 units ordered in the ER. While admitted, overnight patient complained of nonradiating chest pain. Initial troponin 0.275, with next troponin
level 0.593. Patient was initiated on nitro with improvement in chest pain. At bedside today, patient has already received 2 units packed red blood cells. Patient reports chest pain has resolved, denies shortness of breath, denies palpitations.
Past Medical History
Past Medical History: Other (CKD stage III, PAD, hyperlipidemia, type 2 diabetes mellitus, diverticulosis, paroxysmal atrial fibrillation, chronic anemia, hypertension, cirrhosis of liver without ascites, CAD, CHF, BPH)
Past Surgical History: Other (Cholecystectomy, tonsillectomy, Watchman procedure)
Social History
Tobacco: Former Smoker
Alcohol: None
Drug: None
Family History
Family History: Reviewed & Not Pertinent
Allergies / Home Medications
Allergy/AdvReac Type Severity Reaction Status Date / Time
clonidine Allergy dry mouth, Verified 10/09/23 12:30
sleepless
dapagliflozin [From [facility]] Allergy Unknown Verified 10/09/23 12:30
�Medication �Instructions �Recorded �Confirmed �Type
fenofibrate nanocrystallized 145 145 mg PO QPM High cholesterol 07/29/21 10/09/23 History
mg tablet
magnesium oxide 400 mg PO BID Electrolyte Repletion 07/29/21 10/09/23 History
finasteride 5 mg tablet 5 mg PO QPM Urinary issue 12/02/21 10/09/23 History
diphenhydramine 25 2 tab PO HS Sleep ##0 04/05/22 10/09/23 History
mg-acetaminophen 500 mg tablet
(Tylenol PM Extra Strength)
tamsulosin 0.4 mg capsule (Flomax) 0.4 mg PO QPM Urinary Issue 10/25/22 10/09/23 History
cyanocobalamin (vitamin B-12) 1,000 mcg PO DAILY Supplement 01/16/23 10/09/23 History
1,000 mcg tablet
levothyroxine 75 mcg tablet 75 mcg PO DAILY Thyroid 01/16/23 10/09/23 History
(Synthroid)
metformin 500 mg tablet 1,000 mg PO BID diabetes 01/16/23 10/09/23 History
methenamine hippurate 1 gram 1 g PO BID Urinary Issue 01/16/23 10/09/23 History
tablet (Hiprex)
rosuvastatin 40 mg tablet (Crestor) 40 mg PO QPM High Cholesterol 05/03/23 10/09/23 History
carvedilol 3.125 mg tablet 3.125 mg PO BID Blood pressure #60 05/08/23 10/09/23 Rx
tabs
furosemide 20 mg tablet 20 mg PO BID Fluid 05/19/23 10/09/23 History
retention/Swelling
pantoprazole 40 mg tablet,delayed 40 mg PO BID Gastrointestinal 07/15/23 10/09/23 Rx
release issue #60 tabs
aspirin 81 mg chewable tablet 81 mg PO DAILY Blood Clot 10/09/23 10/09/23 History
Prevention/Tx
clopidogrel 75 mg tablet 75 mg PO DAILY Heart 10/09/23 10/09/23 History
Disease/Condition
cyanocobalamin (vitamin B-12) 1,000 mcg IM QMONTH 10/09/23 10/09/23 History
1,000 mcg/mL injection solution
insulin glargine 100 unit/mL (3 5 unit SC HS Diabetes 10/09/23 10/09/23 History
mL) subcutaneous pen (Basaglar
KwikPen U-100 Insulin)
Review of Systems
-
All other systems: Negative unless noted
Physical Exam
Vital Signs
Temp Pulse Resp BP Pulse Ox
97.5 F 66 18 141/54 99
10/10/23 07:30 10/10/23 06:15 10/10/23 06:15 10/10/23 06:15 10/10/23 06:15
Lab Results
10/10/23 06:04
10/10/23 06:04
Troponin I Cancelled 10/10/23 16:15
Physical Exam
General: No Apparent Distress
Respiratory: Crackles (Mild); Negative Rhonchi
Cardiac: S1/S2 and Regular Rhythm
Musculoskeletal: No Edema
Neuro: Awake, Alert, Oriented and AO x 3
Psych: Calm
Impression / Plan
-
Impression/plan
-Type II NE secondary to anemia
-Paroxysmal atrial fibrillation-stable
-Acute anemia
Transfuse patient with pRBCs
Nitroglycerin PRN
Continue Coreg
Continue statin plus fibrate
Hold aspirin/Plavix
Trend troponin
Wean off O2 as tolerated
--- NOTE | 2023-10-10 10:35 | PTCARENOTE ---
2 more units PRBCs ordered by DR. Márquez this am, 3rd hung at 10:30 am , pt with no s/s transfusion reaction at this time. Continuing to monitor. Maintaining bedrest at this time.
[2023-10-10 11:45] LABS: Glucose - Point of Care 318 mg/dl (70-99)
[2023-10-10] MEDS: NOVOLOG FLEXPEN-LOW RESISTANCE 4 UNITS SC (12:08)
[2023-10-10 12:52] LABS: Troponin I 0.889 ng/ml
[2023-10-10] MEDS: LASIX 20 MG IV (14:12)
--- NOTE | 2023-10-10 14:58 | CON.GI ---
Consultation
-
Date/Time Consultation Requested: 10/10/2023
Date/Time Consultation Performed: 10/10/2023
Performing Provider: Piero Castro
Reason for Consultation: melena, acute anemia
Medical History
Chief Complaint / HPI
Chief Complaint: melena, acute anemia
History of Present Illness:
Patient is a 83-year-old male history of stage III CKD, HPL, paroxysmal A-fib, HTN, CAD, DM who presents for weakness and dyspnea and found to have acute anemia. Hgb on admission was 5.2. His baseline Hgb seems to be around 8-9. Patient also
reported melena for past 3 days or so. Patient had multiple prior admissions with similar complaint. I had performed small bowel enteroscopy on 04/2023 which showed active bleeding AVM and this was cauterized. He returned to hospital after about 2
weeks with again acute anemia and melena. EGD/colonoscopy on 05/2023 showed small nonbleeding AVMs in his colon which were cauterized. He was discharged home and returned to the hospital with same complaint on 07/2023. Had repeat EGD colonoscopy on
07/2023 which did not identify any bleeding lesions. Denies NSAID use.
Past Medical History
Past Medical History: Arrhythmias, CAD, CHF, HTN and Other
Past Surgical History: Other
Social History
Tobacco: Former Smoker
Alcohol: None
Drug: None
Allergies / Home Medications
Allergy/AdvReac Type Severity Reaction Status Date / Time
clonidine Allergy dry mouth, Verified 10/09/23 12:30
sleepless
dapagliflozin [From [facility]] Allergy Unknown Verified 10/09/23 12:30
�Medication �Instructions �Recorded
fenofibrate nanocrystallized 145 145 mg PO QPM High cholesterol 07/29/21
mg tablet
magnesium oxide 400 mg PO BID Electrolyte Repletion 07/29/21
finasteride 5 mg tablet 5 mg PO QPM Urinary issue 12/02/21
diphenhydramine 25 2 tab PO HS Sleep ##0 04/05/22
mg-acetaminophen 500 mg tablet
(Tylenol PM Extra Strength)
tamsulosin 0.4 mg capsule (Flomax) 0.4 mg PO QPM Urinary Issue 10/25/22
cyanocobalamin (vitamin B-12) 1,000 mcg PO DAILY Supplement 01/16/23
1,000 mcg tablet
levothyroxine 75 mcg tablet 75 mcg PO DAILY Thyroid 01/16/23
(Synthroid)
metformin 500 mg tablet 1,000 mg PO BID diabetes 01/16/23
methenamine hippurate 1 gram 1 g PO BID Urinary Issue 01/16/23
tablet (Hiprex)
rosuvastatin 40 mg tablet (Crestor) 40 mg PO QPM High Cholesterol 05/03/23
carvedilol 3.125 mg tablet 3.125 mg PO BID Blood pressure #60 05/08/23
tabs
furosemide 20 mg tablet 20 mg PO BID Fluid 05/19/23
retention/Swelling
pantoprazole 40 mg tablet,delayed 40 mg PO BID Gastrointestinal 07/15/23
release issue #60 tabs
aspirin 81 mg chewable tablet 81 mg PO DAILY Blood Clot 10/09/23
Prevention/Tx
clopidogrel 75 mg tablet 75 mg PO DAILY Heart 10/09/23
Disease/Condition
cyanocobalamin (vitamin B-12) 1,000 mcg IM QMONTH Supplement 10/09/23
1,000 mcg/mL injection solution
insulin glargine 100 unit/mL (3 5 unit SC HS Diabetes 10/09/23
mL) subcutaneous pen (Basaglar
KwikPen U-100 Insulin)
Review of Systems
Vital Signs
Temp Pulse Resp BP Pulse Ox
97.8 F 64 22 150/60 98
10/10/23 14:52 10/10/23 14:52 10/10/23 14:52 10/10/23 14:52 10/10/23 14:52
Physical Exam
Exam
General: Well Developed and Well Nourished
HEENT: Normocephalic
Respiratory: Clear
Cardiac: S1/S2
GI: Soft, Non Tender, Non Distended and Normal Bowel Sounds
Results
WBC 3.3 10^3/uL (4.8-10.8) L 10/10/23 06:04
Hgb 5.8 g/dL (13.0-18.0) L* 10/10/23 06:04
Hct 17.2 % (39.0-52.0) L* 10/10/23 06:04
MCV 86.4 fL (80.0-94.0) 10/10/23 06:04
Plt Count 114 10^3/uL (130-400) L 10/10/23 06:04
Absolute Neuts (auto) 2.5 10^3/uL (1.4-6.5) 10/09/23 14:45
PT 15.8 Sec (11.4-14.6) H 10/09/23 14:45
INR 1.28 10/09/23 14:45
APTT 29.9 Sec (23.4-35.0) 10/09/23 14:45
Sodium 141 mmol/L (135-145) 10/10/23 06:04
Potassium 4.5 mmol/L (3.5-5.1) 10/10/23 06:04
Chloride 107 mmol/L (98-107) 10/10/23 06:04
Carbon Dioxide 24 mmol/L (22-30) 10/10/23 06:04
BUN 65 mg/dl (9-20) H 10/10/23 06:04
Creatinine 1.4 mg/dL (0.7-1.3) H 10/10/23 06:04
Calcium 8.9 mg/dl (8.4-10.2) 10/10/23 06:04
Total Bilirubin 0.3 mg/dl (0.2-1.3) 10/09/23 14:45
AST 37 U/L (17-59) 10/09/23 14:45
ALT 24 U/L (0-50) 10/09/23 14:45
Alkaline Phosphatase 69 U/L (38-126) 10/09/23 14:45
Diagnostic Image Results:
Prior GI Procedures:
EGD:
07/2023
Impression: - Normal esophagus.
- Gastritis.
- Normal examined duodenum.
- Normal examined jejunum.
- No specimens collected.
05/2023
Impression: - Normal esophagus.
- Erythematous mucosa in the antrum.
- Bile reflux.
- Normal examined duodenum.
- No specimens collected.
Small Bowel Enteroscopy 04/2023
Impression: - Normal esophagus.
- Erosive gastropathy with stigmata of recent bleeding.
- Normal duodenal bulb, first portion of the duodenum
and second portion of the duodenum.
- Jejunal blood.
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
Treated with argon plasma coagulation (APC). Tattooed.
- No specimens collected.
Colonoscopy:
07/2023
Impression: - Diverticulosis in the left colon and in the right
colon.
- One 5 mm polyp in the ascending colon, removed with
a cold snare. Resected and retrieved.
- No bleeding sites seen.
05/2023
Impression: - Preparation of the colon was fair.
- The examined portion of the ileum was normal.
- One small polyp in the ascending and descending
colon.
- Multiple non-bleeding colonic angiodysplastic
lesions in cecum and ascending colon. Treated with
argon plasma coagulation (APC).
- Diverticulosis in the sigmoid colon and in the
descending colon.
- Non-bleeding external and internal hemorrhoids.
- No specimens collected.
Assessment / Plan
-
83-year-old male history of stage III CKD, HPL, paroxysmal A-fib, HTN, CAD, DM who p/w acute anemia and melena.
Impression / Rec:
1. Acute anemia and melena - patient is likely having recurrent GI bleeding from AVM. He had multiple admissions with same and had multiple EGD/colonoscopies. The only procedure which identified actively bleeding lesion was small bowel
enteroscopy on 04/2023, and I believe small bowel AVM is the most likely source. He is currently on DAPT and prior Eliquis has been discontinued. He will need 5-day washout for Plavix before endoscopic evaluation/treatment. Can have CLD.
Transfuse as needed, monitor Hgb. Plan for SBE in 5 days.
Total Time Spent with Patient (in minutes): 55
-
-
Thank you for consultation and allowing me to participate in the patient's care. Please call the typewriters functional tester GI physician during the after hours with any questions or concerns.
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
[2023-10-10 17:07] LABS: Glucose - Point of Care 294 mg/dl (70-99)
[2023-10-10] MEDS: TRICOR 145 MG PO (17:19)
[2023-10-10] MEDS: CRESTOR 40 MG PO (17:19)
[2023-10-10] MEDS: FLOMAX 0.4 MG PO (17:19)
[2023-10-10] MEDS: PROSCAR 5 MG PO (17:19)
--- NOTE | 2023-10-10 17:59 | PTCARENOTE ---
4th unit PRBCs infused, no s/s transfusion reaction. Will draw followup labs.
[2023-10-10 18:56] LABS: Hematocrit 22.7 % (39.0-52.0)
[2023-10-10 19:16] LABS: Troponin I 0.787 ng/ml
[2023-10-10] MEDS: DESENEX/MITRAZOL/ZEASORB 1 APPLIC TOPICAL (19:59)
--- NOTE | 2023-10-10 20:20 | PTCARENOTE ---
pt oob to chair in light of hgb and trop improvement- - sinus bp wnl afebrile- he did not get dizzy from transfer to chair so we then ambulated to bathroom where he had a dark pasty bm- ambulated back to his chair with no symptoms
[2023-10-10] MEDS: LANTUS 0.05 UNITS SC (21:02)
[2023-10-10 21:40] LABS: Glucose - Point of Care 289 mg/dl (70-99)
[2023-10-10] MEDS: BENADRYL 50 MG PO (22:17)
[2023-10-10] MEDS: TYLENOL 1000 MG PO (22:17)
[2023-10-11] VITALS (19 sets, daily range): BP systolic 98–173; BP diastolic 47–93; PULSE 64; O2SAT 98; BMI 31.5
[2023-10-11 05:20] LABS: Hematocrit 21.8 % (39.0-52.0); Hemoglobin 7.5 g/dL (13.0-18.0); Mean Corp Hgb Conc. 34.4 g/dL (33.0-37.0); Mean Corpuscular Hgb 29.4 pg (27.0-31.0); Mean Corpuscular Volume 85.5 fL (80.0-94.0); Mean Platelet Volume 11.4 fL (7.4-10.4); Platelet Count 117 10^3/uL (130-400); Red Blood Cell Count 2.55 10^6/uL (4.70-6.10); Red Cell Dist. Width 16.2 % (11.5-14.5); White Blood Cell Count 3.4 10^3/uL (4.8-10.8)
[2023-10-11 05:39] LABS: Blood Urea Nitrogen 51 mg/dl (9-20); Carbon Dioxide 28 mmol/L (22-30); Chloride 105 mmol/L (98-107); Estimated Creatinine Clearance 54 ml/min; Glucose 219 mg/dl (70-99); Potassium 3.8 mmol/L (3.5-5.1); Sodium 140 mmol/L (135-145); eGFR 54.51
[2023-10-11] MEDS: SYNTHROID 75 MCG PO (06:42)
[2023-10-11] MEDS: PROTONIX 100 IV (06:43)
[2023-10-11] MEDS: NOVOLOG FLEXPEN-LOW RESISTANCE 2 UNITS SC (08:05)
[2023-10-11 08:13] LABS: Glucose - Point of Care 212 mg/dl (70-99)
--- NOTE | 2023-10-11 08:38 | W.PN.CD ---
Today's Communication / Plan
-
discussed with EP: we will not resume Plavix
discussed with GI team: we will resume ASA 81mg daily
echo today: I will review once complete
stable from cardiac perspective: he has follow up with me 11/06
please call us back with additional questions
Impression / Plan
-
Impression/plan
# Acute blood loss anemia
-discussed with EP: patient is s/p Watchman 07/19/23, and still on DAPT
-we will not resume Plavix
-discussed with GI team: we will resume ASA 81mg daily
-he is stable from cardiac perspective for endoscopy
# Type II AK
-secondary to severe, life threatening anemia: Hgb 5.8
-CP resolved s/p pRBC
-ASA, coreg
-check echo
# Paroxysmal atrial fibrillation
-stable in sinus: cont coreg
-s/p Watchman: plan as above for ASA 81mg only going forward
# Chronic HFPEF
-echo 01/2023: EF 55-60%, mild
-appears euvolemic: continue PO lasix
# Coronary artery disease
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
-ASA, coreg, statin
# DM
# Hypertension
# PAD
# History of carotid endarterectomy
# Mild
Physical Exam
Vital Signs/Labs
Vital Signs
Temp Pulse Resp BP Pulse Ox
97.6 F 56 23 119/47 95
10/11/23 03:30 10/11/23 06:00 10/11/23 06:00 10/11/23 06:00 10/11/23 06:00
10/10/23 10/11/23 10/12/23
06:59 06:59 06:59
Actual Weight 105.4 kg 105.4 kg
10/11/23 03:49
10/11/23 03:49
PT 15.8 Sec (11.4-14.6) H 10/09/23 14:45
INR 1.28 10/09/23 14:45
APTT 29.9 Sec (23.4-35.0) 10/09/23 14:45
LAB Results
10/10/23 10/10/23 10/10/23
00:16 06:04 08:15
Troponin I 0.275 H* 0.593 H* D Cancelled
10/10/23 10/10/23 10/10/23
12:14 16:15 18:15
Troponin I 0.889 H* D Cancelled 0.787 H*
Physical Exam
Constitutional: No acute distress and Comfortable
EENT: Moist mucous membranes
Cardiovascular: Rhythm & rate is regular, Pedal edema is absent, JVD pressure is normal and Systolic murmur present
Respiratory: Respiratory effort normal and Lungs clear to auscul.
GI: Soft and Distention absent
Neuro/Psych: AO x 3
Data Reviewed
-
Date of Service: October 11, 2023
EKG: Other (Tele: SR 60s)
Labs: Labs Reviewed by me
--- NOTE | 2023-10-11 09:14 | W.PN.GI.CBS2 ---
Today's Communication / Plan
-
Plan:
- Okay to advance diet as tolerated, may trial low-residue diet
- Trend Hgb with serial CBC, transfuse for goal Hgb > 8.0 given cardiac history and recent Type II OH
- Plavix on hold (last dose 10/08- )
- Okay to continue ASA 81 mg from GI perspective
- Stop IV PPI gtt, may transition to IV PPI 40 mg BiD
- Cardiology following, appreciate recs regarding further optimization and risk stratification prior to endoscopy
- Plan for push-enteroscopy end of this week given plavix (4-5 day washout). If SBE is unrevealing, suspect he will require another repeat VCE
- Will attempt to obtain prior endoscopy records at OSH ([facility] [place])
- Has follow-up with GI at [place] later this month in October
- Rest of care per primary team
Discussed with his Fishing Vessel Operator this morning for further continuity of care.
GI Team will continue to follow while inpatient. Please call with any questions or concerns regarding this patient.
Assessment / Plan
-
Mr. Davila is a 83-year-old male with a past medical history of stage III CKD, HLD, paroxysmal A-fib, HTN, CAD, DM, and SB AVMs who presented with acute anemia and melena.
#Melena
#Acute Blood Loss Anemia
#Hx of SB AVMs
#Acute on Chronic Anemia
#Hx of Paroxysmal A Fib (s/p Watchman, 07/2023, prev on DAPT)
#Type II OH #Hx HFpEF
Impression: Patient presenting with melena and acute blood loss anemia suspicious for recurrent GI bleeding from previously known AVMs. Has had multiple prior endoscopic evaluations in the past here and at OSH (reportedly at [facility] in [id number])
with previously negative VCE. Last colonoscopy in 2023 as well and unrevealing. Prior SB enteroscopy on 04/2023 and anemia felt to be related to SB AVMs. Previously on DAPT now with plavix on hold (last dose on 10/09/2023). No longer on eliquis. S/p 4
uPRBCs since admission and stable Hgb with resolving melena.
Recommendations:
- Okay to advance diet as tolerated, may trial low-residue diet
- Trend Hgb with serial CBC, transfuse for goal Hgb > 8.0 given cardiac history and recent Type II OH
- Plavix on hold (last dose 10/08- )
- Okay to continue ASA 81 mg from GI perspective
- Stop IV PPI gtt, may transition to IV PPI 40 mg BiD
- Cardiology following, appreciate recs regarding further optimization and risk stratification prior to endoscopy
- Plan for push-enteroscopy end of this week given plavix (4-5 day washout). If SBE is unrevealing, suspect he will require another repeat VCE
- Will attempt to obtain prior endoscopy records at [facility] ([facility])
- Has follow-up with GI at [place] later this month in October
- Rest of care per primary team
Discussed with his Fishing Vessel Operator this morning for further continuity of care.
GI Team will continue to follow while inpatient. Please call with any questions or concerns regarding this patient.
Moy Rueda, DO
Dept of Gastroenterology
Total Time Spent with Patient (in minutes): 25
Subjective
Subjective
Date of Service: October 11, 2023
24-Hr Events: No acute events overnight. Remains HD- stable. S/p 4 uPRBCs since admission, Hgb now stable 7.5 this AM
Feeling well without significant complaints. Tolerating CLD without difficulty. Had two darker brown/black stools over past 24 hours, more formed. Denies any abdominal pain or nausea/vomiting.
Objective
Data Reviewed
Laboratory Data:
Laboratory Results
10/11/23 03:49
10/11/23 03:49
Laboratory Results
PT 15.8 Sec (11.4-14.6) H 10/09/23 14:45
INR 1.28 10/09/23 14:45
APTT 29.9 Sec (23.4-35.0) 10/09/23 14:45
Total Bilirubin 0.3 mg/dl (0.2-1.3) 10/09/23 14:45
AST 37 U/L (17-59) 10/09/23 14:45
ALT 24 U/L (0-50) 10/09/23 14:45
Alkaline Phosphatase 69 U/L (38-126) 10/09/23 14:45
Vital Signs and I&O:
Vital Signs
Temp Pulse Resp BP Pulse Ox
97.6 F 56 23 119/47 95
10/11/23 03:30 10/11/23 06:00 10/11/23 06:00 10/11/23 06:00 10/11/23 06:00
I&O
10/10/23 10/11/23 10/12/23
06:59 06:59 06:59
Intake Total 620 / 620 3860 / 3860
Output Total 900 / 900 1200 / 1200
Balance -280 / -280 2660 / 2660
Physical Exam
Physical Exam
HEENT: Anicteric
Cardiology: Normal Sinus Rhythm
Pulmonary: Clear
GI: Soft and Non Distended
Extremities: No Edema
Neuro: Non Focal
[2023-10-11] MEDS: DESENEX/MITRAZOL/ZEASORB 1 APPLIC TOPICAL ×2 (09:21→20:27)
[2023-10-11] MEDS: COREG 3.125 MG PO ×2 (09:22→20:29)
[2023-10-11] MEDS: LOW STRENGTH ASPIRIN 81 MG PO (09:22)
[2023-10-11] MEDS: HIPREX 1 GRAM PO ×2 (09:22→20:29)
[2023-10-11] MEDS: LASIX 20 MG PO ×2 (09:22→20:29)
--- NOTE | 2023-10-11 09:55 | W.PN.HOSP.TC ---
Addendum entered and electronically signed by Jason Reid MD 10/11/23 12:35:
Hyperglycemic
Hemoglobin A1c 7.7.
Will increase Lantus to 10 units at bedtime while holding metformin.
Original Note:
Today's Communication/Plan
-
Transfuse to keep Hg 8-9
Ok to restart ASA.
Plavix stopped
Plan is for SBE after 5 days Plavix washout
ECHO
Monitor volume status with transfusion.
Follow accuchecks
ISS
Hold metformin
Assessment / Plan
Assessment / Plan
# Acute blood loss anemia likely from GI bleed/history of AVMs
-Hemoglobin 5.8 s/p 2u PRBC. Will order additional 2u of PRBC.
-DAPT held on admission
-Keep patient n.p.o.
-Blood heart rate in ER
-Trend hemoglobin
-IV Protonix
-Plan for SB enteroscopy after 5 days of Plavix washout
-GI consult
-Negative enteroscopy, C-Scope with no bleeding sites, diverticulosis. 5 mm polyp removed.
-05/2023: Colonoscopy with angiodysplasia in the ascending colon / cecum which was treated with APC. EGD was essentially unremarkable.
#Demand ischemia Type II CO secondary to severe anemia
Elevated troponin
-Trop peaked at 0.8
-currently cp free
-Transfuse to keep Hg 8-9
-ECHO
-Restarting ASA
#Chronic HFpEF
-Update ECHO is pending
Monitor volume status with transfusion
#KRZYSZTOF secondary to severe anemia
CKD II-III
Elevated creatine/bun likely in setting of GIB
-Trend cr for now.
-monitor UOP
# Type 2 diabetes with hyperglycemia
-Blood sugar elevated in 300s
-Continue to monitor blood sugar
-Glargine 5 units continued
-Metformin hold. a1c pending
#paroxysmal Atrial Fibrillation
- Stable.
-Coreg continued with hold parameters
-s/p watchman device recently. asa/plavix held.
# History of carotid disease, PAD.
-Hold aspirin and Plavix
-
# Hyperlipidemia
-Fenofibrate continued
-Rosuvastatin continued
# BPH
-Finasteride continued
-Flomax continued
cerbation
- Continue p.o. Lasix, consider IV Lasix if fluid overload noted
- Follow I/Os, daily weights, etc.
#Hypothyroidism
- Stable. Continue T4 replacement.
#ZAYRA on CPAP
- Stable. Continue nightly PAP therapy.
#DVT Prophylaxis: scd in setting of GIB
#Code Status: Full
Anticipated Discharge: 24 - 48 hours
Subjective/Interval History
-
Date of Service: October 11, 2023
Objective Data
-
Labs:
Laboratory Results
10/11/23
03:49
WBC 3.4 L
Hgb 7.5 L
Hct 21.8 L
Plt Count 117 L
Sodium 140
Potassium 3.8
Chloride 105
Carbon Dioxide 28
BUN 51 H
Creatinine 1.3
Glucose 219 H
Calcium 9.0
Vital Signs:
Vital Signs
Temp Pulse Resp BP Pulse Ox
97.8 F 60 23 117/74 95
10/11/23 07:15 10/11/23 09:22 10/11/23 06:00 10/11/23 09:22 10/11/23 06:00
I&O
10/10/23 10/11/23 10/12/23
06:59 06:59 06:59
Intake Total 620 / 620 3860 / 3860
Output Total 900 / 900 1200 / 1200 350 / 350
Balance -280 / -280 2660 / 2660 -350 / -350
Physical Exam
-
General: Well Developed and No Apparent Distress
HEENT: Normocephalic, Atraumatic and Moist Mucous Membranes
Respiratory: Clear to Auscultation
Cardiac: Regular Rhythm and S1/S2; Negative Murmur, Rub or Gallop
GI: Soft, Nontender, Nondistended and Normal Bowel Sounds; Negative Organomegaly
Rectal: Deferred by Provider
Musculoskeletal: No Clubbing, No Cyanosis and No Edema
Skin: Negative Rash
Neuro: Nonfocal/Grossly Intact
[2023-10-11 11:40] LABS: Glycohemoglobin (HgbA1c) 7.7 % (4.0-5.6)
--- NOTE | 2023-10-11 12:03 | CM ---
CM met with patient in room. CM confirmed demographics. Patient lives independently at [facility] [place] with . Patient had a history of VN with IV ABTS ' about a year ago'. VN not currently on service. Patient confirmed no history of SNF or DME.
Patient is active with his PCP Dr. Lord. Patient uses [facility] at [facility] [place] for medication services.
CM reviewed PT notes. PT recommending outpatient PT>
PLAN: Home no needs.
[2023-10-11 12:24] LABS: Glucose - Point of Care 288 mg/dl (70-99)
[2023-10-11] MEDS: NOVOLOG FLEXPEN-LOW RESISTANCE 3 UNITS SC (12:24)
[2023-10-11 17:03] LABS: Glucose - Point of Care 339 mg/dl (70-99)
[2023-10-11] MEDS: CRESTOR 40 MG PO (17:07)
[2023-10-11] MEDS: TRICOR 145 MG PO (17:07)
[2023-10-11] MEDS: PROSCAR 5 MG PO (17:07)
[2023-10-11] MEDS: FLOMAX 0.4 MG PO (17:07)
[2023-10-11] MEDS: NOVOLOG FLEXPEN-LOW RESISTANCE 4 UNITS SC (17:08)
--- NOTE | 2023-10-11 17:20 | PTCARENOTE ---
Blood rec'd from [facility], transfusion started at 17:15, see TAR for details.
--- NOTE | 2023-10-11 18:30 | PTCARENOTE ---
Clarified with Dr. Reid via TT he only wants 1 unit PRBC administered.
[2023-10-11] MEDS: PROTONIX IV 40 MG IV (20:26)
[2023-10-11] MEDS: NSS (PRESERVATIVE FREE) 10 ML IV (20:26)
--- NOTE | 2023-10-11 20:43 | PTCARENOTE ---
Blood finished at 2019. VSS. Tele showing NSR. Pt without any complaints.
Swallowed meds w/o issues. BM in BR; unable to visualize. Brushed teeth.
Appreciative of care. Call pérez and tray table left within reach.
[2023-10-11] MEDS: TYLENOL 1000 MG PO (22:22)
[2023-10-11] MEDS: BENADRYL 50 MG PO (22:22)
[2023-10-11] MEDS: LANTUS 0.1 UNITS SC (22:22)
[2023-10-11 22:35] LABS: Glucose - Point of Care 322 mg/dl (70-99)
[2023-10-12] VITALS (14 sets, daily range): BP systolic 113–167; BP diastolic 44–101; PULSE 67; O2SAT 99; BMI 30.3
[2023-10-12] MEDS: SYNTHROID 75 MCG PO (05:04)
[2023-10-12 05:14] LABS: % Basophils 0.3 % (0-2); % Eosinophils 2.5 % (0-6); % Immature Granulocytes 0.3 % (0-0.5); % Lymphocytes 18.6 % (20.5-51.1); % Monocytes 11.6 % (1.7-9.3); % Neutrophils 66.7 % (42.2-75.2); Absolute Eosinophils 0.1 10^3/uL (0-0.7); Absolute Lymphocytes 0.6 10^3/uL (1.2-3.4); Absolute Monocytes 0.4 10^3/uL (0.1-0.6); Absolute Neutrophils 2.1 10^3/uL (1.4-6.5); Hematocrit 24.2 % (39.0-52.0); Hemoglobin 8.4 g/dL (13.0-18.0); Mean Corp Hgb Conc. 34.7 g/dL (33.0-37.0); Mean Corpuscular Hgb 29.7 pg (27.0-31.0); Mean Corpuscular Volume 85.5 fL (80.0-94.0); Mean Platelet Volume 10.9 fL (7.4-10.4); Nucleated Red Blood Cells % 0 % (-); Platelet Count 112 10^3/uL (130-400); Red Blood Cell Count 2.83 10^6/uL (4.70-6.10); Red Cell Dist. Width 15.9 % (11.5-14.5); White Blood Cell Count 3.2 10^3/uL (4.8-10.8)
[2023-10-12 05:33] LABS: Blood Urea Nitrogen 35 mg/dl (9-20); Calcium 8.7 mg/dl (8.4-10.2); Carbon Dioxide 27 mmol/L (22-30); Chloride 106 mmol/L (98-107); Estimated Creatinine Clearance 53 ml/min; Glucose 212 mg/dl (70-99); Potassium 3.6 mmol/L (3.5-5.1); Sodium 140 mmol/L (135-145); eGFR 54.51
[2023-10-12 08:11] LABS: Glucose - Point of Care 279 mg/dl (70-99)
[2023-10-12] MEDS: NOVOLOG FLEXPEN-LOW RESISTANCE 3 UNITS SC (08:35)
[2023-10-12] MEDS: DESENEX/MITRAZOL/ZEASORB 1 APPLIC TOPICAL ×2 (08:36→21:20)
[2023-10-12] MEDS: NSS (PRESERVATIVE FREE) 10 ML IV ×2 (08:36→21:19)
[2023-10-12] MEDS: PROTONIX IV 40 MG IV ×2 (08:36→21:19)
[2023-10-12] MEDS: COREG 3.125 MG PO ×2 (08:36→21:16)
[2023-10-12] MEDS: LOW STRENGTH ASPIRIN 81 MG PO (08:36)
[2023-10-12] MEDS: HIPREX 1 GRAM PO ×2 (08:36→21:19)
[2023-10-12] MEDS: LASIX 20 MG PO ×2 (08:37→21:18)
[2023-10-12 12:47] LABS: Glucose - Point of Care 348 mg/dl (70-99)
--- NOTE | 2023-10-12 12:52 | W.PN.GI.CBS2 ---
Today's Communication / Plan
-
Plan for Push-enteroscopy on 10/14/2023, to allow for 5-day wash out. Patient agreeable to procedure. See note as outlined below for complete recommendations.
Assessment / Plan
-
Mr. Davila is a 83-year-old male with a past medical history of stage III CKD, HLD, paroxysmal A-fib, HTN, CAD, DM, and SB AVMs who presented with acute anemia and melena.
#Melena
#Acute Blood Loss Anemia
#Hx of SB AVMs
#Acute on Chronic Anemia
#Hx of Paroxysmal A Fib (s/p Watchman, 07/2023, prev on DAPT)
#Type II RI #Hx HFpEF
Impression: Patient presenting with melena and acute blood loss anemia suspicious for recurrent GI bleeding from previously known AVMs. Has had multiple prior endoscopic evaluations in the past here and at OSH (reportedly at [facility] [place] in [id number])
with previously negative VCE. Last colonoscopy in 2023 as well and unrevealing. Prior SB enteroscopy on 04/2023 and anemia felt to be related to SB AVMs. Previously on DAPT now with plavix on hold (last dose on 10/09/2023). No longer on eliquis. S/p
total of 5 uPRBCs since admission and stable Hgb with resolving melena.
Recommendations:
- Okay for regular diet as tolerated
- Trend Hgb with serial CBC, transfuse for goal Hgb > 8.0 given cardiac history and recent Type II RI
- Plavix on hold (last dose 10/08- )
- Okay to continue ASA 81 mg from GI perspective
- IV PPI 40 mg BiD
- Cardiology following, appreciate recs regarding further optimization and risk stratification prior to endoscopy
- Plan for push-enteroscopy end of this week given plavix for full 5-day washout to allow for potential cauterization / therapeutic intervention if culprit lesion(s) (ie AVMs, etc) were to be found.
- Would still benefit from an expedited VCE as an outpatient, will attempt to arrange close follow-up prior to his appointment at [facility] later this month
- Will attempt to obtain prior endoscopy records at OS ([facility] [place])- patient still unable to retrieve records
- Rest of care per primary team
GI Team will continue to follow while inpatient. Please call with any questions or concerns regarding this patient.
Subjective
Subjective
Date of Service: October 12, 2023
S/p 1 uPRBC for Hgb 7.5 -> 8.4. Total of 5 uPRBCs since this admission.
Feeling well, having more formed brown stools without further melena or passage of blood clots. No abdominal pain and tolerating diet without difficulty.
Objective
Data Reviewed
Laboratory Data:
Laboratory Results
10/12/23 05:02
10/12/23 05:02
Laboratory Results
PT 15.8 Sec (11.4-14.6) H 10/09/23 14:45
INR 1.28 10/09/23 14:45
APTT 29.9 Sec (23.4-35.0) 10/09/23 14:45
Total Bilirubin 0.3 mg/dl (0.2-1.3) 10/09/23 14:45
AST 37 U/L (17-59) 10/09/23 14:45
ALT 24 U/L (0-50) 10/09/23 14:45
Alkaline Phosphatase 69 U/L (38-126) 10/09/23 14:45
Vital Signs and I&O:
Vital Signs
Temp Pulse Resp BP Pulse Ox
98.1 F 68 18 113/90 98
10/12/23 07:37 10/12/23 08:00 10/12/23 08:00 10/12/23 08:00 10/12/23 09:19
I&O
10/11/23 10/12/23 10/13/23
06:59 06:59 06:59
Intake Total 3860 / 3860 970 / 970 420 / 420
Output Total 1200 / 1200 1974 / 1974
Balance 2660 / 2660 -1005 / -1005 420 / 420
Physical Exam
Physical Exam
HEENT: Anicteric and Moist mucous membranes
Cardiology: Normal Sinus Rhythm
Pulmonary: Clear
GI: Soft, Non Distended and Non Tender
Extremities: No Edema
Neuro: Non Focal and Other (AAOX3; grossly non-focal)
[2023-10-12] MEDS: NOVOLOG FLEXPEN-LOW RESISTANCE 4 UNITS SC ×2 (12:54→17:41)
--- NOTE | 2023-10-12 15:28 | PTCARENOTE ---
Pt presents as assessed. Aox3, pleasant. SR with BBC and prolonged QT, PAC's on tele monitor. BM this morning, pt reports it is lightening in color significantly. OOB to chair throughout the day. Care as documented. Able to make needs known, call
pérez within reach.
--- NOTE | 2023-10-12 15:37 | PTCARENOTE ---
Pt noted to be hypertensive with SBP in the 150-160's. Dr. Reid notified via TT- no further orders received at this time.
--- NOTE | 2023-10-12 16:48 | W.PN.HOSP.TC ---
Today's Communication/Plan
-
Continue holding antiplatelet treatment in preparation for enteroscopy on 10/13
Hemoglobin stable
Assessment / Plan
Assessment / Plan
# Acute blood loss anemia likely from GI bleed/history of AVMs
-GI consult appreciated
-Negative enteroscopy, C-Scope with no bleeding sites, diverticulosis. 5 mm polyp removed.
-05/2023: Colonoscopy with angiodysplasia in the ascending colon / cecum which was treated with APC. EGD was essentially unremarkable.
-Hemoglobin 5.8 s/p 2u PRBC. Will order additional 2u of PRBC.
-DAPT held on admission
-Keep patient n.p.o.
-Blood heart rate in ER
-Trend hemoglobin
-IV Protonix
-Plan for SB enteroscopy after 5 days of Plavix washout tentatively on Friday 10/13
#Demand ischemia Type II ND secondary to severe anemia
Elevated troponin
-Trop peaked at 0.8
-currently cp free
-Transfuse to keep Hg 8-9
-ECHO
-Restarting ASA
#Chronic HFpEF
-Update ECHO is pending
Monitor volume status with transfusion
#KRZYSZTOF secondary to severe anemia
CKD II-III
Elevated creatine/bun likely in setting of GIB
-Trend cr for now.
-monitor UOP
# Type 2 diabetes with hyperglycemia
-Blood sugar elevated in 300s
-Continue to monitor blood sugar
-Glargine 5 units continued
-Metformin hold. a1c pending
#paroxysmal Atrial Fibrillation
- Stable.
-Coreg continued with hold parameters
-s/p watchman device recently. asa/plavix held.
# History of carotid disease, PAD.
-Hold aspirin and Plavix
-
# Hyperlipidemia
-Fenofibrate continued
-Rosuvastatin continued
# BPH
-Finasteride continued
-Flomax continued
cerbation
- Continue p.o. Lasix, consider IV Lasix if fluid overload noted
- Follow I/Os, daily weights, etc.
#Hypothyroidism
- Stable. Continue T4 replacement.
#ZAYRA on CPAP
- Stable. Continue nightly PAP therapy.
#DVT Prophylaxis: scd in setting of GIB
#Code Status: Full
Anticipated Discharge: > 48 hours
Subjective/Interval History
-
Date of Service: October 12, 2023
Objective Data
-
Labs:
Laboratory Results
10/12/23
05:02
WBC 3.2 L
Hgb 8.4 L
Hct 24.2 L
Plt Count 112 L
Sodium 140
Potassium 3.6
Chloride 106
Carbon Dioxide 27
BUN 35 H
Creatinine 1.3
Glucose 212 H
Calcium 8.7
Vital Signs:
Vital Signs
Temp Pulse Resp BP Pulse Ox
98.3 F 60 22 164/57 98
10/12/23 16:44 10/12/23 14:00 10/12/23 14:00 10/12/23 14:00 10/12/23 09:19
I&O
10/11/23 10/12/23 10/13/23
06:59 06:59 06:59
Intake Total 3860 / 3860 970 / 970 660 / 660
Output Total 1200 / 1200 1974 / 1974 325 / 325
Balance 2660 / 2660 -1005 / -1005 335 / 335
Physical Exam
-
General: Well Developed and No Apparent Distress
HEENT: Normocephalic, Atraumatic and Moist Mucous Membranes
Respiratory: Clear to Auscultation
Cardiac: Regular Rhythm and S1/S2; Negative Murmur, Rub or Gallop
GI: Soft, Nontender, Nondistended and Normal Bowel Sounds; Negative Organomegaly
Rectal: Deferred by Provider
Musculoskeletal: No Clubbing, No Cyanosis and No Edema
Skin: Negative Rash
Neuro: Nonfocal/Grossly Intact
[2023-10-12 17:27] LABS: Glucose - Point of Care 301 mg/dl (70-99)
[2023-10-12] MEDS: CRESTOR 40 MG PO (17:42)
[2023-10-12] MEDS: TRICOR 145 MG PO (17:42)
[2023-10-12] MEDS: PROSCAR 5 MG PO (17:42)
[2023-10-12] MEDS: FLOMAX 0.4 MG PO (17:42)
[2023-10-12] MEDS: BENADRYL 50 MG PO (21:24)
[2023-10-12] MEDS: TYLENOL 1000 MG PO (21:24)
[2023-10-12 22:15] LABS: Glucose - Point of Care 282 mg/dl (70-99)
[2023-10-12] MEDS: LANTUS 0.15 UNITS SC (22:32)
[2023-10-13] VITALS (12 sets, daily range): BP systolic 134–163; BP diastolic 44–104
[2023-10-13 05:18] LABS: Hematocrit 23.6 % (39.0-52.0); Mean Corp Hgb Conc. 33.9 g/dL (33.0-37.0); Mean Corpuscular Hgb 30.1 pg (27.0-31.0); Mean Corpuscular Volume 88.7 fL (80.0-94.0); Platelet Count 101 10^3/uL (130-400); Red Blood Cell Count 2.66 10^6/uL (4.70-6.10); Red Cell Dist. Width 15.6 % (11.5-14.5); White Blood Cell Count 2.1 10^3/uL (4.8-10.8)
[2023-10-13 05:21] LABS: Blood Urea Nitrogen 28 mg/dl (9-20); Calcium 8.4 mg/dl (8.4-10.2); Carbon Dioxide 25 mmol/L (22-30); Chloride 104 mmol/L (98-107); Estimated Creatinine Clearance 47 ml/min; Glucose 203 mg/dl (70-99); Potassium 3.4 mmol/L (3.5-5.1); Sodium 141 mmol/L (135-145); eGFR 54.51
--- NOTE | 2023-10-13 05:21 | PTCARENOTE ---
Critical WBC this morning of 2.1; reported to ADRIÁN Ryan
[2023-10-13] MEDS: SYNTHROID 75 MCG PO (05:51)
[2023-10-13 07:51] LABS: Glucose - Point of Care 208 mg/dl (70-99)
[2023-10-13] MEDS: NOVOLOG FLEXPEN-LOW RESISTANCE 2 UNITS SC (08:31)
[2023-10-13] MEDS: COREG 3.125 MG PO ×2 (08:32→19:50)
[2023-10-13] MEDS: LOW STRENGTH ASPIRIN 81 MG PO (08:32)
[2023-10-13] MEDS: LASIX 20 MG PO ×2 (08:32→19:50)
[2023-10-13] MEDS: PROTONIX IV 40 MG IV ×2 (08:33→19:50)
[2023-10-13] MEDS: HIPREX 1 GRAM PO ×2 (08:33→19:50)
[2023-10-13] MEDS: NSS (PRESERVATIVE FREE) 10 ML IV ×2 (08:33→19:51)
[2023-10-13] MEDS: DESENEX/MITRAZOL/ZEASORB 1 APPLIC TOPICAL ×2 (08:37→19:51)
--- NOTE | 2023-10-13 11:54 | W.PN.GI.CBS2 ---
Today's Communication / Plan
-
H/h remains stable, no further bleeding. Plan for SB-enteroscopy tomorrow, 10/14/23. See full recommendations as outlined below.
Assessment / Plan
-
Mr. Davila is a 83-year-old male with a past medical history of stage III CKD, HLD, paroxysmal A-fib, HTN, CAD, DM, and SB AVMs who presented with acute anemia and melena.
#Melena
#Acute Blood Loss Anemia
#Hx of SB AVMs
#Acute on Chronic Anemia
#Hx of Paroxysmal A Fib (s/p Watchman, 07/2023, prev on DAPT)
#Type II ND #Hx HFpEF
Impression: Patient presenting with melena and acute blood loss anemia suspicious for recurrent GI bleeding from previously known AVMs. Has had multiple prior endoscopic evaluations in the past here and at OSH (reportedly at [facility] [place] in [id number])
with previously negative VCE. Last colonoscopy in 2023 as well and unrevealing. Prior SB enteroscopy on 04/2023 and anemia felt to be related to SB AVMs. Previously on DAPT now with plavix on hold (last dose on 10/09/2023). No longer on eliquis. S/p
total of 5 uPRBCs since admission and stable Hgb with resolving melena. H/h remains stable.
Recommendations:
- Okay for regular diet as tolerated. Keep NPO at MN
- Trend serial Hgb, transfuse for goal Hgb > 8.0 given cardiac history and recent Type II ND prior to endoscopy
- Plavix on hold (last dose 10/08- )
- Okay to continue ASA 81 mg from GI perspective
- Empiric IV PPI 40 mg BiD (although likely AVM-related SB bleeding)
- Cardiology following, appreciate recs regarding further optimization and risk stratification prior to endoscopy
- Plan for Push-Enteroscopy tomorrow, 10/14/2023
- Would still benefit from an expedited VCE as an outpatient, will attempt to arrange close follow-up prior to his appointment at [facility] later this month
- Will attempt to obtain prior endoscopy records at OS ([facility] [place])- patient still unable to retrieve records
- Rest of care per primary team
GI Team will continue to follow while inpatient. Please call with any questions or concerns regarding this patient.
Subjective
Subjective
Date of Service: October 13, 2023
Resting comfortably this AM, no complaints. Feeling well, had one brown BM this morning without any dark stools or blood.
Objective
Data Reviewed
Laboratory Data:
Laboratory Results
10/13/23 04:34
10/13/23 04:34
Laboratory Results
PT 15.8 Sec (11.4-14.6) H 10/09/23 14:45
INR 1.28 10/09/23 14:45
APTT 29.9 Sec (23.4-35.0) 10/09/23 14:45
Total Bilirubin 0.3 mg/dl (0.2-1.3) 10/09/23 14:45
AST 37 U/L (17-59) 10/09/23 14:45
ALT 24 U/L (0-50) 10/09/23 14:45
Alkaline Phosphatase 69 U/L (38-126) 10/09/23 14:45
Vital Signs and I&O:
Vital Signs
Temp Pulse Resp BP Pulse Ox
98.2 F 69 12 157/65 96
10/13/23 04:51 10/13/23 10:06 10/13/23 10:06 10/13/23 10:06 10/13/23 08:05
I&O
10/12/23 10/13/23 10/14/23
06:59 06:59 06:59
Intake Total 970 / 970 900 / 900
Output Total 1974 / 1974 1600 / 1600 350 / 350
Balance -1005 / -1005 -700 / -700 -350 / -350
Physical Exam
Physical Exam
HEENT: Moist mucous membranes
Cardiology: Normal Sinus Rhythm
Pulmonary: Other (Normal WOB on room air)
GI: Soft, Non Distended and Non Tender
Extremities: No Edema and Warm
Neuro: Non Focal
[2023-10-13] MEDS: KCL 40 MEQ PO (12:35)
[2023-10-13] MEDS: NOVOLOG FLEXPEN-LOW RESISTANCE 5 UNITS SC (12:36)
[2023-10-13 12:38] LABS: Glucose - Point of Care 356 mg/dl (70-99)
--- NOTE | 2023-10-13 13:42 | PTCARENOTE ---
Patient out of bed to chair, ambulating ad buffy with RN today. Denying pain when asked. Tolerated diet, had a bowel movement in toilet today. In good spirits. Compliant with plan of care. NPO after midnight for EGD tomorrow.
--- NOTE | 2023-10-13 14:34 | W.PN.HOSP.TC ---
Today's Communication/Plan
-
Stable hemoglobin
Plan is for endoscopic evaluation on 10/13
N.p.o. postmidnight
With hyperglycemia continue current standing dose of Lantus along with basal bolus protocol.
Assessment / Plan
Assessment / Plan
# Acute blood loss anemia likely from GI bleed/history of AVMs
-GI consult appreciated
-Negative enteroscopy, C-Scope with no bleeding sites, diverticulosis. 5 mm polyp removed.
-05/2023: Colonoscopy with angiodysplasia in the ascending colon / cecum which was treated with APC. EGD was essentially unremarkable.
-Hemoglobin 5.8 s/p 2u PRBC. Will order additional 2u of PRBC.
-DAPT held on admission
-Keep patient n.p.o.
-Blood heart rate in ER
-Trend hemoglobin
-IV Protonix
-Plan for SB enteroscopy after 5 days of Plavix washout tentatively on Friday 10/13
#Demand ischemia Type II IN secondary to severe anemia
Elevated troponin
-Trop peaked at 0.8
-currently cp free
-Transfuse to keep Hg 8-9
-ECHO
-Restarting ASA
#Chronic HFpEF
-Update ECHO is pending
Monitor volume status with transfusion
#KRZYSZTOF secondary to severe anemia
CKD II-III
Elevated creatine/bun likely in setting of GIB
-Trend cr for now.
-monitor UOP
# Type 2 diabetes with hyperglycemia
-Blood sugar elevated in 300s
-Continue to monitor blood sugar
-Glargine 5 units continued
-Metformin hold. a1c pending
#paroxysmal Atrial Fibrillation
- Stable.
-Coreg continued with hold parameters
-s/p watchman device recently. asa/plavix held.
# History of carotid disease, PAD.
-Hold aspirin and Plavix
-
# Hyperlipidemia
-Fenofibrate continued
-Rosuvastatin continued
# BPH
-Finasteride continued
-Flomax continued
cerbation
- Continue p.o. Lasix, consider IV Lasix if fluid overload noted
- Follow I/Os, daily weights, etc.
#Hypothyroidism
- Stable. Continue T4 replacement.
#ZAYRA on CPAP
- Stable. Continue nightly PAP therapy.
#DVT Prophylaxis: scd in setting of GIB
#Code Status: Full
Anticipated Discharge: 24 - 48 hours
Subjective/Interval History
-
Date of Service: October 13, 2023
Objective Data
-
Labs:
Laboratory Results
10/13/23
04:34
WBC 2.1 L*
Hgb 8.0 L
Hct 23.6 L
Plt Count 101 L
Sodium 141
Potassium 3.4 L
Chloride 104
Carbon Dioxide 25
BUN 28 H
Creatinine 1.3
Glucose 203 H
Calcium 8.4
Vital Signs:
Vital Signs
Temp Pulse Resp BP Pulse Ox
98.2 F 68 24 135/60 96
10/13/23 04:51 10/13/23 12:58 10/13/23 12:58 10/13/23 12:58 10/13/23 13:20
I&O
10/12/23 10/13/23 10/14/23
06:59 06:59 06:59
Intake Total 970 / 970 900 / 900
Output Total 1974 / 1974 1600 / 1600 350 / 350
Balance -1005 / -1005 -700 / -700 -350 / -350
Physical Exam
-
General: Well Developed and No Apparent Distress
HEENT: Normocephalic, Atraumatic and Moist Mucous Membranes
Respiratory: Clear to Auscultation
Cardiac: Regular Rhythm and S1/S2; Negative Murmur, Rub or Gallop
GI: Soft, Nontender, Nondistended and Normal Bowel Sounds; Negative Organomegaly
Rectal: Deferred by Provider
Musculoskeletal: No Clubbing, No Cyanosis and No Edema
Skin: Negative Rash
Neuro: Nonfocal/Grossly Intact
[2023-10-13] MEDS: FLOMAX 0.4 MG PO (16:56)
[2023-10-13] MEDS: CRESTOR 40 MG PO (16:56)
[2023-10-13] MEDS: PROSCAR 5 MG PO (16:57)
[2023-10-13] MEDS: TRICOR 145 MG PO (16:57)
[2023-10-13 17:01] LABS: Glucose - Point of Care 348 mg/dl (70-99)
[2023-10-13] MEDS: NOVOLOG FLEXPEN-LOW RESISTANCE 4 UNITS SC (17:07)
[2023-10-13 21:42] LABS: Glucose - Point of Care 329 mg/dl (70-99)
[2023-10-13] MEDS: BENADRYL 50 MG PO (22:37)
[2023-10-13] MEDS: LANTUS 0.15 UNITS SC (22:37)
[2023-10-13] MEDS: TYLENOL 1000 MG PO (22:37)
[2023-10-14] VITALS (16 sets, daily range): BP systolic 18–181; BP diastolic 54–118; BMI 30.6
--- NOTE | 2023-10-14 05:00 | PTCARENOTE ---
No acute changes overnight. Pt able to sleep. NSR/SB w/ PACs & BBB on tele. Denies any pain. Up ad buffy. No GI/ complaints. NPO since MN for SB enteroscopy. Call pérez within reach. Pt calls appropriately.
[2023-10-14 06:10] LABS: Glucose - Point of Care 244 mg/dl (70-99)
[2023-10-14] MEDS: SYNTHROID 75 MCG PO (06:10)
[2023-10-14 06:54] LABS: % Basophils 0.5 % (0-2); % Eosinophils 1.9 % (0-6); % Lymphocytes 25.1 % (20.5-51.1); % Monocytes 12.8 % (1.7-9.3); % Neutrophils 59.7 % (42.2-75.2); Absolute Lymphocytes 0.5 10^3/uL (1.2-3.4); Absolute Monocytes 0.3 10^3/uL (0.1-0.6); Absolute Neutrophils 1.3 10^3/uL (1.4-6.5); Hematocrit 23.2 % (39.0-52.0); Hemoglobin 7.9 g/dL (13.0-18.0); Mean Corp Hgb Conc. 34.1 g/dL (33.0-37.0); Mean Corpuscular Hgb 30.3 pg (27.0-31.0); Mean Corpuscular Volume 88.9 fL (80.0-94.0); Mean Platelet Volume 11.7 fL (7.4-10.4); Nucleated Red Blood Cells % 0 % (-); Platelet Count 93 10^3/uL (130-400); Red Blood Cell Count 2.61 10^6/uL (4.70-6.10); Red Cell Dist. Width 15.2 % (11.5-14.5); White Blood Cell Count 2.1 10^3/uL (4.8-10.8)
[2023-10-14 07:00] LABS: Blood Urea Nitrogen 23 mg/dl (9-20); Calcium 8.4 mg/dl (8.4-10.2); Carbon Dioxide 22 mmol/L (22-30); Chloride 104 mmol/L (98-107); Estimated Creatinine Clearance 58 ml/min; Glucose 216 mg/dl (70-99); Potassium 3.7 mmol/L (3.5-5.1); Sodium 140 mmol/L (135-145); eGFR > 60.00
[2023-10-14] MEDS: HIPREX 1 GRAM PO ×2 (08:16→20:10)
[2023-10-14] MEDS: COREG PO (08:17)
[2023-10-14] MEDS: DESENEX/MITRAZOL/ZEASORB 1 APPLIC TOPICAL ×2 (08:17→20:11)
[2023-10-14] MEDS: LOW STRENGTH ASPIRIN 81 MG PO (08:18)
[2023-10-14] MEDS: PROTONIX IV 40 MG IV (08:18)
[2023-10-14] MEDS: LASIX 20 MG PO ×2 (08:18→20:10)
[2023-10-14] MEDS: NSS (PRESERVATIVE FREE) 10 ML IV (08:18)
[2023-10-14] MEDS: NOVOLOG FLEXPEN-LOW RESISTANCE 2 UNITS SC (08:23)
[2023-10-14 08:33] LABS: Glucose - Point of Care 236 mg/dl (70-99)
--- NOTE | 2023-10-14 09:48 | PTCARENOTE ---
Assumed care of pt from night RN. Pt AAOX3, makes needs known. No c/o pain or discomfort. OOB to chair. Verified with Dr. Stanley (GI) that pt ws ok to take morning meds, Coreg held per parameters. Report given to Allison (GI) and pt to go for push
enteroscopy now. Will continue to monitor through shift.
--- NOTE | 2023-10-14 11:12 | W.PN.UPDATE ---
Update Note
Progress Note Update
Pt scheduled 12/13 GI follow up and follow up at [place]. I sent message to arrange OP capsule endoscopy
[2023-10-14 11:22] LABS: Glucose - Point of Care 290 mg/dl (70-99)
[2023-10-14] MEDS: NOVOLOG FLEXPEN-MODERATE RESISTANCE 5 UNITS SC (12:54)
--- NOTE | 2023-10-14 15:52 | CM ---
Patient with Dx Acute blood loss anemia likely GI bleed, Demand ischemia Type II ID, KRZYSZTOF. Upper GI endoscopy - SB Enteroscopy today. PT recommends outpt PT v no needs.
Met with patient and offered VN for nurse & PT - patient declined. He also declined offer for script for outpatient therapy.
CM continuing to follow.
Plan home.
--- NOTE | 2023-10-14 16:19 | PTCARENOTE ---
Pt's BPs noted to be running on the higher side last BP 170/78). Dr. Reid notified. No new orders at this time, just observe.
[2023-10-14] MEDS: NOVOLOG FLEXPEN-MODERATE RESISTANCE 7 UNITS SC (16:31)
--- NOTE | 2023-10-14 16:32 | W.PN.HOSP.TC ---
Today's Communication/Plan
-
Had endoscopy today with gastric antrum bleeding lesion treated.
With hemoglobin trending down to 7.9, transfuse additional 1 unit of packed red blood cells.
Resume diet
Adjust insulin with reinstatement of metformin.
Physical therapy assessment.
Assessment / Plan
Assessment / Plan
# Acute blood loss anemia likely from GI bleed/history of AVMs
-GI consult appreciated
-Negative enteroscopy, C-Scope with no bleeding sites, diverticulosis. 5 mm polyp removed.
-05/2023: Colonoscopy with angiodysplasia in the ascending colon / cecum which was treated with APC. EGD was essentially unremarkable.
-Hemoglobin 5.8 on admission
-DAPT held on admission
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
-Diet has been advanced.
-Noted with hemoglobin trending down to 7.9. Transfuse additional unit on 10/13.
#Demand ischemia Type II VA secondary to severe anemia
Elevated troponin
-Trop peaked at 0.8
-currently cp free
-Transfuse to keep Hg 8-9
-ECHO on 10/10 with preserved biventricular function, LVEF 55-60%, slightly progressed moderate MR and
-Restarting ASA. Discussed with cardiology. Plavix will be discontinued from now on.
#Chronic HFpEF
-Update ECHO as above
Monitor volume status with transfusion
Continue Lasix
#KRZYSZTOF secondary to severe anemia
CKD II-III
Elevated creatine/bun likely in setting of GIB
-Trend cr for now.
-monitor UOP
# Type 2 diabetes with hyperglycemia
Hemoglobin A1c 7.7
Increase Lantus to 20 units at bedtime. Increase sliding scale to moderate.
Resume metformin
#paroxysmal Atrial Fibrillation
- Stable.
-Coreg continued with hold parameters
-s/p watchman device recently. asa/plavix held.
# History of carotid disease, PAD.
-Continue aspirin. Plavix discontinued from now on.
-
# Hyperlipidemia
-Fenofibrate continued
-Rosuvastatin continued
# BPH
-Finasteride continued
-Flomax continued
#Hypothyroidism
- Stable. Continue T4 replacement.
#ZAYRA on CPAP
- Stable. Continue nightly PAP therapy.
#DVT Prophylaxis: scd in setting of GIB
#Code Status: Full
Anticipated Discharge: 24 - 48 hours
Subjective/Interval History
-
Date of Service: October 14, 2023
Objective Data
-
Labs:
Laboratory Results
10/14/23
05:59
WBC 2.1 L*
Hgb 7.9 L
Hct 23.2 L
Plt Count 93 L
Sodium 140
Potassium 3.7
Chloride 104
Carbon Dioxide 22
BUN 23 H
Creatinine 1.2
Glucose 216 H
Calcium 8.4
Vital Signs:
Vital Signs
Temp Pulse Resp BP Pulse Ox
97.5 F 57 25 170/78 96
10/14/23 11:15 10/14/23 16:00 10/14/23 16:00 10/14/23 16:00 10/14/23 14:25
I&O
10/13/23 10/14/23 10/15/23
06:59 06:59 06:59
Intake Total 900 / 900 960 / 960
Output Total 1600 / 1600 2335 / 2335 300 / 300
Balance -700 / -700 -1375 / -1375 -300 / -300
Physical Exam
-
General: Well Developed and No Apparent Distress
HEENT: Normocephalic, Atraumatic and Moist Mucous Membranes
Respiratory: Clear to Auscultation
Cardiac: Regular Rhythm and S1/S2; Negative Murmur, Rub or Gallop
GI: Soft, Nontender, Nondistended and Normal Bowel Sounds; Negative Organomegaly
Rectal: Deferred by Provider
Musculoskeletal: No Clubbing, No Cyanosis and No Edema
Skin: Negative Rash
Neuro: Nonfocal/Grossly Intact
[2023-10-14 16:41] LABS: Glucose - Point of Care 302 mg/dl (70-99)
[2023-10-14] MEDS: TRICOR 145 MG PO (17:11)
[2023-10-14] MEDS: GLUCOPHAGE 1000 MG PO (17:12)
[2023-10-14] MEDS: FLOMAX 0.4 MG PO (17:12)
[2023-10-14] MEDS: CRESTOR 40 MG PO (17:12)
[2023-10-14] MEDS: PROSCAR 5 MG PO (17:12)
[2023-10-14] MEDS: PROTONIX 40 MG PO (20:10)
[2023-10-14] MEDS: COREG 3.125 MG PO (20:10)
[2023-10-14 21:38] LABS: Glucose - Point of Care 272 mg/dl (70-99)
[2023-10-14] MEDS: TYLENOL 1000 MG PO (23:01)
[2023-10-14] MEDS: LANTUS 0.2 UNITS SC (23:02)
[2023-10-14] MEDS: BENADRYL 50 MG PO (23:02)
[2023-10-15] VITALS (10 sets, daily range): BP systolic 138–174; BP diastolic 45–112; BMI 30.4
--- NOTE | 2023-10-15 06:00 | PTCARENOTE ---
Patient tolerated blood transfusion. No acute changes overnight. Denies any pain. No GI/ complaints. Up ad buffy in room. BP elevated during the [employer] game; able to come back down. Tele showing NSR/SB. Call pérez within reach. Pt calls
appropriately.
[2023-10-15] MEDS: SYNTHROID 75 MCG PO (06:23)
[2023-10-15 06:46] LABS: Blood Urea Nitrogen 18 mg/dl (9-20); Calcium 8.4 mg/dl (8.4-10.2); Carbon Dioxide 26 mmol/L (22-30); Chloride 105 mmol/L (98-107); Estimated Creatinine Clearance 58 ml/min; Glucose 147 mg/dl (70-99); Potassium 3.6 mmol/L (3.5-5.1); Sodium 141 mmol/L (135-145); eGFR > 60.00
[2023-10-15 07:14] LABS: % Basophils 0.6 % (0-2); % Eosinophils 1.9 % (0-6); % Immature Granulocytes 0.3 % (0-0.5); % Lymphocytes 17.9 % (20.5-51.1); % Monocytes 9.7 % (1.7-9.3); % Neutrophils 69.6 % (42.2-75.2); Absolute Eosinophils 0.1 10^3/uL (0-0.7); Absolute Lymphocytes 0.6 10^3/uL (1.2-3.4); Absolute Monocytes 0.3 10^3/uL (0.1-0.6); Absolute Neutrophils 2.1 10^3/uL (1.4-6.5); Hematocrit 27.8 % (39.0-52.0); Hemoglobin 9.4 g/dL (13.0-18.0); Mean Corp Hgb Conc. 33.8 g/dL (33.0-37.0); Mean Corpuscular Hgb 30.2 pg (27.0-31.0); Mean Corpuscular Volume 89.4 fL (80.0-94.0); Mean Platelet Volume 11.5 fL (7.4-10.4); Nucleated Red Blood Cells % 0 % (-); Platelet Count 95 10^3/uL (130-400); Red Blood Cell Count 3.11 10^6/uL (4.70-6.10); Red Cell Dist. Width 14.9 % (11.5-14.5); White Blood Cell Count 3.1 10^3/uL (4.8-10.8)
[2023-10-15 08:06] LABS: Glucose - Point of Care 161 mg/dl (70-99)
[2023-10-15] MEDS: HIPREX 1 GRAM PO ×2 (09:16→19:59)
[2023-10-15] MEDS: LASIX 20 MG PO ×2 (09:16→20:05)
[2023-10-15] MEDS: GLUCOPHAGE 1000 MG PO ×2 (09:16→17:06)
[2023-10-15] MEDS: LOW STRENGTH ASPIRIN 81 MG PO (09:16)
[2023-10-15] MEDS: PROTONIX 40 MG PO ×2 (09:16→19:59)
[2023-10-15] MEDS: COREG 3.125 MG PO ×2 (09:16→20:03)
[2023-10-15] MEDS: NOVOLOG FLEXPEN-MODERATE RESISTANCE 1 UNITS SC (09:16)
[2023-10-15] MEDS: DESENEX/MITRAZOL/ZEASORB 1 APPLIC TOPICAL ×2 (09:17→20:10)
--- NOTE | 2023-10-15 09:56 | PTCARENOTE ---
Pt received from nightshift RN. Oriented and appropriate, sitting up in the chair with no complaints. NSR/SB on tele, trace LE edema. Pt on RA, lungs clear, 96% sat. BRP, urinating without difficulty. Tolerating diet with no nausea. Pt states it's
been since since he's had a BM. Call pérez within reach. Pt makes needs known.
--- NOTE | 2023-10-15 10:47 | W.PN.HOSP.TC ---
Today's Communication/Plan
-
Trend blood counts while here
Monitor for melena or bloody bowel movements
Assessment / Plan
Assessment / Plan
#Acute blood loss anemia from Dieulafoy lesion
#H/O gastrointestinal AVM
-Colonoscopy in May showed angiodysplasia of the ascending colon and cecum, treated with APC at that time
-Presented here with hemoglobin of 5.8; DAPT was held on admission
-Had EGD on 10/13 that showed bleeding Dieulafoy lesion, treated endoscopically
-As of this morning hemoglobin improved from 7.9-9.4, s/p 3 unit PRBC
-He states that he has not had a bowel movement since his endoscopy yesterday
-Aspirin was resumed for his cardiovascular history; Plavix DC'd
-Continue to trend CBC closely, avoid unnecessary anticoagulants
-Monitor bowel movements for signs of melena or hematochezia
-Continue with pantoprazole twice daily
-Hemoglobin goal >8.0
#Leukopenia
-Unclear cause, infectious etiologies or bone marrow diseases low suspicion
-Suspect that is reactive to his ongoing GI bleeding which resolved yesterday
-Will continue to monitor CBC and temperature curve while here
#Demand ischemia Type II [place] secondary to severe anemia
-Troponin trend was flat, not consistent with ACS
-Was resumed on aspirin; Plavix discontinued due to bleeding
-Echo here with preserved LVEF, moderate MR and
#Chronic HFpEF
-Home medications include Lasix 20 mg twice daily; not on any GDMT currently
-Home meds also include carvedilol, provide afterload reduction. Heart failure
-Remains euvolemic at this time, TTE here showed LVEF 55 to 60%
#T2DM with hyperglycemia
-No known microvascular disease associated
-Home regimen includes
-Lantus dose was increased to 20 units nightly, moderate ISS with Accu-Cheks
#Carotid artery disease/PAD
-Was previously on statin, fenofibrate, and DAPT, Plavix held for bleeding
-Will continue on statin, fenofibrate, and aspirin at discharge
#Dyslipidemia
-Home medications include Crestor and fenofibric
-Suspect elevated LDL and triglycerides in the past
-ASCVD history with carotid artery disease
#Hypothyroidism
-No signs or symptoms of thyroid deficiency or overtreatment at this time
-Stable on home regimen of levothyroxine
#ZAYRA on sleep
-Remains on nightly CPAP therapy here
#Prerenal KRZYSZTOF�resolved
-Secondary to hypovolemia from blood loss
DVT prophylaxis: SCDs
Diet: Carbohydrate controlled
CODE STATUS: Full code
Anticipated Discharge: Within 24 hours
Subjective/Interval History
-
Date of Service: October 15, 2023
Seen and examined the bedside. No acute events reported overnight.
As of this morning AFVSS. States he has not had a bowel movement since his endoscopy yesterday
He denies any chest pain, shortness of breath, fevers or chills, nausea, vomiting, diarrhea, constipation, urinary issues, abnormal bleeding or bruising, paresthesias or weakness
Objective Data
-
Labs:
Laboratory Results
10/15/23
06:19
WBC 3.1 L
Hgb 9.4 L
Hct 27.8 L
Plt Count 95 L
Sodium 141
Potassium 3.6
Chloride 105
Carbon Dioxide 26
BUN 18
Creatinine 1.2
Glucose 147 H
Calcium 8.4
Vital Signs:
Vital Signs
Temp Pulse Resp BP Pulse Ox
98.0 F 55 21 168/80 94
10/15/23 07:00 10/15/23 06:00 10/15/23 06:00 10/15/23 09:16 10/15/23 06:00
I&O
10/14/23 10/15/23 10/16/23
06:59 06:59 06:59
Intake Total 960 / 960 250 / 250
Output Total 2335 / 2335 1100 / 1100
Balance -1375 / -1375 -850 / -850
Review of Systems
-
History Source: Patient
All other systems: Reviewed and negative
Physical Exam
-
General: Well Nourished, No Apparent Distress, Comfortable and Conversant
HEENT: Normocephalic, Atraumatic and Moist Mucous Membranes
Respiratory: Clear to Auscultation and Non Labored Respirations; Negative Wheezes, Rales or Rhonchi
Cardiac: Regular Rhythm, S1/S2 and Murmur; Negative Rub, JVD or Gallop
GI: Soft, Nontender, Nondistended and Normal Bowel Sounds
Musculoskeletal: No Clubbing, No Cyanosis and No Edema
Skin: Warm and Dry; Negative Rash
Neuro: AO x 3, Nonfocal/Grossly Intact and Central Nerve's Intact; Negative Tremors
Data Reviewed
-
Labs: Labs Reviewed by me and Discussed with Patient
[2023-10-15 12:23] LABS: Glucose - Point of Care 270 mg/dl (70-99)
[2023-10-15] MEDS: NOVOLOG FLEXPEN-MODERATE RESISTANCE 5 UNITS SC (12:58)
[2023-10-15 16:54] LABS: Glucose - Point of Care 209 mg/dl (70-99)
[2023-10-15] MEDS: TRICOR 145 MG PO (17:06)
[2023-10-15] MEDS: PROSCAR 5 MG PO (17:06)
[2023-10-15] MEDS: FLOMAX 0.4 MG PO (17:07)
[2023-10-15] MEDS: CRESTOR 40 MG PO (17:07)
[2023-10-15] MEDS: NOVOLOG FLEXPEN-MODERATE RESISTANCE 3 UNITS SC (17:08)
[2023-10-15] MEDS: TYLENOL 1000 MG PO (22:09)
[2023-10-15] MEDS: BENADRYL 50 MG PO (22:09)
[2023-10-15] MEDS: LANTUS 0.2 UNITS SC (22:11)
[2023-10-15 22:23] LABS: Glucose - Point of Care 142 mg/dl (70-99)
[2023-10-16] VITALS (7 sets, daily range): BP systolic 123–151; BP diastolic 40–74
--- NOTE | 2023-10-16 00:36 | PTCARENOTE ---
Assumed care of Pt at shift change; Pt resting comfortably in chair. AAO x 3; 99% on RA; SR with PAC's, PVC's, BBB & pQT; Denies pain, dizziness. Pt anxious for pending discharge tomorrow. Will continue to monitor and assess.
[2023-10-16] MEDS: SYNTHROID 75 MCG PO (04:29)
[2023-10-16 05:13] LABS: % Basophils 0.4 % (0-2); % Eosinophils 2.2 % (0-6); % Immature Granulocytes 0.4 % (0-0.5); % Monocytes 10.7 % (1.7-9.3); % Neutrophils 62.3 % (42.2-75.2); Absolute Eosinophils 0.1 10^3/uL (0-0.7); Absolute Lymphocytes 0.7 10^3/uL (1.2-3.4); Absolute Monocytes 0.3 10^3/uL (0.1-0.6); Absolute Neutrophils 1.7 10^3/uL (1.4-6.5); Hematocrit 26.1 % (39.0-52.0); Hemoglobin 8.7 g/dL (13.0-18.0); Mean Corp Hgb Conc. 33.3 g/dL (33.0-37.0); Mean Corpuscular Hgb 28.7 pg (27.0-31.0); Mean Corpuscular Volume 86.1 fL (80.0-94.0); Mean Platelet Volume 11.1 fL (7.4-10.4); Nucleated Red Blood Cells % 0 % (-); Platelet Count 95 10^3/uL (130-400); Red Blood Cell Count 3.03 10^6/uL (4.70-6.10); Red Cell Dist. Width 14.8 % (11.5-14.5); White Blood Cell Count 2.7 10^3/uL (4.8-10.8)
[2023-10-16 05:17] LABS: Blood Urea Nitrogen 18 mg/dl (9-20); Calcium 8.5 mg/dl (8.4-10.2); Carbon Dioxide 26 mmol/L (22-30); Chloride 105 mmol/L (98-107); Estimated Creatinine Clearance 58 ml/min; Glucose 110 mg/dl (70-99); Potassium 3.6 mmol/L (3.5-5.1); Sodium 141 mmol/L (135-145); eGFR > 60.00
--- NOTE | 2023-10-16 08:00 | PTCARENOTE ---
Vital signs were captured for nightshift from 10/14 20:00 to 10/15 06:00. Cannot confirm accuracy.
[2023-10-16 08:07] LABS: Glucose - Point of Care 117 mg/dl (70-99)
[2023-10-16] MEDS: NOVOLOG FLEXPEN-MODERATE RESISTANCE SC (08:13)
[2023-10-16] MEDS: LOW STRENGTH ASPIRIN 81 MG PO (08:36)
[2023-10-16] MEDS: PROTONIX 40 MG PO (08:36)
[2023-10-16] MEDS: COREG 3.125 MG PO (08:36)
[2023-10-16] MEDS: HIPREX 1 GRAM PO (08:36)
[2023-10-16] MEDS: LASIX 20 MG PO (08:36)
[2023-10-16] MEDS: GLUCOPHAGE 1000 MG PO (08:36)
[2023-10-16] MEDS: DESENEX/MITRAZOL/ZEASORB 1 APPLIC TOPICAL (08:37)
--- NOTE | 2023-10-16 09:31 | PTCARENOTE ---
Assumed care of patient this morning. He is aaox3, pleasant. He has no complaints other than hoping to go home today. Will check H&H per order this afternoon. Pt OOB to chair for breakfast. He denies any pain. No BM this morning. Assessment, care
and VS as charted.
--- NOTE | 2023-10-16 11:04 | W.PN.HOSP.TC ---
Today's Communication/Plan
-
Repeat H/H at 2 PM
Consider discharge if stable
Monitor for bowel movement
Assessment / Plan
Assessment / Plan
#Acute blood loss anemia from Dieulafoy lesion
#H/O gastrointestinal AVM
-Colonoscopy in May showed angiodysplasia of the ascending colon and cecum, treated with APC at that time
-Presented here with hemoglobin of 5.8; DAPT was held on admission
-Had EGD on 10/13 that showed bleeding Dieulafoy lesion, treated endoscopically
-He states that he has not had a bowel movement since his endoscopy yesterday
-Aspirin was resumed for his cardiovascular history; Plavix DC'd, started on pantoprazole
-Overnight hemoglobin dropped from 9.4-8.7, no known bleeding however
Plan
-Repeat hemoglobin at 2 PM to assess stability
-Continue to trend CBC closely, avoid unnecessary anticoagulants
-Monitor bowel movements for signs of melena or hematochezia
-Continue with pantoprazole twice daily, Hemoglobin goal >8.0
#Pancytopenia
-Suspect this is multifactorial with chronic degrees of thrombocytopenia and leukopenia
-Infectious etiologies are less likely, cannot rule out bone marrow etiologies at this time
-Should likely have follow-up with coach driver after discharge, consider serological workup
-Will continue to monitor CBC and temperature curve while here
#Demand ischemia Type II [place] secondary to severe anemia
-Troponin trend was flat, not consistent with ACS
-Was resumed on aspirin; Plavix discontinued due to bleeding
-Echo here with preserved LVEF, moderate MR and
#Chronic HFpEF
-Home medications include Lasix 20 mg twice daily; not on any GDMT currently
-Home meds also include carvedilol, provide afterload reduction. Heart failure
-Remains euvolemic at this time, TTE here showed LVEF 55 to 60%
#T2DM with hyperglycemia
-No known microvascular disease associated
-Home regimen includes
-Lantus dose was increased to 20 units nightly, moderate ISS with Accu-Cheks
#Carotid artery disease/PAD
-Was previously on statin, fenofibrate, and DAPT, Plavix held for bleeding
-Will continue on statin, fenofibrate, and aspirin at discharge
#Dyslipidemia
-Home medications include Crestor and fenofibric
-Suspect elevated LDL and triglycerides in the past
-ASCVD history with carotid artery disease
#Hypothyroidism
-No signs or symptoms of thyroid deficiency or overtreatment at this time
-Stable on home regimen of levothyroxine
#ZAYRA on sleep
-Remains on nightly CPAP therapy here
#Prerenal KRZYSZTOF�resolved
-Secondary to hypovolemia from blood loss
DVT prophylaxis: SCDs
Diet: Carbohydrate controlled
CODE STATUS: Full code
Anticipated Discharge: Within 24 hours
Subjective/Interval History
-
Date of Service: October 16, 2023
Seen and examined at bedside. No acute events overnight. AFVSS this morning.
His hemoglobin did drop from 9.4-8.7 overnight. He states he did not have any bowel movements, denies any known rectal bleeding or melena.
He also denies all other acute complaints such as chest pain, shortness of breath, fevers or chills, nausea, vomiting, diarrhea, abdominal pain, urinary issues, bleeding or bruising elsewhere, paresthesias or weakness
Objective Data
-
Labs:
Laboratory Results
10/16/23 10/16/23
04:34 14:00
WBC 2.7 L
Hgb 8.7 L Pending
Hct 26.1 L Pending
Plt Count 95 L
Sodium 141
Potassium 3.6
Chloride 105
Carbon Dioxide 26
BUN 18
Creatinine 1.2
Glucose 110 H
Calcium 8.5
Vital Signs:
Vital Signs
Temp Pulse Resp BP Pulse Ox
97.5 F 65 28 150/74 99
10/16/23 07:20 10/16/23 08:36 10/15/23 10:00 10/16/23 08:36 10/16/23 00:32
I&O
10/15/23 10/16/23 10/17/23
06:59 06:59 06:59
Intake Total 250 / 250 480 / 480 180 / 180
Output Total 1100 / 1100 1775 / 1775 1000 / 1000
Balance -850 / -850 -1295 / -1295 -820 / -820
Review of Systems
-
History Source: Patient
All other systems: Reviewed and negative
Physical Exam
-
General: Well Nourished, No Apparent Distress and Comfortable
HEENT: Normocephalic, Atraumatic and Moist Mucous Membranes
Respiratory: Clear to Auscultation and Non Labored Respirations; Negative Wheezes, Rales or Rhonchi
Cardiac: Regular Rhythm, S1/S2 and Murmur; Negative Rub, JVD or Gallop
GI: Soft, Nontender, Nondistended and Normal Bowel Sounds
Musculoskeletal: No Clubbing, No Cyanosis and No Edema
Skin: Warm and Dry; Negative Rash
Neuro: AO x 3, Nonfocal/Grossly Intact and Central Nerve's Intact; Negative Tremors
Data Reviewed
-
Labs: Labs Reviewed by me, Discussed with Nurse and Discussed with Patient
[2023-10-16 11:53] LABS: Glucose - Point of Care 250 mg/dl (70-99)
[2023-10-16] MEDS: NOVOLOG FLEXPEN-MODERATE RESISTANCE 5 UNITS SC (12:23)
[2023-10-16 14:48] LABS: Hematocrit 30.4 % (39.0-52.0); Hemoglobin 10.1 g/dL (13.0-18.0)
--- NOTE | 2023-10-16 15:18 | W.DCSUMMARY ---
Discharge Summary
Discharge Data
Date of Admission: 10/09/23
Date of Discharge: 10/16/23
-
Pending Results: Yes
Additional Pending Results:
Pathology of gastric polyp seen on EGD
Hospital Course
83-year-old male with paroxysmal AF (s/p Watchman), PAD, CKD 3, HFrEF, hypothyroidism, H/O GI AVMs that presented with gastrointestinal bleeding. Was treated with IV proton pump inhibitor twice daily. Ultimately required 3 units of PRBC over the
course of his hospital stay. Was evaluated by gastroenterology who performed EGD showing Dieulafoy lesion. Bipolar cautery was performed at that time. Also found to have a gastric polyp pathology sent to results pending. Blood counts were
monitored after his procedure and determined to be stable. Hemoglobin at time of discharge was 10.1. Provided prescription for CBC a week after his discharge. Recommended continuation of twice daily PPI therapy. Discontinued his chronic Plavix
therapy and continued with aspirin for MAPT.
- Normal proximal esophagus and mid esophagus.
- Pinkish pill residue found in the distal esophagus
that was easily washable.
- Z-line regular, 45 cm from the incisors.
- Mild diffuse hypertensive gastropathy in the gastric
body.
- Moderate gastritis in the gastric antrum. Biopsied
to rule out H pylori and GAVE.
- A single spot (without the typical appearance of an
AVM) with active bleeding in the stomach.
Endoscopically, this was submucosal and concerning for
a Dieulafoy's lesion. Treated with bipolar cautery
with success.
- A single inflammatory appearing gastric polyp with
stigmata of bleeding and focal ulceration. Biopsied
and removed. Treated with bipolar cautery and one
hemoclip was placed with successful hemostasis. Clip
interactive digital media specialist: Soraa.
- Normal examined duodenum without any visible AVMs.
- A tattoo was seen in the proximal jejunum. The
tattoo site appeared normal. The scope was advanced an
additional 30 cms beyond this area without any visible
AVMs or lesions. This was tattooed distally for marking
- Exam of the jejunum was otherwise normal without any
visible AVMs, vascular lesions or other old or fresh
blood.
Discharge Plan
-
Patient Disposition: Home (Routine Discharge)
Discharge Diagnosis/Procedures: Upper GI bleed
Dieulafoy lesion s/p endoscopic hemostasis
Condition: Good
Diet: Diabetic, Carb Controlled
Activity: As tolerated
Driving Restrictions: No driving for 24 hours
Bathing Restrictions: None
Blood Work: CBC in 5 days to recheck your hemoglobin level
Activity Restrictions/Additional Instructions:
After discharge from the hospital schedule follow-up appointment with your primary care doctor and octave board assembler within 7 days. Referral to the gastroenterology group that saw you in the hospital here provided.
3-5 days after your discharge you should have labs drawn to recheck your blood counts. Have these results sent to your family doctor
If you notice recurrence of blood in the stool or dark black tar-like stools then please return to the emergency department for further evaluation. Dark black stools can be a sign of gastrointestinal bleeding
Instructions: GI bleed
Referrals:
Angel Lord MD [Family Provider] -
Jada Patel PA-C [Specified Professional Personl] - 12/14/23 11:00 am
Additional Discharge Medication Instructions: Increased insulin glargine (Lantus) to 20 units nightly
Stop taking Plavix (clopidogrel)
Continue with daily aspirin
Prescriptions:
New
insulin glargine [Lantus Solostar U-100 Insulin] 100 unit/mL (3 mL) insulin pen
20 unit SC HS 30 Days Qty: 6 0RF
Continued
fenofibrate nanocrystallized 145 MG tablet
145 mg PO QPM
magnesium oxide 400 MG tablet
400 mg PO BID
finasteride 5 mg Tablet
5 mg PO QPM
diphenhydramine-acetaminophen [Tylenol PM Extra Strength] 25-500 mg Tablet
2 tab PO HS Qty: 0
tamsulosin [Flomax] 0.4 MG capsule
0.4 mg PO QPM
metformin 500 mg Tablet
1,000 mg PO BID
cyanocobalamin (vitamin B-12) 1,000 mcg Tablet
1,000 mcg PO DAILY
levothyroxine [Synthroid] 75 mcg Tablet
75 mcg PO DAILY
methenamine hippurate [Hiprex] 1 gram Tablet
1 g PO BID
rosuvastatin [Crestor] 40 mg Tablet
40 mg PO QPM
carvedilol 3.125 mg Tablet
3.125 mg PO BID Qty: 60 0RF
furosemide 20 mg tablet
20 mg PO BID
pantoprazole 40 mg Tablet,Delayed Release (Dr/Ec)
40 mg PO BID Qty: 60 2RF
cyanocobalamin (vitamin B-12) 1,000 mcg/mL Solution
1,000 mcg IM QMONTH
aspirin 81 mg Tablet,Chewable
81 mg PO DAILY
Discontinued
clopidogrel 75 mg Tablet
75 mg PO DAILY
insulin glargine [Basaglar KwikPen U-100 Insulin] 100 unit/mL (3 mL) Insulin Pen
5 unit SC HS
Discharge Orders:
Discharge Patient (As Directed); Ordered 10/16/23
Ordered By: Yohan Jenkins
Discharge Date and Time
Print Language: SAMMARINESE
== END 2023-10-16 16:50 | disposition home or self-care (01) | DRG 377 ==
LOC: IMU 17:33
PROVIDERS: Hospitalist; Internal Medicine; Registered Nurse; Student in an Organized Health Care Education/Training Program; ADMITTING PHYSICIAN Internal Medicine; ATTENDING PHYSICIAN Internal Medicine; CONSULT PHYSICIAN Internal Medicine; CONSULT PHYSICIAN Internal Medicine Gastroenterology; EMERGENCY PHYSICIAN Emergency Medicine; FAMILY PHYSICIAN Student in an Organized Health Care Education/Training Program
PROC: 30233N1 Transfusion of Nonautologous Red Blood Cells into Peripheral Vein, Percutaneous Approach (ICD-10-PCS; 2023-10-09)
PROC: 0W3P8ZZ Control Bleeding in Gastrointestinal Tract, Via Natural or Artificial Opening Endoscopic (ICD-10-PCS; 2023-10-14)
PROC: 0DB78ZZ Excision of Stomach, Pylorus, Via Natural or Artificial Opening Endoscopic (ICD-10-PCS; 2023-10-14)
PROC: 0DB78ZX Excision of Stomach, Pylorus, Via Natural or Artificial Opening Endoscopic, Diagnostic (ICD-10-PCS; 2023-10-14)
DX: K31.82 Dieulafoy lesion (hemorrhagic) of stomach and duodenum (principal); I21.A1 Myocardial infarction type 2; K29.71 Gastritis, unspecified, with bleeding; D62 Acute posthemorrhagic anemia; I13.0 Hypertensive heart and chronic kidney disease with heart failure and stage 1 through stage 4 chronic kidney disease, or unspecified chronic kidney disease; I50.22 Chronic systolic (congestive) heart failure; N17.9 Acute kidney failure, unspecified; K76.6 Portal hypertension; E11.22 Type 2 diabetes mellitus with diabetic chronic kidney disease; G47.33 Obstructive sleep apnea (adult) (pediatric); N18.30 Chronic kidney disease, stage 3 unspecified; E11.51 Type 2 diabetes mellitus with diabetic peripheral angiopathy without gangrene; E78.00 Pure hypercholesterolemia, unspecified; E11.65 Type 2 diabetes mellitus with hyperglycemia; I48.0 Paroxysmal atrial fibrillation; D63.1 Anemia in chronic kidney disease; K74.60 Unspecified cirrhosis of liver; I08.0 Rheumatic disorders of both mitral and aortic valves; E03.9 Hypothyroidism, unspecified; K31.89 Other diseases of stomach and duodenum; I25.10 Atherosclerotic heart disease of native coronary artery without angina pectoris; K21.9 Gastro-esophageal reflux disease without esophagitis; N40.0 Benign prostatic hyperplasia without lower urinary tract symptoms; K31.7 Polyp of stomach and duodenum; Z88.8 Allergy status to other drugs, medicaments and biological substances; Z87.891 Personal history of nicotine dependence; Z79.890 Hormone replacement therapy; Z79.84 Long term (current) use of oral hypoglycemic drugs; Z79.82 Long term (current) use of aspirin; Z79.4 Long term (current) use of insulin; Z79.02 Long term (current) use of antithrombotics/antiplatelets; Z95.818 Presence of other cardiac implants and grafts
CPT/HCPCS: 88305; 70450; 80048; 80053; 82607; 82728; 82746; 82962; 83036; 83540; 83550; 84484; 85014; 85018; 85025; 85027; 85610; 85730; 86850; 86870; 86900; 86901; 86920; 86922; 88342; 93005; 93306; 94660; 96365; 96366; 96372; 96375; 97116; 97162; 99285; P9016

== ENCOUNTER → 2023-10-19 10:50 | Outpatient (REF) | payer MEDICARE, BC, SELFPAY ==
[2023-10-19 12:45] LABS: % Basophils 0.4 % (0-2); % Eosinophils 1.2 % (0-6); % Immature Granulocytes 0.4 % (0-0.5); % Lymphocytes 16.7 % (20.5-51.1); % Neutrophils 72.3 % (42.2-75.2); Absolute Lymphocytes 0.4 10^3/uL (1.2-3.4); Absolute Monocytes 0.2 10^3/uL (0.1-0.6); Absolute Neutrophils 1.8 10^3/uL (1.4-6.5); Hemoglobin 9.2 g/dL (13.0-18.0); Mean Corp Hgb Conc. 32.9 g/dL (33.0-37.0); Mean Corpuscular Hgb 29.7 pg (27.0-31.0); Mean Corpuscular Volume 90.3 fL (80.0-94.0); Mean Platelet Volume 11.7 fL (7.4-10.4); Nucleated Red Blood Cells % 0 % (-); Platelet Count 95 10^3/uL (130-400); Red Cell Dist. Width 14.5 % (11.5-14.5); White Blood Cell Count 2.5 10^3/uL (4.8-10.8)
[2023-10-19 13:01] LABS: ALT (SGPT) 29 U/L (0-50); AST (SGOT) 49 U/L (17-59); Albumin 3.3 g/dl (3.5-5.0); Alkaline Phosphatase 105 U/L (38-126); Blood Urea Nitrogen 22 mg/dl (9-20); Carbon Dioxide 25 mmol/L (22-30); Chloride 103 mmol/L (98-107); Glucose 287 mg/dl (70-99); HDL Cholesterol 26 mg/dl; LDL Cholesterol, Calculated 33 mg/dl; Potassium 4.1 mmol/L (3.5-5.1); Sodium 139 mmol/L (135-145); Total Bilirubin 0.4 mg/dl (0.2-1.3); Total Cholesterol 99 mg/dl (50-199); Total Protein 5.9 g/dl (6.3-8.2); Triglyceride 204 mg/dl (10-149); Very Low Density Lipoprotein 40 mg/dl (0-30); eGFR > 60.00
[2023-10-19 14:02] LABS: Folate 3.8 ng/ml (2.76-20); Vitamin B12 852 pg/ml (239-931)
== END ==
LOC: HWLAB 10:50
PROVIDERS: ATTENDING PHYSICIAN Student in an Organized Health Care Education/Training Program
DX: E53.8 Deficiency of other specified B group vitamins (principal); E11.22 Type 2 diabetes mellitus with diabetic chronic kidney disease; N18.32 Chronic kidney disease, stage 3b; D62 Acute posthemorrhagic anemia; I50.33 Acute on chronic diastolic (congestive) heart failure
CPT/HCPCS: 36415; 80053; 80061; 82607; 82746; 83036; 84443; 85025

== ENCOUNTER → 2023-11-14 13:24 | Outpatient (REF) | payer MEDICARE, BC, SELFPAY ==
[2023-11-14 16:05] LABS: Albumin 3.7 g/dl (3.5-5.0); Blood Urea Nitrogen 20 mg/dl (9-20); Calcium 8.9 mg/dl (8.4-10.2); Carbon Dioxide 26 mmol/L (22-30); Chloride 103 mmol/L (98-107); Glucose 269 mg/dl (70-99); Phosphorus 1.5 mg/dl (2.5-4.5); Potassium 4.2 mmol/L (3.5-5.1); Sodium 140 mmol/L (135-145); eGFR 54.51
[2023-11-14 16:13] LABS: Urine Protein 84 mg/dl (0-12)
== END ==
LOC: HWLAB 13:24
PROVIDERS: ATTENDING PHYSICIAN Internal Medicine; FAMILY PHYSICIAN Student in an Organized Health Care Education/Training Program
DX: N18.30 Chronic kidney disease, stage 3 unspecified (principal)
CPT/HCPCS: 36415; 80069; 82043; 82570; 84156

== ENCOUNTER → 2023-11-28 07:32 | Outpatient (REF) | payer MEDICARE, BC, SELFPAY ==
[2023-11-28 09:43] LABS: % Basophils 0.3 % (0-2); % Immature Granulocytes 0.3 % (0-0.5); % Lymphocytes 18.4 % (20.5-51.1); % Monocytes 12.1 % (1.7-9.3); % Neutrophils 65.9 % (42.2-75.2); Absolute Eosinophils 0.1 10^3/uL (0-0.7); Absolute Lymphocytes 0.6 10^3/uL (1.2-3.4); Absolute Monocytes 0.4 10^3/uL (0.1-0.6); Hematocrit 33.9 % (39.0-52.0); Hemoglobin 11.2 g/dL (13.0-18.0); Mean Corpuscular Hgb 31.4 pg (27.0-31.0); Mean Platelet Volume 11.5 fL (7.4-10.4); Nucleated Red Blood Cells % 0 % (-); Platelet Count 102 10^3/uL (130-400); Red Blood Cell Count 3.57 10^6/uL (4.70-6.10); Red Cell Dist. Width 18.5 % (11.5-14.5); White Blood Cell Count 3.1 10^3/uL (4.8-10.8)
[2023-11-28 09:55] LABS: INR 1.21; PT 15.1 Sec (11.4-14.6)
[2023-11-28 09:56] LABS: APTT 30.3 Sec (23.4-35.0)
[2023-11-28 10:27] LABS: ALT (SGPT) 27 U/L (0-50); AST (SGOT) 50 U/L (17-59); Albumin 3.9 g/dl (3.5-5.0); Alkaline Phosphatase 85 U/L (38-126); Blood Urea Nitrogen 19 mg/dl (9-20); Carbon Dioxide 29 mmol/L (22-30); Chloride 101 mmol/L (98-107); Glucose 173 mg/dl (70-99); Phosphorus 2.5 mg/dl (2.5-4.5); Potassium 3.7 mmol/L (3.5-5.1); Sodium 142 mmol/L (135-145); Total Bilirubin 0.6 mg/dl (0.2-1.3); Total Protein 6.9 g/dl (6.3-8.2); eGFR > 60.00
[2023-11-28 21:29] LABS: AFP Male/Tumor Marker 3.47 ng/ml
== END ==
LOC: HWRAD 07:32
PROVIDERS: ATTENDING PHYSICIAN Physician Assistant; FAMILY PHYSICIAN Student in an Organized Health Care Education/Training Program
DX: K74.60 Unspecified cirrhosis of liver (principal); D64.9 Anemia, unspecified; I10 Essential (primary) hypertension; N18.30 Chronic kidney disease, stage 3 unspecified
CPT/HCPCS: 36415; 76700; 80053; 82105; 84100; 85025; 85610; 85730

== ENCOUNTER → 2023-12-22 06:20 | Day surgery (SDC) | payer MEDICARE, BC, SELFPAY ==
[2023-12-22 07:49] LABS: Glucose - Point of Care 213 mg/dl (70-99)
== END ==
LOC: GI 06:20
PROVIDERS: ATTENDING PHYSICIAN Internal Medicine Gastroenterology
DX: D50.0 Iron deficiency anemia secondary to blood loss (chronic) (principal); K76.6 Portal hypertension; K31.811 Angiodysplasia of stomach and duodenum with bleeding; K31.89 Other diseases of stomach and duodenum
CPT/HCPCS: 43255; 82962

== ENCOUNTER → 2024-03-09 10:12 | Outpatient (REF) | payer MEDICARE, BC, SELFPAY ==
[2024-03-09 11:54] LABS: Albumin 3.8 g/dl (3.5-5.0); Blood Urea Nitrogen 16 mg/dl (9-20); Calcium 8.2 mg/dl (8.4-10.2); Carbon Dioxide 29 mmol/L (22-30); Chloride 101 mmol/L (98-107); Glucose 226 mg/dl (70-99); Phosphorus 1.3 mg/dl (2.5-4.5); Sodium 137 mmol/L (135-145); eGFR > 60.00
[2024-03-09 12:36] LABS: Protein/creatinine Ratio 1.6; Urine Protein 131 mg/dl
== END ==
LOC: HWLAB 10:12
PROVIDERS: ATTENDING PHYSICIAN Internal Medicine; FAMILY PHYSICIAN Student in an Organized Health Care Education/Training Program
DX: N18.30 Chronic kidney disease, stage 3 unspecified (principal)
CPT/HCPCS: 36415; 80069; 82570; 84156

== ENCOUNTER → 2024-03-20 09:43 | Outpatient (REF) | payer MEDICARE, BC, SELFPAY ==
[2024-03-20 11:39] LABS: Urine Albumin 3+ (Neg - Trace); Urine Bilirubin Negative (Negative); Urine Character Clear (Clear); Urine Color Yellow; Urine Glucose 1+ (Negative); Urine Ketone Negative (Negative); Urine Leukocyte 3+ (Negative); Urine Nitrite Negative (Negative); Urine Occult Blood 2+ (Negative); Urine Urobilinogen Negative (Neg - 1+)
[2024-03-20 12:01] LABS: Vitamin D, 25-OH*** < 12.8 ng/mL (30-80)
[2024-03-20 12:39] LABS: Urine Squamous Cell >30 /LPF (Few)
[2024-03-20 12:40] LABS: Urine Bacteria Moderate (Negative)
[2024-03-20 14:38] LABS: Urine Calcium < 1.0 mg/dl
[2024-03-20 14:40] LABS: Urine Protein 137 mg/dl (0-12)
[2024-03-21 10:23] LABS: Intact PTH 115.7 pg/ml (13.6-85.8)
[2024-03-22 19:34] LABS: Vitamin D 1,25 Dihydroxy 12.2 pg/mL (19.9-79.3)
[2024-03-22 23:58] LABS: 24 Hour Urine Total Volume Not Provided mL; Creatinine, Urine per Volume 84 mg/dL; Phosphorus, Urine 35 mg/dL; Phosphorus/Creatinine Ratio 417 mg/g; Urine Collection Length Not Provided hr
== END ==
LOC: REG 09:43
PROVIDERS: ATTENDING PHYSICIAN Internal Medicine; FAMILY PHYSICIAN Student in an Organized Health Care Education/Training Program
DX: N18.30 Chronic kidney disease, stage 3 unspecified (principal); E83.89 Other disorders of mineral metabolism
CPT/HCPCS: 36415; 81003; 81015; 82306; 82340; 82570; 82652; 83735; 83970; 84105; 84156

== ENCOUNTER → 2024-03-29 10:48 | Outpatient (REF) | payer MEDICARE, BC, SELFPAY ==
[2024-03-29 12:46] LABS: Albumin 3.8 g/dl (3.5-5.0); Blood Urea Nitrogen 24 mg/dl (9-20); Calcium 9.2 mg/dl (8.4-10.2); Carbon Dioxide 30 mmol/L (22-30); Chloride 101 mmol/L (98-107); Glucose 272 mg/dl (70-99); Phosphorus 2.6 mg/dl (2.5-4.5); Potassium 4.1 mmol/L (3.5-5.1); Sodium 138 mmol/L (135-145); eGFR 54.51
[2024-04-01 03:15] LABS: 24 Hour Urine Total Volume Random mL; Creatinine, Urine per Volume 54 mg/dL; Phosphorus, Urine 33 mg/dL; Phosphorus/Creatinine Ratio 611 mg/g; Urine Collection Length Random hr
== END ==
LOC: HWLAB 10:48
PROVIDERS: ATTENDING PHYSICIAN Internal Medicine; FAMILY PHYSICIAN Student in an Organized Health Care Education/Training Program
DX: I10 Essential (primary) hypertension (principal); D64.9 Anemia, unspecified; N18.30 Chronic kidney disease, stage 3 unspecified; E11.69 Type 2 diabetes mellitus with other specified complication; R80.9 Proteinuria, unspecified
CPT/HCPCS: 36415; 80069; 82570; 84105

== ENCOUNTER → 2024-07-05 08:54 | Outpatient (REF) | payer MEDICARE, BC, SELFPAY | LOC: RAD 08:54 | PROVIDERS: ATTENDING PHYSICIAN Surgery Vascular Surgery; FAMILY PHYSICIAN Student in an Organized Health Care Education/Training Program | DX: I77.9 Disorder of arteries and arterioles, unspecified (principal); I65.21 Occlusion and stenosis of right carotid artery | CPT/HCPCS: 93880; 93922; 93978 ==

== ENCOUNTER → 2024-10-22 10:09 | Outpatient (REF) | payer MEDICARE, BC, SELFPAY ==
[2024-10-22 11:25] LABS: Hematocrit 29.6 % (39.0-52.0); Hemoglobin 9.9 g/dL (13.0-18.0); Mean Corp Hgb Conc. 33.4 g/dL (33.0-37.0); Mean Corpuscular Volume 101.0 fL (80.0-94.0); Nucleated Red Blood Cells % 0 % (-); Platelet Count 88 10^3/uL (130-400); Red Cell Dist. Width 15.9 % (11.5-14.5)
[2024-10-22 12:05] LABS: Glycohemoglobin (HgbA1c) 6.3 % (4.0-5.6)
[2024-10-22 12:07] LABS: ALT (SGPT) 43 U/L (0-50); AST (SGOT) 67 U/L (17-59); Albumin 3.9 g/dl (3.5-5.0); Alkaline Phosphatase 90 U/L (38-126); Blood Urea Nitrogen 17 mg/dl (9-20); Calcium 9.0 mg/dl (8.4-10.2); Carbon Dioxide 26 mmol/L (22-30); Chloride 106 mmol/L (98-107); Glucose 149 mg/dl (70-99); Potassium 4.0 mmol/L (3.5-5.1); Sodium 140 mmol/L (135-145); Total Protein 7.1 g/dl (6.3-8.2); eGFR 54.17
[2024-10-22 12:27] LABS: TSH 4.46 uIU/ml (0.47-4.68)
== END ==
LOC: REG 10:09
PROVIDERS: ATTENDING PHYSICIAN Physician Assistant; FAMILY PHYSICIAN Student in an Organized Health Care Education/Training Program
DX: E11.65 Type 2 diabetes mellitus with hyperglycemia (principal)
CPT/HCPCS: 36415; 80053; 83036; 84100; 84443; 85025

== ENCOUNTER → 2024-11-01 09:23 | Outpatient (REF) | payer MEDICARE, BC, SELFPAY ==
[2024-11-01 11:18] LABS: Albumin 3.6 g/dl (3.5-5.0); Blood Urea Nitrogen 23 mg/dl (9-20); Calcium 8.9 mg/dl (8.4-10.2); Carbon Dioxide 25 mmol/L (22-30); Chloride 109 mmol/L (98-107); Glucose 169 mg/dl (70-99); Potassium 4.0 mmol/L (3.5-5.1); Sodium 141 mmol/L (135-145); eGFR 45.62
== END ==
LOC: REG 09:23
PROVIDERS: ATTENDING PHYSICIAN Internal Medicine; FAMILY PHYSICIAN Student in an Organized Health Care Education/Training Program
DX: N18.30 Chronic kidney disease, stage 3 unspecified (principal); D64.9 Anemia, unspecified; I10 Essential (primary) hypertension
CPT/HCPCS: 36415; 80069

== ENCOUNTER → 2024-12-05 11:13 | Outpatient (REF) | payer MEDICARE, BC, SELFPAY ==
[2024-12-05 13:05] LABS: Albumin 3.6 g/dl (3.5-5.0); Blood Urea Nitrogen 18 mg/dl (9-20); Calcium 8.9 mg/dl (8.4-10.2); Carbon Dioxide 24 mmol/L (22-30); Chloride 106 mmol/L (98-107); Glucose 198 mg/dl (70-99); Potassium 4.0 mmol/L (3.5-5.1); Sodium 137 mmol/L (135-145); eGFR 49.56
[2024-12-05 13:19] LABS: Vitamin D, 25-OH*** 35.8 ng/mL (30-80)
== END ==
LOC: REG 11:13
PROVIDERS: ATTENDING PHYSICIAN Internal Medicine; FAMILY PHYSICIAN Student in an Organized Health Care Education/Training Program
DX: N18.30 Chronic kidney disease, stage 3 unspecified (principal); N25.81 Secondary hyperparathyroidism of renal origin; E55.9 Vitamin D deficiency, unspecified
CPT/HCPCS: 36415; 80069; 82306; 82570; 82652; 83970; 84156

== ENCOUNTER → 2024-12-10 13:37 | Outpatient (REF) | payer MEDICARE, BC, SELFPAY | LOC: HWRCS 13:37 | PROVIDERS: ATTENDING PHYSICIAN Internal Medicine; FAMILY PHYSICIAN Student in an Organized Health Care Education/Training Program | DX: I50.32 Chronic diastolic (congestive) heart failure (principal); I45.2 Bifascicular block; I49.1 Atrial premature depolarization; R06.09 Other forms of dyspnea | CPT/HCPCS: 93306 ==

== ENCOUNTER → 2024-12-25 08:55 | Outpatient (REF) | payer MEDICARE, BC, SELFPAY ==
[2024-12-25 10:45] LABS: Albumin 3.6 g/dl (3.5-5.0); Blood Urea Nitrogen 18 mg/dl (9-20); Calcium 8.8 mg/dl (8.4-10.2); Carbon Dioxide 25 mmol/L (22-30); Chloride 105 mmol/L (98-107); Glucose 141 mg/dl (70-99); Potassium 4.0 mmol/L (3.5-5.1); Sodium 136 mmol/L (135-145); eGFR 49.56
[2024-12-26 21:12] LABS: 24 Hour Urine Total Volume Random mL; Creatinine, Urine per Volume 75 mg/dL; Phosphorus, Urine 31 mg/dL; Urine Collection Length Random hr
== END ==
LOC: REG 08:55
PROVIDERS: ATTENDING PHYSICIAN Internal Medicine
DX: N18.30 Chronic kidney disease, stage 3 unspecified (principal); E83.39 Other disorders of phosphorus metabolism
CPT/HCPCS: 36415; 80069; 82570; 84105; 84156

== ENCOUNTER → 2025-01-24 09:31 | Outpatient (REF) | payer MEDICARE, BC, SELFPAY ==
[2025-01-24 11:38] LABS: Albumin 3.5 g/dl (3.5-5.0); Calcium 8.8 mg/dl (8.4-10.2); Carbon Dioxide 28 mmol/L (22-30); Chloride 105 mmol/L (98-107); Glucose 144 mg/dl (70-99); Potassium 4.0 mmol/L (3.5-5.1); Sodium 139 mmol/L (135-145); eGFR 42.22
[2025-01-24 11:58] LABS: Blood Urea Nitrogen 20 mg/dl (9-20)
== END ==
LOC: RAD 09:31
PROVIDERS: ATTENDING PHYSICIAN Internal Medicine Gastroenterology; FAMILY PHYSICIAN Student in an Organized Health Care Education/Training Program; OTHER PHYSICIAN Internal Medicine Medical Oncology; REFERRING PHYSICIAN Internal Medicine
DX: K74.60 Unspecified cirrhosis of liver (principal); I10 Essential (primary) hypertension; D64.9 Anemia, unspecified; R80.9 Proteinuria, unspecified; N25.81 Secondary hyperparathyroidism of renal origin
CPT/HCPCS: 36415; 76700; 80069; 82784; 83521; 84155; 84165; 86334

== ENCOUNTER → 2025-02-06 07:33 | Outpatient (REF) | payer MEDICARE, BC, SELFPAY ==
[2025-02-06 08:33] VITALS: BP 121/47; BP_SYST 67; BMI 32.6
[2025-02-06 08:33] LABS: Hematocrit 24.3 % (39.0-52.0); Hemoglobin 7.7 g/dL (13.0-18.0); Mean Corp Hgb Conc. 31.7 g/dL (33.0-37.0); Mean Corpuscular Volume 99.2 fL (80.0-94.0); Nucleated Red Blood Cells % 0 % (-); Platelet Count 185 10^3/uL (130-400); Red Cell Dist. Width 15.3 % (11.5-14.5)
[2025-02-06 08:38] LABS: INR 1.47; PT 17.6 Sec (11.4-14.6)
[2025-02-06 08:39] LABS: APTT 31.3 Sec (23.4-35.0)
[2025-02-06 09:25] VITALS: BP 101/46
[2025-02-06 09:37] LABS: ALT (SGPT) 25 U/L (0-50); AST (SGOT) 49 U/L (17-59); Albumin 3.4 g/dl (3.5-5.0); Alkaline Phosphatase 77 U/L (38-126); Blood Urea Nitrogen 26 mg/dl (9-20); Calcium 8.7 mg/dl (8.4-10.2); Carbon Dioxide 22 mmol/L (22-30); Chloride 108 mmol/L (98-107); Estimated Creatinine Clearance 41 ml/min; Glucose 148 mg/dl (70-99); Potassium 4.5 mmol/L (3.5-5.1); Sodium 137 mmol/L (135-145); Total Protein 6.6 g/dl (6.3-8.2); eGFR 39.26
[2025-02-06 10:47] LABS: Body Fluid Second Tech SS
[2025-02-08 13:25] LABS: AFP Male/Tumor Marker 4.10 ng/ml
[2025-02-08 13:26] LABS: 24 Hour Urine Total Volume Random mL; Urine Collection Length Random hr
== END ==
LOC: RADI 07:33
PROVIDERS: ATTENDING PHYSICIAN Internal Medicine Gastroenterology; FAMILY PHYSICIAN Student in an Organized Health Care Education/Training Program; REFERRING PHYSICIAN Internal Medicine
DX: R18.8 Other ascites (principal); R79.89 Other specified abnormal findings of blood chemistry
CPT/HCPCS: 49083; 36415; 80053; 82042; 82105; 82570; 83520; 83615; 84100; 84156; 84157; 85025; 85610; 85730; 86335; 87015; 87070; 87205; 88112; 88305; 89051

== ENCOUNTER 2025-02-06 11:04 | Outpatient (RCR) | payer MEDICARE, BC, SELFPAY ==
[2025-02-06 11:17] VITALS: BP 122/51
[2025-02-06] MEDS: FLEXBUMIN 50 IV (11:28)
[2025-02-06 12:44] VITALS: BP 120/48
== END 2025-02-06 23:59 | disposition home or self-care (01) ==
LOC: OID 11:04
PROVIDERS: ATTENDING PHYSICIAN Internal Medicine Gastroenterology
DX: K74.60 Unspecified cirrhosis of liver (principal)
CPT/HCPCS: 36415; 49083; 80053; 82042; 82105; 82570; 83520; 83615; 84100; 84156; 84157; 85025; 85610; 85730; 86335; 87015; 87070; 87205; 89051; 96365; P9047